=== PATIENT | male | born 1950 | race Caucasian/White ===

== ENCOUNTER → 2017-07-02 10:30 | Outpatient (CLI) | payer MEDICARE, SELFPAY ==
[2017-07-02 12:34] LABS: Cholesterol 172 mg/dL (200); High Density Lipoprotein 30 mg/dL; PSA,Total - Annual Screen 9.34 ng/mL (0.00-4.00); Triglycerides 135 mg/dL; Very Low Density Lipoprotein 27 mg/dL (5-40)
[2017-07-02 12:43] LABS: Hemoglobin A1c 7.8 % (4.2-6.3)
== END ==
PROVIDERS: Family Provider Family Medicine; PCP Family Medicine; Visit Provider Family Medicine
DX: E11.3299 Type 2 diabetes mellitus with mild nonproliferative diabetic retinopathy without macular edema, unspecified eye (principal); E78.5 Hyperlipidemia, unspecified; R97.20 Elevated prostate specific antigen [PSA]
CPT/HCPCS: 36415; 80061; 83036; 84153; G0103

== ENCOUNTER → 2017-08-14 08:56 | Outpatient (CLI) | payer MEDICARE, SELFPAY ==
[2017-08-14 12:23] LABS: PSA,Total- Diagnostic 5.31 ng/mL (0.0-4.0)
== END ==
PROVIDERS: Family Provider Family Medicine; PCP Family Medicine; Visit Provider Urology
DX: R97.20 Elevated prostate specific antigen [PSA] (principal)
CPT/HCPCS: 36415; 84153

== ENCOUNTER → 2018-01-10 13:43 | Outpatient (CLI) | payer MEDICARE, SELFPAY | PROVIDERS: Family Provider Family Medicine; PCP Family Medicine; Visit Provider Orthopaedic Surgery | DX: M25.561 Pain in right knee (principal) | CPT/HCPCS: 73564 ==

== ENCOUNTER → 2018-03-21 08:15 | Outpatient (CLI) | payer MEDICARE, SELFPAY ==
[2018-03-21 12:43] LABS: Absolute Lymphocyte Count 1.55 X10^3/ul (0.83-4.51); Absolute Neutrophil Count 2.9 X10^3/uL (2.0-7.7); Basophil# 0.04 X10^3/uL; Basophil% 0.8 % (0-1); Eosinophil# 0.05 X10^3/uL; Hematocrit 47.8 % (40-54); Hemoglobin 15.8 g/dl (13.0-16.5); Lymphocyte # 1.55 X10^3/ul (4.0); Lymphocyte % 30.2 % (19-41); Mean Corp Hgb Conc 33.1 g/gl (32-36); Mean Corpuscular Hgb 30.5 pg (27.0-32.0); Mean Corpuscular Volume 92.3 fL (80-94); Mean Platelet Vol. 10.3 fl (6.2-12.0); Monocyte# 0.52 X10^3/uL; Monocyte% 10.1 % (0-10); Neutrophil # 2.92 X10^3/uL (2.7-7.7); Neutrophil % 56.7 % (47-70); Platelet Count 173 K/mm3 (150-450); RBC Distribution Width CV 13.6 % (11.6-14.6); RBC Distribution Width SD 44.8 fl (35.1-43.9); Red Blood Count 5.18 M/mm3 (4.6-6.2); White Blood Count 5.1 K/mm3 (4.4-11.0)
[2018-03-21 12:44] LABS: POSITIVE COUNT NO; POSITIVE DIFFERENTIAL NO; POSITIVE MORPHOLOGY NO
[2018-03-21 13:16] LABS: ALB/GLOB Ratio 0.9 RATIO (0.9-2.4); AST(SGOT) 26 U/L (15-37); Alanine Aminotransfer ALT/SGPT 40 U/L (16-61); Albumin, Serum 3.7 g/dL (3.2-5.0); Alkaline Phosphatase 198 U/L (45-117); Anion Gap 6 (5-15); BUN 18 mg/dL (7-18); BUN/Creat Ratio 14.1 RATIO (10-20); Calcium,Total 9.4 mg/dL (8.5-10.1); Chloride 108 mmol/L (98-107); Cholesterol 161 mg/dL (200); Creatinine, Serum 1.28 mg/dL (0.70-1.30); EST Glomerular Filtration Rate 60 mL/min (>60); Est Glom Filt Rate - Afr Amer 72 mL/min (>60); Glucose 114 mg/dL (74-106); High Density Lipoprotein 28 mg/dL; Potassium 4.1 mmol/L (3.5-5.1); Protein, Total 7.7 g/dL (6.4-8.2); Sodium Level 140 mmol/L (136-145); Triglycerides 152 mg/dL; Very Low Density Lipoprotein 30 mg/dL (5-40)
[2018-03-21 13:24] LABS: Hemoglobin A1c 6.6 % (4.2-6.3)
[2018-03-22 08:29] LABS: Microalbumin,Random Urine < 5.0 mg/L (NO RANGE EST.)
== END ==
PROVIDERS: Family Provider Family Medicine; PCP Family Medicine; Visit Provider Family Medicine
DX: E11.3299 Type 2 diabetes mellitus with mild nonproliferative diabetic retinopathy without macular edema, unspecified eye (principal); E78.5 Hyperlipidemia, unspecified; E11.9 Type 2 diabetes mellitus without complications
CPT/HCPCS: 36415; 80053; 80061; 82043; 82570; 83036; 85025

== ENCOUNTER → 2018-12-13 08:05 | Outpatient (CLI) | payer MEDICARE, SELFPAY ==
[2018-12-13 12:40] LABS: Hemoglobin A1c 7.2 % (4.2-6.3)
[2018-12-13 12:41] LABS: ALB/GLOB Ratio 1.1 RATIO (0.9-2.4); AST(SGOT) 22 U/L (15-37); Alanine Aminotransfer ALT/SGPT 31 U/L (16-61); Albumin, Serum 3.7 g/dL (3.2-5.0); Alkaline Phosphatase 227 U/L (45-117); Anion Gap 4 (5-15); BUN 24 mg/dL (7-18); BUN/Creat Ratio 19.4 RATIO (10-20); Calcium,Total 9.2 mg/dL (8.5-10.1); Chloride 110 mmol/L (98-107); Cholesterol 156 mg/dL (200); Creatinine, Serum 1.24 mg/dL (0.70-1.30); EST Glomerular Filtration Rate 62 mL/min (>60); Est Glom Filt Rate - Afr Amer 75 mL/min (>60); Globulin 3.3 g/dL (2.2-4.2); Glucose 106 mg/dL (74-106); High Density Lipoprotein 31 mg/dL; Potassium 3.9 mmol/L (3.5-5.1); Sodium Level 139 mmol/L (136-145); Triglycerides 146 mg/dL; Very Low Density Lipoprotein 29 mg/dL (5-40)
== END ==
PROVIDERS: Family Provider Family Medicine; PCP Family Medicine; Visit Provider Family Medicine
DX: E11.3299 Type 2 diabetes mellitus with mild nonproliferative diabetic retinopathy without macular edema, unspecified eye (principal); E11.9 Type 2 diabetes mellitus without complications
CPT/HCPCS: 36415; 80053; 80061; 83036

== ENCOUNTER → 2018-12-19 08:03 | Outpatient (CLI) | payer MEDICARE, SELFPAY ==
[2018-12-19 13:20] LABS: Microalbumin,Random Urine < 5.0 mg/L (NO RANGE EST.)
== END ==
PROVIDERS: Family Provider Family Medicine; PCP Family Medicine; Visit Provider Family Medicine
DX: E11.9 Type 2 diabetes mellitus without complications (principal)
CPT/HCPCS: 82043; 82570

== ENCOUNTER → 2019-01-29 12:57 | Outpatient (CLI) | payer MEDICARE, SELFPAY ==
[2019-01-29 12:38] VITALS: BMI 31.1
--- NOTE | 2019-01-29 13:00 | RAD_ITS ---
HISTORY:PPainRAD-EXT/JT PPainRAD-EXT/JT COMPARISON: None FINDINGS: # of images incl. paperwork: 4 XR Knee Complete 4 Views or More: Right BONE AND JOINTS: No acute fracture or subluxation. Enthesophytes at the patella. There is also spurring at the patella as well as at the tibial spines SOFT TISSUES: Unremarkable. No radiopaque foreign body. RAD/Knee 4 or More Views IMPRESSION: No acute pathology Patellofemoral joint space narrowing with osteophytes and enthesophytes at the superior and inferior patella at 1845 Reported and signed by: Saskia Singh DO Electronically Signed: Saskia Singh DO at 18:44 EDT Tel , Service support ,
== END ==
PROVIDERS: Family Provider Family Medicine; PCP Family Medicine; Referring Provider Orthopaedic Surgery; Visit Provider Orthopaedic Surgery
DX: M25.561 Pain in right knee (principal)
CPT/HCPCS: 73564

== ENCOUNTER → 2019-05-29 07:03 | Outpatient (CLI) | payer MEDICARE, SELFPAY ==
[2019-05-20 14:22] VITALS: BMI 31.1
--- NOTE | 2019-05-29 07:04 | MRI_ITS ---
STUDY: MRI RIGHT KNEE REASON FOR EXAM: Medial right knee pain for 15 years. TECHNIQUE: Standardized fat and water weighted pulse sequences were obtained in all 3 orthogonal planes. COMPARISON: MRI images 12/30/2014 and radiographs 01/29/2019. FINDINGS: There is interval development of a complex tear of the posterior horn and body of the medial meniscus (proton density sagittal images 29-36; proton density coronal images 13-17). There is peripheral subluxation of the medial meniscus. There is arthrosis of the medial femorotibial compartment with partial thickness chondral loss of the medial femoral condyle (T2 sagittal images 18-20). Normal medial femoral condyle and tibial plateau. Normal medial collateral ligamentous complex (MCL). Normal distal semimembranosus, gracilis and semitendinosus tendons. There is a complex tear of the body/anterior horn of the lateral meniscus (proton density sagittal images 9-15) as on the prior study. There is arthrosis of the lateral femorotibial compartment with a surface osteophyte of the posterior lateral femoral condyle (proton density sagittal image 13) with thinning of the overlying cartilage (T2 sagittal image 8). Normal lateral femoral condyle and tibial plateau. Normal proximal tibiofibular articulation. Normal lateral collateral (fibular) ligament. Normal popliteus tendon. Normal biceps femoris tendon. Normal anterior cruciate ligament (ACL). Normal posterior cruciate ligament (PCL). Normal congruent patellofemoral articulation. There is arthrosis of the patellofemoral compartment with partial thickness chondral loss of the femoral trochlea (T2 axial image 11) and a small chondral fissure of the median ridge of the patella (T2 axial image 9). Normal medial and lateral patellar retinaculum. Normal visualized quadriceps tendon. There is patellar enthesopathy. Normal patellar tendon. Normal Hoffa''s fat pad. There is a very small joint effusion. There is a thin medial patellar plica. The soft tissues are unremarkable. The otherwise visualized osseous structures are unremarkable. MRI/Lower Ext Joint Only (Routine) IMPRESSION: Medial meniscal tear. Chronic lateral meniscal tear. Tricompartmental arthrosis. Very small joint effusion. Electronically Signed: Jaxson Logan MD at 8:50 EST Tel , Service support ,
== END ==
PROVIDERS: Family Provider Family Medicine; PCP Family Medicine; Referring Provider Orthopaedic Surgery; Visit Provider Orthopaedic Surgery
DX: M25.561 Pain in right knee (principal)
CPT/HCPCS: 73721

== ENCOUNTER → 2019-06-17 08:34 | Outpatient (CLI) | payer MEDICARE, SELFPAY ==
[2019-06-05 14:19] VITALS: BMI 31.1
[2019-06-17 12:50] LABS: Absolute Lymphocyte Count 1.44 X10^3/uL (0.83-4.51); Basophil# 0.05 X10^3/uL; Basophil% 0.8 % (0-1); Eosinophil# 0.05 X10^3/uL; Eosinophils% 0.8 % (0-5); Hematocrit 48.1 % (40-54); Hemoglobin 15.9 g/dL (13.0-16.5); Lymphocyte # 1.44 X10^3/ul (4.0); Lymphocyte % 22.9 % (19-41); Mean Corp Hgb Conc 33.1 g/dL (32-36); Mean Corpuscular Hgb 29.7 pg (27.0-32.0); Mean Corpuscular Volume 89.9 fL (80-94); Mean Platelet Vol. 10.3 fl (6.2-12.0); Monocyte# 0.67 X10^3/uL; Monocyte% 10.6 % (0-10); NRBC Flagged by Analyzer 0 % (0-5); Neutrophil # 3.98 X10^3/uL (2.7-7.7); Neutrophil % 63.2 % (47-70); Platelet Count 176 K/mm3 (150-450); RBC Distribution Width CV 13.1 % (11.6-14.6); RBC Distribution Width SD 42.3 fl (35.1-43.9); Red Blood Count 5.35 M/mm3 (4.6-6.2); White Blood Count 6.3 K/mm3 (4.4-11.0)
[2019-06-17 12:55] LABS: Hemoglobin A1c 7.5 % (4.2-6.3)
[2019-06-17 13:00] LABS: Microalbumin:Creatinine Ratio 10.4 mg/g CRE (<30 mg/g CRE)
[2019-06-17 13:10] LABS: ALB/GLOB Ratio 1.1 RATIO (0.9-2.4); AST(SGOT) 19 U/L (15-37); Alanine Aminotransfer ALT/SGPT 32 U/L (16-61); Albumin, Serum 3.8 g/dL (3.2-5.0); Alkaline Phosphatase 193 U/L (45-117); Anion Gap 10 (5-15); BUN 29 mg/dL (7-18); BUN/Creat Ratio 21.5 RATIO (10-20); Calcium,Total 9.7 mg/dL (8.5-10.1); Chloride 114 mmol/L (98-107); Cholesterol 149 mg/dL (200); Creatinine, Serum 1.35 mg/dL (0.70-1.30); EST Glomerular Filtration Rate 56 mL/min (>60); Est Glom Filt Rate - Afr Amer 68 mL/min (>60); Globulin 3.4 g/dL (2.2-4.2); Glucose 161 mg/dL (74-106); High Density Lipoprotein 37 mg/dL; Potassium 4.3 mmol/L (3.5-5.1); Protein, Total 7.2 g/dL (6.4-8.2); Sodium Level 140 mmol/L (136-145); Triglycerides 95 mg/dL; Very Low Density Lipoprotein 19 mg/dL (5-40)
== END ==
PROVIDERS: Family Provider Family Medicine; PCP Family Medicine; Visit Provider Family Medicine
DX: E11.9 Type 2 diabetes mellitus without complications (principal); E78.5 Hyperlipidemia, unspecified; M88.9 Osteitis deformans of unspecified bone; Z51.81 Encounter for therapeutic drug level monitoring
CPT/HCPCS: 36415; 80053; 80061; 82043; 82570; 83036; 85025

== ENCOUNTER → 2019-12-16 08:56 | Outpatient (CLI) | payer MEDICARE, SELFPAY ==
[2019-06-05 14:19] VITALS: BMI 31.1
[2019-12-16 12:24] LABS: Absolute Lymphocyte Count 1.74 X10^3/uL (0.83-4.51); Absolute Neutrophil Count 3.2 X10^3/uL (2.0-7.7); Basophil# 0.05 X10^3/uL; Basophil% 0.9 % (0-1); Eosinophil# 0.11 X10^3/uL; Eosinophils% 1.9 % (0-5); Hematocrit 47.3 % (40-54); Hemoglobin 15.4 g/dL (13.0-16.5); Lymphocyte # 1.74 X10^3/ul (4.0); Lymphocyte % 30.7 % (19-41); Mean Corp Hgb Conc 32.6 g/dL (32-36); Mean Corpuscular Hgb 29.7 pg (27.0-32.0); Mean Corpuscular Volume 91.1 fL (80-94); Mean Platelet Vol. 10.4 fl (6.2-12.0); Monocyte# 0.49 X10^3/uL; Monocyte% 8.6 % (0-10); NRBC Flagged by Analyzer 0 % (0-5); Neutrophil # 3.18 X10^3/uL (2.7-7.7); Neutrophil % 56.1 % (47-70); Platelet Count 156 K/mm3 (150-450); RBC Distribution Width CV 12.5 % (11.6-14.6); RBC Distribution Width SD 41.3 fl (35.1-43.9); Red Blood Count 5.19 M/mm3 (4.6-6.2); White Blood Count 5.7 K/mm3 (4.4-11.0)
[2019-12-16 12:47] LABS: Hemoglobin A1c 7.6 % (3.8-5.6)
[2019-12-16 12:55] LABS: ALB/GLOB Ratio 1.1 RATIO (0.9-2.4); AST(SGOT) 22 U/L (15-37); Alanine Aminotransfer ALT/SGPT 31 U/L (16-61); Albumin, Serum 3.7 g/dL (3.2-5.0); Alkaline Phosphatase 204 U/L (45-117); Anion Gap 4 (5-15); BUN 20 mg/dL (7-18); BUN/Creat Ratio 15.9 RATIO (10-20); Calcium,Total 9.2 mg/dL (8.5-10.1); Chloride 110 mmol/L (98-107); Cholesterol 151 mg/dL (200); Creatinine, Serum 1.26 mg/dL (0.70-1.30); EST Glomerular Filtration Rate 60 mL/min (>60); Est Glom Filt Rate - Afr Amer 73 mL/min (>60); Globulin 3.4 g/dL (2.2-4.2); Glucose 121 mg/dL (74-106); High Density Lipoprotein 28 mg/dL; Protein, Total 7.1 g/dL (6.4-8.2); Sodium Level 142 mmol/L (136-145); Triglycerides 255 mg/dL; Very Low Density Lipoprotein 51 mg/dL (5-40)
[2019-12-16 15:39] LABS: Microalbumin,Random Urine < 5.0 mg/L (NO RANGE EST.)
== END ==
PROVIDERS: PCP Family Medicine; Visit Provider Family Medicine
DX: E11.3299 Type 2 diabetes mellitus with mild nonproliferative diabetic retinopathy without macular edema, unspecified eye (principal); E78.5 Hyperlipidemia, unspecified; M88.9 Osteitis deformans of unspecified bone; Z51.81 Encounter for therapeutic drug level monitoring
CPT/HCPCS: 36415; 80053; 80061; 82043; 82570; 83036; 85025

== ENCOUNTER → 2020-06-16 09:49 | Outpatient (CLI) | payer MEDICARE, SELFPAY ==
[2019-06-05 14:19] VITALS: BMI 31.1
[2020-06-16 12:12] LABS: Absolute Lymphocyte Count 1.46 X10^3/uL (0.83-4.51); Absolute Neutrophil Count 3.4 X10^3/uL (2.0-7.7); Basophil# 0.05 X10^3/uL; Basophil% 0.9 % (0-1); Eosinophil# 0.07 X10^3/uL; Eosinophils% 1.3 % (0-5); Hemoglobin 15.1 g/dL (13.0-16.5); Lymphocyte # 1.46 X10^3/ul (4.0); Lymphocyte % 26.8 % (19-41); Mean Corp Hgb Conc 32.1 g/dL (32-36); Mean Corpuscular Hgb 29.4 pg (27.0-32.0); Mean Corpuscular Volume 91.6 fL (80-94); Mean Platelet Vol. 10.3 fl (6.2-12.0); Monocyte# 0.42 X10^3/uL; Monocyte% 7.7 % (0-10); NRBC Flagged by Analyzer 0 % (0-5); Neutrophil # 3.41 X10^3/uL (2.7-7.7); Neutrophil % 62.7 % (47-70); Platelet Count 175 K/mm3 (150-450); RBC Distribution Width CV 12.7 % (11.6-14.6); RBC Distribution Width SD 42.9 fl (35.1-43.9); Red Blood Count 5.13 M/mm3 (4.6-6.2); White Blood Count 5.4 K/mm3 (4.4-11.0)
[2020-06-16 12:38] LABS: Hemoglobin A1c 8.1 % (3.8-5.6)
[2020-06-16 12:41] LABS: ALB/GLOB Ratio 1.1 RATIO (0.9-2.4); AST(SGOT) 32 U/L (15-37); Alanine Aminotransfer ALT/SGPT 47 U/L (16-61); Albumin, Serum 3.7 g/dL (3.2-5.0); Alkaline Phosphatase 215 U/L (45-117); Anion Gap 3 (5-15); BUN 19 mg/dL (7-18); BUN/Creat Ratio 14.6 RATIO (10-20); Calcium,Total 9.6 mg/dL (8.5-10.1); Chloride 109 mmol/L (98-107); Cholesterol 165 mg/dL (200); EST Glomerular Filtration Rate 58 mL/min (>60); Est Glom Filt Rate - Afr Amer 70 mL/min (>60); Globulin 3.5 g/dL (2.2-4.2); Glucose 137 mg/dL (74-106); High Density Lipoprotein 30 mg/dL; Potassium 4.3 mmol/L (3.5-5.1); Protein, Total 7.2 g/dL (6.4-8.2); Sodium Level 139 mmol/L (136-145); Thyroid Stim Hormone (TSH) 3.26 uIU/mL (0.358-3.74); Triglycerides 267 mg/dL; Very Low Density Lipoprotein 53 mg/dL (5-40)
== END ==
PROVIDERS: PCP Family Medicine; Visit Provider Family Medicine
DX: E11.3299 Type 2 diabetes mellitus with mild nonproliferative diabetic retinopathy without macular edema, unspecified eye (principal); R06.00 Dyspnea, unspecified; E78.5 Hyperlipidemia, unspecified
CPT/HCPCS: 36415; 80053; 80061; 83036; 84443; 85025

== ENCOUNTER → 2020-12-16 09:24 | Outpatient (CLI) | payer MEDICARE, SELFPAY ==
[2019-06-05 14:19] VITALS: BMI 31.1
[2020-12-16 10:15] LABS: Hemoglobin A1c 7.8 % (3.8-5.6)
[2020-12-16 10:17] LABS: ALB/GLOB Ratio 1.1 RATIO (0.9-2.4); AST(SGOT) 26 U/L (15-37); Alanine Aminotransfer ALT/SGPT 41 U/L (16-61); Albumin, Serum 3.9 g/dL (3.2-5.0); Alkaline Phosphatase 225 U/L (45-117); Anion Gap 8 (5-15); BUN 22 mg/dL (7-18); BUN/Creat Ratio 17.3 RATIO (10-20); Calcium,Total 10.2 mg/dL (8.5-10.1); Chloride 109 mmol/L (98-107); Cholesterol 165 mg/dL (200); Creatinine, Serum 1.27 mg/dL (0.70-1.30); EST Glomerular Filtration Rate 60 mL/min (>60); Est Glom Filt Rate - Afr Amer 72 mL/min (>60); Globulin 3.6 g/dL (2.2-4.2); Glucose 161 mg/dL (74-106); High Density Lipoprotein 30 mg/dL; Potassium 4.3 mmol/L (3.5-5.1); Protein, Total 7.5 g/dL (6.4-8.2); Sodium Level 141 mmol/L (136-145); Triglycerides 169 mg/dL; Very Low Density Lipoprotein 34 mg/dL (5-40)
[2020-12-16 10:25] LABS: Microalbumin,Random Urine < 5.0 mg/L (NO RANGE EST.)
== END ==
PROVIDERS: PCP Family Medicine; Referring Provider Family Medicine; Visit Provider Family Medicine
DX: E11.9 Type 2 diabetes mellitus without complications (principal); E78.5 Hyperlipidemia, unspecified
CPT/HCPCS: 36415; 80053; 80061; 82043; 82570; 83036

== ENCOUNTER 2021-06-12 10:17 | Outpatient (CLI) | payer MEDICARE, SELFPAY ==
--- NOTE | 2021-06-12 10:18 | RAD_ITS ---
STUDY: X-RAY CHEST REASON FOR EXAM: Male, 70 years old. Cough TECHNIQUE: PA and lateral views of the chest. COMPARISON: July 28, 2014 rib series FINDINGS: The lungs are clear and expanded. There is no demonstrated pleural abnormality. Normal size heart. Normal mediastinum and katty. Normal visualized pulmonary arteries. Normal visualized aortic arch and descending thoracic aorta. There are diffuse degenerative changes of the visualized thoracic spine. Normal visualized ribs, clavicles, and shoulders. There is no demonstrated abnormality of the visualized soft tissue structures of the upper abdomen. RAD/Chest PA and Lateral IMPRESSION: Degenerative changes, as described above. No demonstrated acute cardiopulmonary process. Electronically Signed: Saskia Tompkins MD at 11:30 [facility] Reading Location ID and State: [facility] / [place] Tel , Service support ,
== END 2021-06-12 23:59 | disposition short-term general hospital (02) ==
PROVIDERS: PCP Family Medicine; Visit Provider Physician Assistant
DX: R05.9 Cough, unspecified (principal)
CPT/HCPCS: 71046

== ENCOUNTER → 2021-12-13 | Outpatient (CLI) | payer MEDICARE, SELFPAY ==
[2021-12-13 09:51] LABS: Absolute Neutrophil Count 2.7 X10^3/uL (2.0-7.7); Basophil# 0.05 X10^3/uL; Eosinophil# 0.08 X10^3/uL; Eosinophils% 1.6 % (0-5); Hematocrit 44.9 % (40-54); Hemoglobin 14.9 g/dL (13.0-16.5); Mean Corp Hgb Conc 33.2 g/dL (32-36); Mean Corpuscular Hgb 30.3 pg (27.0-32.0); Mean Corpuscular Volume 91.3 fL (80-94); Mean Platelet Vol. 10.2 fl (6.2-12.0); Monocyte# 0.52 X10^3/uL; Monocyte% 10.4 % (0-10); NRBC Flagged by Analyzer 0 % (0-5); Neutrophil # 2.72 X10^3/uL (2.7-7.7); Neutrophil % 54.4 % (47-70); Platelet Count 165 K/mm3 (150-450); RBC Distribution Width SD 43.9 fl (35.1-43.9); Red Blood Count 4.92 M/mm3 (4.6-6.2)
[2021-12-13 10:10] LABS: Hemoglobin A1c 8.7 % (3.8-5.6)
[2021-12-13 10:26] LABS: Vitamin D,25 Hydroxy 67.2 ng/mL
[2021-12-13 10:31] LABS: ALB/GLOB Ratio 1.1 RATIO (0.9-2.4); AST(SGOT) 20 U/L (15-37); Alanine Aminotransfer ALT/SGPT 28 U/L (16-61); Albumin, Serum 3.7 g/dL (3.2-5.0); Alkaline Phosphatase 234 U/L (45-117); Anion Gap 7 (5-15); BUN 22 mg/dL (7-18); BUN/Creat Ratio 19.3 RATIO (10-20); Calcium,Total 9.7 mg/dL (8.5-10.1); Chloride 110 mmol/L (98-107); Cholesterol 171 mg/dL (200); Creatinine, Serum 1.14 mg/dL (0.70-1.30); EST Glomerular Filtration Rate 67 mL/min (>60); Est Glom Filt Rate - Afr Amer 81 mL/min (>60); Globulin 3.5 g/dL (2.2-4.2); Glucose 117 mg/dL (74-106); High Density Lipoprotein 35 mg/dL; PSA,Total - Annual Screen 6.82 ng/mL (0.00-4.00); Potassium 3.9 mmol/L (3.5-5.1); Protein, Total 7.2 g/dL (6.4-8.2); Sodium Level 140 mmol/L (136-145); Triglycerides 143 mg/dL; Very Low Density Lipoprotein 29 mg/dL (5-40)
== END | disposition home or self-care (01) ==
PROVIDERS: PCP Family Medicine; Referring Provider Family Medicine; Visit Provider Family Medicine
DX: E11.9 Type 2 diabetes mellitus without complications (principal); E78.5 Hyperlipidemia, unspecified; M88.9 Osteitis deformans of unspecified bone; Z12.5 Encounter for screening for malignant neoplasm of prostate
CPT/HCPCS: 36415; 80053; 80061; 82043; 82306; 82570; 83036; 84153; 85025; G0103

== ENCOUNTER 2022-06-28 19:02 | Inpatient (IN) | payer MEDICARE, SELFPAY ==
[2022-06-28 19:03] VITALS: BP 108/48; PULSE 88; RESP 18; TEMP 35.8; O2SAT 100; BMI 31.1
--- NOTE | 2022-06-28 19:45 | RAD_ITS ---
INDICATION: cough, fever EXAMINATION/TECHNIQUE: X-RAY - XR Chest 1 View COMPARISON: June 12, 2021. FINDINGS: LINES/DEVICES: None. LUNGS: No consolidation, edema or effusion. No pneumothorax. MEDIASTINUM AND CARDIOVASCULAR STRUCTURES: Cardiac silhouette not enlarged. Central airways and mediastinal contour are unremarkable. BONES AND SOFT TISSUES: Degenerative vertebral changes. RAD/Chest 1 View (Portable) IMPRESSION: No radiographic evidence of acute cardiopulmonary disease. Electronically Signed: Jesse Hoffmann DO at 21:14 EST ,
[2022-06-28 19:46] LABS: Absolute Lymphocyte Count 0.56 X10^3/uL (0.83-4.51); Absolute Neutrophil Count 6.3 X10^3/uL (2.0-7.7); Basophil# 0.07 X10^3/uL; Basophil% 0.7 % (0-1); Eosinophil# 1.45 X10^3/uL; Eosinophils% 15.3 % (0-5); Hematocrit 51.1 % (40-54); Hemoglobin 16.9 g/dL (13.0-16.5); Lymphocyte # 0.56 X10^3/ul (0.83-4.51); Lymphocyte % 5.9 % (19-41); Mean Corp Hgb Conc 33.1 g/dL (32-36); Mean Corpuscular Hgb 30.3 pg (27.0-32.0); Mean Corpuscular Volume 91.6 fL (80-94); Mean Platelet Vol. 9.6 fl (6.2-12.0); Monocyte# 0.93 X10^3/uL; Monocyte% 9.8 % (0-10); NRBC Flagged by Analyzer 0 % (0-5); Neutrophil # 6.29 X10^3/uL (2.7-7.7); Neutrophil % 66.5 % (47-70); POSITIVE DIFFERENTIAL YES; POSITIVE MORPHOLOGY YES; Platelet Count 175 K/mm3 (150-450); RBC Distribution Width CV 13.5 % (11.6-14.6); RBC Distribution Width SD 46.2 fl (35.1-43.9); Red Blood Count 5.58 M/mm3 (4.6-6.2); White Blood Count 9.5 K/mm3 (4.4-11.0)
[2022-06-28 20:09] LABS: Differential Indicated SCAN CRITERIA MET
[2022-06-28 20:15] LABS: Anion Gap 18 (5-15); BUN 108 mg/dL (7-18); BUN/Creat Ratio 24.5 RATIO (10-20); Calcium,Total 10.4 mg/dL (8.5-10.1); Chloride 106 mmol/L (98-107); EST Glomerular Filtration Rate 14 mL/min (>60); Est Glom Filt Rate - Afr Amer 17 mL/min (>60); Glucose 391 mg/dL (74-106); Potassium 4.9 mmol/L (3.5-5.1); Sodium Level 135 mmol/L (136-145)
[2022-06-28 20:24] LABS: Differential Comment SCANNED
--- NOTE | 2022-06-28 21:22 | EX.ED.DYSGE1 ---
HPI History of Present Illness Chief Complaint: General Illness Informant: patient Narrative Narrative: Patient presents with just feeling ill. I have a note that states that he has been having periods of confusion and hallucination per his . But she is at home now also. The patient is alert and oriented x3 for me. He states he went to see his doctor last Sunday for routine visit for diabetes checkup. His doctor was happy with what was going on. Evidently no medication changes were done then. He states the next morning which would be Sunday he woke up and he felt ill. He has had muscle aches. He has had occasional congestion. He has had a cough but no productivity and he is not actually short of breath. He states mostly he has no energy at all. He just feels generalized weakness. He had nausea vomiting and diarrhea for the first 3 or 4 days. He states that is getting better but not completely gone. He really is not eating any food. He is drinking fluids. He states he is drinking a lot of fluids because he is urinating a lot and he feels dehydrated. But if he drinks too much fluids at once he will vomit. But if he drinks them slowly throughout the day he can keep them down. He states his is also ill at home. Patient does report that he had a reaction to metformin were his kidneys shut down. This was about 5 or so years ago. He is currently on Invokana, Jardiance, and glipizide. He is also on ramipril. [facility] Medical History Kidney failure Home Medications aspirin 325 mg tablet 325 mg PO DAILY@0800 02/22/15 [History Last Taken 02/19/15] canagliflozin 100 mg tablet 100 mg PO DAILY 02/22/15 [History Last Taken Unknown] folic acid 1 mg tablet 1 mg PO DAILY@0800 02/22/15 [History Last Taken Unknown] glipizide 10 mg tablet 10 mg PO BIDAC 02/22/15 [History Last Taken Unknown] pravastatin 40 mg tablet 40 mg PO DAILY 02/22/15 [History Last Taken Unknown] ramipril 5 mg capsule 5 mg PO DAILY 02/22/15 [History Last Taken 02/25/15] sitagliptin phosphate 100 mg tablet 100 mg PO DAILY 10/12/15 [History Last Taken Unknown] Allergy/AdvReac Type Severity Reaction Status Date / Time metformin Allergy Mild unknown Verified 06/28/22 19:08 gemfibrozil [From Lopid] Allergy Rash Verified 06/28/22 19:08 Social History Smoking Status: Never smoker ROS ROS ED Constitutional Constitutional ED: Reports subjective Eyes Eyes: Denies change in vision ENT ENT ED: Reports rhinorrhea Cardiovascular Cardiovascular: Denies chest pain Respiratory/Chest Respiratory/Chest: Reports cough; Denies dyspnea Gastrointestinal Gastrointestinal: Reports diarrhea, nausea and vomiting; Denies abdominal pain Genitourinary Genitourinary ED: Reports urinary frequency; Denies dysuria Musculoskeletal Musculoskeletal: Reports myalgias Integumentary Denies rash Neurologic Neurologic: Denies headache(s) Endocrine Endocrinology: Reports polydipsia and polyuria Hematologic/Lymphatic Hematologic/Lymphatic: Denies easy bleeding, easy bruising or lymphadenopathy Allergic/Immunologic Allergic/Immunologic ED: Denies urticaria EXAM Physical Exam Narrative Exam Narrative: Patient is awake and alert. He does look dry. But he introduces himself as I walk in the room. He is not toxic. HEENT shows no trauma. He does have very dry mucous membranes. Eyes show no icterus Neck shows no JVD or meningismus Lungs are actually clear. He is breathing easily. No dyspnea. His saturations are about 98% on room air showing no hypoxia. Heart is regular with a rate about 90. No murmur gallop or rub is heard. Pulses are intact. Abdomen is soft and nontender. Extremities show no edema. Neurologic: Patient is alert and oriented to person place time and current events and president [facility]. He is a pretty good informant for his medication. Although he has reports of being confused and hallucinating at home at this time he is fine. My suspicion is depending on fever and other issues such as sleep status and hydration he may be doing worse at times. But I see no focal deficit. Const Vital Signs: 06/28/22 19:03 06/28/22 19:26 06/28/22 21:00 Temperature 96.4 F L Temperature Source Temporal Pulse Rate 88 Respiratory Rate 18 Respiratory Effort Short of Breath Respiratory Pattern Normal Blood Pressure 108/48 L Blood Pressure Mean 68 Pulse Ox 100 Oxygen Delivery Method Room Air Room Air MDM MDM MDM Narrative Medical decision making narrative: My independent interpretation of the patient's single view AP chest x-ray shows no sign of infiltrate. No mediastinal abnormality or cardiomegaly. No pneumothorax. Overall this is a normal film. Radiology reports no radiographic evidence of acute cardiopulmonary disease. Blood work shows normal white count. Hemoglobin is high at 16.9 but this may be due to dehydration. Platelets are normal. Electrolytes show normal sodium. But his bicarb is low at 11 and his anion gap is high. Also his glucose is high at 391. This is likely some component of diabetic ketoacidosis and is probably contributed by being on Invokana and Jardiance along with significant dehydration. He is being treated with IV fluids at this time. I will discuss with the hospitalist if they would like subcu insulin or started on an insulin drip as sometimes these people were reversed quite quickly. He does not have a history of type 1 diabetes or insulin dependence. Patient's BUN and creatinine are markedly elevated with his creatinine over 4 times normal showing a significant acute kidney injury likely related to dehydration. This is also being treated with IV fluids. Calcium is high at 10.4 but should normalize with fluids. I have added urinalysis because of the frequent urination. But this is likely due to his hyperglycemia. I think the patient does need to be admitted. He has tolerated this at home for 8 days. He is really passed the COVID treatment point. But he needs IV fluids and glucose management. Patient was evaluated. I have rechecked him. I discussed case with his is requested. Discussed case with hospitalist. We have added IV fluids. We did start him on an insulin drip. Critical care time of 38 minutes. Lab Data Attestation: I reviewed the patient's lab results. Labs: Laboratory Results - last 24 hr 06/28/22 06/28/22 06/28/22 19:40 19:40 22:05 WBC 9.5 RBC 5.58 Hgb 16.9 H Hct 51.1 MCV 91.6 MCH 30.3 MCHC 33.1 RDW Std Deviation 46.2 H RDW Coeff of Kenyatta 13.5 Plt Count 175 MPV 9.6 Immature Gran % (Auto) 1.800 H Neut % (Auto) 66.5 Lymph % (Auto) 5.9 L [place] % (Auto) 9.8 Eos % (Auto) 15.3 H Baso % (Auto) 0.7 Absolute Neuts (auto) 6.3 Absolute Lymphs (auto) 0.56 L Nucleated RBC % 0 Differential Comment SCANNED Sodium 135 L Potassium 4.9 Chloride 106 Carbon Dioxide 11.0 L Anion Gap 18 H BUN 108 H* Creatinine 4.40 H Estim Creat Clear Calc 15.90 Est GFR (MDRD) Af Amer 17 L Est GFR (MDRD) Non-Af 14 L BUN/Creatinine Ratio 24.5 H Glucose 391 H Calcium 10.4 H POC Glucose 345 H Radiography Diagnostic Testing: Clinical Impression(s) from Imaging Studies Chest X-Ray 06/28/22 19:45 IMPRESSION: No radiographic evidence of acute cardiopulmonary disease. 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
[2022-06-28] MEDS: 0.9% Normal Saline 1,000 ML 999 ML IV (21:30)
[2022-06-28 22:26] LABS: Bedside Glucose 345 mg/dL (74-106)
--- NOTE | 2022-06-28 22:51 | PCM.HP.STD ---
HPI - General General Date of Admission: 06/28/22 Date of Service: 06/28/22 Chief Complaint: n/v/d HPI Narrative MATA MADDOX, is a 71-year-old male with a history of diabetes mellitus type 2 who presented 06/28 to [facility] ED with 8 days of worsening nausea, vomiting, diarrhea, poor p.o. intake. He reports he went to his physician 06/20 and was advised to adjust his diet. He stopped taking his medications routinely however after that given his nausea and vomiting and he felt that they were making him sick. Is also had increased thirst and urination. Has had some possible upper abdominal pain/lower chest pain and that he had a hard time characterizing. Able to answer most questions appropriately but had difficulty with timeline and was a fairly poor historian overall and as per checkout he had been having some confusion and hallucinations prior to presentation. was not at bedside as she is also a patient in the emergency department. Labs obtained in ED demonstrated bicarb of 11 with an anion gap of 18 and glucose 391 additionally has a creatinine of 4.40 despite a baseline close to 1.2. He was given fluids and started on insulin drip and hospitalist contacted for admission. Additionally in the ED he was found to be COVID-positive with suspicion of symptom onset 8 days ago. Upon evaluation patient reports he just feels generally unwell and did endorse the nausea, vomiting, diarrhea and poor p.o. intake with increased thirst and urination. He endorsed he has not been taking his diabetes medications consistently due to feeling sick to his stomach and that he has not been checking his glucose routinely over the past week as well. Has some upper abdominal/lower chest pain which she was unable to further characterize but denied any other problems including shortness of breath or fever, did note that he had previously been having a slight cough but that this was improving. [facility] Medical History Kidney failure Home Medications aspirin 325 mg tablet 325 mg PO DAILY@0800 02/22/15 [History Last Taken 02/19/15] canagliflozin 100 mg tablet 100 mg PO DAILY 02/22/15 [History Last Taken Unknown] folic acid 1 mg tablet 1 mg PO DAILY@0800 02/22/15 [History Last Taken Unknown] glipizide 10 mg tablet 10 mg PO BIDAC 02/22/15 [History Last Taken Unknown] pravastatin 40 mg tablet 40 mg PO DAILY 02/22/15 [History Last Taken Unknown] ramipril 5 mg capsule 5 mg PO DAILY 02/22/15 [History Last Taken 02/25/15] sitagliptin phosphate 100 mg tablet 100 mg PO DAILY 02/22/15 [History Last Taken Unknown] Allergy/AdvReac Type Severity Reaction Status Date / Time metformin Allergy Mild unknown Verified 06/28/22 19:08 gemfibrozil [From Lopid] Allergy Rash Verified 06/28/22 19:08 Social History Smoking Status: Never smoker ROS ROS Narrative General: Denies fever or chills HENT: Denies headache, denies stuffy nose, denies sore throat EYES: Denies changes in vision Resp: Denies cough, denies shortness of breath Cardiac: Some possible lower chest/upper abdominal discomfort GI: Positive nausea, vomiting, diarrhea : Increased thirst and urination Extremity: Denies swelling MSK: General malaise Neuro: Denies any numbness, denies tingling Heme: Denies any bleeding or bruising Skin: Denies rashes Psychiatric: No complaints voiced Vital Signs Vital Signs Vital Signs: 06/28/22 19:03 06/28/22 19:26 Temperature 96.4 F L Temperature Source Temporal Pulse Rate 88 Respiratory Rate 18 Blood Pressure 108/48 L Blood Pressure Mean 68 Pulse Ox 100 Oxygen Delivery Method Room Air Room Air Weight Weight: 98.43 kg Body Mass Index (BMI) 31.1 Physical Exam Narrative General: Alert, was able to answer orientation questions but had difficulty establishing timeline and giving specifics with some of his symptoms HEENT: Atraumatic, normocephalic Eyes: Anicteric, normal conjunctiva, extraocular movements grossly intact Neck: Supple Respiratory: Clear to auscultation bilaterally, normal respiratory effort Cardiovascular: Regular rate and rhythm GI: Soft, did have some epigastric tenderness Extremities: No edema Musculoskeletal: Moving all extremities Neuro: Somewhat tremulous in hands Skin: No rashes appreciated Psych: Cooperative Results Lab / Micro Data Result Diagrams: 06/28/22 19:40 06/28/22 19:40 Labs: Laboratory Results - last 24 hr 06/28/22 19:40: WBC 9.5, RBC 5.58, Hgb 16.9 H, Hct 51.1, MCV 91.6, MCH 30.3, MCHC 33.1, RDW Std Deviation 46.2 H, RDW Coeff of Kenyatta 13.5, Plt Count 175, MPV 9.6, Immature Gran % (Auto) 1.800 H, Neut % (Auto) 66.5, Lymph % (Auto) 5.9 L, [place] % (Auto) 9.8, Eos % (Auto) 15.3 H, Baso % (Auto) 0.7, Absolute Neuts (auto) 6.3, Absolute Lymphs (auto) 0.56 L, Nucleated RBC % 0, Differential Comment SCANNED 06/28/22 19:40: Sodium 135 L, Potassium 4.9, Chloride 106, Carbon Dioxide 11.0 L, Anion Gap 18 H, BUN 108 H*, Creatinine 4.40 H, Estim Creat Clear Calc 15.90, Est GFR (MDRD) Af Amer 17 L, Est GFR (MDRD) Non-Af 14 L, BUN/Creatinine Ratio 24.5 H, Glucose 391 H, Calcium 10.4 H 06/28/22 22:05: POC Glucose 345 H Micro: Microbiology 06/28/22 19:35 Nasal Secretion SARS-CoV-2 & FLU Antigen (Rapid) - Final SARS-CoV-2 (COVID 19) Radiology Impression Chest X-Ray 06/28/22 19:45 IMPRESSION: No radiographic evidence of acute cardiopulmonary disease. Electronically Signed: Jesse Hoffmann DO at 21:14 EST Reading Location ID and State: [facility] / [place] Tel [phone], Service support , Assessment & Plan Assessment/Plan (1) Diabetic keto-acidosis: (2) Acute kidney injury: (3) Dehydration, severe: (4) COVID: PLAN: Plan #presumed DKA in setting of type 2 diabetes mellitus -Secondary to noncompliance and possibly contributed to by underlying COVID-19 infection -Has anion gap of 18 with a glucose of 391 and has not been compliant with his home medications -We will obtain serum acetone as well as UA to assess for ketones as gap in part may be due to uremia -DKA protocol with BMPs every 4, fluids, insulin drip, glucose checks -Admit to ICU -Hemoglobin A1c in the a.m. -Holding home oral medications #High anion gap metabolic acidosis -Bicarb of 11 with an anion gap of 18 in light of a glucose of 391 though additionally has BUN of 108 -ABG pending -Fluids to address underlying renal failure and insulin drip for glucose -Trend BMPs #Acute renal failure/YESI -Likely due to severe hydration from nausea, vomiting, poor p.o. intake as well as hyperglycemia induced diuresis -Trend BMPs and will check urine studies -Continue hydration -If does not improve may need nephrology consult -Monitor I's and O's, patient presently is not hyperkalemic or anuric, not overtly encephalopathic and has no present acute indications for emergent hemodialysis -Hold ramipril #COVID-19 positive -Denies any respiratory complaints and is not hypoxic however has had nausea and vomiting as well as diarrhea which may be secondary to COVID infection -Given not hypoxic in no respiratory distress COVID medications and dexamethasone have not been started but will monitor closely -COVID labs ordered -Project that symptoms started roughly 8 days ago. Meets criteria for isolation precautions -Chest x-ray with no radiographic evidence of pulmonary disease #DVT ppx: Heparin subcu, SCDs Taylor Oreilly MD Time spent in the patient's overall evaluation,decision-making process, review of diagnostic data, adjustment of management, discussion with other providers, nursing nursing and ancillary staff involved in patient's care documentation, 60 Minutes Charges/Coding Visit Charges Inpatient E&M: 24302 Init Hosp L2
[2022-06-28 23:00] VITALS: BP 114/72
[2022-06-28 23:50] LABS: Lipase 2610 U/L (73-393); Magnesium 3.2 mg/dL (1.6-2.6)
[2022-06-29] VITALS (23 sets, daily range): BP systolic 96–149; BP diastolic 40–99; PULSE 74–88; RESP 12–21; TEMP 36.4–36.8; O2SAT 96–100; BMI 29.3
[2022-06-29 00:03] LABS: Osmolality, Serum 347 mOsm/KG (280-301)
[2022-06-29 00:08] LABS: Lactic Acid 1.9 mmol/L (0.4-1.9)
[2022-06-29] MEDS: Dextrose 50%-Water 25 GM/50 ML DISP.SYRIN IV (01:16)
[2022-06-29] MEDS: 0.9% Normal Saline 1,000 ML 999 ML IV (01:18)
[2022-06-29 01:26] LABS: Fibrinogen 563 mg/dl (203-444); International Normalized Ratio 1.3; Prothrombin Time (Protime)PT. 15.6 SECONDS (11.7-14.9)
[2022-06-29 01:34] LABS: Hemoglobin A1c 8.2 % (3.8-5.6)
[2022-06-29 01:39] LABS: Procalcitonin 0.22 ng/mL (0.00-0.09)
[2022-06-29 01:42] LABS: AST(SGOT) 25 U/L (15-37); Alanine Aminotransfer ALT/SGPT 26 U/L (16-61); Albumin, Serum 3.6 g/dL (3.2-5.0); Alkaline Phosphatase 173 U/L (45-117); Anion Gap 15 (5-15); BUN 108 mg/dL (7-18); BUN/Creat Ratio 25.4 RATIO (10-20); Bilirubin, Direct 0.31 mg/dL (0.00-0.30); CPK Total, Creatine Kinase 254 U/L (39-308); Calcium,Total 10.3 mg/dL (8.5-10.1); Chloride 115 mmol/L (98-107); Creatinine, Serum 4.25 mg/dL (0.70-1.30); D-Dimer Quantitative (DVT/PE) 1.44 FEU/ug/m (0.27-0.49); EST Glomerular Filtration Rate 15 mL/min (>60); Est Glom Filt Rate - Afr Amer 18 mL/min (>60); Estimated Creatinine Clearance 15.94 ml/min; Ferritin 510 ng/mL (26-388); Globulin 4.3 g/dL (2.2-4.2); Glucose 69 mg/dL (74-106); LDH 247 U/L (87-241); Potassium 3.9 mmol/L (3.5-5.1); Protein, Total 7.9 g/dL (6.4-8.2); Sodium Level 141 mmol/L (136-145); Troponin-I HS 135 pg/mL (3.0-78.0)
[2022-06-29] MEDS: Dext 5%-0.45% NS 1,000 ML 250 ML IV ×2 (02:08→06:16)
[2022-06-29 02:19] LABS: Phosphorus 4.7 mg/dL (2.5-4.9)
[2022-06-29 02:21] LABS: Allen Test Positive; Base Excess -19 mmol/L (-2 to +2); Bicarbonate 8.7 mmol/L (22-26); Blood Gas Specimen Type ART; FI02 21; O2 Delivery Device Room Air; PO2 99 mmHG (75-100); SITE L Radial; SO2 96 % (95-99); Total Carbon Dioxide 9 mmol/L; pH 7.21 (7.35-7.45)
[2022-06-29 02:26] LABS: Vitamin D,25 Hydroxy 26.6 ng/mL
[2022-06-29 02:30] LABS: Cholesterol 180 mg/dL (200); High Density Lipoprotein 24 mg/dL; Triglycerides 431 mg/dL
[2022-06-29 03:26] LABS: Bedside Glucose 88 mg/dL (74-106)
[2022-06-29 03:26] LABS: Bedside Glucose 67 mg/dL (74-106)
[2022-06-29 03:26] LABS: Bedside Glucose 120 mg/dL (74-106)
[2022-06-29] MEDS: 0.9% Saline Lock 10 ML Syringe IV (04:23)
[2022-06-29 04:43] LABS: Mucous, Urine 0 SEEN /hpf (<or=2+); Squamous Epithelial Cells - UA 0 SEEN /hpf (0-5); White Blood Cells 0 SEEN /hpf (0-5)
[2022-06-29 04:46] LABS: Color, Urine Yellow (Yellow); Glucose, Dipstick 100 mg/dl (Normal); Ketone-Dipstick 5 mg/dl (Negative); Leukocyte Esterase-Dipstick Negative /ul (Negative); Nitrite-Dipstick Negative (Negative); Occult Blood-Urine 250 /ul (Negative); Protein-Dipstick 100 mg/dl (Negative); Specific Gravity, Urine 1.025 (1.002-1.030); Urine Bilirubin Dipstick Negative (Negative); Urine Clarity Clear (Clear); Urine Urobilinogen Normal (Normal)
[2022-06-29 04:54] LABS: Urea Nitrogen, Urine 610 mg/dL (NO RANGE EST.)
[2022-06-29 04:57] LABS: Amorphous Sediment 1+; Bacteria RARE /hpf (None Seen); Red Blood Cells-Urine 0-5 SEEN /hpf (0-5)
[2022-06-29 05:01] LABS: D-Dimer Quantitative (DVT/PE) 1.38 FEU/ug/m (0.27-0.49)
[2022-06-29 05:03] LABS: Osmolality, Urine 377 mOsm/KG
[2022-06-29 05:04] LABS: Urine Chloride < 10 mmol/L (Not Establ.); Urine Sodium 31 mmol/L (Not Establ.)
[2022-06-29 05:07] LABS: Troponin-I HS 170 pg/mL (3.0-78.0)
[2022-06-29 05:12] LABS: Anion Gap 13 (5-15); BUN 109 mg/dL (7-18); BUN/Creat Ratio 26.3 RATIO (10-20); Calcium,Total 9.5 mg/dL (8.5-10.1); Chloride 114 mmol/L (98-107); Creatinine, Serum 4.14 mg/dL (0.70-1.30); EST Glomerular Filtration Rate 15 mL/min (>60); Est Glom Filt Rate - Afr Amer 18 mL/min (>60); Estimated Creatinine Clearance 16.37 ml/min; Ferritin 431 ng/mL (26-388); Glucose 207 mg/dL (74-106); Potassium 4.2 mmol/L (3.5-5.1); Sodium Level 138 mmol/L (136-145)
[2022-06-29 05:45] LABS: Absolute Lymphocyte Count 0.65 X10^3/uL (0.83-4.51); Absolute Neutrophil Count 5.7 X10^3/uL (2.0-7.7); Basophil# 0.05 X10^3/uL; Basophil% 0.6 % (0-1); Hematocrit 44.2 % (40-54); Hemoglobin 14.5 g/dL (13.0-16.5); Lymphocyte # 0.65 X10^3/ul (0.83-4.51); Lymphocyte % 8.4 % (19-41); Mean Corp Hgb Conc 32.8 g/dL (32-36); Mean Corpuscular Volume 91.5 fL (80-94); Mean Platelet Vol. 9.7 fl (6.2-12.0); Monocyte# 1.13 X10^3/uL; Monocyte% 14.5 % (0-10); NRBC Flagged by Analyzer 0 % (0-5); Neutrophil # 5.74 X10^3/uL (2.7-7.7); Neutrophil % 73.9 % (47-70); Platelet Count 119 K/mm3 (150-450); RBC Distribution Width CV 13.5 % (11.6-14.6); RBC Distribution Width SD 45.9 fl (35.1-43.9); Red Blood Count 4.83 M/mm3 (4.6-6.2); White Blood Count 7.8 K/mm3 (4.4-11.0)
--- NOTE | 2022-06-29 05:55 | US_ITS ---
STUDY: RENAL ULTRASOUND - COMPLETE REASON FOR EXAM: Male, 71 years old. Significant julita TECHNIQUE: Ultrasound evaluation of the kidneys was performed with real-time and static winston-scale imaging. COMPARISON: None. FINDINGS: RIGHT KIDNEY: Normal location of the right kidney, which is normal in size. The right kidney measures 11.7 cm x 5.5 cm x 6.2 cm. There is a normal cortex of the right kidney. The renal cortex measures 1.9 cm. There is no right renal mass or cyst. There are no right renal calculi. There is no right hydronephrosis. DISTAL RIGHT URETER: There is non-visualization of the distal right ureter. There is no demonstrated right ureterovesical junction calculus. There is no demonstrated right ureteral jet. LEFT KIDNEY: Normal location of the left kidney, which is normal in size. The left kidney measures 12.1 cm x 4.9 cm x 7.2 cm. There is a normal cortex of the left kidney. The renal cortex measures 2.1 cm. There is no left renal mass or cyst. There are no left renal calculi. There is no left hydronephrosis. DISTAL LEFT URETER: There is non-visualization of the distal left ureter. There is no demonstrated left ureterovesical junction calculus. There is no demonstrated left ureteral jet. BLADDER: The bladder was empty at the time of the examination. US/Kidney and Bladder IMPRESSION: Normal ultrasound of the kidneys. Electronically Signed: Scott Patel MD at 15:09 EST ,
[2022-06-29] MEDS: Heparin Injection (Vial) 5,000 UNIT/ML VIAL 5000 UNIT SC ×3 (06:16→22:10)
[2022-06-29 07:35] LABS: Troponin-I HS 197 pg/mL (3.0-78.0)
[2022-06-29] MEDS: 0.9% Normal Saline 1,000 ML 75 ML IV (08:34)
[2022-06-29 08:36] LABS: Bedside Glucose 196 mg/dL (74-106)
[2022-06-29 08:36] LABS: Bedside Glucose 223 mg/dL (74-106)
[2022-06-29 08:36] LABS: Bedside Glucose 145 mg/dL (74-106)
[2022-06-29 08:36] LABS: Bedside Glucose 238 mg/dL (74-106)
[2022-06-29 08:36] LABS: Bedside Glucose 199 mg/dL (74-106)
--- NOTE | 2022-06-29 08:41 | PN.HOSP_ITS ---
Reason for Visit Reason for Visit: Diagnoses Type 2 diabetes mellitus with ketoacidosis without coma (06/28/22) Dehydration (06/28/22) Acute kidney failure, unspecified (06/28/22) COVID-19 (06/28/22) Subjective Subjective Doing well, no issues overnight. His anion gap is closed Objective Data Objective Data Vital Signs: Vital Signs Temp Pulse Resp BP Pulse Ox O2 Del Method 97.6 F L 74 16 110/60 100 Room Air 06/29/22 04:00 06/29/22 06:00 06/29/22 06:00 06/29/22 06:00 06/29/22 06:00 06/29/22 06:00 Oxygen Delivery Method Room Air Weight: 198 lb 10.184 oz Body Mass Index (BMI) 29.3 Intake & Output: Intake and Output for Last 24 Hours 06/28/22 06/29/22 06/30/22 03:59 03:59 03:59 Intake Total 1833.16 / 1833.16 1499.05 / 1499.05 Output Total 250 / 250 Balance 1833.16 / 1833.16 1249.05 / 1249.05 Lab / Micro Data Result Diagrams: 06/29/22 04:20 06/29/22 04:20 Labs: Laboratory Results - last 24 hr 06/28/22 19:40: WBC 9.5, RBC 5.58, Hgb 16.9 H, Hct 51.1, MCV 91.6, MCH 30.3, MCHC 33.1, RDW Std Deviation 46.2 H, RDW Coeff of Kenyatta 13.5, Plt Count 175, MPV 9.6, Immature Gran % (Auto) 1.800 H, Neut % (Auto) 66.5, Lymph % (Auto) 5.9 L, [place] % (Auto) 9.8, Eos % (Auto) 15.3 H, Baso % (Auto) 0.7, Absolute Neuts (auto) 6.3, Absolute Lymphs (auto) 0.56 L, Nucleated RBC % 0, Differential Comment SCANNED 06/28/22 19:40: Sodium 135 L, Potassium 4.9, Chloride 106, Carbon Dioxide 11.0 L , Anion Gap 18 H, BUN 108 H*, Creatinine 4.40 H, Estim Creat Clear Calc 15.90, Est GFR (MDRD) Af Amer 17 L, Est GFR (MDRD) Non-Af 14 L, BUN/Creatinine Ratio 24.5 H, Glucose 391 H, Calcium 10.4 H 06/28/22 22:05: POC Glucose 345 H 06/28/22 23:23: Magnesium 3.2 H, Lipase 2610 H 06/28/22 23:23: Serum Osmolality 347 H, Acetone Level NEGATIVE 06/28/22 23:23: Lactic Acid 1.9 06/29/22 01:00: B-Natriuretic Peptide 32.0 06/29/22 01:00: PT 15.6 H, INR 1.3, Fibrinogen 563 H, D-Dimer Quant (PE/DVT) 1.44 H* 06/29/22 01:00: Sodium 141, Potassium 3.9, Chloride 115 H, Carbon Dioxide 11.0 L , Anion Gap 15, BUN 108 H*, Creatinine 4.25 H, Estim Creat Clear Calc 15.94, Est GFR (MDRD) Af Amer 18 L, Est GFR (MDRD) Non-Af 15 L, BUN/Creatinine Ratio 25.4 H , Glucose 69 L, Calcium 10.3 H, Ferritin 510 H, Total Bilirubin 0.70, Direct Bilirubin 0.31 H, AST 25, ALT 26, Alkaline Phosphatase 173 H, Lactate Dehydrogenase 247 H, Total Creatine Kinase 254, Troponin I High Sens 135 H*, C- React Prot Ext Range 47.30 H, Total Protein 7.9, Albumin 3.6, Globulin 4.3 H 06/29/22 01:00: Hemoglobin A1c 8.2 H 06/29/22 01:00: Procalcitonin 0.22 H 06/29/22 01:00: Triglycerides 431 H, Cholesterol 180, LDL Cholesterol TNP, VLDL Cholesterol TNP, HDL Cholesterol 24 L 06/29/22 01:00: Phosphorus 4.7 06/29/22 01:00: Vitamin D 25-Hydroxy 26.6 06/29/22 01:01: POC Glucose 67 L 06/29/22 01:35: POC Glucose 120 H 06/29/22 02:05: POC Glucose 88 06/29/22 03:00: POC Glucose 145 H 06/29/22 04:18: POC Glucose 196 H 06/29/22 04:20: Sodium 138, Potassium 4.2, Chloride 114 H, Carbon Dioxide 11.0 L , Anion Gap 13, BUN 109 H*, Creatinine 4.14 H, Estim Creat Clear Calc 16.37, Est GFR (MDRD) Af Amer 18 L, Est GFR (MDRD) Non-Af 15 L, BUN/Creatinine Ratio 26.3 H , Glucose 207 H, Calcium 9.5, Ferritin 431 H, C-React Prot Ext Range 42.30 H 06/29/22 04:20: D-Dimer Quant (PE/DVT) 1.38 H* 06/29/22 04:20: Troponin I High Sens 170 H* 06/29/22 04:20: WBC 7.8, RBC 4.83, Hgb 14.5, Hct 44.2, MCV 91.5, MCH 30.0, MCHC 32.8, RDW Std Deviation 45.9 H, RDW Coeff of [place] 13.5, Plt Count 119 L, MPV 9.7, Immature Gran % (Auto) 2.600 H, Neut % (Auto) 73.9 H, Lymph % (Auto) 8.4 L, [place] % (Auto) 14.5 H, Eos % (Auto) 0.0, Baso % (Auto) 0.6, Absolute Neuts (auto) 5.7, Absolute Lymphs (auto) 0.65 L, Nucleated RBC % 0 06/29/22 04:30: Urine Color Yellow, Urine Clarity Clear, Urine pH 5.0, Ur Specific [place] 1.025, Urine Protein 100 H, Urine Glucose (UA) 100 H, Urine Ketones 5 H, Urine Occult Blood 250 H, Urine Nitrite Negative, Urine Bilirubin Negative, Urine Urobilinogen Normal, Ur Leukocyte Esterase Negative, Urine RBC 0-5 SEEN, Urine WBC 0 SEEN, Ur Squamous Epith Cells 0 SEEN, Amorphous Sediment 1+, Urine Bacteria RARE, Urine Mucus 0 SEEN 06/29/22 04:30: Urine Osmolality 377 06/29/22 04:30: Urine Creatinine 59.20 06/29/22 04:30: Urine Urea Nitrogen 610 06/29/22 04:30: Ur Random Sodium 31, Urine Potassium 37.0, Urine Chloride < 10 06/29/22 05:13: POC Glucose 223 H 06/29/22 06:04: POC Glucose 238 H 06/29/22 07:00: Troponin I High Sens 197 H* 06/29/22 07:05: POC Glucose 199 H Micro: Microbiology 06/28/22 19:35 Nasal Secretion SARS-CoV-2 & FLU Antigen (Rapid) - Final SARS-CoV-2 (COVID 19) ABG Data ABG results: ABG 06/29/22 02:14 Specimen Type ART Sample Site L Radial pH 7.21 L Bicarbonate Actual 8.7 L Total CO2 9 Base Excess -19 L O2 Saturation 96 O2 % 21 ABG pCO2 22.0 L ABG pO2 99 Laz Test Positive O2 Delivery Device Room Air Crit Call To/Read Back Yes Blood Gas Notified Whom Dr Oreilly Radiography Diagnostic Testing: Radiology Impression Chest X-Ray 06/28/22 19:45 IMPRESSION: No radiographic evidence of acute cardiopulmonary disease. Electronically Signed: Jesse Hoffmann DO at 21:14 EST Reading Location ID and State: [facility] / [place] Tel [phone], Service support , Physical Exam Narrative General: Alert, Oriented x3 but mentation appears to be slow, Cooperative, No apparent distress HEENT: Atraumatic, PERRLA, EOMI, Normocephalic Oral: Moist Mucosa Neck: Supple, No JVD Lungs: Clear to auscultation, Normal air movement, No rhonchi, No wheeze, No rales Cardiovascular: Regular rate, Regular Rhythm, Normal S1, Normal S2, No murmurs Abdomen: Soft, Non Tender, Non-Distended, No Hepato-splenomegaly Extremities: No edema, Capillary Refill Less than 3 Seconds Skin: No rashes, No breakdown Musculoskeletal: No Tenderness to Palpation of Joints or Extremities Neurological: Cranial nerves II-XII grossly intact, Motor Exam 5/5 strength throughout, Sensory exam intact to light touch and pain Psych/Mental Status: Normal Affect, Appropriate Assessment & Plan Assessment/Plan (1) Diabetic keto-acidosis: (2) Acute kidney injury: (3) Dehydration, severe: (4) COVID: PLAN: Plan 1. DKA in the setting of type 2 diabetes with a high anion gap metabolic acidosis and YESI ? Renal function is improving was likely secondary to dehydration ? Will continue with Lantus as well as sliding scale insulin ? Accu-Cheks ACHS ? We will allow him to eat but will continue to hold his home medications ? His A1c is 8.2 2. COVID-19 ? He is about 10 days from symptoms/exposure as his is also COVID-positive ? He was having difficulty holding down his food so it is possible that he was having more of the GI symptoms from the COVID and respiratory symptoms ? Because he is not hypoxic we will hold off of any Decadron and remdesivir, given his issues with his blood sugars I would be hesitant to start him on a s teroid 3. HTN/HLD ? We will hold his ramipril given his acute renal failure ? Can wait to restart his pravastatin DVT: Heparin Charges/Coding Visit Charges Inpatient E&M: 23865 Subs Hosp L2
[2022-06-29 08:42] LABS: PTHIN 54.5 pg/mL (18.4-80.1)
[2022-06-29] MEDS: Insulin Lispro 100 UNIT/ML INSULN.PEN SC ×3 (10:21→22:09)
[2022-06-29] MEDS: Insulin Glargine-YFGN 100 UNIT/ML Pen SC (10:21)
[2022-06-29 10:40] LABS: Bedside Glucose 150 mg/dL (74-106)
--- NOTE | 2022-06-29 13:48 | CHAPLAIN ---
Type of Pastoral Visit _x__ Initial Visit ___ Follow-up Visit ___ On-call Visit ___ General Patient Visit ___ Spiritual Assessment ___ Family Conference ___ Bereavement ___ Rapid Response ___ Code Blue ___ Other (describe below) Pastoral Care Referral From ___ Patient _x__ Family ___ Nurse ___ Physician ___ Glass Lathe Operator ___ Printing Plate Maker ___ Other (describe below) Sacrament/Intervention _x__ Active listening ___ Anointing ___ Yarsanism ___ Bereavement ___ Communion ___ Jada exploration ___ ___ Life review _x__ Prayer ___ Reconciliation ___ Sacrament of Sick _x__ Supportive presence ___ Wedding ___ Other (describe below) Pastoral Comments patient is awake and answers questions but also has some difficulty with general conversation and his words are not fully distinguishable; pt does accept visit and welcomes a prayer; pt had lunch tray before him with a little eaten; pt said he is not really hungry for lunch;
--- NOTE | 2022-06-29 16:15 | CASEMGMT ---
RN?CM?U.S. REPRESENTATIVE?CM?to room to meet with patient for initial transition planning/care coordination?assessment.?RN?CM?introduced self and role at [facility].? Pt able to answer some questions, but noted still having some confusion. Pt also stated there were ants on the ceiling. When RN JIM informed him they were dots on the ceiling, he stated, I don't think so, they are moving back and forth. Call placed to pt's and assess completed w/her. She is home and ill w/COVID as well. Care providers, pharmacy, and demographics verified/updated at this time. PCP: Dr Guerra Specialists: Dr Agosto-urology, Dr Shah-EDIE Preferred Pharmacy: [email or web address] Insurance: [facility] Prescription Benefit:?Yes Living Will/HPOA:?Has both LW and HCPOA, who is his , Sue. Son is 1st alternative LNOK: , Sue. Son who lives in [place] Living Arrangements: Lives w/ in one-story home w/basement w/3 steps to enter. 12 steps to the basement. states prior to pt becoming ill this past week he was able to navigate the stairs well and was indep w/ADL's and IADL's and managing his medications. Transportation:?Pt states drives self. does not drive. DME: ?Pt has the following DME:?built-in shower seat, functioning glucometer w/supplies. Pt has but does not use: several walkers, rollator, W/C, quad cane ? states no need for further DME at this time.? HHC/SNF: No hx of either. Discussed discharge planning. asking about if pt can go to a SNF. made aware this would depend on how well pt is doing @ discharge and would require insurance approval. She was made aware PT/OT evals are pending. Also discussed HHC and made aware of [facility]'s homebound requirments. Discussed CCN. states she wants to think about it. RN CM to f/u with tomorrow after therapy evals completed to discuss discharge planning more. She voices appreciation of the info and denies having further questions at this time. PLAN:??TBD by course of treatment and progress w/therapy. Pt is not on insulin @ home. Follow. PT/OT evals pending. Angela BSN?RN?CM
[2022-06-29 17:06] LABS: Bedside Glucose 235 mg/dL (74-106)
[2022-06-29] MEDS: 0.9% Normal Saline 1,000 ML 100 ML IV (20:17)
[2022-06-29 22:35] LABS: Bedside Glucose 224 mg/dL (74-106)
[2022-06-30 02:00] VITALS: BP 145/68; PULSE 88; RESP 16; TEMP 36.6; O2SAT 98
[2022-06-30 03:37] LABS: Absolute Lymphocyte Count 0.45 X10^3/uL (0.83-4.51); Absolute Neutrophil Count 4.3 X10^3/uL (2.0-7.7); Basophil# 0.04 X10^3/uL; Basophil% 0.7 % (0-1); Hematocrit 47.5 % (40-54); Hemoglobin 16.1 g/dL (13.0-16.5); Lymphocyte # 0.45 X10^3/ul (0.83-4.51); Lymphocyte % 7.7 % (19-41); Mean Corp Hgb Conc 33.9 g/dL (32-36); Mean Corpuscular Hgb 30.4 pg (27.0-32.0); Mean Corpuscular Volume 89.6 fL (80-94); Mean Platelet Vol. 10.1 fl (6.2-12.0); Monocyte% 13.7 % (0-10); NRBC Flagged by Analyzer 0 % (0-5); Neutrophil # 4.28 X10^3/uL (2.7-7.7); Neutrophil % 73.1 % (47-70); POSITIVE DIFFERENTIAL YES; Platelet Count 158 K/mm3 (150-450); RBC Distribution Width CV 13.9 % (11.6-14.6); RBC Distribution Width SD 45.9 fl (35.1-43.9); White Blood Count 5.9 K/mm3 (4.4-11.0)
[2022-06-30 03:39] LABS: Differential Indicated SCAN CRITERIA MET
[2022-06-30 04:16] LABS: Anion Gap 9 (5-15); BUN 85 mg/dL (7-18); Calcium,Total 10.6 mg/dL (8.5-10.1); Chloride 126 mmol/L (98-107); EST Glomerular Filtration Rate 19 mL/min (>60); Est Glom Filt Rate - Afr Amer 23 mL/min (>60); Estimated Creatinine Clearance 19.93 ml/min; Glucose 158 mg/dL (74-106); Potassium 4.9 mmol/L (3.5-5.1); Sodium Level 146 mmol/L (136-145)
[2022-06-30 04:27] LABS: Differential Comment SCANNED
[2022-06-30 04:43] LABS: Osmolality, Urine 409 mOsm/KG
[2022-06-30] MEDS: Heparin Injection (Vial) 5,000 UNIT/ML VIAL 5000 UNIT SC ×3 (05:55→21:51)
[2022-06-30 07:05] VITALS: O2SAT 98
[2022-06-30] MEDS: Insulin Lispro 100 UNIT/ML INSULN.PEN SC ×4 (07:36→21:39)
[2022-06-30] MEDS: Dext 5%-0.45% NS 1,000 ML 75 ML IV ×2 (07:40→21:36)
[2022-06-30 08:00] VITALS: BP 147/78; PULSE 93; RESP 20; TEMP 36.7; O2SAT 99
[2022-06-30 08:01] LABS: Bedside Glucose 159 mg/dL (74-106)
--- NOTE | 2022-06-30 08:13 | CASEMGMT ---
Social Work As per initial operational intelligence analyst, pt has LW/POA and will bring in the documents as able. As per pt, Wendy is healthcare POA. JAKE Jaimes
[2022-06-30] MEDS: Insulin Glargine-YFGN 100 UNIT/ML Pen SC (10:58)
--- NOTE | 2022-06-30 11:03 | CASEMGMT ---
ROSALINE FERNANDEZ NOTE: Per therapy, pt ambulating w/minimal assist, but he is still confused and impulsive. Call placed to pt's to inform her and to discuss further discharge planning. She was made aware that pt's insurance would not cover for a SNF stay and that he would not qualify for [facility], as he is not homebound. She voices understanding. Discussed CCN for DM and education and med mgmt. She states the plans are for her and pt to go both to [place] once pt is discharged to stay w/their son and dtr-in-law for awhile, so they can assist w/care as needed until they recover. She was made aware she can f/u with CCN when they return to [place], if interested. She was made aware ROSALINE FERNANDEZ will place CCN Rac card in pt's room for him to take home @ discharge. She voices appreciation. Angela WHITE RN, CM
--- NOTE | 2022-06-30 11:05 | CASEMGMT ---
ROSALINE FERNANDEZ NOTE: Per therapy, pt ambulating w/minimal assist, but he is still confused and impulsive. Call placed to pt's to discuss further discharge planning. She was made aware that pt requiring minimal assist w/ambulation today, but is still confused and impulsive, and is not medically ready for discharge. She voices understanding. She states the plans are for her and pt to go both to [place] once pt is discharged to stay w/their son and dtr-in-law for awhile, so they can assist w/care as needed until they recover. Plan: TBD. JIM to continue to follow pt's progress and therapy to determine safe discharge plan. Angela WHITE RN, CM
[2022-06-30 11:20] LABS: Bedside Glucose 221 mg/dL (74-106)
[2022-06-30 14:00] VITALS: BP 150/75; PULSE 97; RESP 21; TEMP 36.8; O2SAT 98
--- NOTE | 2022-06-30 16:27 | PCM.PN.HOSP ---
Reason for Visit Reason for Visit: Diagnoses Type 2 diabetes mellitus with ketoacidosis without coma (06/28/22) Dehydration (06/28/22) Acute kidney failure, unspecified (06/28/22) COVID-19 (06/28/22) Subjective Subjective Still confused and disoriented but he is making a lot of urine and his renal function has improved Objective Data Objective Data Vital Signs: Vital Signs Temp Pulse Resp BP Pulse Ox O2 Del Method 98.2 F 97 21 H 150/75 H 98 Room Air 06/30/22 14:00 06/30/22 14:00 06/30/22 14:00 06/30/22 14:00 06/30/22 14:00 06/30/22 14:00 Oxygen Delivery Method Room Air Weight: 194 lb 10.691 oz Body Mass Index (BMI) 29.3 Intake & Output: Intake and Output for Last 24 Hours 06/29/22 06/30/22 07/01/22 03:59 03:59 03:59 Intake Total 1833.16 / 1833.16 2469.05 / 2469.05 961.67 / 961.67 Output Total 700 / 700 200 / 200 Balance 1833.16 / 1833.16 1769.05 / 1769.05 761.67 / 761.67 Lab / Micro Data Result Diagrams: 06/30/22 03:05 06/30/22 03:05 Labs: Laboratory Results - last 24 hr 06/29/22 16:42: POC Glucose 235 H 06/29/22 22:09: POC Glucose 224 H 06/30/22 03:05: WBC 5.9, RBC 5.30, Hgb 16.1, Hct 47.5, MCV 89.6, MCH 30.4, MCHC 33.9, RDW Std Deviation 45.9 H, RDW Coeff of Kenyatta 13.9, Plt Count 158, MPV 10.1, Immature Gran % (Auto) 4.800 H, Neut % (Auto) 73.1 H, Lymph % (Auto) 7.7 L, [place] % (Auto) 13.7 H, Eos % (Auto) 0.0, Baso % (Auto) 0.7, Absolute Neuts (auto) 4.3, Absolute Lymphs (auto) 0.45 L, Nucleated RBC % 0, Differential Comment SCANNED 06/30/22 03:05: Sodium 146 H, Potassium 4.9, Chloride 126 H, Carbon Dioxide 11.0 L, Anion Gap 9, BUN 85 H, Creatinine 3.40 H, Estim Creat Clear Calc 19.93, Est GFR (MDRD) Af Amer 23 L, Est GFR (MDRD) Non-Af 19 L, BUN/Creatinine Ratio 25.0 H, Glucose 158 H, Calcium 10.6 H 06/30/22 04:30: Urine Osmolality 409 06/30/22 07:35: POC Glucose 159 H 06/30/22 10:57: POC Glucose 221 H Micro: Microbiology 06/28/22 19:35 Nasal Secretion SARS-CoV-2 & FLU Antigen (Rapid) - Final SARS-CoV-2 (COVID 19) Radiography Diagnostic Testing: Radiology Impression Renal Ultrasound 06/29/22 05:55 IMPRESSION: Normal ultrasound of the kidneys. Electronically Signed: Scott Patel MD at 15:09 EST Reading Location ID and State: [facility] / [place] , Service support , Physical Exam Narrative General: Alert, oriented, Cooperative, No apparent distress HEENT: Atraumatic, PERRLA, EOMI, Normocephalic Oral: Moist Mucosa Neck: Supple, No JVD Lungs: Clear to auscultation, Normal air movement, No rhonchi, No wheeze, No rales Cardiovascular: Regular rate, Regular Rhythm, Normal S1, Normal S2, No murmurs Abdomen: Soft, Non Tender, Non-Distended, No Hepato-splenomegaly Extremities: No edema, Capillary Refill Less than 3 Seconds Skin: No rashes, No breakdown Musculoskeletal: No Tenderness to Palpation of Joints or Extremities Neurological: Moves all of his extremities sensation intact Psych/Mental Status: Flat affect, Appropriate Assessment & Plan Assessment/Plan (1) Diabetic keto-acidosis: (2) Acute kidney injury: (3) Dehydration, severe: (4) COVID: PLAN: Plan 1. DKA in the setting of type 2 diabetes with a high anion gap metabolic acidosis and YESI ? Renal function is improving was likely secondary to dehydration ? Will continue with Lantus as well as sliding scale insulin ?His sodium and chloride are climbing we will transition him to D5W ? He does have quite a few electrolyte derangements and abnormal lab values, if there is no improvement in his electrolytes and renal function by tomorrow may need to get nephrology involved ? Accu-Cheks ACHS ? We will allow him to eat but will continue to hold his home medications ? His A1c is 8.2 2. COVID-19 ? He is about 10 days from symptoms/exposure as his is also COVID-positive ? He was having difficulty holding down his food so it is possible that he was having more of the GI symptoms from the COVID and respiratory symptoms ? Because he is not hypoxic we will hold off of any Decadron and remdesivir, given his issues with his blood sugars I would be hesitant to start him on a steroid 3. HTN/HLD ? We will hold his ramipril given his acute renal failure ? Can wait to restart his pravastatin DVT: Heparin Charges/Coding Visit Charges Inpatient E&M: 36701 Subs Hosp L2
[2022-06-30 21:44] VITALS: BP 141/80; PULSE 111; RESP 20; TEMP 36.6; O2SAT 95
[2022-06-30 22:11] LABS: Bedside Glucose 213 mg/dL (74-106)
[2022-06-30 22:11] LABS: Bedside Glucose 196 mg/dL (74-106)
[2022-07-01] VITALS (18 sets, daily range): BP systolic 91–142; BP diastolic 46–99; PULSE 90–166; RESP 20–32; TEMP 36.6–38.3; O2SAT 94–100
[2022-07-01 03:21] LABS: Hematocrit 52.8 % (40-54); Hemoglobin 17.5 g/dL (13.0-16.5); Mean Corp Hgb Conc 33.1 g/dL (32-36); Mean Corpuscular Volume 90.6 fL (80-94); Mean Platelet Vol. 9.6 fl (6.2-12.0); POSITIVE COUNT YES; POSITIVE DIFFERENTIAL YES; POSITIVE MORPHOLOGY YES; Platelet Count 156 K/mm3 (150-450); RBC Distribution Width CV 14.6 % (11.6-14.6); RBC Distribution Width SD 48.3 fl (35.1-43.9); Red Blood Count 5.83 M/mm3 (4.6-6.2); White Blood Count 6.1 K/mm3 (4.4-11.0)
[2022-07-01 03:25] LABS: Differential Indicated MANUAL DIFF
[2022-07-01 03:48] LABS: ALB/GLOB Ratio 0.6 RATIO (0.9-2.4); AST(SGOT) 29 U/L (15-37); Alanine Aminotransfer ALT/SGPT 29 U/L (16-61); Alkaline Phosphatase 147 U/L (45-117); Anion Gap 10 (5-15); BUN 72 mg/dL (7-18); BUN/Creat Ratio 20.9 RATIO (10-20); Calcium,Total 11.4 mg/dL (8.5-10.1); Chloride 136 mmol/L (98-107); Creatinine, Serum 3.44 mg/dL (0.70-1.30); EST Glomerular Filtration Rate 19 mL/min (>60); Est Glom Filt Rate - Afr Amer 23 mL/min (>60); Globulin 4.7 g/dL (2.2-4.2); Glucose 248 mg/dL (74-106); Potassium 4.1 mmol/L (3.5-5.1); Protein, Total 7.7 g/dL (6.4-8.2); Sodium Level 155 mmol/L (136-145)
[2022-07-01 04:51] LABS: Allen Test Positive; Base Excess -23 mmol/L (-2 to +2); Bicarbonate 5.5 mmol/L (22-26); Blood Gas Specimen Type ART; PO2 99 mmHG (75-100); SITE R Radial; SO2 96 % (95-99); Total Carbon Dioxide 6 mmol/L
--- NOTE | 2022-07-01 05:46 | CPS ---
critical ABG values, Dr. Oreilly aware.
[2022-07-01] MEDS: Heparin Injection (Vial) 5,000 UNIT/ML VIAL 5000 UNIT SC ×3 (06:25→22:10)
[2022-07-01] MEDS: Insulin Lispro 100 UNIT/ML INSULN.PEN SC ×4 (06:30→22:10)
[2022-07-01 06:31] LABS: Lymphocyte 8 % (19-41); Metamyelocyte 3 % (0-1); Monocyte 16 % (0-10); Neutrophil-Band 4 % (0-5); Neutrophil-Segmented 69 % (47-70); Platelet Estimate ADEQUATE (ADEQ); Total Cells Counted 100 (MANUAL DIFF)
[2022-07-01 06:32] LABS: Absolute Lymphocyte Count 0.49 X10^3/uL (0.83-4.51); Absolute Neutrophil Count 4.5 X10^3/uL (2.0-7.7); Lymphocyte # 0.49 X10^3/ul (0.83-4.51); Neutrophil # 4.47 X10^3/uL (2.7-7.7); Red Cell Morphology NORM C+C NORMAL (NORM C&C)
[2022-07-01 07:10] LABS: Bedside Glucose 325 mg/dL (74-106)
[2022-07-01 07:15] LABS: Lactic Acid 1.5 mmol/L (0.4-1.9)
[2022-07-01 07:44] LABS: Osmolality, Serum 363 mOsm/KG (280-301)
[2022-07-01 09:04] LABS: Urea Nitrogen, Urine 638 mg/dL (NO RANGE EST.); Urine Chloride 37 mmol/L (Not Establ.); Urine Sodium 48 mmol/L (Not Establ.)
[2022-07-01 09:17] LABS: Osmolality, Urine 437 mOsm/KG
--- NOTE | 2022-07-01 10:00 | PN.HOSP_ITS ---
Reason for Visit Reason for Visit: Diagnoses Type 2 diabetes mellitus with ketoacidosis without coma (06/28/22) Dehydration (06/28/22) Acute kidney failure, unspecified (06/28/22) COVID-19 (06/28/22) Subjective Subjective Still confused and disoriented no new issues overnight we will place a [place] for more accurate I's and O's Objective Data Objective Data Vital Signs: Vital Signs Temp Pulse Resp BP Pulse Ox O2 Del Method 97.9 F 117 H 23 H 111/76 96 Room Air 07/01/22 04:00 07/01/22 04:00 07/01/22 04:00 07/01/22 04:00 07/01/22 04:00 07/01/22 08:44 Oxygen Delivery Method Room Air Weight: 188 lb 14.978 oz Body Mass Index (BMI) 29.3 Intake & Output: Intake and Output for Last 24 Hours 06/30/22 07/01/22 07/02/22 03:59 03:59 03:59 Intake Total 2469.05 / 2469.05 1961.67 / 1961.67 492.5 / 492.5 Output Total 700 / 700 200 / 200 Balance 1769.05 / 1769.05 1761.67 / 1761.67 492.5 / 492.5 Lab / Micro Data Result Diagrams: 07/01/22 03:05 07/01/22 03:05 Labs: Laboratory Results - last 24 hr 06/30/22 10:57: POC Glucose 221 H 06/30/22 16:01: POC Glucose 213 H 06/30/22 21:38: POC Glucose 196 H 07/01/22 03:05: WBC 6.1, RBC 5.83, Hgb 17.5 H, Hct 52.8, MCV 90.6, MCH 30.0, MCHC 33.1, RDW Std Deviation 48.3 H, RDW Coeff of [place] 14.6, Plt Count 156, MPV 9.6, Neut % (Auto) Not Reportable, Absolute Neuts (auto) 4.5, Absolute Lymphs (auto) 0.49 L, Total Counted 100, Neutrophils % (Manual) 69, Band Neutrophils % 4, Lymphocytes % (Manual) 8 L, Monocytes % (Manual) 16 H, Metamyelocytes % 3 H, Diff Path Review May foll, Platelet Estimate ADEQUATE, RBC Morphology NORM C+C 07/01/22 03:05: Sodium 155 H, Potassium 4.1, Chloride 136 H*, Carbon Dioxide 9.0 L*, Anion Gap 10, BUN 72 H, Creatinine 3.44 H, Estim Creat Clear Calc 19.70, Est GFR (MDRD) Af Amer 23 L, Est GFR (MDRD) Non-Af 19 L, BUN/Creatinine Ratio 20.9 H , Glucose 248 H, Calcium 11.4 H, Total Bilirubin 0.70, AST 29, ALT 29, Alkaline Phosphatase 147 H, Total Protein 7.7, Albumin 3.0 L, Globulin 4.7 H, Albumin/Globulin Ratio 0.6 L 07/01/22 06:30: POC Glucose 325 H 07/01/22 06:42: Serum Osmolality 363 H 07/01/22 06:42: Lactic Acid 1.5 07/01/22 08:25: Urine Osmolality 437, Ur Random Sodium 48, Urine Creatinine 57.60, Urine Potassium 31.0, Urine Chloride 37, Urine Urea Nitrogen 638 07/01/22 08:25: Urine Potassium Cancelled Micro: Microbiology 06/28/22 19:35 Nasal Secretion SARS-CoV-2 & FLU Antigen (Rapid) - Final SARS-CoV-2 (COVID 19) ABG Data ABG results: ABG 07/01/22 04:43 Specimen Type ART Sample Site R Radial pH 7.20 L Bicarbonate Actual 5.5 L Total CO2 6 Base Excess -23 L O2 Saturation 96 ABG pCO2 14.0 L* ABG pO2 99 Laz Test Positive Crit Call To/Read Back Yes Radiography Diagnostic Testing: Radiology Impression Renal Ultrasound 06/29/22 05:55 IMPRESSION: Normal ultrasound of the kidneys. Electronically Signed: Scott Patel MD at 15:09 EST , Physical Exam Narrative General: Alert, confused, Cooperative, No apparent distress HEENT: Atraumatic, PERRLA, EOMI, Normocephalic Oral: Moist Mucosa Neck: Supple, No JVD Lungs: Diminished, Normal air movement, No rhonchi, No wheeze, No rales Cardiovascular: Regular rate, Regular Rhythm, Normal S1, Normal S2, No murmurs Abdomen: Soft, Non Tender, Non-Distended, No Hepato-splenomegaly Extremities: No edema, Capillary Refill Less than 3 Seconds Skin: Some discoloration around his knees not consistent with erythema or infection Musculoskeletal: No Tenderness to Palpation of Joints or Extremities Neurological: Moves all of his extremities sensation intact Psych/Mental Status: Flat affect, Appropriate Assessment & Plan Assessment/Plan (1) Diabetic keto-acidosis: (2) Acute kidney injury: (3) Dehydration, severe: (4) COVID: PLAN: Plan 1. DKA in the setting of type 2 diabetes with a high anion gap metabolic acidosis and YESI/hypernatremia and hyperchloremia with possible hyperchloremic metabolic acidosis with incomplete compensation ? 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 The metabolic acidosis may be hyperchloremic in nature ? Continue with D5W ? Accu-Cheks ACHS ? His A1c is 8.2 2. COVID-19?noncontributory 3. HTN/HLD ? We will hold his ramipril given his acute renal failure ? Can wait to restart his pravastatin DVT: Heparin Charges/Coding Visit Charges Inpatient E&M: 29284 Subs Hosp L2
--- NOTE | 2022-07-01 10:05 | CON.PCM.CC_ITS ---
Assessment & Plan Assessment/Plan (1) Diabetic keto-acidosis: (2) Hypernatremia: (3) Hyperchloremic metabolic acidosis: PLAN: Plan RECOMMENDATIONS: 1. Continue basal insulin with sliding scale 2. Obtain BMP to evaluate for sodium correction rate 3. Obtain UA, culture and start empiric antibiotics 4. Delirium protocol IMPRESSIONS: 1. DKA in the setting of type 2 diabetes mellitus Patient on insulin drip initially. Patient subsequently transitioned to basal insulin. However, patient has developed significant hypernatremia and hyperchloremia, likely secondary to resuscitation with only marginal improvements in renal function. We will continue with basal insulin and sliding scale. 2. Acute kidney injury on CKD stage IIa Patient with significant elevation of creatinine on presentation. Likely secondary to problem #1. However, patient has not responded to fluid resuscitation well. Patient currently on D5W but has good urine output. Patient now noted to have fever and hematuria. Unclear if this is related to Yarbrough placement, but will obtain a UA, urine culture and start empiric antibiotics pending cultures. No indication for emergent hemodialysis. Acute kidney injury likely has an element of ATN given dehydration and concomitant BEBE inhibitor. An element of fever may be from previous COVID-19 infection. 3. Hyperchloremic metabolic acidosis/hypernatremia ABG this morning is showing a profound metabolic acidosis with partial respiratory compensation. Likely multifactorial with hyperchloremia and renal failure. We will hold on a bicarbonate drip at this time, but this may be necessary moving forward. Will obtain a repeat BMP to see how quickly the sodium is correcting. Sodium corrected to 142 on presentation and patient did receive significant normal saline resuscitation. We will attempt to treat with free water, but have to be sure that this is done at the correct rate. Patient is appropriately tachypneic and does not require additional respiratory support at this time. 4. Metabolic encephalopathy/delirium Multiple possible etiologies for delirium at this time. Patient does have acute kidney injury, hypernatremia and hyperchloremia. We will attempt to address electrolytes and see if mentation improves. 5. COVID-19/hyperlipidemia/hypertension/advanced age Complicates care, management, recovery and prognosis. Okay to continue statin, but BEBE inhibitor will need to be held secondary to kidney issues. Holding baseline hyperglycemic medications in favor of basal insulin with sliding scale for now. TIME: 32 minutes critical care time spent addressing patient's DKA, acute kidney injury, metabolic acidosis, delirium, review of all data and collaboration with care team HPI Consult Data Date of Consult: 07/01/22 HPI Narrative Reason for Consultation: Hypernatremia HPI Narrative: MATA MADDOX is a 71 M, with past medical history listed below, who presented to [facility] on 06/28/2022 secondary to having periods of confusion and hallucination. Patient reportedly had seen his physician on the week prior for diabetes checkup was thought to be doing in good control. However, the next morning patient woke up feeling ill with muscle aches and occasional congestion. Patient did have a nonproductive cough and generalized weakness. Patient reportedly had been drinking a lot of fluids secondary to feeling dehydrated. Patient does take Invokana Jardiance and glipizide at baseline. In the ER, patient was afebrile, normotensive and saturating well on room air. Laboratory work-up showed a white blood cell count of 9.5, hemoglobin of 16.9 and platelets of 175. Chemistries showed a creatinine of 4.4, BUN of 108 and sodium of 135. Patient did have an anion gap of 18 and a glucose of 391. Chest x-ray showed no acute infiltrates. Patient was given IV fluids and initiated on insulin drip. Patient was transferred to the intensive care unit for further evaluation. Patient was treated with a normal DKA protocol and was transition to subcu insulin. However, patient has had significant electrolyte abnormalities and remains confused, so a pulmonary consult was obtained. Patient was transitioned to D5 half-normal saline yesterday and D5W today. Patient is not able to provide any additional history at this time. Patient did have an ABG earlier in the day showing a severe metabolic acidosis with partial respiratory compensation and a normal AA gradient. Patient had not had a documented fever, but after insertion of a core temp Yarbrough, patient was noted to have a temperature of 38.1 ?C. Unable to obtain review of systems secondary to patient's mental status [facility] Medical History Kidney failure Home Medications aspirin 325 mg tablet 325 mg PO DAILY@0800 02/22/15 [History Last Taken 02/19/15] canagliflozin 100 mg tablet 100 mg PO DAILY 02/22/15 [History Last Taken Unknown] folic acid 1 mg tablet 1 mg PO DAILY@0800 02/22/15 [History Last Taken Unknown] glipizide 10 mg tablet 10 mg PO BIDAC 02/22/15 [History Last Taken Unknown] pravastatin 40 mg tablet 40 mg PO DAILY 02/22/15 [History Last Taken Unknown] ramipril 5 mg capsule 5 mg PO DAILY 02/22/15 [History Last Taken 02/25/15] sitagliptin phosphate 100 mg tablet 100 mg PO DAILY 02/22/15 [History Last Taken Unknown] Allergy/AdvReac Type Severity Reaction Status Date / Time metformin Allergy Mild unknown Verified 06/28/22 19:08 gemfibrozil [From Lopid] Allergy Rash Verified 06/28/22 19:08 Social History Smoking Status: Never smoker ROS Review of Systems ROS Unobtainable: due to mental status Physical Exam Const alert Constitutional Narrative: Confused. Rolling around bed and attempting to pull at Yarbrough. General Appearance: Negative for cooperative HEENT normocephalic and head/scalp atraumatic HEENT Narrative: Dry mucous membranes Eyes PERRL and EOMs intact bilaterally Eyes Narrative: Scleral injection noted Neck full ROM and supple Chest inspection of chest normal Resp Effort and Inspection: tachypneic Auscultation: clear to auscultation bilaterally; Negative for rales, rhonchi or wheezes Cardio regular rhythm, S1 normal heart sound, S2 normal heart sound, no murmurs, no rub and no gallops Rate: tachycardic GI normal to inspection, nondistended, normoactive bowel sounds Extremity no clubbing, cyanosis or edema Skin Skin Narrative: Mottling noted of bilateral knees. Neuro moves all extremities and no focal motor deficits Neuro Narrative: Confused. Not cooperative with exam. Psych Activity / Motor Behavior: restless Mood & Affect: anxious Medical Records Data Attestation: I reviewed the patient's medical records Lab / Micro Data Attestation: I reviewed the patient's lab results. Result Diagrams: 07/01/22 03:05 07/01/22 03:05 Labs: Laboratory Results - last 24 hr 06/30/22 10:57: POC Glucose 221 H 06/30/22 16:01: POC Glucose 213 H 06/30/22 21:38: POC Glucose 196 H 07/01/22 03:05: WBC 6.1, RBC 5.83, Hgb 17.5 H, Hct 52.8, MCV 90.6, MCH 30.0, MCHC 33.1, RDW Std Deviation 48.3 H, RDW Coeff of Kenyatta 14.6, Plt Count 156, MPV 9.6, Neut % (Auto) Not Reportable, Absolute Neuts (auto) 4.5, Absolute Lymphs (auto) 0.49 L, Total Counted 100, Neutrophils % (Manual) 69, Band Neutrophils % 4, Lymphocytes % (Manual) 8 L, Monocytes % (Manual) 16 H, Metamyelocytes % 3 H, Diff Path Review September, Platelet Estimate ADEQUATE, RBC Morphology NORM C+C 07/01/22 03:05: Sodium 155 H, Potassium 4.1, Chloride 136 H*, Carbon Dioxide 9.0 L*, Anion Gap 10, BUN 72 H, Creatinine 3.44 H, Estim Creat Clear Calc 19.70, Est GFR (MDRD) Af Amer 23 L, Est GFR (MDRD) Non-Af 19 L, BUN/Creatinine Ratio 20.9 H , Glucose 248 H, Calcium 11.4 H, Total Bilirubin 0.70, AST 29, ALT 29, Alkaline Phosphatase 147 H, Total Protein 7.7, Albumin 3.0 L, Globulin 4.7 H, Albumin/Globulin Ratio 0.6 L 07/01/22 06:30: POC Glucose 325 H 07/01/22 06:42: Serum Osmolality 363 H 07/01/22 06:42: Lactic Acid 1.5 07/01/22 08:25: Urine Osmolality 437, Ur Random Sodium 48, Urine Creatinine 57.60, Urine Potassium 31.0, Urine Chloride 37, Urine Urea Nitrogen 638 07/01/22 08:25: Urine Potassium Cancelled ABG Data ABG results: ABG 07/01/22 04:43 Specimen Type ART Sample Site R Radial pH 7.20 L Bicarbonate Actual 5.5 L Total CO2 6 Base Excess -23 L O2 Saturation 96 ABG pCO2 14.0 L* ABG pO2 99 Laz Test Positive Crit Call To/Read Back Yes Attestation: I personally reviewed and interpreted this ABG as follows: (See HPI) Rhythm Strip Rhythm Strip: Sinus Tach Rate: 117 Radiology Impression Renal Ultrasound 06/29/22 05:55 IMPRESSION: Normal ultrasound of the kidneys. Electronically Signed: Scott Patel MD at 15:09 EST , Charges/Coding Procedures Hospitalists Procedures: [id number] Critial Care 1st Hr
[2022-07-01] MEDS: Ceftriaxone 1 GM/50 ML BAG IV (10:40)
[2022-07-01] MEDS: Insulin Glargine-YFGN 100 UNIT/ML Pen 15 UNIT SC (10:45)
[2022-07-01 11:15] LABS: Bedside Glucose 182 mg/dL (74-106)
[2022-07-01 11:52] LABS: Anion Gap 9 (5-15); BUN 70 mg/dL (7-18); BUN/Creat Ratio 19.7 RATIO (10-20); Chloride 141 mmol/L (98-107); Creatinine, Serum 3.55 mg/dL (0.70-1.30); EST Glomerular Filtration Rate 18 mL/min (>60); Est Glom Filt Rate - Afr Amer 22 mL/min (>60); Estimated Creatinine Clearance 19.09 ml/min; Glucose 215 mg/dL (74-106); Sodium Level 157 mmol/L (136-145)
[2022-07-01] MEDS: Metoprolol Tartrate 5 MG/5 ML Vial IV (16:12)
[2022-07-01 16:36] LABS: Bedside Glucose 313 mg/dL (74-106)
--- NOTE | 2022-07-01 19:32 | PCM.CONS.R ---
Assessment & Plan Assessment/Plan (1) Acute kidney injury: (2) Hyperchloremic metabolic acidosis: (3) Hypernatremia: PLAN: Plan Impression/Plan: The patient is a 71-year-old man with past history of type 2 diabetes mellitus, hypertension, and hyperlipidemia. The patient was admitted to the hospital on 06/28/2022 with DKA. Nephrology is consulted for YESI, hypercalcemia, hypernatremia, and metabolic acidosis. Acute kidney injury. The most recent serum creatinine prior to this admission was 1.14 mg/dL on 12/13/2021. Prior serum creatinine has been between 1.2 to 1.3 mg/dL since 2019. YESI is most likely due to volume depletion causing prerenal YESI. Prerenal YESI could have also progressed to ischemic ATN as well. Agree with volume expansion. Since the patient is still hemodynamically stable, okay to continue current IV fluid with D5W in the face of hypernatremia. I will recheck renal function again tonight and in a.m. Metabolic acidosis. There is no significant anion gap to suggest the patient is still in DKA. I will recheck serum bicarbonate level again tonight. Serum bicarbonate level has worsened today instead of getting better. There has been no diarrhea to suggest GI loss of bicarbonate. If repeat serum bicarbonate level is still not improved, I will check urine anion gap. Hypernatremia. Still suspect that hyponatremia is due to to dehydration rather than other causes such as diabetes insipidus. The patient has been incontinent per my discussion with RN. I will recheck serum sodium again tonight. I agree with using D5W to rehydrate the patient. We will help adjust D5W rate as appropriate. Fortunately, there is very little risk for cerebral edema even will be correct hypernatremia by 1 mmol/L/h. Hypercalcemia. The patient presented to the hospital with serum calcium of 10.4. Calcium level is most recently 11.0 mg/dL this morning. If hypercalcemia persists tomorrow, I would recommend checking PTH level. HPI Consult Data Date of Consult: 07/01/22 HPI Narrative Reason for Consultation: Hypernatremia HPI Narrative: The patient is a 71-year-old man with past history of type 2 diabetes mellitus, hypertension, and hyperlipidemia. The patient presented to the hospital on 06/28/2022 with 1 week history of nausea, vomiting, and diarrhea. The patient was diagnosed with DKA. Nephrology was asked see the patient because of YESI, acidosis, and hypernatremia. The patient presented to the hospital with serum creatinine of 4.40 mg/dL. Most recent serum creatinine prior to admission from 12/13/2021 was 1.14 mg/dL. The patient also had worsening acidosis. He presented with serum bicarbonate level of 11 mmol/L. Serum bicarbonate level from from today is worse at 7 mmol/L at 11 AM. The patient cannot provide any history when I visited. He is obtunded. He was able to be aroused but falls asleep quickly. [facility] Medical History Kidney failure Home Medications aspirin 325 mg tablet 325 mg PO DAILY@0800 02/22/15 [History Last Taken 02/19/15] canagliflozin 100 mg tablet 100 mg PO DAILY 02/22/15 [History Last Taken Unknown] folic acid 1 mg tablet 1 mg PO DAILY@0800 02/22/15 [History Last Taken Unknown] glipizide 10 mg tablet 10 mg PO BIDAC 02/22/15 [History Last Taken Unknown] pravastatin 40 mg tablet 40 mg PO DAILY 02/22/15 [History Last Taken Unknown] ramipril 5 mg capsule 5 mg PO DAILY 02/22/15 [History Last Taken 02/25/15] sitagliptin phosphate 100 mg tablet 100 mg PO DAILY 02/22/15 [History Last Taken Unknown] Allergy/AdvReac Type Severity Reaction Status Date / Time metformin Allergy Mild unknown Verified 06/28/22 19:08 gemfibrozil [From Lopid] Allergy Rash Verified 06/28/22 19:08 Social History Smoking Status: Never smoker ROS ROS Narrative ROS is unable to be obtained because of his mental status. Physical Exam Narrative General: Ill-appearing man. HEENT: Normocephalic, atraumatic. Mucous membranes dry. PERRLA. Neck: No JVD. Neck is supple. Cardiovascular:Normal S1, S2. No rubs, murmurs or gallops. Lungs: Clear to auscultation anteriorly. The patient is using accessory muscles to breathe. He has Kussmaul breathing. Abdomen: Normal bowel sound, soft, nontender, no guarding or rebound. Extremities: No clubbing, cyanosis, or edema. Musculoskeletal: Full passive range of motion, no joint swelling. Neurologic: Obtunded, no focal neurologic deficits. Skin: Warm and dry. No rash. Lab / Micro Data Result Diagrams: 07/01/22 03:05 07/01/22 11:00 Labs: Laboratory Results - last 24 hr 06/30/22 16:01: POC Glucose 213 H 06/30/22 21:38: POC Glucose 196 H 07/01/22 03:05: WBC 6.1, RBC 5.83, Hgb 17.5 H, Hct 52.8, MCV 90.6, MCH 30.0, MCHC 33.1, RDW Std Deviation 48.3 H, RDW Coeff of Kenyatta 14.6, Plt Count 156, MPV 9.6, Neut % (Auto) Not Reportable, Absolute Neuts (auto) 4.5, Absolute Lymphs (auto) 0.49 L, Total Counted 100, Neutrophils % (Manual) 69, Band Neutrophils % 4, Lymphocytes % (Manual) 8 L, Monocytes % (Manual) 16 H, Metamyelocytes % 3 H, Diff Path Review May foll, Platelet Estimate ADEQUATE, RBC Morphology NORM C+C 07/01/22 03:05: Sodium 155 H, Potassium 4.1, Chloride 136 H*, Carbon Dioxide 9.0 L*, Anion Gap 10, BUN 72 H, Creatinine 3.44 H, Estim Creat Clear Calc 19.70, Est GFR (MDRD) Af Amer 23 L, Est GFR (MDRD) Non-Af 19 L, BUN/Creatinine Ratio 20.9 H, Glucose 248 H, Calcium 11.4 H, Total Bilirubin 0.70, AST 29, ALT 29, Alkaline Phosphatase 147 H, Total Protein 7.7, Albumin 3.0 L, Globulin 4.7 H, Albumin/Globulin Ratio 0.6 L 07/01/22 06:30: POC Glucose 325 H 07/01/22 06:42: Serum Osmolality 363 H 07/01/22 06:42: Lactic Acid 1.5 07/01/22 08:25: Urine Osmolality 437, Ur Random Sodium 48, Urine Creatinine 57.60, Urine Potassium 31.0, Urine Chloride 37, Urine Urea Nitrogen 638 07/01/22 08:25: Urine Potassium Cancelled 07/01/22 10:15: Sodium Cancelled, Potassium Cancelled, Chloride Cancelled, Carbon Dioxide Cancelled, Anion Gap Cancelled, BUN Cancelled, Creatinine Cancelled, Estim Creat Clear Calc Cancelled, Est GFR (MDRD) Af Amer Cancelled, Est GFR (MDRD) Non-Af Cancelled, BUN/Creatinine Ratio Cancelled, Glucose Cancelled, Calcium Cancelled 07/01/22 10:44: POC Glucose 182 H 07/01/22 11:00: Sodium 157 H, Potassium 4.0, Chloride 141 H*, Carbon Dioxide 7.0 L*, Anion Gap 9, BUN 70 H, Creatinine 3.55 H, Estim Creat Clear Calc 19.09, Est GFR (MDRD) Af Amer 22 L, Est GFR (MDRD) Non-Af 18 L, BUN/Creatinine Ratio 19.7, Glucose 215 H, Calcium 11.0 H 07/01/22 16:16: POC Glucose 313 H ABG Data ABG results: ABG 07/01/22 04:43 Specimen Type ART Sample Site R Radial pH 7.20 L Bicarbonate Actual 5.5 L Total CO2 6 Base Excess -23 L O2 Saturation 96 ABG pCO2 14.0 L* ABG pO2 99 Laz Test Positive Crit Call To/Read Back Yes Rhythm Strip Rhythm Strip: Sinus Tach Rate: 117
[2022-07-01 20:52] LABS: Albumin, Serum 2.8 g/dL (3.2-5.0); BUN 76 mg/dL (7-18); BUN/Creat Ratio 16.9 RATIO (10-20); Calcium,Total 11.1 mg/dL (8.5-10.1); Chloride 139 mmol/L (98-107); Creatinine, Serum 4.51 mg/dL (0.70-1.30); EST Glomerular Filtration Rate 14 mL/min (>60); Est Glom Filt Rate - Afr Amer 17 mL/min (>60); Estimated Creatinine Clearance 15.02 ml/min; Glucose 354 mg/dL (74-106); Phosphorus 2.8 mg/dL (2.5-4.9); Potassium 3.9 mmol/L (3.5-5.1); Sodium Level 156 mmol/L (136-145)
[2022-07-01] MEDS: 0.9% Saline Lock 10 ML Syringe IV (22:10)
[2022-07-01 22:30] LABS: Bedside Glucose 373 mg/dL (74-106)
[2022-07-02] VITALS (24 sets, daily range): BP systolic 101–137; BP diastolic 53–73; PULSE 79–109; RESP 16–28; TEMP 35.8–37.1; O2SAT 95–100
[2022-07-02 03:51] LABS: Absolute Lymphocyte Count 0.67 X10^3/uL (0.83-4.51); Absolute Neutrophil Count 9.9 X10^3/uL (2.0-7.7); Basophil% 0.8 % (0-1); Lymphocyte # 0.67 X10^3/ul (0.83-4.51); Lymphocyte % 5.3 % (19-41); Mean Corp Hgb Conc 32.8 g/dL (32-36); Mean Corpuscular Hgb 30.3 pg (27.0-32.0); Mean Corpuscular Volume 92.3 fL (80-94); Monocyte# 1.53 X10^3/uL; Monocyte% 12.1 % (0-10); NRBC Flagged by Analyzer 0 % (0-5); Neutrophil % 78.5 % (47-70); POSITIVE DIFFERENTIAL YES; Platelet Count 224 K/mm3 (150-450); RBC Distribution Width CV 16.4 % (11.6-14.6); Red Blood Count 6.34 M/mm3 (4.6-6.2); White Blood Count 12.6 K/mm3 (4.4-11.0)
[2022-07-02 04:00] LABS: Differential Indicated SCAN CRITERIA MET; Hematocrit 58.5 % (40-54)
[2022-07-02 04:01] LABS: Hemoglobin 19.2 g/dL (13.0-16.5)
[2022-07-02 04:36] LABS: Anion Gap 13 (5-15); BUN 94 mg/dL (7-18); BUN/Creat Ratio 15.1 RATIO (10-20); Calcium,Total 12.9 mg/dL (8.5-10.1); Chloride 132 mmol/L (98-107); Creatinine, Serum 6.22 mg/dL (0.70-1.30); EST Glomerular Filtration Rate 10 mL/min (>60); Est Glom Filt Rate - Afr Amer 12 mL/min (>60); Estimated Creatinine Clearance 10.89 ml/min; Glucose 424 mg/dL (74-106); Potassium 4.8 mmol/L (3.5-5.1); Sodium Level 152 mmol/L (136-145)
[2022-07-02] MEDS: Heparin Injection (Vial) 5,000 UNIT/ML VIAL 5000 UNIT SC ×3 (05:05→22:51)
[2022-07-02 06:55] LABS: Bedside Glucose 430 mg/dL (74-106)
[2022-07-02 07:11] LABS: Differential Comment SCANNED
[2022-07-02 07:25] LABS: Bedside Glucose 405 mg/dL (74-106)
--- NOTE | 2022-07-02 08:08 | PCM.PN.INT ---
Assessment & Plan Assessment/Plan (1) Diabetic keto-acidosis: (2) Hypernatremia: (3) Hyperchloremic metabolic acidosis: PLAN: Plan RECOMMENDATIONS: 1. Transition to an insulin drip 2. Add bicarbonate drip to D5W 3. Continue empiric antibiotics 4. Delirium protocol 5. We will obtain ABG to evaluate for respiratory compensation IMPRESSIONS: 1. DKA in the setting of type 2 diabetes mellitus We will transition patient over to an insulin drip. However, patient has developed significant hypernatremia and hyperchloremia, likely secondary to resuscitation with only marginal improvements in renal function. 2. Acute kidney injury on CKD stage IIa Patient with significant elevation of creatinine on presentation. Likely secondary to problem #1. However, patient has not responded to fluid resuscitation well. Patient currently on D5W but has good urine output. Patient now noted to have fever and hematuria. Unclear if this is related to Yarbrough placement, but will obtain a UA, urine culture and start empiric antibiotics pending cultures. No indication for emergent hemodialysis. Acute kidney injury likely has an element of ATN given dehydration and concomitant BEBE inhibitor. An element of fever may be from previous COVID-19 infection. Patient will be placed on a bicarbonate drip. Cannot exclude the need for hemodialysis. 3. Hyperchloremic metabolic acidosis/hypernatremia ABG this morning is showing a profound metabolic acidosis with partial respiratory compensation. Likely multifactorial with hyperchloremia and renal failure. We will hold on a bicarbonate drip at this time, but this may be necessary moving forward. Will obtain a repeat BMP to see how quickly the sodium is correcting. Sodium corrected to 142 on presentation and patient did receive significant normal saline resuscitation. Patient slowly improving with D5W. Patient is appropriately tachypneic and does not require additional respiratory support at this time. 4. Metabolic encephalopathy/delirium Multiple possible etiologies for delirium at this time. Patient does have acute kidney injury, hypernatremia and hyperchloremia. We will attempt to address electrolytes and see if mentation improves. 5. COVID-19/hyperlipidemia/hypertension/advanced age Complicates care, management, recovery and prognosis. Okay to continue statin, but BEBE inhibitor will need to be held secondary to kidney issues. Holding baseline hyperglycemic medications in favor of basal insulin with sliding scale for now. TIME: 33 minutes critical care time spent addressing patient's DKA, acute kidney injury, metabolic acidosis, delirium, review of all data and collaboration with care team Subjective Subjective Patient continues to be impulsive requiring frequent redirection. Patient not able to provide much interaction today. Patient does deny pain. Urine output has been marginal over the last 24 hours. Discussed with nephrology. Will initiate patient on a bicarbonate drip and obtain ABG. Objective Data Objective Data Vital Signs: Vital Signs Temp Pulse Resp BP Pulse Ox O2 Del Method 36.2 C L 109 H 28 H 129/65 H 97 Room Air 07/02/22 07:00 07/02/22 07:00 07/02/22 07:00 07/02/22 07:00 07/02/22 07:00 07/02/22 07:00 Oxygen Delivery Method Room Air Weight: 85.3 kg Body Mass Index (BMI) 29.3 Intake & Output: Intake and Output for Last 24 Hours 06/30/22 07/01/22 07/02/22 23:59 23:59 23:59 Intake Total 1961.67 / 1961.67 1542.5 / 1542.5 1443.85 / 1443.85 Output Total 200 / 200 600 / 800 240 / 240 Balance 1761.67 / 1761.67 942.5 / 742.5 1203.85 / 1203.85 Lab / Micro Data Attestation: I reviewed the patient's lab results. Result Diagrams: 07/02/22 03:45 07/02/22 03:45 Labs: Laboratory Results - last 24 hr 07/01/22 08:25: Urine Osmolality 437, Ur Random Sodium 48, Urine Creatinine 57.60, Urine Potassium 31.0, Urine Chloride 37, Urine Urea Nitrogen 638 07/01/22 08:25: Urine Potassium Cancelled 07/01/22 10:15: Sodium Cancelled, Potassium Cancelled, Chloride Cancelled, Carbon Dioxide Cancelled, Anion Gap Cancelled, BUN Cancelled, Creatinine Cancelled, Estim Creat Clear Calc Cancelled, Est GFR (MDRD) Af Amer Cancelled, Est GFR (MDRD) Non-Af Cancelled, BUN/Creatinine Ratio Cancelled, Glucose Cancelled, Calcium Cancelled 07/01/22 10:44: POC Glucose 182 H 07/01/22 11:00: Sodium 157 H, Potassium 4.0, Chloride 141 H*, Carbon Dioxide 7.0 L*, Anion Gap 9, BUN 70 H, Creatinine 3.55 H, Estim Creat Clear Calc 19.09, Est GFR (MDRD) Af Amer 22 L, Est GFR (MDRD) Non-Af 18 L, BUN/Creatinine Ratio 19.7, Glucose 215 H, Calcium 11.0 H 07/01/22 16:16: POC Glucose 313 H 07/01/22 20:00: Sodium 156 H, Potassium 3.9, Chloride 139 H*, Carbon Dioxide 7.0 L*, BUN 76 H, Creatinine 4.51 H, Estim Creat Clear Calc 15.02, Est GFR (MDRD) Af Amer 17 L, Est GFR (MDRD) Non-Af 14 L, BUN/Creatinine Ratio 16.9, Glucose 354 H, Calcium 11.1 H, Phosphorus 2.8, Albumin 2.8 L 07/01/22 22:09: POC Glucose 373 H 07/02/22 03:45: WBC 12.6 H, RBC 6.34 H, Hgb 19.2 H*, Hct 58.5 H, MCV 92.3, MCH 30.3, MCHC 32.8, RDW Std Deviation 53.0 H, RDW Coeff of Kenyatta 16.4 H, Plt Count 224, MPV 10.0, Immature Gran % (Auto) 3.300 H, Neut % (Auto) 78.5 H, Lymph % (Auto) 5.3 L, [place] % (Auto) 12.1 H, Eos % (Auto) 0.0, Baso % (Auto) 0.8, Absolute Neuts (auto) 9.9 H, Absolute Lymphs (auto) 0.67 L, Nucleated RBC % 0, Differential Comment SCANNED, Diff Path Review September07/02/22 03:45: Sodium 152 H, Potassium 4.8, Chloride 132 H*, Carbon Dioxide 7.0 L*, Anion Gap 13, BUN 94 H, Creatinine 6.22 H, Estim Creat Clear Calc 10.89, Est GFR (MDRD) Af Amer 12 L, Est GFR (MDRD) Non-Af 10 L, BUN/Creatinine Ratio 15.1, Glucose 424 H, Calcium 12.9 H* 07/02/22 06:35: POC Glucose 430 H 07/02/22 07:02: POC Glucose 405 H Micro: Microbiology 06/28/22 19:35 Nasal Secretion SARS-CoV-2 & FLU Antigen (Rapid) - Final SARS-CoV-2 (COVID 19) Rhythm Strip Rhythm Strip: Sinus Tach Rate: 108 Physical Exam Const alert Constitutional Narrative: Confused. Tachypnea, but does not appear to be in distress General Appearance: Negative for cooperative HEENT normocephalic and head/scalp atraumatic Eyes PERRL and EOMs intact bilaterally Eyes Narrative: Scleral injection noted Neck full ROM and supple Chest inspection of chest normal Resp Effort and Inspection: tachypneic Auscultation: clear to auscultation bilaterally; Negative for rales, rhonchi or wheezes Cardio regular rhythm, S1 normal heart sound, S2 normal heart sound, no murmurs, no rub and no gallops Rate: tachycardic GI normal to inspection, nondistended, normoactive bowel sounds Extremity no clubbing, cyanosis or edema Skin Skin Narrative: Mottling noted of bilateral knees. Neuro moves all extremities and no focal motor deficits Neuro Narrative: Confused. Not cooperative with exam. Psych Activity / Motor Behavior: restless Mood & Affect: anxious Charges/Coding Procedures Hospitalists Procedures: [id number] Critial Care 1st Hr
[2022-07-02 08:35] LABS: Base Excess -28 mmol/L (-2 to +2); Bicarbonate 2.6 mmol/L (22-26); Blood Gas Specimen Type ART; O2 Delivery Device Room Air; PO2 103 mmHG (75-100); SITE L Radial; SO2 95 % (95-99); Total Carbon Dioxide < 5 mmol/L; pH 7.06 (7.35-7.45)
[2022-07-02 08:55] LABS: Bedside Glucose 421 mg/dL (74-106)
--- NOTE | 2022-07-02 09:44 | PN.HOSP_ITS ---
Subjective Subjective Continues to worsen and become more acidotic. Increased creatinine indicating worsening renal failure. More somnolent and not interactive. Objective Data Objective Data Vital Signs: Vital Signs Temp Pulse Resp BP Pulse Ox O2 Del Method 97 F L 92 24 H 101/56 L 99 Room Air 07/02/22 08:00 07/02/22 09:00 07/02/22 09:00 07/02/22 09:00 07/02/22 09:00 07/02/22 09:00 Oxygen Delivery Method Room Air Weight: 188 lb 0.869 oz Body Mass Index (BMI) 29.3 Intake & Output: Intake and Output for Last 24 Hours 07/01/22 07/02/22 07/03/22 03:59 03:59 03:59 Intake Total 1961.67 / 1961.67 2542.5 / 2542.5 453.45 / 453.45 Output Total 200 / 200 800 / 800 40 / 40 Balance 1761.67 / 1761.67 1742.5 / 1742.5 413.45 / 413.45 Lab / Micro Data Result Diagrams: 07/02/22 03:45 07/02/22 03:45 Labs: Laboratory Results - last 24 hr 07/01/22 10:15: Sodium Cancelled, Potassium Cancelled, Chloride Cancelled, Carbon Dioxide Cancelled, Anion Gap Cancelled, BUN Cancelled, Creatinine Cancelled, Estim Creat Clear Calc Cancelled, Est GFR (MDRD) Af Amer Cancelled, Est GFR (MDRD) Non-Af Cancelled, BUN/Creatinine Ratio Cancelled, Glucose Cancelled, Calcium Cancelled 07/01/22 10:44: POC Glucose 182 H 07/01/22 11:00: Sodium 157 H, Potassium 4.0, Chloride 141 H*, Carbon Dioxide 7.0 L*, Anion Gap 9, BUN 70 H, Creatinine 3.55 H, Estim Creat Clear Calc 19.09, Est GFR (MDRD) Af Amer 22 L, Est GFR (MDRD) Non-Af 18 L, BUN/Creatinine Ratio 19.7, Glucose 215 H, Calcium 11.0 H 07/01/22 16:16: POC Glucose 313 H 07/01/22 20:00: Sodium 156 H, Potassium 3.9, Chloride 139 H*, Carbon Dioxide 7.0 L*, BUN 76 H, Creatinine 4.51 H, Estim Creat Clear Calc 15.02, Est GFR (MDRD) Af Amer 17 L, Est GFR (MDRD) Non-Af 14 L, BUN/Creatinine Ratio 16.9, Glucose 354 H, Calcium 11.1 H, Phosphorus 2.8, Albumin 2.8 L 07/01/22 22:09: POC Glucose 373 H 07/02/22 03:45: WBC 12.6 H, RBC 6.34 H, Hgb 19.2 H*, Hct 58.5 H, MCV 92.3, MCH 30.3, MCHC 32.8, RDW Std Deviation 53.0 H, RDW Coeff of Kenyatta 16.4 H, Plt Count 224, MPV 10.0, Immature Gran % (Auto) 3.300 H, Neut % (Auto) 78.5 H, Lymph % (Auto) 5.3 L, [place] % (Auto) 12.1 H, Eos % (Auto) 0.0, Baso % (Auto) 0.8, Absolute Neuts (auto) 9.9 H, Absolute Lymphs (auto) 0.67 L, Nucleated RBC % 0, Differential Comment SCANNED, Diff Path Review September foll 07/02/22 03:45: Sodium 152 H, Potassium 4.8, Chloride 132 H*, Carbon Dioxide 7.0 L*, Anion Gap 13, BUN 94 H, Creatinine 6.22 H, Estim Creat Clear Calc 10.89, Est GFR (MDRD) Af Amer 12 L, Est GFR (MDRD) Non-Af 10 L, BUN/Creatinine Ratio 15.1, Glucose 424 H, Calcium 12.9 H* 07/02/22 06:35: POC Glucose 430 H 07/02/22 07:02: POC Glucose 405 H 07/02/22 08:04: POC Glucose 421 H Micro: Microbiology 06/28/22 19:35 Nasal Secretion SARS-CoV-2 & FLU Antigen (Rapid) - Final SARS-CoV-2 (COVID 19) ABG Data ABG results: ABG 07/02/22 08:09 Specimen Type ART Sample Site L Radial pH 7.06 L* Bicarbonate Actual 2.6 L Total CO2 < 5 Base Excess -28 L O2 Saturation 95 ABG pCO2 9.0 L* ABG pO2 103 H O2 Delivery Device Room Air Crit Call To/Read Back Yes Blood Gas Notified Whom remi Rhythm Strip Rhythm Strip: Sinus Tach Rate: 108 Physical Exam Narrative General: Somnolent, not interactive HEENT: Atraumatic, PERRLA, EOMI, Normocephalic Oral: Moist Mucosa Neck: Supple, No JVD Lungs: Diminished, Normal air movement, No rhonchi, No wheeze, No rales, tachypneic Cardiovascular: Tachycardic, Regular Rhythm, Normal S1, Normal S2, No murmurs Abdomen: Soft, Non Tender, Non-Distended, No Hepato-splenomegaly Extremities: No edema, Capillary Refill Less than 3 Seconds Skin: Some discoloration around his knees Musculoskeletal: No Tenderness to Palpation of Joints or Extremities Neurological: Moves all of his extremities sensation intact Psych/Mental Status: Flat affect Assessment & Plan Assessment/Plan (1) Diabetic keto-acidosis: (2) Acute kidney injury: (3) Dehydration, severe: (4) COVID: PLAN: Plan 1. DKA in the setting of type 2 diabetes with a high anion gap metabolic acidosis and YESI with metabolic encephalopathy/hypernatremia and hyperchloremia with hyperchloremic metabolic acidosis with incomplete respiratory compensation with renal tubular acidosis unknown type ? We will add the bicarb drip of 12 his current medications, he has had marginal urine output over the last 24 to 36 hours ? Appreciate estate manager and nephrology's assistance ? Urine anion gap is over 40 consistent with a renal tubular acidosis ? Continue with D5W as well as an insulin drip ? His A1c is 8.2 ? Unclear as to an etiology of infection however we will continue with Rocephin 2. COVID-19?noncontributory 3. HTN/HLD ? We will hold his ramipril given his acute renal failure ? Can wait to restart his pravastatin DVT: Heparin Charges/Coding Visit Charges Inpatient E&M: 59288 Subs Hosp L2
[2022-07-02 10:26] LABS: Bedside Glucose 330 mg/dL (74-106)
[2022-07-02 10:26] LABS: Bedside Glucose 377 mg/dL (74-106)
[2022-07-02] MEDS: Ceftriaxone 1 GM/50 ML BAG IV (11:56)
[2022-07-02 13:20] LABS: Bedside Glucose 274 mg/dL (74-106)
[2022-07-02 13:20] LABS: Bedside Glucose 321 mg/dL (74-106)
[2022-07-02 16:30] LABS: Bedside Glucose 90 mg/dL (74-106)
[2022-07-02 16:30] LABS: Bedside Glucose 225 mg/dL (74-106)
[2022-07-02 16:30] LABS: Bedside Glucose 193 mg/dL (74-106)
[2022-07-02 16:30] LABS: Bedside Glucose 132 mg/dL (74-106)
[2022-07-02 17:31] LABS: Bedside Glucose 81 mg/dL (74-106)
--- NOTE | 2022-07-02 19:48 | PN.RENAL_ITS ---
Subjective Subjective Following for YESI, metabolic acidosis, and hyponatremia. The patient remains obtunded. He awakens to voice but falls asleep quickly. Urine output has trailed off today. Objective Data Objective Data Vital Signs: Vital Signs Temp Pulse Resp BP Pulse Ox O2 Del Method FiO2 97.9 F 92 25 H 124/58 H 98 Room Air 21 07/02/22 19:00 07/02/22 19:00 07/02/22 19:00 07/02/22 19:00 07/02/22 19:00 07/02/22 19:00 07/02/22 12:00 Oxygen Delivery Method Room Air Weight: 85.3 kg Body Mass Index (BMI) 29.3 Intake & Output: Intake and Output for Last 24 Hours 06/30/22 07/01/22 07/02/22 23:59 23:59 23:59 Intake Total 1961.67 / 1960.67 1542.5 / 1542.5 2091.09 / 209.09 Output Total 200 / 200 600 / 800 340 / 340 Balance 1761.67 / 1761.67 942.5 / 742.5 1751.09 / 1751.09 Medical Nutrition Assessment Dietitian: Malnutrition Criteria Met Start: 07/02/22 13:54 Freq: Status: Active Protocol: Document 07/02/22 13:54 FRANCISCO (Rec: 07/02/22 13:54 FRANCISCO [id number]) Nutrition Malnutrition Evidence of Malnutrition Exists Yes Malnutrition (severe): Acute Illness/Injury Evidenced By Suboptimal Energy Intake ( Severe),Weight Loss (Severe) Intake Problem Inadequate Oral Intake Etiology related to decreased appetite, n/v/d PRESS OFFBEARER Signs/Symptoms as evidenced by current PO intake meeting ~50% of estimated energy needs, reportedly no PO intake for 8 days PRESS OFFBEARER Status Active Problem Clinical Problem Acute Disease or Injury Related Malnutrition Etiology related to physiological changes impacting oral intakes and weight Signs/Symptoms as evidenced by significant weight loss of 5.1% in less than one week, and reported lack of po intake for 8 days PRESS OFFBEARER in addition to current NPO status limiting oral intakes. Status Active Problem Recommendation Dietitian Recommendations/Changes Recommend advancement of diet when appropriate. Would recommend consistent CHO diet as well as Glucerna 120mL TID w/ meals until adequate PO intake is established. Will monitor renal function and add further dietary restrictions if indicated. Lab / Micro Data Result Diagrams: 07/02/22 03:45 07/02/22 03:45 Labs: Laboratory Results - last 24 hr 07/01/22 20:00: Sodium 156 H, Potassium 3.9, Chloride 139 H*, Carbon Dioxide 7.0 L*, BUN 76 H, Creatinine 4.51 H, Estim Creat Clear Calc 15.02, Est GFR (MDRD) Af Amer 17 L, Est GFR (MDRD) Non-Af 14 L, BUN/Creatinine Ratio 16.9, Glucose 354 H, Calcium 11.1 H, Phosphorus 2.8, Albumin 2.8 L 07/01/22 22:09: POC Glucose 373 H 07/02/22 03:45: WBC 12.6 H, RBC 6.34 H, Hgb 19.2 H*, Hct 58.5 H, MCV 92.3, MCH 30.3, MCHC 32.8, RDW Std Deviation 53.0 H, RDW Coeff of Kenyatta 16.4 H, Plt Count 224, MPV 10.0, Immature Gran % (Auto) 3.300 H, Neut % (Auto) 78.5 H, Lymph % (Auto) 5.3 L, [place] % (Auto) 12.1 H, Eos % (Auto) 0.0, Baso % (Auto) 0.8, Absolute Neuts (auto) 9.9 H, Absolute Lymphs (auto) 0.67 L, Nucleated RBC % 0, Differential Comment SCANNED, Diff Path Review September foll 07/02/22 03:45: Sodium 152 H, Potassium 4.8, Chloride 132 H*, Carbon Dioxide 7.0 L*, Anion Gap 13, BUN 94 H, Creatinine 6.22 H, Estim Creat Clear Calc 10.89, Est GFR (MDRD) Af Amer 12 L, Est GFR (MDRD) Non-Af 10 L, BUN/Creatinine Ratio 15.1, Glucose 424 H, Calcium 12.9 H* 07/02/22 06:35: POC Glucose 430 H 07/02/22 07:02: POC Glucose 405 H 07/02/22 08:04: POC Glucose 421 H 07/02/22 09:03: POC Glucose 377 H 07/02/22 10:03: POC Glucose 330 H 07/02/22 11:02: POC Glucose 321 H 07/02/22 12:05: POC Glucose 274 H 07/02/22 13:03: POC Glucose 225 H 07/02/22 14:04: POC Glucose 193 H 07/02/22 14:58: POC Glucose 132 H 07/02/22 16:05: POC Glucose 90 07/02/22 17:10: POC Glucose 81 Micro: Microbiology 07/01/22 08:25 Urine Catheter - [place]rough Urine Culture - Preliminary Culture exhibits no growth. 06/28/22 19:35 Nasal Secretion SARS-CoV-2 & FLU Antigen (Rapid) - Final SARS-CoV-2 (COVID 19) ABG Data ABG results: ABG 07/02/22 08:09 Specimen Type ART Sample Site L Radial pH 7.06 L* Bicarbonate Actual 2.6 L Total CO2 < 5 Base Excess -28 L O2 Saturation 95 ABG pCO2 9.0 L* ABG pO2 103 H O2 Delivery Device Room Air Crit Call To/Read Back Yes Blood Gas Notified Whom remi Rhythm Strip Rhythm Strip: Sinus Tach Rate: 108 Physical Exam Narrative General: Ill-appearing man. HEENT: Normocephalic, atraumatic. Mucous membranes dry. PERRLA. Neck: No JVD. Neck is supple. Cardiovascular:Normal S1, S2. No rubs, murmurs or gallops. Lungs: Clear to auscultation anteriorly. The patient is using accessory muscles to breathe. He has Kussmaul breathing. Abdomen: Normal bowel sound, soft, nontender, no guarding or rebound. Extremities: No clubbing, cyanosis, or edema. Musculoskeletal: Full passive range of motion, no joint swelling. Neurologic: Obtunded, no focal neurologic deficits. Skin: Warm and dry. No rash. Assessment & Plan Assessment/Plan (1) Acute kidney injury: (2) Hyperchloremic metabolic acidosis: (3) Hypernatremia: PLAN: Plan Impression/Plan: The patient is a 71-year-old man with past history of type 2 diabetes mellitus, hypertension, and hyperlipidemia. The patient was admitted to the hospital on 06/28/2022 with DKA. Nephrology is consulted for YESI, hypercalcemia, hypernatremia, and metabolic acidosis. Acute kidney injury. The most recent serum creatinine prior to this admission was 1.14 mg/dL on 12/13/2021. Prior serum creatinine has been between 1.2 to 1.3 mg/dL since 2019. YESI was initially likely due to volume depletion causing prerenal YESI. Prerenal YESI has evolved to ischemic ATN. The patient is also hypercalcemic which can also cause YESI. The patient is not overtly volume overloaded, so I agree with continued volume expansion. Since the patient is still hemodynamically stable, okay to continue current IV fluid with D5W in the face of hypernatremia. I will recheck renal function again in a.m. With decreasing urine output and worsening renal function despite volume expansion, he will probably need dialysis by tomorrow. Metabolic acidosis. There is no significant anion gap to suggest the patient is still in DKA. I will recheck serum bicarbonate level again tonight. Serum bicarbonate level has stabilized at 7 mmol/L but not improved. There has been no diarrhea to suggest GI loss of bicarbonate. I agree with sodium bicarbonate infusion. If there is no improvement in renal function by tomorrow, we will start dialysis. Hypernatremia. Still suspect that hyponatremia is due to to dehydration. I will recheck serum sodium again tonight. I agree with using D5W to rehydrate the patient. We will help adjust D5W rate as appropriate. Ultimately, the patient may need dialysis to control volume. Hypercalcemia. The patient presented to the hospital with serum calcium of 10.4. Calcium level is most recently 12.9 mg/dL. We will order PTH level to start work-up. Continue hydration as we are doing.
--- NOTE | 2022-07-02 19:55 | PCM.PN.BLA ---
Progress Note Nephrology addendum. Apparently, PTH has been sent. PTH level from 06/29/2022 is 54.5 pg/mL. Although this is a normal PTH level, it is not appropriately suppressed. May need endocrinology opinion to see if this needs to be worked up further with test such as parathyroid sestamibi scan. In any case, since hypercalcemia is worsening, I will consider treating the patient with bisphosphonate or denosumab if there is further rise in serum creatinine particularly in the face of YESI.
[2022-07-02 20:26] LABS: Bedside Glucose 133 mg/dL (74-106)
[2022-07-02 20:26] LABS: Bedside Glucose 84 mg/dL (74-106)
[2022-07-02 20:26] LABS: Bedside Glucose 106 mg/dL (74-106)
[2022-07-02 21:20] LABS: Bedside Glucose 127 mg/dL (74-106)
[2022-07-02] MEDS: 0.9% Saline Lock 10 ML Syringe IV (22:51)
[2022-07-02 22:55] LABS: Bedside Glucose 125 mg/dL (74-106)
[2022-07-03] VITALS (65 sets, daily range): BP systolic 60–142; BP diastolic 41–78; PULSE 93–175; RESP 14–38; TEMP 36.9–39; O2SAT 88–100; BMI 27.9
[2022-07-03 01:21] LABS: Bedside Glucose 96 mg/dL (74-106)
[2022-07-03 01:21] LABS: Bedside Glucose 84 mg/dL (74-106)
[2022-07-03 01:21] LABS: Bedside Glucose 72 mg/dL (74-106)
[2022-07-03 02:21] LABS: Bedside Glucose 73 mg/dL (74-106)
[2022-07-03 03:25] LABS: Absolute Lymphocyte Count 0.72 X10^3/uL (0.83-4.51); Absolute Neutrophil Count 16.1 X10^3/uL (2.0-7.7); Basophil% 0.5 % (0-1); Eosinophil# 0.09 X10^3/uL; Eosinophils% 0.5 % (0-5); Hematocrit 51.9 % (40-54); Hemoglobin 17.5 g/dL (13.0-16.5); Lymphocyte # 0.72 X10^3/ul (0.83-4.51); Lymphocyte % 3.8 % (19-41); Mean Corp Hgb Conc 33.7 g/dL (32-36); Mean Corpuscular Hgb 30.5 pg (27.0-32.0); Mean Corpuscular Volume 90.6 fL (80-94); Mean Platelet Vol. 10.1 fl (6.2-12.0); Monocyte# 1.67 X10^3/uL; Monocyte% 8.8 % (0-10); NRBC Flagged by Analyzer 0 % (0-5); Neutrophil # 16.07 X10^3/uL (2.7-7.7); Neutrophil % 84.1 % (47-70); POSITIVE DIFFERENTIAL YES; Platelet Count 176 K/mm3 (150-450); RBC Distribution Width CV 15.6 % (11.6-14.6); RBC Distribution Width SD 51.9 fl (35.1-43.9); Red Blood Count 5.73 M/mm3 (4.6-6.2); White Blood Count 19.1 K/mm3 (4.4-11.0)
[2022-07-03 03:36] LABS: Bedside Glucose 85 mg/dL (74-106)
[2022-07-03 03:41] LABS: Differential Indicated SCAN CRITERIA MET
[2022-07-03 03:46] LABS: Anion Gap 16 (5-15); BUN 116 mg/dL (7-18); BUN/Creat Ratio 13.9 RATIO (10-20); Calcium,Total 12.3 mg/dL (8.5-10.1); Chloride 129 mmol/L (98-107); Creatinine, Serum 8.36 mg/dL (0.70-1.30); EST Glomerular Filtration Rate 7 mL/min (>60); Est Glom Filt Rate - Afr Amer 8 mL/min (>60); Glucose 83 mg/dL (74-106); Potassium 3.4 mmol/L (3.5-5.1); Sodium Level 155 mmol/L (136-145)
[2022-07-03 03:48] LABS: Differential Comment SCANNED
[2022-07-03] MEDS: Heparin Injection (Vial) 5,000 UNIT/ML VIAL 5000 UNIT SC ×3 (05:06→23:27)
[2022-07-03 06:26] LABS: Bedside Glucose 81 mg/dL (74-106)
[2022-07-03 06:26] LABS: Bedside Glucose 85 mg/dL (74-106)
[2022-07-03 06:26] LABS: Bedside Glucose 79 mg/dL (74-106)
--- NOTE | 2022-07-03 07:18 | PCM.PN.INT ---
Assessment & Plan Assessment/Plan (1) Diabetic keto-acidosis: (2) Hypernatremia: (3) Hyperchloremic metabolic acidosis: PLAN: Plan RECOMMENDATIONS: 1. Obtain chest x-ray and ABG postintubation. 2. Check acetone and lactate. 3. Stop sodium bicarbonate, given rising sodium. Continue D5W for now. 4. Place temporary HD line. 5. Anticipate hemodialysis needs. Will defer to nephrology. 6. Continue empiric antimicrobials. 7. Continue appropriate ICU prophylaxis. IMPRESSIONS: 1. Metabolic encephalopathy The patient has developed worsening encephalopathy over the last 24 hours, likely secondary to profound underlying metabolic derangements, including hypernatremia and worsening uremia in the setting of YESI. Unfortunately, the patient had to be intubated on the morning of July 03 due to concerns for airway protection. I do anticipate that he will require dialysis support to address his underlying metabolic derangements and renal insufficiency. 2. Acute respiratory failure The patient was intubated over concerns for airway protection and possible aspiration. The etiology for his encephalopathy appears to be metabolic in nature. Anticipate improvement with hemodialysis support. In the interim, continue the patient on assist control mode mechanical ventilation. Wean FiO2 and PEEP to maintain saturations at or above 90%. Sputum culture will be sent. The patient will be maintained on antimicrobials. 3. YESI on CKD Likely secondary to ischemic ATN. The patient has interval worsening in his renal function and metabolic derangements. Accordingly, I do suspect that he will require hemodialysis support. Will defer management to nephrology, who is currently following to assist with medical management. 4. Hypernatremia/hyperchloremia Likely secondary to overzealous use of normal saline/sodium bicarbonate. Sodium containing fluids have been discontinued. Continue D5W for now. Anticipate initiation of CRRT in the near future. 5. DKA Resolved. Suspect elevated anion gap is secondary to uremia. No serum acetone was noted this morning. Lactate is within normal limits. Okay to transition from continuous insulin to basal and sliding scale coverage. 6. COVID-19/hyperlipidemia/hypertension/advanced age Complicates care, management, recovery and prognosis. Continue supportive measures as noted above. TIME: 38 minutes of critical care time, inclusive of procedures, was spent addressing the patient's metabolic encephalopathy, acute respiratory failure, YESI on CKD, hypernatremia, hyperchloremia, DKA, review of all data and collaboration with the care team. Subjective Subjective The patient was seen and examined at the bedside this morning. Events from the last 24 hours have been reviewed. The patient is currently afebrile, hemodynamically stable and maintaining appropriate oxygen saturations on room air. Overnight, the nursing staff reported an overall change in the patient's clinical state. The patient remains tachypneic and is currently obtunded. He is documented to be overall net +10.8 L for the hospitalization. White count is elevated at 19,000. Sodium is elevated at 155 with a potassium of 3.4, chloride of 129, bicarbonate of 10.0, anion gap of 16, BUN of 116 and creatinine of 8.36. I spoke with nephrology this morning who indicated that the patient is going to need dialysis today. Intubation Indication: Respiratory failure, metabolic encephalopathy The patient was placed in the appropriate sniffing position. Preoxygenated sedation via [id number] was provided for a minimum of 3 minutes. The patient had continuous cardiac as well as pulse oximetry monitoring during the procedure. Procedure sedation was provided by the administration of 2 mg of Versed and 20 mg of etomidate. Direct laryngoscopy was then performed using a number 4 MAC blade, which revealed a grade 1 view. A 8.0 mm endotracheal tube was visualized advancing between the cords to the level of 24 cm at the lip. The stylette was then removed and discarded. Tube placement was confirmed by fogging in the tube along with equal and bilateral breath sounds. Colorimetric change was visualized on the CO2 meter. The cuff was then inflated and the tube secured using a commercially available device. A good pulse oximetry waveform was seen on the monitor throughout the procedure. A portable chest x-ray has been ordered to confirm appropriate placement. The patient tolerated the procedure well. Objective Data Objective Data The patient's most recent lab work, culture data and imaging studies have all been personally reviewed. Rapid COVID testing was positive on June 28. Sputum culture is currently pending. Vital Signs: Vital Signs Temp Pulse Resp BP Pulse Ox O2 Del Method FiO2 99.9 F H 100 27 H 135/69 H 96 Room Air 07/03/22 07:00 07/03/22 07:00 07/03/22 07:00 07/03/22 07:00 07/03/22 07:00 07/03/22 07:00 07/02/22 12:00 Oxygen Delivery Method Room Air Weight: 188 lb 14.978 oz Body Mass Index (BMI) 29.3 Intake & Output: Intake and Output for Last 24 Hours 07/01/22 07/02/22 07/03/22 23:59 23:59 23:59 Intake Total 1542.5 / 1542.5 3255.12 / 3260.12 1627.25 / 1627.25 Output Total 600 / 800 340 / 340 Balance 942.5 / 742.5 2915.12 / 2920.12 1627.25 / 1627.25 Medical Nutrition Assessment Dietitian: Malnutrition Criteria Met Start: 07/02/22 13:54 Freq: Status: Active Protocol: Document 07/02/22 13:54 FRANCISCO (Rec: 07/02/22 13:54 FRANCISCO [id number]) Nutrition Malnutrition Evidence of Malnutrition Exists Yes Malnutrition (severe): Acute Illness/Injury Evidenced By Suboptimal Energy Intake ( Severe),Weight Loss (Severe) Intake Problem Inadequate Oral Intake Etiology related to decreased appetite, n/v/d MAGNETIC OBSERVER Signs/Symptoms as evidenced by current PO intake meeting ~50% of estimated energy needs, reportedly no PO intake for 8 days MAGNETIC OBSERVER Status Active Problem Clinical Problem Acute Disease or Injury Related Malnutrition Etiology related to physiological changes impacting oral intakes and weight Signs/Symptoms as evidenced by significant weight loss of 5.1% in less than one week, and reported lack of po intake for 8 days MAGNETIC OBSERVER in addition to current NPO status limiting oral intakes. Status Active Problem Recommendation Dietitian Recommendations/Changes Recommend advancement of diet when appropriate. Would recommend consistent CHO diet as well as Glucerna 120mL TID w/ meals until adequate PO intake is established. Will monitor renal function and add further dietary restrictions if indicated. Lab / Micro Data Attestation: I reviewed the patient's lab results. Result Diagrams: 07/03/22 03:15 07/03/22 03:15 Labs: Laboratory Results - last 24 hr 07/02/22 07:02: POC Glucose 405 H 07/02/22 08:04: POC Glucose 421 H 07/02/22 09:03: POC Glucose 377 H 07/02/22 10:03: POC Glucose 330 H 07/02/22 11:02: POC Glucose 321 H 07/02/22 12:05: POC Glucose 274 H 07/02/22 13:03: POC Glucose 225 H 07/02/22 14:04: POC Glucose 193 H 07/02/22 14:58: POC Glucose 132 H 07/02/22 16:05: POC Glucose 90 07/02/22 17:10: POC Glucose 81 07/02/22 17:59: POC Glucose 84 07/02/22 18:58: POC Glucose 106 07/02/22 20:07: POC Glucose 133 H 07/02/22 21:00: POC Glucose 127 H 07/02/22 22:00: POC Glucose 125 H 07/02/22 23:09: POC Glucose 96 07/03/22 00:04: POC Glucose 84 07/03/22 01:01: POC Glucose 72 L 07/03/22 02:02: POC Glucose 73 L 07/03/22 03:03: POC Glucose 85 07/03/22 03:15: WBC 19.1 H, RBC 5.73, Hgb 17.5 H, Hct 51.9, MCV 90.6, MCH 30.5, MCHC 33.7, RDW Std Deviation 51.9 H, RDW Coeff of Kenyatta 15.6 H, Plt Count 176, MPV 10.1, Immature Gran % (Auto) 2.300 H, Neut % (Auto) 84.1 H, Lymph % (Auto) 3.8 L, [place] % (Auto) 8.8, Eos % (Auto) 0.5, Baso % (Auto) 0.5, Absolute Neuts (auto) 16.1 H, Absolute Lymphs (auto) 0.72 L, Nucleated RBC % 0, Differential Comment SCANNED, Diff Path Review September07/03/22 03:15: Sodium 155 H, Potassium 3.4 L, Chloride 129 H*, Carbon Dioxide 10.0 L, Anion Gap 16 H, BUN 116 H*, Creatinine 8.36 H*, Estim Creat Clear Calc 8.10, Est GFR (MDRD) Af Amer 8 L, Est GFR (MDRD) Non-Af 7 L, BUN/Creatinine Ratio 13.9, Glucose 83, Calcium 12.3 H 07/03/22 04:10: POC Glucose 79 07/03/22 05:03: POC Glucose 85 07/03/22 06:07: POC Glucose 81 Micro: Microbiology 07/01/22 08:25 Urine Catheter - [place]rough Urine Culture - Preliminary Culture exhibits no growth. 06/28/22 19:35 Nasal Secretion SARS-CoV-2 & FLU Antigen (Rapid) - Final SARS-CoV-2 (COVID 19) ABG Data ABG results: ABG 07/02/22 08:09 Specimen Type ART Sample Site L Radial pH 7.06 L* Bicarbonate Actual 2.6 L Total CO2 < 5 Base Excess -28 L O2 Saturation 95 ABG pCO2 9.0 L* ABG pO2 103 H O2 Delivery Device Room Air Crit Call To/Read Back Yes Blood Gas Notified Whom remi Rhythm Strip Rhythm Strip: Sinus Tach Rate: 108 Physical Exam Const Constitutional Narrative: Lethargic with minimal responsiveness to verbal cues. Ill in appearance. HEENT normocephalic and head/scalp atraumatic Eyes PERRL and EOMs intact bilaterally Neck supple General: trachea midline Chest inspection of chest normal Resp Effort and Inspection: tachypneic and labored Auscultation: rhonchi and diminished lung sounds Cardio S1 normal heart sound and S2 normal heart sound Rate: tachycardic GI normal to inspection, nondistended, normoactive bowel sounds Extremity Extremity Narrative: Mottled lower extremities General Extremity: Negative for edema Skin no rashes or lesions noted Neuro Neuro Narrative: Obtunded with minimal responsiveness to verbal and tactile stimulation. Psych Mood & Affect: flat affect Charges/Coding Procedures Hospitalists Procedures: [id number] Critial Care 1st Hr
[2022-07-03 07:20] LABS: Bedside Glucose 107 mg/dL (74-106)
--- NOTE | 2022-07-03 07:22 | PCM.PN.HOSP ---
Reason for Visit Reason for Visit: Diagnoses Type 2 diabetes mellitus with ketoacidosis without coma (06/28/22) Dehydration (06/28/22) Hyperosmolality and hypernatremia (06/28/22) Other acidosis (06/28/22) Acute kidney failure, unspecified (06/28/22) COVID-19 (06/28/22) Subjective Subjective Intubated this morning. Has noted to be unresponsive and sedation has been discontinued. Developed SVT. Patient to begin CRRT. Objective Data Objective Data Vital Signs: Vital Signs Temp Pulse Resp BP Pulse Ox O2 Del Method FiO2 37.7 C H 100 27 H 135/69 H 96 Room Air 21 07/03/22 07:00 07/03/22 07:00 07/03/22 07:00 07/03/22 07:00 07/03/22 07:00 07/03/22 07:00 07/02/22 12:00 Oxygen Delivery Method Room Air Weight: 85.7 kg Body Mass Index (BMI) 29.3 Intake & Output: Intake and Output for Last 24 Hours 07/01/22 07/02/22 07/03/22 23:59 23:59 23:59 Intake Total 1542.5 / 1542.5 3255.12 / 3260.12 1627.25 / 1627.25 Output Total 600 / 800 340 / 340 Balance 942.5 / 742.5 2915.12 / 2920.12 1627.25 / 1627.25 Medical Nutrition Assessment Dietitian: Malnutrition Criteria Met Start: 07/02/22 13:54 Freq: Status: Active Protocol: Document 07/02/22 13:54 JEFF (Rec: 07/02/22 13:54 [facility] [id number]) Nutrition Malnutrition Evidence of Malnutrition Exists Yes Malnutrition (severe): Acute Illness/Injury Evidenced By Suboptimal Energy Intake ( Severe),Weight Loss (Severe) Intake Problem Inadequate Oral Intake Etiology related to decreased appetite, n/v/d [employer] Signs/Symptoms as evidenced by current PO intake meeting ~50% of estimated energy needs, reportedly no PO intake for 8 days [employer] Status Active Problem Clinical Problem Acute Disease or Injury Related Malnutrition Etiology related to physiological changes impacting oral intakes and weight Signs/Symptoms as evidenced by significant weight loss of 5.1% in less than one week, and reported lack of po intake for 8 days [employer] in addition to current NPO status limiting oral intakes. Status Active Problem Recommendation Dietitian Recommendations/Changes Recommend advancement of diet when appropriate. Would recommend consistent CHO diet as well as Glucerna 120mL TID w/ meals until adequate PO intake is established. Will monitor renal function and add further dietary restrictions if indicated. Lab / Micro Data Result Diagrams: 07/03/22 14:35 07/03/22 14:35 Labs: Laboratory Results - last 24 hr 07/02/22 07:02: POC Glucose 405 H 07/02/22 08:04: POC Glucose 421 H 07/02/22 09:03: POC Glucose 377 H 07/02/22 10:03: POC Glucose 330 H 07/02/22 11:02: POC Glucose 321 H 07/02/22 12:05: POC Glucose 274 H 07/02/22 13:03: POC Glucose 225 H 07/02/22 14:04: POC Glucose 193 H 07/02/22 14:58: POC Glucose 132 H 07/02/22 16:05: POC Glucose 90 07/02/22 17:10: POC Glucose 81 07/02/22 17:59: POC Glucose 84 07/02/22 18:58: POC Glucose 106 07/02/22 20:07: POC Glucose 133 H 07/02/22 21:00: POC Glucose 127 H 07/02/22 22:00: POC Glucose 125 H 07/02/22 23:09: POC Glucose 96 07/03/22 00:04: POC Glucose 84 07/03/22 01:01: POC Glucose 72 L 07/03/22 02:02: POC Glucose 73 L 07/03/22 03:03: POC Glucose 85 07/03/22 03:15: WBC 19.1 H, RBC 5.73, Hgb 17.5 H, Hct 51.9, MCV 90.6, MCH 30.5, MCHC 33.7, RDW Std Deviation 51.9 H, RDW Coeff of Kenyatta 15.6 H, Plt Count 176, MPV 10.1, Immature Gran % (Auto) 2.300 H, Neut % (Auto) 84.1 H, Lymph % (Auto) 3.8 L, [place] % (Auto) 8.8, Eos % (Auto) 0.5, Baso % (Auto) 0.5, Absolute Neuts (auto) 16.1 H, Absolute Lymphs (auto) 0.72 L, Nucleated RBC % 0, Differential Comment SCANNED, Diff Path Review September foll 07/03/22 03:15: Sodium 155 H, Potassium 3.4 L, Chloride 129 H*, Carbon Dioxide 10.0 L, Anion Gap 16 H, BUN 116 H*, Creatinine 8.36 H*, Estim Creat Clear Calc 8.10, Est GFR (MDRD) Af Amer 8 L, Est GFR (MDRD) Non-Af 7 L, BUN/Creatinine Ratio 13.9, Glucose 83, Calcium 12.3 H 07/03/22 04:10: POC Glucose 79 07/03/22 05:03: POC Glucose 85 07/03/22 06:07: POC Glucose 81 07/03/22 07:00: POC Glucose 107 H Micro: Microbiology 07/01/22 08:25 Urine Catheter - Y[place]rough Urine Culture - Preliminary Culture exhibits no growth. 06/28/22 19:35 Nasal Secretion SARS-CoV-2 & FLU Antigen (Rapid) - Final SARS-CoV-2 (COVID 19) ABG Data ABG results: ABG 07/02/22 08:09 Specimen Type ART Sample Site L Radial pH 7.06 L* Bicarbonate Actual 2.6 L Total CO2 < 5 Base Excess -28 L O2 Saturation 95 ABG pCO2 9.0 L* ABG pO2 103 H O2 Delivery Device Room Air Crit Call To/Read Back Yes Blood Gas Notified Whom remi Rhythm Strip Rhythm Strip: Sinus Tach Rate: 108 Physical Exam Const Constitutional Narrative: Intubated. Unresponsive to verbal or noxious stimuli. Eyes Eyes Narrative: No corneal reflex bilaterally. Pupils narrowed and fixed. Resp normal respiratory effort and no retractions Resp Narrative: Coarse breath sounds bilaterally Cardio regular rate, regular rhythm, S1 normal heart sound and S2 normal heart sound GI normal to inspection, nondistended, normoactive bowel sounds, soft to palpation, non-tender and non-distended Extremity normal to inspection Assessment & Plan Assessment/Plan (1) Diabetic keto-acidosis: PLAN: resolved (2) Acute kidney injury: PLAN: worsening oliguric nephrology following CRRT on HCO3- gtt (3) COVID: PLAN: on room air diagnosed 06/28 no treatment (4) Acute respiratory failure: PLAN: No noted hypoxia nor hypercapnia Due to decreased mental status and metabolic acidosis Intubated July 03 (5) Encephalopathy: PLAN: Unclear etiology. Suspect metabolic given his known metabolic derangements. Cannot rule out intracranial process at this time. Patient has been started on CRRT Consider imaging when patient more hemodynamically stable PLAN: Plan Chronic conditions: HTN/HLD: We will hold his ramipril given his acute renal failure. Can wait to restart his pravastatin DVT proph: Heparin Prognosis: Guarded to poor. Charges/Coding Visit Charges Inpatient E&M: 90126 Subs Hosp L2
[2022-07-03] MEDS: Midazolam 2 MG/2 ML Syringe IV (07:46)
[2022-07-03] MEDS: Etomidate 20 MG/10 ML Vial IV (07:47)
[2022-07-03] MEDS: Propofol 10MG/Ml 1,000 MG/100 ML Bottle 5.1 MG CONT INF (07:50)
--- NOTE | 2022-07-03 07:50 | NURSING ---
Patient unresponsive. Dr. Maldonado, nursing staff and RT at bedside preparing to intubate patient. Versed 2mg IV and Etomidate 20mg IV given for intubation- see MAR Successfully intubated at 0749, size 8 tube, 24 at the lip. Bilateral breath sounds heard.
--- NOTE | 2022-07-03 07:52 | RAD_ITS ---
STUDY: X-RAY CHEST REASON FOR EXAM: Male, 71 years old. ETT placement, OG tube placement TECHNIQUE: Single AP portable view of the chest. COMPARISON: Comparison is made with prior examination dated 06/28/2022. FINDINGS: An endotracheal tube is in situ. The tip is at 5.7 cm proximal to the ivone. The tip of the orogastric tube is in the body of the stomach. The lungs are clear and expanded. There is no demonstrated pleural abnormality. Normal size heart. Normal mediastinum and katty. Normal visualized pulmonary arteries. There is atherosclerotic tortuosity of the aortic arch and descending thoracic aorta. There are diffuse degenerative changes of the visualized thoracic spine. Normal visualized ribs, clavicles, and shoulders. There is no demonstrated abnormality of the visualized soft tissue structures of the upper abdomen. RAD/Chest 1 View (Portable) IMPRESSION: The tip of the endotracheal tube is at 5.7 cm proximal to the ivone. The tip of the orogastric tube is in the body of the stomach. Electronically Signed: Scott Patel MD at 9:13 EST ,
[2022-07-03 08:45] LABS: Bedside Glucose 115 mg/dL (74-106)
[2022-07-03 08:50] LABS: Allen Test Positive; Base Excess -21 mmol/L (-2 to +2); Bicarbonate 7.4 mmol/L (22-26); Blood Gas Specimen Type ART; FI02 30; Mode AC; O2 Delivery Device Adult Vent; PEEP 5; PO2 100 mmHG (75-100); RR 14; SITE L Radial; SO2 96 % (95-99); Total Carbon Dioxide 8 mmol/L; Vt 450; pH 7.18 (7.35-7.45)
[2022-07-03 09:34] LABS: CPK Total, Creatine Kinase 109 U/L (39-308); Triglycerides 136 mg/dL
[2022-07-03 09:45] LABS: Bedside Glucose 101 mg/dL (74-106)
--- NOTE | 2022-07-03 09:47 | PCM.PN.REN ---
Subjective Subjective Follow-up on acute kidney injury, hypercalcemia. Remains critically ill in ICU, on ventilator, minimal oxygen requirements, PEEP of 5. Awaiting line placement to initiate CRRT. Objective Data Objective Data Vital Signs: Vital Signs Temp Pulse Resp BP Pulse Ox O2 Del Method FiO2 99.9 F H 100 27 H 135/69 H 96 Room Air 21 07/03/22 07:00 07/03/22 07:00 07/03/22 07:00 07/03/22 07:00 07/03/22 07:00 07/03/22 07:00 07/02/22 12:00 Oxygen Delivery Method Room Air Weight: 85.7 kg Body Mass Index (BMI) 29.3 Intake & Output: Intake and Output for Last 24 Hours 07/01/22 07/02/22 07/03/22 23:59 23:59 23:59 Intake Total 1542.5 / 1542.5 3255.12 / 3260.12 193.14 / 1937.14 Output Total 600 / 800 340 / 340 Balance 942.5 / 742.5 2915.12 / 2920.12 1937.14 / 1937.14 Medical Nutrition Assessment Dietitian: Malnutrition Criteria Met Start: 07/02/22 13:54 Freq: Status: Active Protocol: Document 07/02/22 13:54 FRANCISCO (Rec: 07/02/22 13:54 [facility] [id number]) Nutrition Malnutrition Evidence of Malnutrition Exists Yes Malnutrition (severe): Acute Illness/Injury Evidenced By Suboptimal Energy Intake ( Severe),Weight Loss (Severe) Intake Problem Inadequate Oral Intake Etiology related to decreased appetite, n/v/d [employer] Signs/Symptoms as evidenced by current PO intake meeting ~50% of estimated energy needs, reportedly no PO intake for 8 days [employer] Status Active Problem Clinical Problem Acute Disease or Injury Related Malnutrition Etiology related to physiological changes impacting oral intakes and weight Signs/Symptoms as evidenced by significant weight loss of 5.1% in less than one week, and reported lack of po intake for 8 days [employer] in addition to current NPO status limiting oral intakes. Status Active Problem Recommendation Dietitian Recommendations/Changes Recommend advancement of diet when appropriate. Would recommend consistent CHO diet as well as Glucerna 120mL TID w/ meals until adequate PO intake is established. Will monitor renal function and add further dietary restrictions if indicated. Lab / Micro Data Attestation: I reviewed the patient's lab results. Result Diagrams: 07/03/22 03:15 07/03/22 03:15 Labs: Laboratory Results - last 24 hr 07/02/22 09:03: POC Glucose 377 H 07/02/22 10:03: POC Glucose 330 H 07/02/22 11:02: POC Glucose 321 H 07/02/22 12:05: POC Glucose 274 H 07/02/22 13:03: POC Glucose 225 H 07/02/22 14:04: POC Glucose 193 H 07/02/22 14:58: POC Glucose 132 H 07/02/22 16:05: POC Glucose 90 07/02/22 17:10: POC Glucose 81 07/02/22 17:59: POC Glucose 84 07/02/22 18:58: POC Glucose 106 07/02/22 20:07: POC Glucose 133 H 07/02/22 21:00: POC Glucose 127 H 07/02/22 22:00: POC Glucose 125 H 07/02/22 23:09: POC Glucose 96 07/03/22 00:04: POC Glucose 84 07/03/22 01:01: POC Glucose 72 L 07/03/22 02:02: POC Glucose 73 L 07/03/22 03:03: POC Glucose 85 07/03/22 03:15: WBC 19.1 H, RBC 5.73, Hgb 17.5 H, Hct 51.9, MCV 90.6, MCH 30.5, MCHC 33.7, RDW Std Deviation 51.9 H, RDW Coeff of Kenyatta 15.6 H, Plt Count 176, MPV 10.1, Immature Gran % (Auto) 2.300 H, Neut % (Auto) 84.1 H, Lymph % (Auto) 3.8 L, [place] % (Auto) 8.8, Eos % (Auto) 0.5, Baso % (Auto) 0.5, Absolute Neuts (auto) 16.1 H, Absolute Lymphs (auto) 0.72 L, Nucleated RBC % 0, Differential Comment SCANNED, Diff Path Review September07/03/22 03:15: Sodium 155 H, Potassium 3.4 L, Chloride 129 H*, Carbon Dioxide 10.0 L, Anion Gap 16 H, BUN 116 H*, Creatinine 8.36 H*, Estim Creat Clear Calc 8.10, Est GFR (MDRD) Af Amer 8 L, Est GFR (MDRD) Non-Af 7 L, BUN/Creatinine Ratio 13.9, Glucose 83, Calcium 12.3 H 07/03/22 03:15: Total Creatine Kinase 109, Triglycerides 136 07/03/22 04:10: POC Glucose 79 07/03/22 05:03: POC Glucose 85 07/03/22 06:07: POC Glucose 81 07/03/22 07:00: POC Glucose 107 H 07/03/22 08:12: POC Glucose 115 H 07/03/22 09:26: POC Glucose 101 Micro: Microbiology 07/01/22 08:25 Urine Catheter - [facility]rough Urine Culture - Final Culture exhibits no growth. 06/28/22 19:35 Nasal Secretion SARS-CoV-2 & FLU Antigen (Rapid) - Final SARS-CoV-2 (COVID 19) ABG Data ABG results: ABG 07/03/22 08:45 Specimen Type ART Sample Site L Radial pH 7.18 L* Bicarbonate Actual 7.4 L Total CO2 8 Base Excess -21 L O2 Saturation 96 O2 % 30 ABG pCO2 20.0 L ABG pO2 100 Laz Test Positive Respiration Rate 14 O2 Delivery Device Adult Vent Vent Mode AC Tidal Volume 450 POC PEEP 5 Crit Call To/Read Back Yes Blood Gas Notified Whom BROWN Radiography Diagnostic Testing: Radiology Impression Chest X-Ray 07/03/22 07:52 IMPRESSION: The tip of the endotracheal tube is at 5.7 cm proximal to the ivone. The tip of the orogastric tube is in the body of the stomach. Electronically Signed: Scott Patel MD at 9:13 EST , Rhythm Strip Rhythm Strip: Sinus Tach Rate: 108 Physical Exam Narrative Orally intubated, sedated with propofol Const average body habitus HEENT normocephalic Head and Scalp: atraumatic Resp Resp Narrative: Scattered rhonchi Cardio regular rate Cardio Narrative: Tachycardic GI Auscultation: hypoactive bowel sounds Neuro Sensorium / Orientation: sedated on vent Assessment & Plan Assessment/Plan (1) Acute kidney injury: PLAN: Acute kidney injury secondary to ischemic ATN in the setting of sepsis as well as hypercalcemia. Creatinine precipitously going up, acidosis is quite significant in spite of bicarb drip. He is scheduled to have a line placed today and started on CRRT. CRRT should improve his acidosis, as well as hypercalcemia and other electrolyte abnormalities. He does not appear to be fluid overloaded, so no fluid removal at this time.
[2022-07-03 10:56] LABS: Bedside Glucose 100 mg/dL (74-106)
[2022-07-03 11:09] LABS: Hepatitis B Surface Antigen Non-Reactive (Nonreactive)
--- NOTE | 2022-07-03 11:11 | OP.PCM_ITS ---
Problems Associated Problem List Diagnoses (1) Acute kidney injury: Operative Report Date of Procedure: 07/03/22 Right IJ double-lumen hemodialysis catheter placement Indication acute kidney injury with acidosis, hemodynamic instability Salvager Helper me Anesthesia uses 2 cc of 1% lidocaine Technique Dianen No immediate complications Area over the right IJ was prepped and draped in the usual fashion and local anesthesia was obtained of the subcutaneous injection of 1% lidocaine. After wards using Seldinger technique 20 cm double-lumen hemodialysis catheter was introduced in the right IJ without difficulties. Good blood return. Sutures placed, dressing applied. Chest x-rays taken, there was no immediate complications
[2022-07-03] MEDS: Heparin 10,000 UNITS/10 ML Vial 2800 UNITS IV (11:26)
--- NOTE | 2022-07-03 11:30 | RAD_ITS ---
STUDY: X-RAY CHEST REASON FOR EXAM: Male, 71 years old. Line placement TECHNIQUE: Single AP portable view of the chest. COMPARISON: Comparison is made with prior examination done earlier today. FINDINGS: An endotracheal tube is in situ. A right-sided internal jugular venous catheter has been placed with the tip at the junction of the superior vena cava and right atrium. The remainder of the examination is unchanged. RAD/CXR for Line Placement IMPRESSION: A right-sided internal jugular venous catheter has been placed with the tip at the junction of the superior vena cava and right atrium. The remainder of the examination is unchanged. Electronically Signed: Scott Patel MD at 12:41 EST ,
--- NOTE | 2022-07-03 12:21 | RAD_ITS ---
STUDY: X-RAY CHEST REASON FOR EXAM: Male, 71 years old. Central line placement TECHNIQUE: Single AP portable view of the chest. COMPARISON: Comparison is made with prior study done earlier today at 11:30 AM. FINDINGS: A left-sided internal jugular venous catheter was placed. The tip is in the proximal portion of the superior vena cava. The remainder of the examination is unchanged. RAD/CXR for Line Placement IMPRESSION: Status post placement of a left internal jugular venous catheter with the tip in the proximal portion of the superior vena cava. Electronically Signed: Scott Patel MD at 13:33 EST ,
--- NOTE | 2022-07-03 12:21 | PCM.OP.BLANK ---
Operative Report Date of Procedure: 07/03/22 Central line placement procedure note Indication: IV access/hemodynamic instability Procedure: A time-out was completed to verify correct patient, indication, medication allergies, procedure, coagulation studies, informed consent signed, and equipment needed. The patient was placed in the supine position for a central line placement to the left IJ vein. The patients left neck was prepped using chlorhexidine and a full body sterile drape was applied. 1% lidocaine was used to anesthetize the surrounding skin. A 7fr 20 cm blue guard triple lumen catheter introduced into the internal jugular vein using the modified seldinger technique with the assistance of ultrasound. The catheter was threaded smoothly over the guidewire, the guidewire was removed easily, nonpulsatile blood returned. All ports were aspirated of air and flushed with sterile saline. The catheter was sutured in place and covered with an occlusive dressing impregnated with chlorhexidine. Post-procedure: The patient tolerated the procedure well. Vital signs remained stable. EBL 3 cc. No complications. Chest X Ray ordered to confirm tip placement and the absence of pneumothorax. Procedures Hospitalists Procedures: 83290 Insert Non-tunnel CV Cath
[2022-07-03] MEDS: Insulin Glargine-YFGN 100 UNIT/ML Pen 40 UNIT SC (13:02)
[2022-07-03 13:10] LABS: Bedside Glucose 106 mg/dL (74-106)
[2022-07-03 13:24] LABS: Pathologist Review Reviewed
--- NOTE | 2022-07-03 13:34 | PCM.RX.CS ---
Consult Pharmacy has been consulted to manage selected antiobiotic: Vancomycin Type of Consult: New start Prior Doses of Antibiotics Received/Current Regimen: Medications Vancomycin HCl 2,000 mg/ (Sodium Chloride) 540 mls @ 250 mls/hr IV X1 ONE Stop: 07/03/22 14:39 Last Admin: 07/03/22 13:24 Dose: 250 mls/hr Labs: Sodium 155 mmol/L (136-145) H 07/03/22 03:15 Potassium 3.4 mmol/L (3.5-5.1) L 07/03/22 03:15 Chloride 129 mmol/L (98-107) H* 07/03/22 03:15 Carbon Dioxide 10.0 mmol/L (21.0-32.0) L 07/03/22 03:15 Anion Gap 16 (5-15) H 07/03/22 03:15 BUN 116 mg/dL (7-18) H* 07/03/22 03:15 Creatinine 8.36 mg/dL (0.70-1.30) H* 07/03/22 03:15 Est GFR (MDRD) Af Amer 8 mL/min (>60) L 07/03/22 03:15 Est GFR (MDRD) Non-Af 7 mL/min (>60) L 07/03/22 03:15 BUN/Creatinine Ratio 13.9 RATIO (10-20) 07/03/22 03:15 Glucose 83 mg/dL (74-106) 07/03/22 03:15 Microbiology: Microbiology 07/01/22 08:25 Urine Catheter - [facility]rough Urine Culture - Final Culture exhibits no growth. 06/28/22 19:35 Nasal Secretion SARS-CoV-2 & FLU Antigen (Rapid) - Final SARS-CoV-2 (COVID 19) Weight used for dosin kg Estimated Creatinine Clearance: CRRT Goal Trough: 15-20 mcg/mL Pharmacy Plan for Drug Dosing: Vancomycin 2000mg IV x1, 750mg IV q12h with trough prior to 3rd dose per dosing policy for patient on CRRT. Pharmacy Service will continue to monitor and adjust dosing as required. Follow-Up Labs: Trough Vancomycin - 07/04 @ 1330
[2022-07-03 13:45] LABS: Reflex Lactate? Y
[2022-07-03] MEDS: Acetaminophen 650 MG/20 ML UDC GT (13:56)
[2022-07-03 14:48] LABS: Hematocrit 47.8 % (40-54); Hemoglobin 15.8 g/dL (13.0-16.5); Mean Corp Hgb Conc 33.1 g/dL (32-36); Mean Corpuscular Hgb 30.3 pg (27.0-32.0); Mean Corpuscular Volume 91.6 fL (80-94); Mean Platelet Vol. 10.2 fl (6.2-12.0); Platelet Count 207 K/mm3 (150-450); RBC Distribution Width CV 15.8 % (11.6-14.6); RBC Distribution Width SD 53.6 fl (35.1-43.9); Red Blood Count 5.22 M/mm3 (4.6-6.2); White Blood Count 17.4 K/mm3 (4.4-11.0)
[2022-07-03 14:58] LABS: Partial Thromboplast Time 40.1 Seconds (24.1-36.2)
--- NOTE | 2022-07-03 15:05 | EKG12_ITS ---
Test Reason : Blood Pressure : / mmHG Vent. Rate : 167 BPM Atrial Rate : 166 BPM P-R Int : 000 ms QRS Dur : 080 ms QT Int : 284 ms P-R-T Axes : 000 016 -23 degrees QTc Int : 473 ms Supraventricular tachycardia Low voltage QRS (Limb Leads) Poor R wave progression Abnormal ECG Confirmed by KIMBERLEE BARRAZA, ANNIKA ([id number]), editor index DARRELL CARMONA ([id number]) on 07/05/2022 8:57:38 AM Referred By: REJI Confirmed By:ANNIKA MOHAN MD
[2022-07-03] MEDS: PUREFLOW B SOLUTION 4K 5,000 ML BAG 9 BAG PF ×2 (15:34→23:40)
[2022-07-03 16:07] LABS: Albumin, Serum 2.2 g/dL (3.2-5.0); BUN 118 mg/dL (7-18); BUN/Creat Ratio 11.6 RATIO (10-20); Calcium,Total 11.1 mg/dL (8.5-10.1); Chloride 121 mmol/L (98-107); EST Glomerular Filtration Rate 5 mL/min (>60); Est Glom Filt Rate - Afr Amer 7 mL/min (>60); Estimated Creatinine Clearance 6.64 ml/min; Glucose 182 mg/dL (74-106); Magnesium 2.5 mg/dL (1.6-2.6); Sodium Level 151 mmol/L (136-145)
[2022-07-03] MEDS: Adenosine 6 MG/2 ML Syringe IV (17:14)
[2022-07-03] MEDS: Adenosine 6 MG/2 ML Syringe 12 MG IV (17:16)
[2022-07-03] MEDS: 0.9% Saline Lock 10 ML Syringe IV (17:29)
--- NOTE | 2022-07-03 17:51 | NURSING ---
Patient remains in SVT, hypotensive. Dr. Ramachandran at bedside. Adenosine 6mg IV given at 1714, HR 180s SVT Adenosine 12mg IV given at 1716, HR 160s SVT 1720- patient converted to afib 130-140s, EKG confirmed. Amiodarone and vasopressin ordered
[2022-07-03] MEDS: Insulin Lispro 100 UNIT/ML INSULN.PEN SC ×2 (18:10→23:34)
[2022-07-03] MEDS: Amiodarone 360 MG in Dextrose 5% Viaflo Bag 192.8 ML 33.3 MG CONT INF (18:18)
[2022-07-03 18:30] LABS: Bedside Glucose 171 mg/dL (74-106)
--- NOTE | 2022-07-03 20:33 | NURSING ---
CRRT stopped at this time. Alarming low venous pressure, determined that filter is clotted. Blood return to the best of ability and cartridge replaced.
[2022-07-03 23:56] LABS: Bedside Glucose 234 mg/dL (74-106)
[2022-07-03] MEDS: Chlorhexidine 15 ML PO (23:59)
[2022-07-03] MEDS: CHLORHEXIDINE GLUC 2% CLOTH 1 EACH TOWELETTE TOPICAL (23:59)
[2022-07-04] VITALS (67 sets, daily range): BP systolic 40–133; BP diastolic 17–87; PULSE 77–103; RESP 14–94; TEMP 35.8–38.6; O2SAT 90–100; BMI 30.2
[2022-07-04 00:06] LABS: Hematocrit 44.7 % (40-54); Mean Corp Hgb Conc 33.6 g/dL (32-36); Mean Corpuscular Hgb 30.2 pg (27.0-32.0); Mean Corpuscular Volume 90.1 fL (80-94); Mean Platelet Vol. 10.6 fl (6.2-12.0); Platelet Count 124 K/mm3 (150-450); RBC Distribution Width CV 15.8 % (11.6-14.6); RBC Distribution Width SD 52.3 fl (35.1-43.9); Red Blood Count 4.96 M/mm3 (4.6-6.2); White Blood Count 14.9 K/mm3 (4.4-11.0)
[2022-07-04 00:28] LABS: Albumin, Serum 1.9 g/dL (3.2-5.0); BUN 84 mg/dL (7-18); BUN/Creat Ratio 12.2 RATIO (10-20); Calcium,Total 9.4 mg/dL (8.5-10.1); Chloride 113 mmol/L (98-107); EST Glomerular Filtration Rate 8 mL/min (>60); Est Glom Filt Rate - Afr Amer 10 mL/min (>60); Estimated Creatinine Clearance 9.82 ml/min; Glucose 297 mg/dL (74-106); Magnesium 1.9 mg/dL (1.6-2.6); Phosphorus 4.1 mg/dL (2.5-4.9); Potassium 3.8 mmol/L (3.5-5.1); Sodium Level 143 mmol/L (136-145)
[2022-07-04] MEDS: Amiodarone 360 MG in Dextrose 5% Viaflo Bag 192.8 ML 16.7 MG CONT INF ×2 (01:08→12:52)
[2022-07-04 03:56] LABS: Hematocrit 43.4 % (40-54); Hemoglobin 14.6 g/dL (13.0-16.5); Mean Corp Hgb Conc 33.6 g/dL (32-36); Mean Corpuscular Hgb 30.1 pg (27.0-32.0); Mean Corpuscular Volume 89.5 fL (80-94); Mean Platelet Vol. 10.3 fl (6.2-12.0); Platelet Count 109 K/mm3 (150-450); RBC Distribution Width CV 15.5 % (11.6-14.6); RBC Distribution Width SD 51.1 fl (35.1-43.9); Red Blood Count 4.85 M/mm3 (4.6-6.2); White Blood Count 14.5 K/mm3 (4.4-11.0)
[2022-07-04] MEDS: PUREFLOW B SOLUTION 4K 5,000 ML BAG 9 BAG PF ×5 (04:05→19:45)
[2022-07-04 04:10] LABS: Albumin, Serum 1.8 g/dL (3.2-5.0); BUN 69 mg/dL (7-18); BUN/Creat Ratio 13.2 RATIO (10-20); Calcium,Total 9.1 mg/dL (8.5-10.1); Chloride 111 mmol/L (98-107); Creatinine, Serum 5.21 mg/dL (0.70-1.30); EST Glomerular Filtration Rate 12 mL/min (>60); Est Glom Filt Rate - Afr Amer 14 mL/min (>60); Glucose 244 mg/dL (74-106); Phosphorus 3.6 mg/dL (2.5-4.9); Potassium 3.6 mmol/L (3.5-5.1); Sodium Level 140 mmol/L (136-145)
[2022-07-04] MEDS: Heparin Injection (Vial) 5,000 UNIT/ML VIAL 5000 UNIT SC (05:16)
[2022-07-04] MEDS: Insulin Lispro 100 UNIT/ML INSULN.PEN SC ×2 (05:22→12:10)
[2022-07-04] MEDS: Insulin Glargine-YFGN 100 UNIT/ML Pen 40 UNIT SC (05:23)
[2022-07-04 05:45] LABS: Bedside Glucose 199 mg/dL (74-106)
--- NOTE | 2022-07-04 06:05 | PN.CC_ITS ---
Assessment & Plan Assessment/Plan (1) Diabetic keto-acidosis: (2) Hypernatremia: (3) Hyperchloremic metabolic acidosis: PLAN: Plan RECOMMENDATIONS: 1. Continue assist-control mode of mechanical ventilation. Wean FiO2 and PEEP to maintain saturations at or above 90%. 2. Discontinue D5W. 3. Continue CRRT. 4. Obtain follow-up arterial blood gas this morning. 5. Continue amiodarone. Echocardiogram is pending. 6. Continue Levophed to maintain a mean arterial pressure at or above 65 mmHg. 7. Continue empiric antimicrobials. 8. Continue appropriate ICU prophylaxis. IMPRESSIONS: 1. Metabolic encephalopathy The patient has developed worsening encephalopathy, likely secondary to profound underlying metabolic derangements, including hypernatremia and worsening uremia in the setting of YESI. Unfortunately, the patient had to be intubated on the morning of July 03 due to concerns for airway protection. Plan to continue CRRT to address his underlying metabolic derangements and renal insufficiency. Continue to avoid sedating medications. 2. Acute respiratory failure The patient was intubated over concerns for airway protection and possible aspiration. The etiology for his encephalopathy appears to be metabolic in nature. Anticipate improvement with hemodialysis support. In the interim, continue the patient on assist control mode mechanical ventilation. Wean FiO2 and PEEP to maintain saturations at or above 90%. Sputum culture is pending. Continue antimicrobials as ordered. 3. Septic shock Clinical concern for underlying pulmonary source of infection. The patient has significant underlying metabolic derangements related to his renal insu fficiency. He is significantly overall net positive from a volume perspective for the hospitalization. Plan to continue current supportive measures including broad-spectrum antimicrobials and Levophed to maintain a mean arterial pressure at or above 65 mmHg. Cultures are still pending. 4. YESI on CKD Likely secondary to ischemic ATN. The patient has interval worsening in his renal function and metabolic derangements. The patient appears to be tolerating CRRT, which will be continued per the discretion of nephrology. 5. DKA Resolved. Suspect elevated anion gap is secondary to uremia. No serum acetone was noted. Lactate is within normal limits. Continue basal and sliding scale insulin coverage. 6. COVID-19/hyperlipidemia/hypertension/advanced age Complicates care, management, recovery and prognosis. Continue supportive measures as noted above. Continue to hold on initiation of tube feeds for now. TIME: 35 minutes of critical care time, inclusive of procedures, was spent addressing the patient's metabolic encephalopathy, acute respiratory failure, septic shock, YESI on CKD, review of all data and collaboration with the care team. Subjective Subjective The patient was seen and examined at the bedside this morning. Events from the last 24 hours have been reviewed. The patient is currently afebrile and maintaining appropriate oxygen saturations on assist control mode mechanical ventilation with an FiO2 requirement of 30%. The patient remains on Levophed at 10 mcg/min to maintain hemodynamic stability. The patient is currently documented to be overall net +14.7 L for the hospitalization. Sodium has improved to 140 with a chloride of 111, bicarbonate of 17, BUN of 69 and creatinine of 5.2. The patient remains in atrial fibrillation on amiodarone. Objective Data Objective Data The patient's most recent lab work, culture data and imaging studies have all been personally reviewed. Rapid COVID testing was positive on June 28. Sputum and blood cultures are pending. Vital Signs: Vital Signs Temp Pulse Resp BP Pulse Ox O2 Del Method FiO2 97.0 F L 77 25 H 106/36 L 99 Mechanical Ventilator 30 07/04/22 05:54 07/04/22 05:54 07/04/22 05:54 07/04/22 05:54 07/04/22 05:54 07/04/22 05:54 07/04/22 05:54 Oxygen Delivery Method Mechanical Ventilator Weight: 204 lb 9.423 oz Body Mass Index (BMI) 30.2 Intake & Output: Intake and Output for Last 24 Hours 07/02/22 07/03/22 07/04/22 23:59 23:59 23:59 Intake Total 3255.12 / 3260.12 4085.21 / 4087.56 1497.83 / 1497.83 Output Total 340 / 340 30 / 35 5 / 5 Balance 2915.12 / 2920.12 4055.21 / 4052.56 1492.83 / 1492.83 Medical Nutrition Assessment Dietitian: Malnutrition Criteria Met Start: 07/02/22 13:54 Freq: Status: Active Protocol: Document 07/03/22 10:54 RIMMA (Rec: 07/03/22 10:54 RIMMA Desktop) Nutrition Malnutrition Evidence of Malnutrition Exists Yes Malnutrition (severe): Acute Illness/Injury Evidenced By Suboptimal Energy Intake ( Severe),Weight Loss (Severe) Intake Problem Inadequate Oral Intake Etiology related to requiring ventilator support Signs/Symptoms as evidenced by NPO status Status Active Problem Clinical Problem Acute Disease or Injury Related Malnutrition Etiology related to physiological changes impacting oral intakes and weight Signs/Symptoms as evidenced by significant weight loss of 5.1% 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 Status Active Problem Recommendation Dietitian Recommendations/Changes If anticipated to remain on vent, recommend Vital AF 1.2 at goal rate 65 ml/hr w/ 100 ml water flush every 4 hours to provide ~ 1872 claudio/ 117 gm pro/ 1865 ml free water/day. Would start at 20 ml/hr and increase by 15 ml every 8-12 hours as pt tolerates until goal rate achieved. Recommend advancement of po diet when medically appropriate -recommend consistent CHO diet w/ Glucerna 120mL TID w/ meals until adequate PO intake is established. Will monitor renal function and add further dietary restrictions if indicated. Lab / Micro Data Attestation: I reviewed the patient's lab results. Result Diagrams: 07/04/22 08:30 07/04/22 08:30 Labs: Laboratory Results - last 24 hr 07/01/22 03:05: Diff Path Review Reviewed 07/03/22 03:15: Total Creatine Kinase 109, Triglycerides 136 07/03/22 04:10: POC Glucose 79 07/03/22 05:03: POC Glucose 85 07/03/22 06:07: POC Glucose 81 07/03/22 07:00: POC Glucose 107 H 07/03/22 08:12: POC Glucose 115 H 07/03/22 09:26: POC Glucose 101 07/03/22 09:40: Hep Bs Antigen Non-Reactive 07/03/22 09:40: Acetone Level NEGATIVE 07/03/22 09:40: Lactic Acid 2.0 07/03/22 10:33: POC Glucose 100 07/03/22 12:50: POC Glucose 106 07/03/22 14:35: WBC 17.4 H, RBC 5.22, Hgb 15.8, Hct 47.8, MCV 91.6, MCH 30.3, MCHC 33.1, RDW Std Deviation 53.6 H, RDW Coeff of Kenyatta 15.8 H, Plt Count 207, MPV 10.2 07/03/22 14:35: APTT 40.1 H 07/03/22 14:35: Sodium 151 H, Potassium 4.0, Chloride 121 H, Carbon Dioxide 9.0 L*, BUN 118 H*, Creatinine 10.20 H*, Estim Creat Clear Calc 6.64, Est GFR (MDRD) Af Amer 7 L, Est GFR (MDRD) Non-Af 5 L, BUN/Creatinine Ratio 11.6, Glucose 182 H , Calcium 11.1 H, Phosphorus 5.0 H, Magnesium 2.5, Albumin 2.2 L 07/03/22 18:09: POC Glucose 171 H 07/03/22 23:31: POC Glucose 234 H 07/03/22 23:50: WBC 14.9 H, RBC 4.96, Hgb 15.0, Hct 44.7, MCV 90.1, MCH 30.2, MCHC 33.6, RDW Std Deviation 52.3 H, RDW Coeff of Kenyatta 15.8 H, Plt Count 124 L, MPV 10.6 07/03/22 23:50: Sodium 143, Potassium 3.8, Chloride 113 H, Carbon Dioxide 13.0 L , BUN 84 H, Creatinine 6.90 H, Estim Creat Clear Calc 9.82, Est GFR (MDRD) Af Amer 10 L, Est GFR (MDRD) Non-Af 8 L, BUN/Creatinine Ratio 12.2, Glucose 297 H, Calcium 9.4, Phosphorus 4.1, Magnesium 1.9, Albumin 1.9 L 07/04/22 03:50: WBC 14.5 H, RBC 4.85, Hgb 14.6, Hct 43.4, MCV 89.5, MCH 30.1, MCHC 33.6, RDW Std Deviation 51.1 H, RDW Coeff of Kenyatta 15.5 H, Plt Count 109 L, MPV 10.3 07/04/22 03:50: Sodium 140, Potassium 3.6, Chloride 111 H, Carbon Dioxide 17.0 L , BUN 69 H, Creatinine 5.21 H, Estim Creat Clear Calc 13.00, Est GFR (MDRD) Af Amer 14 L, Est GFR (MDRD) Non-Af 12 L, BUN/Creatinine Ratio 13.2, Glucose 244 H, Calcium 9.1, Phosphorus 3.6, Magnesium 2.0, Albumin 1.8 L 07/04/22 05:22: POC Glucose 199 H Micro: Microbiology 07/01/22 08:25 Urine Catheter - Yarbrough Urine Culture - Final Culture exhibits no growth. 06/28/22 19:35 Nasal Secretion SARS-CoV-2 & FLU Antigen (Rapid) - Final SARS-CoV-2 (COVID 19) ABG Data ABG results: ABG 07/03/22 08:45 Specimen Type ART Sample Site L Radial pH 7.18 L* Bicarbonate Actual 7.4 L Total CO2 8 Base Excess -21 L O2 Saturation 96 O2 % 30 ABG pCO2 20.0 L ABG pO2 100 Laz Test Positive Respiration Rate 14 O2 Delivery Device Adult Vent Vent Mode AC Tidal Volume 450 POC PEEP 5 Crit Call To/Read Back Yes Blood Gas Notified Whom BROWN Radiography Diagnostic Testing: Radiology Impression Chest X-Ray 07/03/22 07:52 IMPRESSION: The tip of the endotracheal tube is at 5.7 cm proximal to the ivone. The tip of the orogastric tube is in the body of the stomach. Electronically Signed: Scott Patel MD at 9:13 EST , Chest X-Ray 07/03/22 11:30 IMPRESSION: A right-sided internal jugular venous catheter has been placed with the tip at the junction of the superior vena cava and right atrium. The remainder of the examination is unchanged. Electronically Signed: Scott Patel MD at 12:41 EST , Chest X-Ray 07/03/22 12:21 IMPRESSION: Status post placement of a left internal jugular venous catheter with the tip in the proximal portion of the superior vena cava. Electronically Signed: Scott Patel MD at 13:33 EST , Rhythm Strip Rhythm Strip: Sinus Tach Rate: 108 Physical Exam Const Constitutional Narrative: Intubated and mechanically ventilated. No ventilator dyssynchrony. General Appearance: ill appearing HEENT normocephalic and head/scalp atraumatic Mouth: endotracheal tube in place and OG tube in place Eyes PERRL and EOMs intact bilaterally Neck supple General: trachea midline and CVC in place Chest inspection of chest normal Resp Effort and Inspection: tachypneic Auscultation: rhonchi and diminished lung sounds; Negative for rales or wheezes Cardio S1 normal heart sound and S2 normal heart sound Rate: tachycardic Rhythm: abnormal rhythm GI normal to inspection, nondistended, normoactive bowel sounds Extremity Extremity Narrative: Mottled lower extremities General Extremity: Negative for edema Skin no rashes or lesions noted Neuro Neuro Narrative: Lethargic. No purposeful response to verbal or tactile stimulation. Charges/Coding Procedures Hospitalists Procedures: 54779 Critial Care 1st Hr
--- NOTE | 2022-07-04 07:07 | PCM.PN.HOSP ---
Reason for Visit Reason for Visit: Diagnoses Type 2 diabetes mellitus with ketoacidosis without coma (06/28/22) Dehydration (06/28/22) Hyperosmolality and hypernatremia (06/28/22) Other acidosis (06/28/22) Encephalopathy, unspecified (06/28/22) Acute respiratory failure, unspecified whether with hypoxia or hypercapnia (06/28/22) Acute kidney failure, unspecified (06/28/22) COVID-19 (06/28/22) Subjective Subjective Still unresponsive Objective Data Objective Data Vital Signs: Vital Signs Temp Pulse Resp BP Pulse Ox O2 Del Method FiO2 36.3 C L 83 28 H 89/63 L 98 Mechanical Ventilator 30 07/04/22 06:58 07/04/22 06:58 07/04/22 06:58 07/04/22 06:58 07/04/22 06:58 07/04/22 06:58 07/04/22 06:58 Oxygen Delivery Method Mechanical Ventilator Weight: 92.8 kg Body Mass Index (BMI) 30.2 Intake & Output: Intake and Output for Last 24 Hours 07/02/22 07/03/22 07/04/22 23:59 23:59 23:59 Intake Total 3255.12 / 3260.12 4085.21 / 4087.56 1517.88 / 1517.88 Output Total 340 / 340 30 / 35 5 / 5 Balance 2915.12 / 2920.12 4055.21 / 4052.56 1512.88 / 1512.88 Medical Nutrition Assessment Dietitian: Malnutrition Criteria Met Start: 07/02/22 13:54 Freq: Status: Active Protocol: Document 07/03/22 10:54 RIMMA (Rec: 07/03/22 10:54 RIMMA Desktop) Nutrition Malnutrition Evidence of Malnutrition Exists Yes Malnutrition (severe): Acute Illness/Injury Evidenced By Suboptimal Energy Intake ( Severe),Weight Loss (Severe) Intake Problem Inadequate Oral Intake Etiology related to requiring ventilator support Signs/Symptoms as evidenced by NPO status Status Active Problem Clinical Problem Acute Disease or Injury Related Malnutrition Etiology related to physiological changes impacting oral intakes and weight Signs/Symptoms as evidenced by significant weight loss of 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 Status Active Problem Recommendation Dietitian Recommendations/Changes If anticipated to remain on vent, recommend Vital AF 1.2 at goal rate 65 ml/hr w/ 100 ml water flush every 4 hours to provide ~ 1872 claudio/ 117 gm pro/ 1865 ml free water/day. Would start at 20 ml/hr and increase by 15 ml every 8-12 hours as pt tolerates until goal rate achieved. Recommend advancement of po diet when medically appropriate -recommend consistent CHO diet w/ Glucerna 120mL TID w/ meals until adequate PO intake is established. Will monitor renal function and add further dietary restrictions if indicated. Lab / Micro Data Result Diagrams: 07/04/22 14:10 07/04/22 14:10 Labs: Laboratory Results - last 24 hr 07/01/22 03:05: Diff Path Review Reviewed 07/03/22 03:15: Total Creatine Kinase 109, Triglycerides 136 07/03/22 07:00: POC Glucose 107 H 07/03/22 08:12: POC Glucose 115 H 07/03/22 09:26: POC Glucose 101 07/03/22 09:40: Hep Bs Antigen Non-Reactive 07/03/22 09:40: Acetone Level NEGATIVE 07/03/22 09:40: Lactic Acid 2.0 07/03/22 10:33: POC Glucose 100 07/03/22 12:50: POC Glucose 106 07/03/22 14:35: WBC 17.4 H, RBC 5.22, Hgb 15.8, Hct 47.8, MCV 91.6, MCH 30.3, MCHC 33.1, RDW Std Deviation 53.6 H, RDW Coeff of Kenyatta 15.8 H, Plt Count 207, MPV 10.2 07/03/22 14:35: APTT 40.1 H 07/03/22 14:35: Sodium 151 H, Potassium 4.0, Chloride 121 H, Carbon Dioxide 9.0 L*, BUN 118 H*, Creatinine 10.20 H*, Estim Creat Clear Calc 6.64, Est GFR (MDRD) Af Amer 7 L, Est GFR (MDRD) Non-Af 5 L, BUN/Creatinine Ratio 11.6, Glucose 182 H, Calcium 11.1 H, Phosphorus 5.0 H, Magnesium 2.5, Albumin 2.2 L 07/03/22 18:09: POC Glucose 171 H 07/03/22 23:31: POC Glucose 234 H 07/03/22 23:50: WBC 14.9 H, RBC 4.96, Hgb 15.0, Hct 44.7, MCV 90.1, MCH 30.2, MCHC 33.6, RDW Std Deviation 52.3 H, RDW Coeff of Kenyatta 15.8 H, Plt Count 124 L, MPV 10.6 07/03/22 23:50: Sodium 143, Potassium 3.8, Chloride 113 H, Carbon Dioxide 13.0 L, BUN 84 H, Creatinine 6.90 H, Estim Creat Clear Calc 9.82, Est GFR (MDRD) Af Amer 10 L, Est GFR (MDRD) Non-Af 8 L, BUN/Creatinine Ratio 12.2, Glucose 297 H, Calcium 9.4, Phosphorus 4.1, Magnesium 1.9, Albumin 1.9 L 07/04/22 03:50: WBC 14.5 H, RBC 4.85, Hgb 14.6, Hct 43.4, MCV 89.5, MCH 30.1, MCHC 33.6, RDW Std Deviation 51.1 H, RDW Coeff of Kenyatta 15.5 H, Plt Count 109 L, MPV 10.3 07/04/22 03:50: Sodium 140, Potassium 3.6, Chloride 111 H, Carbon Dioxide 17.0 L, BUN 69 H, Creatinine 5.21 H, Estim Creat Clear Calc 13.00, Est GFR (MDRD) Af Amer 14 L, Est GFR (MDRD) Non-Af 12 L, BUN/Creatinine Ratio 13.2, Glucose 244 H, Calcium 9.1, Phosphorus 3.6, Magnesium 2.0, Albumin 1.8 L 07/04/22 05:22: POC Glucose 199 H Micro: Microbiology 07/01/22 08:25 Urine Catheter - Yarbrough Urine Culture - Final Culture exhibits no growth. 06/28/22 19:35 Nasal Secretion SARS-CoV-2 & FLU Antigen (Rapid) - Final SARS-CoV-2 (COVID 19) ABG Data ABG results: ABG 07/03/22 08:45 Specimen Type ART Sample Site L Radial pH 7.18 L* Bicarbonate Actual 7.4 L Total CO2 8 Base Excess -21 L O2 Saturation 96 O2 % 30 ABG pCO2 20.0 L ABG pO2 100 Laz Test Positive Respiration Rate 14 O2 Delivery Device Adult Vent Vent Mode AC Tidal Volume 450 POC PEEP 5 Crit Call To/Read Back Yes Blood Gas Notified Whom BROWN Radiography Diagnostic Testing: Radiology Impression Chest X-Ray 07/03/22 07:52 IMPRESSION: The tip of the endotracheal tube is at 5.7 cm proximal to the ivone. The tip of the orogastric tube is in the body of the stomach. Electronically Signed: Scott Patel MD at 9:13 EST , Chest X-Ray 07/03/22 11:30 IMPRESSION: A right-sided internal jugular venous catheter has been placed with the tip at the junction of the superior vena cava and right atrium. The remainder of the examination is unchanged. Electronically Signed: Scott Patel MD at 12:41 EST , Chest X-Ray 07/03/22 12:21 IMPRESSION: Status post placement of a left internal jugular venous catheter with the tip in the proximal portion of the superior vena cava. Electronically Signed: Scott Patel MD at 13:33 EST , Rhythm Strip Rhythm Strip: Sinus Tach Rate: 108 Physical Exam Const Constitutional Narrative: Intubated. Unresponsive to verbal or noxious stimuli. Eyes Eyes Narrative: No corneal reflex bilaterally. Pupils narrowed and fixed. Resp normal respiratory effort and no retractions Resp Narrative: Coarse breath sounds bilaterally Cardio regular rate, regular rhythm, S1 normal heart sound and S2 normal heart sound GI normal to inspection, nondistended, normoactive bowel sounds, soft to palpation, non-tender and non-distended Extremity normal to inspection Assessment & Plan Assessment/Plan (1) Diabetic keto-acidosis: PLAN: resolved (2) Acute kidney injury: PLAN: worsening oliguric nephrology following CRRT on HCO3- gtt (3) COVID: PLAN: on room air diagnosed 06/28 no treatment (4) Acute respiratory failure: PLAN: No noted hypoxia nor hypercapnia Due to decreased mental status and metabolic acidosis Intubated July 03 (5) Encephalopathy: PLAN: Per nursing, had been noted to have decreased unresponsiveness on 07/02 Unclear etiology. Suspect metabolic given his known metabolic derangements. Cannot rule out intracranial process at this time. Patient has been started on CRRT Consider imaging when patient more hemodynamically stable Has not received propofol since 12/31 at 0830, no fentanyl since 07/03 at 1300 (6) Shock: PLAN: Unclear type on norephinephrine, which has been weaned down. Was on vasopressin for about an hour yesterday (7) Atrial fibrillation with RVR: PLAN: Was in SVT yesterday. Did receive 2 doses of adenosine which showed underlying sinus rhythm, then went into afib with RVR. On amiodarone gtt [id number] 3. Would recommend holding off on anticoagulation until can get brain imaging. Check echo PLAN: Plan Chronic conditions: HTN/HLD: We will hold his ramipril given his acute renal failure. Can wait to restart his pravastatin DVT proph: Heparin Prognosis: Guarded to poor. Discussed with family on the . Charges/Coding Visit Charges Inpatient E&M: 87202 Subs Hosp L3
--- NOTE | 2022-07-04 07:16 | ECHOCS_ITS ---
Reason For Study: AFIB Procedure This was a 2D Doppler, Color Flow transthoracic echocardiogram. The study was technically difficult. Contrast injection was performed. Exam performed portable in ICU/CCU. Left Ventricle Left ventricular systolic function is hyperdynamic. The estimated ejection fraction is 75 %. Unable to assess diastolic dysfunction. No regional wall motion abnormalities noted. Right Ventricle Normal RV size. Normal systolic function. Atria Normal left atrium. Normal right atrium. No doppler evidence for ASD. Mitral Valve There is mild mitral annular calcification. Mild mitral valve prolapse. Trivial mitral valve insufficiency. Tricuspid Valve Normal tricuspid valve. Aortic Valve The aortic valve is not well visualized. Pulmonic Valve The pulmonic valve is not well visualized. Great Vessels The aortic root is not well visualized. Pericardium/Pleural No pericardial effusion. Medication Diluted definity 1ml given slow IV push to enhance endocardial definition. MMode/2D Measurements & Calculations LAV(MOD-sp4): 30.5 ml LA A4 area: 14.2 cm2 RA A4 area: 12.6 cm2 Doppler Measurements & Calculations MV E max yesi: 67.8 cm/sec Ao V2 max: 87.5 cm/sec LV V1 max: 72.1 cm/sec Ao max P.1 mmHg LV V1 max P.3 mmHg Ao V2 mean: 61.9 cm/sec LV V1 mean P.1 mmHg Ao mean P.8 mmHg LV V1 mean: 47.6 cm/sec Ao V2 VTI: 14.1 cm LV V1 VTI: 7.9 cm AV (velocity ratio): 0.56 ECHO/Echo Complete W/ Contrast Interpretation Summary The study was technically difficult. Contrast injection was performed. Left ventricular systolic function is hyperdynamic. The estimated ejection fraction is 75 %. There is mild mitral annular calcification. Mild mitral valve prolapse. Trivial mitral valve insufficiency. Unable to assess diastolic dysfunction. Ordering Physician: Abimael Ramachandran Referring Physician: Arjun Guerra Performed By: Yajaira Polk RCS
[2022-07-04] MEDS: CHLORHEXIDINE GLUC 2% CLOTH 1 EACH TOWELETTE TOPICAL (07:56)
[2022-07-04 08:50] LABS: Allen Test Positive; Base Excess -6 mmol/L (-2 to +2); Bicarbonate 18.1 mmol/L (22-26); Blood Gas Specimen Type ART; FI02 30; Mode AC; O2 Delivery Device Adult Vent; PEEP 5; PO2 77 mmHG (75-100); RR 14; SITE R Radial; SO2 96 % (95-99); Total Carbon Dioxide 19 mmol/L; Vt 450; pCO2 26.9 mmHg (35-45); pH 7.44 (7.35-7.45)
[2022-07-04 08:53] LABS: Hematocrit 42.5 % (40-54); Hemoglobin 14.6 g/dL (13.0-16.5); Mean Corp Hgb Conc 34.4 g/dL (32-36); Mean Corpuscular Volume 87.4 fL (80-94); Mean Platelet Vol. 10.6 fl (6.2-12.0); POSITIVE COUNT YES; Platelet Count 98 K/mm3 (150-450); RBC Distribution Width CV 15.3 % (11.6-14.6); RBC Distribution Width SD 49.4 fl (35.1-43.9); Red Blood Count 4.86 M/mm3 (4.6-6.2); White Blood Count 11.8 K/mm3 (4.4-11.0)
[2022-07-04 08:54] LABS: Scan Indicated on CBC? Y/N YES- FLAGS NOTED
[2022-07-04] MEDS: Chlorhexidine 15 ML PO ×2 (09:02→20:49)
[2022-07-04 09:14] LABS: Albumin, Serum 1.8 g/dL (3.2-5.0); BUN 57 mg/dL (7-18); Calcium,Total 7.1 mg/dL (8.5-10.1); Chloride 106 mmol/L (98-107); Creatinine, Serum 4.38 mg/dL (0.70-1.30); EST Glomerular Filtration Rate 14 mL/min (>60); Est Glom Filt Rate - Afr Amer 17 mL/min (>60); Estimated Creatinine Clearance 15.47 ml/min; Glucose 181 mg/dL (74-106); Magnesium 1.3 mg/dL (1.6-2.6); Phosphorus 2.3 mg/dL (2.5-4.9); Sodium Level 141 mmol/L (136-145)
[2022-07-04 09:26] LABS: Pathologist Review Reviewed
[2022-07-04 09:28] LABS: Differential Comment SCANNED
[2022-07-04 09:34] LABS: Pathologist Review Reviewed
[2022-07-04] MEDS: Magnesium Sulfate 4gm/100mL 4 GM/100 ML IV.SOLN. IV (10:07)
--- NOTE | 2022-07-04 12:33 | CASEMGMT ---
Social Work This social media executive met with patient son, Raghu and patient [id number] in room for support. Raghu states to be patient only child and that patient spouse, Sue is primary contact and decision maker. This social media executive provided active listening and support. Raghu with a few questions about discharge planning in the event that patient has positive progress on medical status. This social media executive able to answer questions. Telephone call to patient spouse, Sue. Introduced self and social media executive role. Sue thanked this social media executive for the phone call. Sue inquired about discharge plan for patient if he gets better. This social media executive brought up correction facility as anticipating that patient will have a decrease in function due to extended stay in hospital. Sue reports that first choice for fci would be [facility], this social media executive communicating that [facility] is not in-network with patient insurance. This social media executive offered to provide a list of correction facilities that are in-network with patient insurance to Raghu for Raghu and Sue to go over, Sue declined for list to be provided and request for second facility of choice to be [facility]. This social media executive communicating that insurance will need to approve the skilled time as well as TCU being able to accept patient. Sue would like patient to be placed on list for TCU. This social media executive provided active listening and support. This social media executive noting that there is not HCPOA documents on chart, Sue reports to have documents and can bring to hospital when able to come to hospital again. Sue has been sick and not able to come to the hospital as often, this social media executive encouraged Sue to take care of self and that nursing will continue to contact Sue for updates and Sue is always able to call into the hospital. Patient sonRaghu does live 2 hours out of town. Sue reports to have neighbors that are checking in and supportive Sue. Sue reports to not drive but to have a neighbor that has been transportation Sue as needed. Telephone call to [facility]. This social media executive placed patient on list. PLAN: SNF, pending medical clearance and acceptance. Dajuan BELTRAN, [id number]-S
[2022-07-04 12:35] LABS: Bedside Glucose 153 mg/dL (74-106)
--- NOTE | 2022-07-04 13:10 | PN.RENAL_ITS ---
Subjective Subjective Came over to supervise CRRT. He is requiring more Levophed, has significant acrocyanosis. On minimal ventilatory support, FiO2 30%, PEEP of 5. Family is at bedside. Makes no urine Objective Data Objective Data Vital Signs: Vital Signs Temp Pulse Resp BP Pulse Ox O2 Del Method FiO2 99.7 F H 89 28 H 125/48 H 94 Mechanical Ventilator 30 07/04/22 12:00 07/04/22 12:00 07/04/22 12:00 07/04/22 12:30 07/04/22 12:00 07/04/22 12:00 07/04/22 12:00 Oxygen Delivery Method Mechanical Ventilator Weight: 92.8 kg Body Mass Index (BMI) 30.2 Intake & Output: Intake and Output for Last 24 Hours 07/02/22 07/03/22 07/04/22 23:59 23:59 23:59 Intake Total 3255.12 / 3260.12 4085.21 / 4087.56 2678.64 / 2678.64 Output Total 340 / 340 30 / 35 5 / 5 Balance 2915.12 / 2920.12 4055.21 / 4052.56 2673.64 / 2673.64 Medical Nutrition Assessment Dietitian: Malnutrition Criteria Met Start: 07/02/22 13:54 Freq: Status: Active Protocol: Document 07/04/22 10:15 AG (Rec: 07/04/22 10:15 AG [id number]) Nutrition Malnutrition Evidence of Malnutrition Exists Yes Malnutrition (severe): Acute Illness/Injury Evidenced By Suboptimal Energy Intake ( Severe),Weight Loss (Severe) Intake Problem Inadequate Oral Intake Etiology related to altered mental status, resp. failure Signs/Symptoms as evidenced by NPO status; poor PO intake at meals prior to intubation Status Active Problem Clinical Problem Acute Disease or Injury Related Malnutrition Etiology severe, acute malnutrition related to inadequate oral intake d/t acute illness Signs/Symptoms as evidenced by unintentional wt loss of 4.564kg/5% wt loss < 2 weeks; estimated PO intake meeting < 50 % of estimated energy needs > 5 days Status Active Problem Recommendation Dietitian Recommendations/Changes NPO while intubated; When medically appropriate, recommend initiation of enteral nutrition support via OGT- Nepro at goal rate of 50mL/hour w/ 150mL H2O flush every 4 hours to provide 2124 calories, 97 g protein, and 1772mL fluid/day. Would start at 20mL/hour and increase by 10mL/hour every 8-12 hours as tolerated until goal rate is achieved. Until clinically stable, may benefit from trophic feed at 20mL/hour. Lab / Micro Data Attestation: I reviewed the patient's lab results. Result Diagrams: 07/04/22 08:30 07/04/22 08:30 Labs: Laboratory Results - last 24 hr 07/01/22 03:05: Diff Path Review Reviewed 07/02/22 03:45: Diff Path Review Reviewed 07/03/22 03:15: Diff Path Review Reviewed 07/03/22 12:50: POC Glucose 106 07/03/22 14:35: WBC 17.4 H, RBC 5.22, Hgb 15.8, Hct 47.8, MCV 91.6, MCH 30.3, MCHC 33.1, RDW Std Deviation 53.6 H, RDW Coeff of Kenyatta 15.8 H, Plt Count 207, MPV 10.2 07/03/22 14:35: APTT 40.1 H 07/03/22 14:35: Sodium 151 H, Potassium 4.0, Chloride 121 H, Carbon Dioxide 9.0 L*, BUN 118 H*, Creatinine 10.20 H*, Estim Creat Clear Calc 6.64, Est GFR (MDRD) Af Amer 7 L, Est GFR (MDRD) Non-Af 5 L, BUN/Creatinine Ratio 11.6, Glucose 182 H , Calcium 11.1 H, Phosphorus 5.0 H, Magnesium 2.5, Albumin 2.2 L 07/03/22 18:09: POC Glucose 171 H 07/03/22 23:31: POC Glucose 234 H 07/03/22 23:50: WBC 14.9 H, RBC 4.96, Hgb 15.0, Hct 44.7, MCV 90.1, MCH 30.2, MCHC 33.6, RDW Std Deviation 52.3 H, RDW Coeff of Kenyatta 15.8 H, Plt Count 124 L, MPV 10.6 07/03/22 23:50: Sodium 143, Potassium 3.8, Chloride 113 H, Carbon Dioxide 13.0 L , BUN 84 H, Creatinine 6.90 H, Estim Creat Clear Calc 9.82, Est GFR (MDRD) Af Amer 10 L, Est GFR (MDRD) Non-Af 8 L, BUN/Creatinine Ratio 12.2, Glucose 297 H, Calcium 9.4, Phosphorus 4.1, Magnesium 1.9, Albumin 1.9 L 07/04/22 03:50: WBC 14.5 H, RBC 4.85, Hgb 14.6, Hct 43.4, MCV 89.5, MCH 30.1, MCHC 33.6, RDW Std Deviation 51.1 H, RDW Coeff of Kenyatta 15.5 H, Plt Count 109 L, MPV 10.3 07/04/22 03:50: Sodium 140, Potassium 3.6, Chloride 111 H, Carbon Dioxide 17.0 L , BUN 69 H, Creatinine 5.21 H, Estim Creat Clear Calc 13.00, Est GFR (MDRD) Af Amer 14 L, Est GFR (MDRD) Non-Af 12 L, BUN/Creatinine Ratio 13.2, Glucose 244 H, Calcium 9.1, Phosphorus 3.6, Magnesium 2.0, Albumin 1.8 L 07/04/22 05:22: POC Glucose 199 H 07/04/22 08:30: WBC 11.8 H, RBC 4.86, Hgb 14.6, Hct 42.5, MCV 87.4, MCH 30.0, MCHC 34.4, RDW Std Deviation 49.4 H, RDW Coeff of Kenyatta 15.3 H, Plt Count 98 L, MPV 10.6, Differential Comment SCANNED 07/04/22 08:30: Sodium 141, Potassium 3.0 L, Chloride 106, Carbon Dioxide 21.0, BUN 57 H, Creatinine 4.38 H, Estim Creat Clear Calc 15.47, Est GFR (MDRD) Af Amer 17 L, Est GFR (MDRD) Non-Af 14 L, BUN/Creatinine Ratio 13.0, Glucose 181 H, Calcium 7.1 L, Phosphorus 2.3 L, Magnesium 1.3 L, Albumin 1.8 L 07/04/22 12:09: POC Glucose 153 H Micro: Microbiology 07/04/22 10:25 Stool Stool Occult Blood (GODFREY) - Final 07/03/22 12:20 Sputum, Expectorated/Coughed Respiratory Culture - Preliminary Appears to be normal respiratory alecia. Further studies to follow. 07/01/22 08:25 Urine Catheter - Y[place]rough Urine Culture - Final Culture exhibits no growth. 06/28/22 19:35 Nasal Secretion SARS-CoV-2 & FLU Antigen (Rapid) - Final SARS-CoV-2 (COVID 19) ABG Data ABG results: ABG 07/04/22 08:45 Specimen Type ART Sample Site R Radial pH 7.44 Bicarbonate Actual 18.1 L Total CO2 19 Base Excess -6 L O2 Saturation 96 O2 % 30 ABG pCO2 26.9 L ABG pO2 77 Laz Test Positive Respiration Rate 14 O2 Delivery Device Adult Vent Vent Mode AC Tidal Volume 450 POC PEEP 5 Radiography Diagnostic Testing: Radiology Impression Chest X-Ray 07/03/22 12:21 IMPRESSION: Status post placement of a left internal jugular venous catheter with the tip in the proximal portion of the superior vena cava. Electronically Signed: Scott Patel MD at 13:33 EST Reading Location ID and State: [facility] / [place] , Service support , Echocardiogram 07/04/22 07:16 Interpretation Summary The study was technically difficult. Contrast injection was performed. Left ventricular systolic function is hyperdynamic. The estimated ejection fraction is 75 %. There is mild mitral annular calcification. Mild mitral valve prolapse. Trivial mitral valve insufficiency. Unable to assess diastolic dysfunction. Ordering Physician: Abimael Ramachandran Referring Physician: Arjun Guerra Performed By: Yajaira Polk RCS Rhythm Strip Rhythm Strip: Sinus Tach Rate: 108 Physical Exam Const average body habitus General Appearance: well developed and patient mechanically ventilated HEENT normocephalic Head and Scalp: atraumatic Neck no lymphadenopathy Resp Auscultation: rhonchi Cardio regular rate GI non-distended Auscultation: normoactive bowel sounds Assessment & Plan Assessment/Plan (1) Acute kidney injury: PLAN: Doing okay on CRRT, no fluid has been removed, electrolytes are being replaced per protocol. Creatinine and acidosis are better. We will continue with the same prescription for now
--- NOTE | 2022-07-04 13:20 | CASEMGMT ---
Social Work This director social welfare received phone call from patient ip attorney, Hay Guerra. Hay Guerra reports to have spoken with patient spouse, Sue and Sue request to have Health Care Power of Calculation Reviewer and Living Will sent to hospital to be added to patient chart. This director social welfare provided ip attorney with social work e-mail to receive documents. Dajuan BELTRAN, JAKE
[2022-07-04 14:19] LABS: Hematocrit 44.6 % (40-54); Hemoglobin 15.4 g/dL (13.0-16.5); Mean Corp Hgb Conc 34.5 g/dL (32-36); Mean Corpuscular Hgb 29.9 pg (27.0-32.0); Mean Corpuscular Volume 86.6 fL (80-94); Mean Platelet Vol. 10.4 fl (6.2-12.0); POSITIVE COUNT YES; Platelet Count 78 K/mm3 (150-450); RBC Distribution Width CV 14.9 % (11.6-14.6); RBC Distribution Width SD 47.6 fl (35.1-43.9); Red Blood Count 5.15 M/mm3 (4.6-6.2); White Blood Count 13.5 K/mm3 (4.4-11.0)
[2022-07-04 14:25] LABS: Vancomycin, Trough Level 18.3 ug/mL (5.0-15.0)
[2022-07-04 14:26] LABS: Scan Indicated on CBC? Y/N NO
--- NOTE | 2022-07-04 14:39 | PCM.RX.CS ---
Consult Pharmacy has been consulted to manage selected antiobiotic: Vancomycin Type of Consult: Follow-up Labs: Anion Gap 16 (5-15) H 07/03/22 03:15 Vancomycin Trough 18.3 ug/mL (5.0-15.0) H 07/04/22 13:05 Microbiology: Microbiology 07/03/22 12:20 Sputum, Expectorated/Coughed Gram Stain - Final 07/03/22 12:20 Sputum, Expectorated/Coughed Respiratory Culture - Preliminary Appears to be normal respiratory alecia. Further studies to follow. 07/04/22 10:25 Stool Stool Occult Blood (GODFREY) - Final 07/01/22 08:25 Urine Catheter - Yarbrough Urine Culture - Final Culture exhibits no growth. 06/28/22 19:35 Nasal Secretion SARS-CoV-2 & FLU Antigen (Rapid) - Final SARS-CoV-2 (COVID 19) Goal Trough: 15-20 mcg/mL Pharmacy Plan for Drug Dosing: VANCOMYCIN LEVEL RECEIVED Current Vancomycin Dose: 750MG IV Q12 Number of Doses Received: 2 (INITIAL + 1 SCHEDULED) Vancomycin Level: 18.3 Hours Since Last Dose: 11.5HR Renal Function: On CRRT- Verified Pt is still running this afternoon Renal Function Trend: n/a Lab/Micro: pending Vancomycin Plan/Comments: Patient had a trough drawn which resulted in a value of 18.3 (Goal 15-20). Will continue current dosing plan and recheck a trough in 24hrs per CRRT vancomycin dosing protocol. Pending Level: 07/05/22 @1330 Pharmacy Service will continue to monitor and adjust dosing as required.
[2022-07-04 14:53] LABS: Albumin, Serum 1.9 g/dL (3.2-5.0); BUN 43 mg/dL (7-18); BUN/Creat Ratio 12.5 RATIO (10-20); Calcium,Total 8.5 mg/dL (8.5-10.1); Chloride 108 mmol/L (98-107); Creatinine, Serum 3.45 mg/dL (0.70-1.30); EST Glomerular Filtration Rate 19 mL/min (>60); Est Glom Filt Rate - Afr Amer 23 mL/min (>60); Estimated Creatinine Clearance 19.64 ml/min; Glucose 93 mg/dL (74-106); Magnesium 2.9 mg/dL (1.6-2.6); Phosphorus 2.7 mg/dL (2.5-4.9); Potassium 3.6 mmol/L (3.5-5.1); Sodium Level 141 mmol/L (136-145)
[2022-07-04 18:11] LABS: Bedside Glucose 96 mg/dL (74-106)
[2022-07-04] MEDS: Acetaminophen 650 MG/20 ML UDC GT (18:20)
[2022-07-04] MEDS: 0.9% Saline Lock 10 ML Syringe IV (20:49)
[2022-07-04] MEDS: Heparin 10,000 UNITS/10 ML Vial IV (20:50)
[2022-07-04 21:01] LABS: Albumin, Serum 1.7 g/dL (3.2-5.0); BUN 41 mg/dL (7-18); BUN/Creat Ratio 12.1 RATIO (10-20); Calcium,Total 8.4 mg/dL (8.5-10.1); Chloride 109 mmol/L (98-107); EST Glomerular Filtration Rate 19 mL/min (>60); Est Glom Filt Rate - Afr Amer 23 mL/min (>60); Estimated Creatinine Clearance 19.93 ml/min; Glucose 96 mg/dL (74-106); Magnesium 2.2 mg/dL (1.6-2.6); Phosphorus 3.2 mg/dL (2.5-4.9); Potassium 3.4 mmol/L (3.5-5.1); Sodium Level 141 mmol/L (136-145)
[2022-07-04 21:15] LABS: Absolute Lymphocyte Count 0.93 X10^3/uL (0.83-4.51); Absolute Neutrophil Count 13.1 X10^3/uL (2.0-7.7); Basophil# 0.07 X10^3/uL; Basophil% 0.5 % (0-1); Eosinophil# 0.05 X10^3/uL; Eosinophils% 0.3 % (0-5); Hematocrit 41.3 % (40-54); Hemoglobin 14.5 g/dL (13.0-16.5); Lymphocyte # 0.93 X10^3/ul (0.83-4.51); Lymphocyte % 6.1 % (19-41); Mean Corp Hgb Conc 35.1 g/dL (32-36); Mean Corpuscular Hgb 30.4 pg (27.0-32.0); Mean Corpuscular Volume 86.6 fL (80-94); Mean Platelet Vol. 10.9 fl (6.2-12.0); Monocyte# 0.79 X10^3/uL; Monocyte% 5.2 % (0-10); NRBC Flagged by Analyzer 0.8 % (0-5); Neutrophil # 13.08 X10^3/uL (2.7-7.7); Neutrophil % 85.9 % (47-70); POSITIVE COUNT YES; POSITIVE MORPHOLOGY YES; Platelet Count 59 K/mm3 (150-450); RBC Distribution Width CV 14.7 % (11.6-14.6); RBC Distribution Width SD 47.2 fl (35.1-43.9); Red Blood Count 4.77 M/mm3 (4.6-6.2); White Blood Count 15.2 K/mm3 (4.4-11.0)
[2022-07-04 21:34] LABS: Differential Indicated SCAN CRITERIA MET
[2022-07-04 22:35] LABS: Differential Comment SCANNED
[2022-07-05] VITALS (47 sets, daily range): BP systolic 86–141; BP diastolic 43–92; PULSE 71–102; RESP 14–27; TEMP 36.4–38.5; O2SAT 91–98; BMI 30.2
[2022-07-05] MEDS: Amiodarone 360 MG in Dextrose 5% Viaflo Bag 192.8 ML 16.7 MG CONT INF ×2 (00:52→13:17)
[2022-07-05] MEDS: PUREFLOW B SOLUTION 4K 5,000 ML BAG 9 BAG PF ×4 (00:54→17:15)
[2022-07-05] MEDS: Dextrose 50%-Water 25 GM/50 ML DISP.SYRIN IV ×2 (01:05→05:25)
--- NOTE | 2022-07-05 01:27 | PCM.HOSP.N ---
Hospitalist Note Patient with hypoglycemia, will add hypoglycemic PRN nursing driven protocol.
[2022-07-05 02:29] LABS: Absolute Lymphocyte Count 0.85 X10^3/uL (0.83-4.51); Basophil# 0.05 X10^3/uL; Basophil% 0.3 % (0-1); Hematocrit 40.5 % (40-54); Hemoglobin 14.1 g/dL (13.0-16.5); Lymphocyte # 0.85 X10^3/ul (0.83-4.51); Lymphocyte % 5.7 % (19-41); Mean Corp Hgb Conc 34.8 g/dL (32-36); Mean Corpuscular Hgb 30.1 pg (27.0-32.0); Mean Corpuscular Volume 86.4 fL (80-94); Mean Platelet Vol. 10.4 fl (6.2-12.0); Monocyte# 0.77 X10^3/uL; Monocyte% 5.2 % (0-10); NRBC Flagged by Analyzer 0.6 % (0-5); Neutrophil % 87.5 % (47-70); POSITIVE COUNT YES; POSITIVE MORPHOLOGY YES; Platelet Count 56 K/mm3 (150-450); RBC Distribution Width CV 14.6 % (11.6-14.6); RBC Distribution Width SD 46.3 fl (35.1-43.9); Red Blood Count 4.69 M/mm3 (4.6-6.2); White Blood Count 14.9 K/mm3 (4.4-11.0)
[2022-07-05 02:31] LABS: Differential Indicated SCAN CRITERIA MET
[2022-07-05 02:33] LABS: Albumin, Serum 1.7 g/dL (3.2-5.0); BUN 34 mg/dL (7-18); BUN/Creat Ratio 11.1 RATIO (10-20); Calcium,Total 8.6 mg/dL (8.5-10.1); Chloride 107 mmol/L (98-107); Creatinine, Serum 3.07 mg/dL (0.70-1.30); EST Glomerular Filtration Rate 21 mL/min (>60); Est Glom Filt Rate - Afr Amer 26 mL/min (>60); Estimated Creatinine Clearance 22.07 ml/min; Glucose 180 mg/dL (74-106); Magnesium 1.9 mg/dL (1.6-2.6); Potassium 3.9 mmol/L (3.5-5.1); Sodium Level 140 mmol/L (136-145)
[2022-07-05] MEDS: CHLORHEXIDINE GLUC 2% CLOTH 1 EACH TOWELETTE TOPICAL (02:38)
[2022-07-05] MEDS: Propofol 10MG/Ml 1,000 MG/100 ML Bottle 5.6 MG CONT INF (02:38)
[2022-07-05] MEDS: 0.9% Saline Lock 10 ML Syringe IV ×3 (02:39→15:50)
[2022-07-05 02:41] LABS: Platelet Estimate MOD DEC (ADEQ)
[2022-07-05 02:46] LABS: Bedside Glucose 59 mg/dL (74-106)
[2022-07-05 03:08] LABS: CPK Total, Creatine Kinase 274 U/L (39-308); Triglycerides 189 mg/dL
--- NOTE | 2022-07-05 03:24 | CPS ---
Patient switched to ACVC+ for ventilator synchrony
[2022-07-05 06:10] LABS: Bedside Glucose 57 mg/dL (74-106)
[2022-07-05 06:10] LABS: Bedside Glucose 112 mg/dL (74-106)
--- NOTE | 2022-07-05 07:03 | PN.HOSP_ITS ---
Reason for Visit Reason for Visit: Diagnoses Type 2 diabetes mellitus with ketoacidosis without coma (06/28/22) Dehydration (06/28/22) Hyperosmolality and hypernatremia (06/28/22) Other acidosis (06/28/22) Encephalopathy, unspecified (06/28/22) Unspecified atrial fibrillation (06/28/22) Acute respiratory failure, unspecified whether with hypoxia or hypercapnia (06/28/22) Acute kidney failure, unspecified (06/28/22) Shock, unspecified (06/28/22) COVID-19 (06/28/22) Subjective Subjective More agitated. Objective Data Objective Data Vital Signs: Vital Signs Temp Pulse Resp BP Pulse Ox O2 Del Method FiO2 37.6 C H 80 21 H 112/63 98 Mechanical Ventilator 30 07/05/22 06:00 07/05/22 06:00 07/05/22 06:00 07/05/22 06:00 07/05/22 06:00 07/05/22 06:00 07/05/22 06:00 Oxygen Delivery Method Mechanical Ventilator Weight: 92.4 kg Body Mass Index (BMI) 30.2 Intake & Output: Intake and Output for Last 24 Hours 07/03/22 07/04/22 07/05/22 23:59 23:59 23:59 Intake Total 4085.21 / 4087.56 3965.25 / 4071.25 1208.73 / 1208.73 Output Total 5 / 5 Balance 4055.21 / 4052.56 3960.25 / 4066.25 1208.73 / 1208.73 Medical Nutrition Assessment Dietitian: Malnutrition Criteria Met Start: 07/02/22 13:54 Freq: Status: Active Protocol: Document 07/04/22 10:15 AG (Rec: 07/04/22 10:15 AG [id number]) Nutrition Malnutrition Evidence of Malnutrition Exists Yes Malnutrition (severe): Acute Illness/Injury Evidenced By Suboptimal Energy Intake ( Severe),Weight Loss (Severe) Intake Problem Inadequate Oral Intake Etiology related to altered mental status, resp. failure Signs/Symptoms as evidenced by NPO status; poor PO intake at meals prior to intubation Status Active Problem Clinical Problem Acute Disease or Injury Related Malnutrition Etiology severe, acute malnutrition related to inadequate oral intake d/t acute illness Signs/Symptoms as evidenced by unintentional wt loss of 4.564kg/5% wt loss < 2 weeks; estimated PO intake meeting < 50 % of estimated energy needs > 5 days Status Active Problem Recommendation Dietitian Recommendations/Changes NPO while intubated; When medically appropriate, recommend initiation of enteral nutrition support via OGT- Nepro at goal rate of 50mL/hour w/ 150mL H2O flush every 4 hours to provide 2124 calories, 97 g protein, and 1772mL fluid/day. Would start at 20mL/hour and increase by 10mL/hour every 8-12 hours as tolerated until goal rate is achieved. Until clinically stable, may benefit from trophic feed at 20mL/hour. Lab / Micro Data Result Diagrams: 07/05/22 02:00 07/05/22 08:00 Labs: Laboratory Results - last 24 hr 07/02/22 03:45: Diff Path Review Reviewed 07/03/22 03:15: Diff Path Review Reviewed 07/04/22 08:30: WBC 11.8 H, RBC 4.86, Hgb 14.6, Hct 42.5, MCV 87.4, MCH 30.0, MCHC 34.4, RDW Std Deviation 49.4 H, RDW Coeff of Kenyatta 15.3 H, Plt Count 98 L, MPV 10.6, Differential Comment SCANNED 07/04/22 08:30: Sodium 141, Potassium 3.0 L, Chloride 106, Carbon Dioxide 21.0, BUN 57 H, Creatinine 4.38 H, Estim Creat Clear Calc 15.47, Est GFR (MDRD) Af Amer 17 L, Est GFR (MDRD) Non-Af 14 L, BUN/Creatinine Ratio 13.0, Glucose 181 H, Calcium 7.1 L, Phosphorus 2.3 L, Magnesium 1.3 L, Albumin 1.8 L 07/04/22 12:09: POC Glucose 153 H 07/04/22 13:05: Vancomycin Trough 18.3 H 07/04/22 14:10: WBC 13.5 H, RBC 5.15, Hgb 15.4, Hct 44.6, MCV 86.6, MCH 29.9, MCHC 34.5, RDW Std Deviation 47.6 H, RDW Coeff of Kenyatta 14.9 H, Plt Count 78 L, MPV 10.4 07/04/22 14:10: Sodium 141, Potassium 3.6, Chloride 108 H, Carbon Dioxide 20.0 L , BUN 43 H, Creatinine 3.45 H, Estim Creat Clear Calc 19.64, Est GFR (MDRD) Af Amer 23 L, Est GFR (MDRD) Non-Af 19 L, BUN/Creatinine Ratio 12.5, Glucose 93, Calcium 8.5, Phosphorus 2.7, Magnesium 2.9 H, Albumin 1.9 L 07/04/22 17:34: POC Glucose 96 07/04/22 20:37: Sodium 141, Potassium 3.4 L, Chloride 109 H, Carbon Dioxide 20.0 L, BUN 41 H, Creatinine 3.40 H, Estim Creat Clear Calc 19.93, Est GFR (MDRD) Af Amer 23 L, Est GFR (MDRD) Non-Af 19 L, BUN/Creatinine Ratio 12.1, Glucose 96, Calcium 8.4 L, Phosphorus 3.2, Magnesium 2.2, Albumin 1.7 L 07/04/22 20:37: WBC 15.2 H, RBC 4.77, Hgb 14.5, Hct 41.3, MCV 86.6, MCH 30.4, MCHC 35.1, RDW Std Deviation 47.2 H, RDW Coeff of Kenyatta 14.7 H, Plt Count 59 L, MPV 10.9, Immature Gran % (Auto) 2.000 H, Neut % (Auto) 85.9 H, Lymph % (Auto) 6.1 L, [place] % (Auto) 5.2, Eos % (Auto) 0.3, Baso % (Auto) 0.5, Absolute Neuts (auto) 13.1 H, Absolute Lymphs (auto) 0.93, Nucleated RBC % 0.8, Differential Comment SCANNED 07/05/22 01:04: POC Glucose 59 L 07/05/22 02:00: Sodium 140, Potassium 3.9, Chloride 107, Carbon Dioxide 21.0, BUN 34 H, Creatinine 3.07 H, Estim Creat Clear Calc 22.07, Est GFR (MDRD) Af Amer 26 L, Est GFR (MDRD) Non-Af 21 L, BUN/Creatinine Ratio 11.1, Glucose 180 H, Calcium 8.6, Phosphorus 3.0, Magnesium 1.9, Albumin 1.7 L 07/05/22 02:00: WBC 14.9 H, RBC 4.69, Hgb 14.1, Hct 40.5, MCV 86.4, MCH 30.1, MCHC 34.8, RDW Std Deviation 46.3 H, RDW Coeff of Kenyatta 14.6, Plt Count 56 L, MPV 10.4, Immature Gran % (Auto) 1.300 H, Neut % (Auto) 87.5 H, Lymph % (Auto) 5.7 L , [place] % (Auto) 5.2, Eos % (Auto) 0.0, Baso % (Auto) 0.3, Absolute Neuts (auto) 13.0 H, Absolute Lymphs (auto) 0.85, Nucleated RBC % 0.6, Platelet Estimate MOD 07/05/22 02:00: Total Creatine Kinase 274, Triglycerides 189 07/05/22 05:15: POC Glucose 57 L 07/05/22 05:47: POC Glucose 112 H Micro: Microbiology 07/03/22 12:20 Sputum, Expectorated/Coughed Gram Stain - Final 07/03/22 12:20 Sputum, Expectorated/Coughed Respiratory Culture - Preliminary Appears to be normal respiratory alecia. Further studies to follow. 07/04/22 10:25 Stool Stool Occult Blood (GODFREY) - Final 07/01/22 08:25 Urine Catheter - Yarbrough Urine Culture - Final Culture exhibits no growth. 06/28/22 19:35 Nasal Secretion SARS-CoV-2 & FLU Antigen (Rapid) - Final SARS-CoV-2 (COVID 19) ABG Data ABG results: ABG 07/04/22 08:45 Specimen Type ART Sample Site R Radial pH 7.44 Bicarbonate Actual 18.1 L Total CO2 19 Base Excess -6 L O2 Saturation 96 O2 % 30 ABG pCO2 26.9 L ABG pO2 77 Laz Test Positive Respiration Rate 14 O2 Delivery Device Adult Vent Vent Mode AC Tidal Volume 450 POC PEEP 5 Radiography Diagnostic Testing: Radiology Impression Echocardiogram 07/04/22 07:16 Interpretation Summary The study was technically difficult. Contrast injection was performed. Left ventricular systolic function is hyperdynamic. The estimated ejection fraction is 75 %. There is mild mitral annular calcification. Mild mitral valve prolapse. Trivial mitral valve insufficiency. Unable to assess diastolic dysfunction. Ordering Physician: Abimael Ramachandran Referring Physician: Arjun Guerra Performed By: Yajaira Polk RCS Rhythm Strip Rhythm Strip: Sinus Tach Rate: 108 Physical Exam Const Constitutional Narrative: Intubated. She is minimally responsive. Positive corneal reflex. HEENT head/scalp atraumatic Resp normal respiratory effort, no retractions, no use of accessory muscles and clear to auscultation bilaterally Cardio regular rate, regular rhythm, S1 normal heart sound and S2 normal heart sound GI normal to inspection, nondistended, normoactive bowel sounds, soft to palpation, non-tender and non-distended Extremity normal to inspection and full ROM Neuro oriented x3 Assessment & Plan Assessment/Plan (1) Diabetic keto-acidosis: PLAN: resolved (2) Acute kidney injury: PLAN: worsening oliguric nephrology following CRRT on HCO3- gtt (3) COVID: PLAN: on room air diagnosed 06/28 no treatment (4) Acute respiratory failure: PLAN: No noted hypoxia nor hypercapnia Due to decreased mental status and metabolic acidosis Intubated July 03 (5) Encephalopathy: PLAN: Per nursing, had been noted to have decreased unresponsiveness on 07/02 Unclear etiology. Suspect metabolic given his known metabolic derangements. Cannot rule out intracranial process at this time. Patient has been started on CRRT Consider imaging when patient more hemodynamically stable Has not received propofol since 12/31 at 0830, no fentanyl since 07/03 at 1300. Restarted propofol 07/05 at 0238 but subsequent discontinued. 07/05: Improved. Patient does have positive corneal reflexes. Does withdrawal to noxious stimuli. (6) Shock: PLAN: Unclear type on norephinephrine, which has been weaned down. Was on vasopressin for about an hour yesterday (7) Atrial fibrillation with RVR: PLAN: Was in SVT yesterday. Did receive 2 doses of adenosine which showed under lying sinus rhythm, then went into afib with RVR. On amiodarone gtt [id number]. Would recommend holding off on anticoagulation until can get brain imaging. Echo shows an EF of 75%. PLAN: Plan Chronic conditions: * HTN/HLD: We will hold his ramipril given his acute renal failure. Can wait to restart his pravastatin DVT proph: Heparin Prognosis: Guarded to poor. Discussed with family on the . Charges/Coding Visit Charges Inpatient E&M: 42114 Subs Hosp L2
--- NOTE | 2022-07-05 07:25 | PN.CC_ITS ---
Assessment & Plan Assessment/Plan (1) Diabetic keto-acidosis: (2) Hypernatremia: (3) Hyperchloremic metabolic acidosis: PLAN: Plan RECOMMENDATIONS: 1. Continue assist-control mode of mechanical ventilation. Wean FiO2 and PEEP to maintain saturations at or above 90%. 2. Continue CRRT. 3. Discontinue propofol and other sedating medications. 4. Continue amiodarone. 5. Continue vasopressor support to maintain a mean arterial pressure at or above 65 mmHg. 6. Continue empiric antimicrobials. 7. Initiate tube feeds today. 8. Continue appropriate ICU prophylaxis. IMPRESSIONS: 1. Metabolic encephalopathy The patient has developed worsening encephalopathy, likely secondary to profound underlying metabolic derangements, including hypernatremia and worsening uremia in the setting of YESI. Unfortunately, the patient had to be intubated on the morning of July 03 due to concerns for airway protection. Plan to continue CRRT to address his underlying metabolic derangements and renal insufficiency. Continue to avoid sedating medications. 2. Acute respiratory failure The patient was intubated over concerns for airway protection and possible aspiration. The etiology for his encephalopathy appears to be metabolic in nature. Anticipate improvement with hemodialysis support. In the interim, continue the patient on assist control mode mechanical ventilation. Wean FiO2 and PEEP to maintain saturations at or above 90%. Sputum culture is pending. Continue antimicrobials as ordered. Discontinue propofol. 3. Septic shock Clinical concern for underlying pulmonary source of infection. The patient has significant underlying metabolic derangements related to his renal insufficiency. He is significantly overall net positive from a volume perspective for the hospitalization. Plan to continue current supportive measures including broad-spectrum antimicrobials and Levophed to maintain a mean arterial pressure at or above 65 mmHg. 4. YESI on CKD Likely secondary to ischemic ATN. The patient has interval worsening in his renal function and metabolic derangements. The patient appears to be tolerating CRRT, which will be continued per the discretion of nephrology. 5. DKA Resolved. Suspect elevated anion gap is secondary to uremia. No serum acetone was noted. Lactate is within normal limits. Continue basal and sliding scale insulin coverage. 6. COVID-19/hyperlipidemia/hypertension/advanced age Complicates care, management, recovery and prognosis. Continue supportive measures as noted above. Okay to initiate tube feeds today from my perspective. TIME: 33 minutes of critical care time, inclusive of procedures, was spent addressing the patient's metabolic encephalopathy, acute respiratory failure, septic shock, YESI on CKD, review of all data and collaboration with the care team. Subjective Subjective The patient was seen and examined at the bedside this morning. Events from the last 24 hours have been reviewed. The patient currently has a low-grade fever and remains on assist control mode mechanical ventilation with an FiO2 requirement of 30% and PEEP of 5. The patient did ultimately require reinitiation of vasopressin overnight due to hemodynamic instability. The patient remains on Levophed as well at 25 mcg/min. CRRT continues to operate without complication. The patient remains in A-fib which is rate controlled at the current time. The patient is documented to be overall net +18 L for the hospitalization. Platelet count remains low at 56,000. Objective Data Objective Data The patient's most recent lab work, culture data and imaging studies have all been personally reviewed. Surface echocardiogram demonstrated normal LV size with an ejection fraction of 75%. Rapid COVID testing was positive on June 28. Sputum and blood cultures are pending. Vital Signs: Vital Signs Temp Pulse Resp BP Pulse Ox O2 Del Method FiO2 99.6 F H 75 20 H 102/81 H 97 Mechanical Ventilator 30 07/05/22 07:00 07/05/22 07:00 07/05/22 07:00 07/05/22 07:00 07/05/22 07:00 07/05/22 07:00 07/05/22 07:00 Oxygen Delivery Method Mechanical Ventilator Weight: 203 lb 11.314 oz Body Mass Index (BMI) 30.2 Intake & Output: Intake and Output for Last 24 Hours 07/03/22 07/04/22 07/05/22 23:59 23:59 23:59 Intake Total 4085.21 / 4087.56 3965.25 / 4071.25 1245.43 / 1245.43 Output Total 5 / 5 Balance 4055.21 / 4052.56 3960.25 / 4066.25 1245.43 / 1245.43 Medical Nutrition Assessment Dietitian: Malnutrition Criteria Met Start: 07/02/22 1 3:54 Freq: Status: Active Protocol: Document 07/04/22 10:15 AG (Rec: 07/04/22 10:15 AG [id number]) Nutrition Malnutrition Evidence of Malnutrition Exists Yes Malnutrition (severe): Acute Illness/Injury Evidenced By Suboptimal Energy Intake ( Severe),Weight Loss (Severe) Intake Problem Inadequate Oral Intake Etiology related to altered mental status, resp. failure Signs/Symptoms as evidenced by NPO status; poor PO intake at meals prior to intubation Status Active Problem Clinical Problem Acute Disease or Injury Related Malnutrition Etiology severe, acute malnutrition related to inadequate oral intake d/t acute illness Signs/Symptoms as evidenced by unintentional wt loss of 4.564kg/5% wt loss < 2 weeks; estimated PO intake meeting < 50 % of estimated energy needs > 5 days Status Active Problem Recommendation Dietitian Recommendations/Changes NPO while intubated; When medically appropriate, recommend initiation of enteral nutrition support via OGT- Nepro at goal rate of 50mL/hour w/ 150mL H2O flush every 4 hours to provide 2124 calories, 97 g protein, and 1772mL fluid/day. Would start at 20mL/hour and increase by 10mL/hour every 8-12 hours as tolerated until goal rate is achieved. Until clinically stable, may benefit from trophic feed at 20mL/hour. Lab / Micro Data Attestation: I reviewed the patient's lab results. Result Diagrams: 07/05/22 02:00 07/05/22 08:00 Labs: Laboratory Results - last 24 hr 07/02/22 03:45: Diff Path Review Reviewed 07/03/22 03:15: Diff Path Review Reviewed 07/04/22 08:30: WBC 11.8 H, RBC 4.86, Hgb 14.6, Hct 42.5, MCV 87.4, MCH 30.0, MCHC 34.4, RDW Std Deviation 49.4 H, RDW Coeff of Kenyatta 15.3 H, Plt Count 98 L, MPV 10.6, Differential Comment SCANNED 07/04/22 08:30: Sodium 141, Potassium 3.0 L, Chloride 106, Carbon Dioxide 21.0, BUN 57 H, Creatinine 4.38 H, Estim Creat Clear Calc 15.47, Est GFR (MDRD) Af Amer 17 L, Est GFR (MDRD) Non-Af 14 L, BUN/Creatinine Ratio 13.0, Glucose 181 H, Calcium 7.1 L, Phosphorus 2.3 L, Magnesium 1.3 L, Albumin 1.8 L 07/04/22 12:09: POC Glucose 153 H 07/04/22 13:05: Vancomycin Trough 18.3 H 07/04/22 14:10: WBC 13.5 H, RBC 5.15, Hgb 15.4, Hct 44.6, MCV 86.6, MCH 29.9, MCHC 34.5, RDW Std Deviation 47.6 H, RDW Coeff of Kenyatta 14.9 H, Plt Count 78 L, MPV 10.4 07/04/22 14:10: Sodium 141, Potassium 3.6, Chloride 108 H, Carbon Dioxide 20.0 L , BUN 43 H, Creatinine 3.45 H, Estim Creat Clear Calc 19.64, Est GFR (MDRD) Af Amer 23 L, Est GFR (MDRD) Non-Af 19 L, BUN/Creatinine Ratio 12.5, Glucose 93, Calcium 8.5, Phosphorus 2.7, Magnesium 2.9 H, Albumin 1.9 L 07/04/22 17:34: POC Glucose 96 07/04/22 20:37: Sodium 141, Potassium 3.4 L, Chloride 109 H, Carbon Dioxide 20.0 L, BUN 41 H, Creatinine 3.40 H, Estim Creat Clear Calc 19.93, Est GFR (MDRD) Af Amer 23 L, Est GFR (MDRD) Non-Af 19 L, BUN/Creatinine Ratio 12.1, Glucose 96, Calcium 8.4 L, Phosphorus 3.2, Magnesium 2.2, Albumin 1.7 L 07/04/22 20:37: WBC 15.2 H, RBC 4.77, Hgb 14.5, Hct 41.3, MCV 86.6, MCH 30.4, MCHC 35.1, RDW Std Deviation 47.2 H, RDW Coeff of Kenyatta 14.7 H, Plt Count 59 L, MPV 10.9, Immature Gran % (Auto) 2.000 H, Neut % (Auto) 85.9 H, Lymph % (Auto) 6.1 L, [place] % (Auto) 5.2, Eos % (Auto) 0.3, Baso % (Auto) 0.5, Absolute Neuts (auto) 13.1 H, Absolute Lymphs (auto) 0.93, Nucleated RBC % 0.8, Differential Comment SCANNED 07/05/22 01:04: POC Glucose 59 L 07/05/22 02:00: Sodium 140, Potassium 3.9, Chloride 107, Carbon Dioxide 21.0, BUN 34 H, Creatinine 3.07 H, Estim Creat Clear Calc 22.07, Est GFR (MDRD) Af Amer 26 L, Est GFR (MDRD) Non-Af 21 L, BUN/Creatinine Ratio 11.1, Glucose 180 H, Calcium 8.6, Phosphorus 3.0, Magnesium 1.9, Albumin 1.7 L 07/05/22 02:00: WBC 14.9 H, RBC 4.69, Hgb 14.1, Hct 40.5, MCV 86.4, MCH 30.1, MCHC 34.8, RDW Std Deviation 46.3 H, RDW Coeff of Kenyatta 14.6, Plt Count 56 L, MPV 10.4, Immature Gran % (Auto) 1.300 H, Neut % (Auto) 87.5 H, Lymph % (Auto) 5.7 L , [place] % (Auto) 5.2, Eos % (Auto) 0.0, Baso % (Auto) 0.3, Absolute Neuts (auto) 13.0 H, Absolute Lymphs (auto) 0.85, Nucleated RBC % 0.6, Platelet Estimate MOD DEC 07/05/22 02:00: Total Creatine Kinase 274, Triglycerides 189 07/05/22 05:15: POC Glucose 57 L 07/05/22 05:47: POC Glucose 112 H Micro: Microbiology 07/03/22 12:20 Sputum, Expectorated/Coughed Gram Stain - Final 07/03/22 12:20 Sputum, Expectorated/Coughed Respiratory Culture - Preliminary Appears to be normal respiratory alecia. Further studies to follow. 07/04/22 10:25 Stool Stool Occult Blood (GODFREY) - Final 07/01/22 08:25 Urine Catheter - Yarbrough Urine Culture - Final Culture exhibits no growth. 06/28/22 19:35 Nasal Secretion SARS-CoV-2 & FLU Antigen (Rapid) - Final SARS-CoV-2 (COVID 19) ABG Data ABG results: ABG 07/04/22 08:45 Specimen Type ART Sample Site R Radial pH 7.44 Bicarbonate Actual 18.1 L Total CO2 19 Base Excess -6 L O2 Saturation 96 O2 % 30 ABG pCO2 26.9 L ABG pO2 77 Laz Test Positive Respiration Rate 14 O2 Delivery Device Adult Vent Vent Mode AC Tidal Volume 450 POC PEEP 5 Radiography Diagnostic Testing: Radiology Impression Echocardiogram 07/04/22 07:16 Interpretation Summary The study was technically difficult. Contrast injection was performed. Left ventricular systolic function is hyperdynamic. The estimated ejection fraction is 75 %. There is mild mitral annular calcification. Mild mitral valve prolapse. Trivial mitral valve insufficiency. Unable to assess diastolic dysfunction. Ordering Physician: Abimael Ramachandran Referring Physician: Arjun Guerra Performed By: Yajaira Polk RCS Rhythm Strip Rhythm Strip: Sinus Tach Rate: 108 Physical Exam Const Constitutional Narrative: Intubated and mechanically ventilated. No ventilator dyssynchrony. General Appearance: lethargic and ill appearing HEENT normocephalic and head/scalp atraumatic Mouth: endotracheal tube in place and OG tube in place Eyes PERRL and EOMs intact bilaterally Neck supple General: trachea midline and CVC in place Chest inspection of chest normal Resp Auscultation: rhonchi and diminished lung sounds; Negative for rales or wheezes Cardio S1 normal heart sound and S2 normal heart sound Rhythm: abnormal rhythm GI normal to inspection, nondistended, normoactive bowel sounds Extremity Extremity Narrative: Mottled lower extremities General Extremity: Negative for edema Skin no rashes or lesions noted Neuro Neuro Narrative: Lethargic. No purposeful response to verbal or tactile stimulation. Charges/Coding Procedures Hospitalists Procedures: [id number] [facility]
[2022-07-05 08:49] LABS: Albumin, Serum 1.7 g/dL (3.2-5.0); BUN 31 mg/dL (7-18); BUN/Creat Ratio 11.3 RATIO (10-20); Chloride 103 mmol/L (98-107); Creatinine, Serum 2.75 mg/dL (0.70-1.30); EST Glomerular Filtration Rate 24 mL/min (>60); Est Glom Filt Rate - Afr Amer 29 mL/min (>60); Estimated Creatinine Clearance 24.64 ml/min; Glucose 191 mg/dL (74-106); Magnesium 2.2 mg/dL (1.6-2.6); Phosphorus 2.3 mg/dL (2.5-4.9); Potassium 3.7 mmol/L (3.5-5.1); Sodium Level 136 mmol/L (136-145)
[2022-07-05 09:36] LABS: Bedside Glucose 64 mg/dL (74-106)
[2022-07-05 09:36] LABS: Bedside Glucose 84 mg/dL (74-106)
[2022-07-05] MEDS: Chlorhexidine 15 ML PO ×2 (09:41→20:22)
--- NOTE | 2022-07-05 10:31 | PN.RENAL_ITS ---
Subjective Subjective Follow-up on acute kidney injury secondary to ATN, septic shock. He required 2 pressors overnight, early this morning vasopressin has been stopped. Came over to supervise CRRT. His CRRT was running all night long, but just clotted in front of me. I tried to remove the clot, was not able to. Objective Data Objective Data Vital Signs: Vital Signs Temp Pulse Resp BP Pulse Ox O2 Del Method FiO2 99.6 F H 82 20 H 102/81 H 97 Mechanical Ventilator 30 07/05/22 07:00 07/05/22 07:01 07/05/22 07:01 07/05/22 07:00 07/05/22 07:01 07/05/22 08:00 07/05/22 08:00 Oxygen Delivery Method Mechanical Ventilator Weight: 92.4 kg Body Mass Index (BMI) 30.2 Intake & Output: Intake and Output for Last 24 Hours 07/03/22 07/04/22 07/05/22 23:59 23:59 23:59 Intake Total 4085.21 / 4087.56 3965.25 / 4071.25 1245.43 / 1245.43 Output Total 5 / 5 Balance 4055.21 / 4052.56 3960.25 / 4066.25 1245.43 / 1245.43 Medical Nutrition Assessment Dietitian: Malnutrition Criteria Met Start: 07/02/22 13:54 Freq: Status: Active Protocol: Document 07/05/22 09:19 (Rec: 07/05/22 09:19 [id number]) Nutrition Malnutrition Evidence of Malnutrition Exists Yes Malnutrition (severe): Acute Illness/Injury Evidenced By Suboptimal Energy Intake ( Severe),Weight Loss (Severe) Intake Problem Inadequate Oral Intake Etiology related to altered mental status, resp. failure Signs/Symptoms as evidenced by NPO status; poor PO intake at meals prior to intubation Status Active Problem Clinical Problem Acute Disease or Injury Related Malnutrition Etiology severe, acute malnutrition related to inadequate oral intake d/t acute illness Signs/Symptoms as evidenced by unintentional wt loss of 4.564kg/5% wt loss < 2 weeks; estimated PO intake meeting < 50 % of estimated energy needs > 5 days Status Active Problem Recommendation Dietitian Recommendations/Changes NPO while intubated; Will order enteral nutrition support via OGT- Nepro at goal rate of 50mL/hour w/ 150mL H2O flush every 4 hours to provide 2124 calories, 97 g protein, and 1772mL fluid/day. Would start at 20mL/hour and increase by 10mL/hour every 8- 12 hours as tolerated until goal rate is achieved. Lab / Micro Data Attestation: I reviewed the patient's lab results. Result Diagrams: 07/05/22 02:00 07/05/22 08:00 Labs: Laboratory Results - last 24 hr 07/04/22 12:09: POC Glucose 153 H 07/04/22 13:05: Vancomycin Trough 18.3 H 07/04/22 14:10: WBC 13.5 H, RBC 5.15, Hgb 15.4, Hct 44.6, MCV 86.6, MCH 29.9, MCHC 34.5, RDW Std Deviation 47.6 H, RDW Coeff of Kenyatta 14.9 H, Plt Count 78 L, MPV 10.4 07/04/22 14:10: Sodium 141, Potassium 3.6, Chloride 108 H, Carbon Dioxide 20.0 L , BUN 43 H, Creatinine 3.45 H, Estim Creat Clear Calc 19.64, Est GFR (MDRD) Af Amer 23 L, Est GFR (MDRD) Non-Af 19 L, BUN/Creatinine Ratio 12.5, Glucose 93, Calcium 8.5, Phosphorus 2.7, Magnesium 2.9 H, Albumin 1.9 L 07/04/22 17:34: POC Glucose 96 07/04/22 20:37: Sodium 141, Potassium 3.4 L, Chloride 109 H, Carbon Dioxide 20.0 L, BUN 41 H, Creatinine 3.40 H, Estim Creat Clear Calc 19.93, Est GFR (MDRD) Af Amer 23 L, Est GFR (MDRD) Non-Af 19 L, BUN/Creatinine Ratio 12.1, Glucose 96, Calcium 8.4 L, Phosphorus 3.2, Magnesium 2.2, Albumin 1.7 L 07/04/22 20:37: WBC 15.2 H, RBC 4.77, Hgb 14.5, Hct 41.3, MCV 86.6, MCH 30.4, MCHC 35.1, RDW Std Deviation 47.2 H, RDW Coeff of Kenyatta 14.7 H, Plt Count 59 L, MPV 10.9, Immature Gran % (Auto) 2.000 H, Neut % (Auto) 85.9 H, Lymph % (Auto) 6.1 L, [place] % (Auto) 5.2, Eos % (Auto) 0.3, Baso % (Auto) 0.5, Absolute Neuts (auto) 13.1 H, Absolute Lymphs (auto) 0.93, Nucleated RBC % 0.8, Differential Comment SCANNED 07/05/22 01:04: POC Glucose 59 L 07/05/22 01:20: POC Glucose 64 L 07/05/22 01:34: POC Glucose 84 07/05/22 02:00: Sodium 140, Potassium 3.9, Chloride 107, Carbon Dioxide 21.0, BUN 34 H, Creatinine 3.07 H, Estim Creat Clear Calc 22.07, Est GFR (MDRD) Af Amer 26 L, Est GFR (MDRD) Non-Af 21 L, BUN/Creatinine Ratio 11.1, Glucose 180 H, Calcium 8.6, Phosphorus 3.0, Magnesium 1.9, Albumin 1.7 L 07/05/22 02:00: WBC 14.9 H, RBC 4.69, Hgb 14.1, Hct 40.5, MCV 86.4, MCH 30.1, MCHC 34.8, RDW Std Deviation 46.3 H, RDW Coeff of Kenyatta 14.6, Plt Count 56 L, MPV 10.4, Immature Gran % (Auto) 1.300 H, Neut % (Auto) 87.5 H, Lymph % (Auto) 5.7 L , [place] % (Auto) 5.2, Eos % (Auto) 0.0, Baso % (Auto) 0.3, Absolute Neuts (auto) 13.0 H, Absolute Lymphs (auto) 0.85, Nucleated RBC % 0.6, Platelet Estimate MOD DEC 07/05/22 02:00: Total Creatine Kinase 274, Triglycerides 189 07/05/22 05:15: POC Glucose 57 L 07/05/22 05:47: POC Glucose 112 H 07/05/22 08:00: Sodium 136, Potassium 3.7, Chloride 103, Carbon Dioxide 21.0, BUN 31 H, Creatinine 2.75 H, Estim Creat Clear Calc 24.64, Est GFR (MDRD) Af Amer 29 L, Est GFR (MDRD) Non-Af 24 L, BUN/Creatinine Ratio 11.3, Glucose 191 H, Calcium 9.0, Phosphorus 2.3 L, Magnesium 2.2, Albumin 1.7 L Micro: Microbiology 07/03/22 12:20 Sputum, Expectorated/Coughed Gram Stain - Final 07/03/22 12:20 Sputum, Expectorated/Coughed Respiratory Culture - Final Mixed normal respiratory alecia. No Streptococcus pneumoniae, beta-hemolytic Streptococcus or Staphylococcus aureus isolated. 07/04/22 10:25 Stool Stool Occult Blood (GODFREY) - Final 07/01/22 08:25 Urine Catheter - Yarbrough Urine Culture - Final Culture exhibits no growth. 06/28/22 19:35 Nasal Secretion SARS-CoV-2 & FLU Antigen (Rapid) - Final SARS-CoV-2 (COVID 19) Radiography Diagnostic Testing: Radiology Impression Echocardiogram 07/04/22 07:16 Interpretation Summary The study was technically difficult. Contrast injection was performed. Left ventricular systolic function is hyperdynamic. The estimated ejection fraction is 75 %. There is mild mitral annular calcification. Mild mitral valve prolapse. Trivial mitral valve insufficiency. Unable to assess diastolic dysfunction. Ordering Physician: Abimael Ramachandran Referring Physician: Arjun Guerra Performed By: Yajaira Polk RCS Rhythm Strip Rhythm Strip: Sinus Tach Rate: 108 Physical Exam Const General Appearance: patient mechanically ventilated HEENT normocephalic Head and Scalp: atraumatic Resp Resp Narrative: Scattered rhonchi Auscultation: rhonchi Cardio Cardio Narrative: Tachycardic GI non-distended Extremity Extremity Narrative: Mottling of both lower extremities, minimal to no edema Assessment & Plan Assessment/Plan (1) Acute kidney injury: PLAN: Oliguric, no significant fluid overload. Electrolytes are fine, but calcium started to go up. Access clotted, will resume CRRT once we get the line
[2022-07-05] MEDS: NEPRO TUBE FEED 1,000 ML 50 ML GT (10:43)
--- NOTE | 2022-07-05 11:12 | CASEMGMT ---
Social Work E-mail received from patient data analytics chief scientist with attached Health Care Power of Healthcare Account Manager and Living Will, this licensed master social worker added documents to patient chart. Dajuan BELTRAN, BETHANIES
[2022-07-05] MEDS: Acetaminophen 650 MG/20 ML UDC GT ×2 (11:22→22:33)
[2022-07-05] MEDS: Heparin 10,000 UNITS/10 ML Vial IV ×3 (11:28→18:44)
[2022-07-05] MEDS: Insulin Glargine-YFGN 100 UNIT/ML Pen 40 UNIT SC (12:35)
[2022-07-05 15:03] LABS: Albumin, Serum 1.6 g/dL (3.2-5.0); BUN 34 mg/dL (7-18); BUN/Creat Ratio 11.1 RATIO (10-20); Chloride 106 mmol/L (98-107); Creatinine, Serum 3.05 mg/dL (0.70-1.30); EST Glomerular Filtration Rate 22 mL/min (>60); Est Glom Filt Rate - Afr Amer 26 mL/min (>60); Estimated Creatinine Clearance 22.21 ml/min; Glucose 238 mg/dL (74-106); Magnesium 2.1 mg/dL (1.6-2.6); Phosphorus 2.6 mg/dL (2.5-4.9); Potassium 3.7 mmol/L (3.5-5.1); Sodium Level 139 mmol/L (136-145)
[2022-07-05 15:10] LABS: Vancomycin, Trough Level 18.8 ug/mL (5.0-15.0)
--- NOTE | 2022-07-05 15:28 | PCM.RX.CS ---
Consult Pharmacy has been consulted to manage selected antiobiotic: Vancomycin Type of Consult: Follow-up Prior Doses of Antibiotics Received/Current Regimen: Presently on 750mg iv q12h. Labs: Sodium 139 mmol/L (136-145) 07/05/22 14:00 Potassium 3.7 mmol/L (3.5-5.1) 07/05/22 14:00 Chloride 106 mmol/L (98-107) 07/05/22 14:00 Carbon Dioxide 18.0 mmol/L (21.0-32.0) L 07/05/22 14:00 Anion Gap 16 (5-15) H 07/03/22 03:15 BUN 34 mg/dL (7-18) H 07/05/22 14:00 Creatinine 3.05 mg/dL (0.70-1.30) H 07/05/22 14:00 Est GFR (MDRD) Af Amer 26 mL/min (>60) L 07/05/22 14:00 Est GFR (MDRD) Non-Af 22 mL/min (>60) L 07/05/22 14:00 BUN/Creatinine Ratio 11.1 RATIO (10-20) 07/05/22 14:00 Glucose 238 mg/dL (74-106) H 07/05/22 14:00 Vancomycin Trough 18.8 ug/mL (5.0-15.0) H 07/05/22 14:00 Microbiology: Microbiology 07/03/22 13:00 Blood Culture (Wb) - Left Wrist Blood Culture - Preliminary No growth in 48 hours. 07/03/22 12:48 Blood Culture (Wb) - Left Hand Blood Culture - Preliminary No growth in 48 hours. 07/03/22 12:20 Sputum, Expectorated/Coughed Gram Stain - Final 07/03/22 12:20 Sputum, Expectorated/Coughed Respiratory Culture - Final Mixed normal respiratory alecia. No Streptococcus pneumoniae, beta-hemolytic Streptococcus or Staphylococcus aureus isolated. 07/04/22 10:25 Stool Stool Occult Blood (GODFREY) - Final 07/01/22 08:25 Urine Catheter - Yarbrough Urine Culture - Final Culture exhibits no growth. 06/28/22 19:35 Nasal Secretion SARS-CoV-2 & FLU Antigen (Rapid) - Final SARS-CoV-2 (COVID 19) Weight used for dosin.4 kg Estimated Creatinine Clearance: CRRT Goal Trough: 15-20 mcg/mL Pharmacy Plan for Drug Dosing: Trough today 18.8 (13 hrs post dose) and in goal range of 15-20 mcg/ml. Will continue same dose and frequency. Since drawn 13hrs post dose, will get another trough in 24 hrs. Pharmacy Service will continue to monitor and adjust dosing as required. Follow-Up Labs: Trough Vancomycin - 2.23.23 @1330 before 1400 dose
[2022-07-05 17:40] LABS: Bedside Glucose 137 mg/dL (74-106)
[2022-07-05 19:26] LABS: Bedside Glucose 149 mg/dL (74-106)
[2022-07-05] MEDS: Insulin Lispro 100 UNIT/ML INSULN.PEN SC (23:38)
[2022-07-06] VITALS (72 sets, daily range): BP systolic 78–134; BP diastolic 46–79; PULSE 80–115; RESP 14–38; TEMP 37.2–38.3; O2SAT 92–99; BMI 29.4
[2022-07-06 00:01] LABS: Bedside Glucose 274 mg/dL (74-106)
[2022-07-06 03:48] LABS: Absolute Lymphocyte Count 1.19 X10^3/uL (0.83-4.51); Absolute Neutrophil Count 8.8 X10^3/uL (2.0-7.7); Basophil# 0.04 X10^3/uL; Basophil% 0.4 % (0-1); Differential Indicated SCAN CRITERIA MET; Eosinophil# 0.01 X10^3/uL; Eosinophils% 0.1 % (0-5); Hematocrit 34.7 % (40-54); Hemoglobin 11.9 g/dL (13.0-16.5); Lymphocyte # 1.19 X10^3/ul (0.83-4.51); Mean Corp Hgb Conc 34.3 g/dL (32-36); Mean Corpuscular Hgb 30.2 pg (27.0-32.0); Mean Corpuscular Volume 88.1 fL (80-94); Mean Platelet Vol. 10.9 fl (6.2-12.0); Monocyte# 0.45 X10^3/uL; Monocyte% 4.1 % (0-10); NRBC Flagged by Analyzer 0.5 % (0-5); Neutrophil # 8.79 X10^3/uL (2.7-7.7); Neutrophil % 80.9 % (47-70); POSITIVE COUNT YES; POSITIVE MORPHOLOGY YES; Platelet Count 59 K/mm3 (150-450); RBC Distribution Width CV 14.6 % (11.6-14.6); RBC Distribution Width SD 47.6 fl (35.1-43.9); Red Blood Count 3.94 M/mm3 (4.6-6.2); White Blood Count 10.9 K/mm3 (4.4-11.0)
[2022-07-06 04:03] LABS: Anion Gap 16 (5-15); BUN 54 mg/dL (7-18); BUN/Creat Ratio 12.8 RATIO (10-20); Calcium,Total 9.3 mg/dL (8.5-10.1); Chloride 104 mmol/L (98-107); Creatinine, Serum 4.22 mg/dL (0.70-1.30); EST Glomerular Filtration Rate 15 mL/min (>60); Est Glom Filt Rate - Afr Amer 18 mL/min (>60); Estimated Creatinine Clearance 16.06 ml/min; Glucose 318 mg/dL (74-106); Magnesium 2.4 mg/dL (1.6-2.6); Phosphorus 2.9 mg/dL (2.5-4.9); Potassium 3.6 mmol/L (3.5-5.1); Sodium Level 138 mmol/L (136-145)
[2022-07-06 04:16] LABS: Differential Comment SCANNED
[2022-07-06 04:17] LABS: Platelet Estimate MOD DEC (ADEQ)
--- NOTE | 2022-07-06 04:35 | EKG12_ITS ---
Test Reason : RHYTHM CHANGE Blood Pressure : / mmHG Vent. Rate : 092 BPM Atrial Rate : 092 BPM P-R Int : 238 ms QRS Dur : 080 ms QT Int : 396 ms P-R-T Axes : 041 035 055 degrees QTc Int : 489 ms Sinus rhythm with 1st degree A-V block Low voltage QRS Prolonged QT Abnormal ECG When compared with ECG of 05-JUL-2022 15:18, MANUAL COMPARISON REQUIRED, DATA IS UNCONFIRMED Confirmed by KIRSTIN BARRAZA, PURVI ([id number]), tape editor DARRELL CARMONA ([id number]) on 07/10/2022 11:33:03 AM Referred By: FRIDA CANDELARIO Confirmed By:PURVI FULTON MD
[2022-07-06] MEDS: CHLORHEXIDINE GLUC 2% CLOTH 1 EACH TOWELETTE TOPICAL (05:15)
[2022-07-06] MEDS: Insulin Lispro 100 UNIT/ML INSULN.PEN SC ×4 (05:20→23:41)
[2022-07-06 06:15] LABS: Bedside Glucose 306 mg/dL (74-106)
--- NOTE | 2022-07-06 07:16 | PN.HOSP_ITS ---
Reason for Visit Reason for Visit: Diagnoses Type 2 diabetes mellitus with ketoacidosis without coma (06/28/22) Dehydration (06/28/22) Hyperosmolality and hypernatremia (06/28/22) Other acidosis (06/28/22) Encephalopathy, unspecified (06/28/22) Unspecified atrial fibrillation (06/28/22) Acute respiratory failure, unspecified whether with hypoxia or hypercapnia (06/28/22) Acute kidney failure, unspecified (06/28/22) Shock, unspecified (06/28/22) COVID-19 (06/28/22) Subjective Subjective Patient has become agitated requiring increased sedation. Objective Data Objective Data Vital Signs: Vital Signs Temp Pulse Resp BP Pulse Ox O2 Del Method FiO2 37.9 C H 91 19 H 102/61 95 Mechanical Ventilator 30 07/06/22 07:00 07/06/22 07:00 07/06/22 07:00 07/06/22 07:00 07/06/22 07:00 07/06/22 07:00 07/06/22 07:00 Oxygen Delivery Method Mechanical Ventilator Weight: 90.2 kg Body Mass Index (BMI) 29.4 Intake & Output: Intake and Output for Last 24 Hours 07/04/22 07/05/22 07/06/22 23:59 23:59 23:59 Intake Total 3965.25 / 4071.25 2990.44 / 3142.79 1028.07 / 1028.07 Output Total 5 / 5 5 / 5 10 / 10 Balance 3960.25 / 4066.25 2985.44 / 3137.79 1018.07 / 1018.07 Medical Nutrition Assessment Dietitian: Malnutrition Criteria Met Start: 07/02/22 13:54 Freq: Status: Active Protocol: Document 07/05/22 09:19 AG (Rec: 07/05/22 09:19 AG [id number]) Nutrition Malnutrition Evidence of Malnutrition Exists Yes Malnutrition (severe): Acute Illness/Injury Evidenced By Suboptimal Energy Intake ( Severe),Weight Loss (Severe) Intake Problem Inadequate Oral Intake Etiology related to altered mental status, resp. failure Signs/Symptoms as evidenced by NPO status; poor PO intake at meals prior to intubation Status Active Problem Clinical Problem Acute Disease or Injury Related Malnutrition Etiology severe, acute malnutrition related to inadequate oral intake d/t acute illness Signs/Symptoms as evidenced by unintentional wt loss of 4.564kg/5% wt loss < 2 weeks; estimated PO intake meeting < 50 % of estimated energy needs > 5 days Status Active Problem Recommendation Dietitian Recommendations/Changes NPO while intubated; Will order enteral nutrition support via OGT- Nepro at goal rate of 50mL/hour w/ 150mL H2O flush every 4 hours to provide 2124 calories, 97 g protein, and 1772mL fluid/day. Would start at 20mL/hour and increase by 10mL/hour every 8- 12 hours as tolerated until goal rate is achieved. Lab / Micro Data Result Diagrams: 07/06/22 03:30 07/06/22 03:30 Labs: Laboratory Results - last 24 hr 07/05/22 01:20: POC Glucose 64 L 07/05/22 01:34: POC Glucose 84 07/05/22 08:00: Sodium 136, Potassium 3.7, Chloride 103, Carbon Dioxide 21.0, BUN 31 H, Creatinine 2.75 H, Estim Creat Clear Calc 24.64, Est GFR (MDRD) Af Amer 29 L, Est GFR (MDRD) Non-Af 24 L, BUN/Creatinine Ratio 11.3, Glucose 191 H, Calcium 9.0, Phosphorus 2.3 L, Magnesium 2.2, Albumin 1.7 L 07/05/22 12:07: POC Glucose 137 H 07/05/22 14:00: Vancomycin Trough 18.8 H 07/05/22 14:00: Sodium 139, Potassium 3.7, Chloride 106, Carbon Dioxide 18.0 L, BUN 34 H, Creatinine 3.05 H, Estim Creat Clear Calc 22.21, Est GFR (MDRD) Af Amer 26 L, Est GFR (MDRD) Non-Af 22 L, BUN/Creatinine Ratio 11.1, Glucose 238 H, Calcium 9.0, Phosphorus 2.6, Magnesium 2.1, Albumin 1.6 L 07/05/22 19:07: POC Glucose 149 H 07/05/22 23:35: POC Glucose 274 H 07/06/22 03:30: WBC 10.9, RBC 3.94 L, Hgb 11.9 L, Hct 34.7 L, MCV 88.1, MCH 30.2, MCHC 34.3, RDW Std Deviation 47.6 H, RDW Coeff of Kenyatta 14.6, Plt Count 59 L , MPV 10.9, Immature Gran % (Auto) 3.500 H, Neut % (Auto) 80.9 H, Lymph % (Auto) 11.0 L, [place] % (Auto) 4.1, Eos % (Auto) 0.1, Baso % (Auto) 0.4, Absolute Neuts (auto) 8.8 H, Absolute Lymphs (auto) 1.19, Nucleated RBC % 0.5, Differential Comment SCANNED, Platelet Estimate MOD 07/06/22 03:30: Sodium 138, Potassium 3.6, Chloride 104, Carbon Dioxide 18.0 L, Anion Gap 16 H, BUN 54 H, Creatinine 4.22 H, Estim Creat Clear Calc 16.06, Est GFR (MDRD) Af Amer 18 L, Est GFR (MDRD) Non-Af 15 L, BUN/Creatinine Ratio 12.8, Glucose 318 H, Calcium 9.3, Phosphorus 2.9, Magnesium 2.4 07/06/22 05:18: POC Glucose 306 H Micro: Microbiology 07/03/22 13:00 Blood Culture (Wb) - Left Wrist Blood Culture - Preliminary No growth in 48 hours. 07/03/22 12:48 Blood Culture (Wb) - Left Hand Blood Culture - Preliminary No growth in 48 hours. 07/03/22 12:20 Sputum, Expectorated/Coughed Gram Stain - Final 07/03/22 12:20 Sputum, Expectorated/Coughed Respiratory Culture - Final Mixed normal respiratory alecia. No Streptococcus pneumoniae, beta-hemolytic Streptococcus or Staphylococcus aureus isolated. 07/04/22 10:25 Stool Stool Occult Blood (GODFREY) - Final 07/01/22 08:25 Urine Catheter - Yarbrough Urine Culture - Final Culture exhibits no growth. 06/28/22 19:35 Nasal Secretion SARS-CoV-2 & FLU Antigen (Rapid) - Final SARS-CoV-2 (COVID 19) Rhythm Strip Rhythm Strip: Sinus Tach Rate: 108 Physical Exam Const Constitutional Narrative: Intubated. Sedated. HEENT head/scalp atraumatic and moist oral mucous membranes Resp normal respiratory effort and no retractions Resp Narrative: Coarse breath sounds bilaterally Cardio regular rate, regular rhythm, S1 normal heart sound and S2 normal heart sound GI normal to inspection, nondistended, normoactive bowel sounds and soft to palp ation Extremity normal to inspection Psych affect normal Assessment & Plan Assessment/Plan (1) Diabetic keto-acidosis: PLAN: resolved On insulin glargine. Patient did have hypoglycemia down to 57 on the morning of the . (2) Acute kidney injury: PLAN: worsening oliguric nephrology following CRRT on HCO3- gtt (3) COVID: PLAN: on room air diagnosed 06/28 no treatment (4) Acute respiratory failure: PLAN: No noted hypoxia nor hypercapnia Due to decreased mental status and metabolic acidosis Intubated July 03 for airway protection (5) Encephalopathy: PLAN: Per nursing, had been noted to have decreased unresponsiveness on 07/02 Unclear etiology. Suspect metabolic given his known metabolic derangements. Cannot rule out intracranial process at this time. Patient has been started on CRRT Consider imaging when patient more hemodynamically stable Has not received propofol since 12/31 at 0830, no fentanyl since 07/03 at 1300. Restarted propofol 07/05 at 0238 but subsequent discontinued. 07/05: Improved. Patient does have positive corneal reflexes. Does withdrawal to noxious stimuli. 07/06: Ongoing. (6) Shock: PLAN: Unclear type Norepinephrine has been turned off (7) Atrial fibrillation with RVR: PLAN: Was in SVT yesterday. Did receive 2 doses of adenosine which showed underlying sinus rhythm, then went into afib with RVR. On amiodarone gtt [id number]. Would recommend holding off on anticoagulation until can get brain imaging. Echo shows an EF of 75%. 07/05: Converted normal sinus rhythm. Amiodarone discontinued. PLAN: Plan Chronic conditions: * HTN/HLD: We will hold his ramipril given his acute renal failure. Can wait to restart his pravastatin DVT proph: Heparin Prognosis: Guarded to poor. Discussed with family on the . Charges/Coding Visit Charges Inpatient E&M: 13999 Subs Hosp L2
--- NOTE | 2022-07-06 09:11 | PCM.PN.REN ---
Subjective Subjective F/u on YESI due to circulatory collapse, shock, requiring pressors. Issues with CRRT, has been clotting recently and CRRT is off now. Remains critically ill on vent, pressors on and off. FiO2 30%, PEEP of 5, has more petechiae Objective Data Objective Data Vital Signs: Vital Signs Temp Pulse Resp BP Pulse Ox O2 Del Method FiO2 100.2 F H 91 19 H 102/61 95 Mechanical Ventilator 30 07/06/22 07:00 07/06/22 07:00 07/06/22 07:00 07/06/22 07:00 07/06/22 07:00 07/06/22 08:00 07/06/22 08:00 Oxygen Delivery Method Mechanical Ventilator Weight: 90.2 kg Body Mass Index (BMI) 29.4 Intake & Output: Intake and Output for Last 24 Hours 07/04/22 07/05/22 07/06/22 23:59 23:59 23:59 Intake Total 3965.25 / 4071.25 2990.44 / 3142.79 1178.07 / 1178.07 Output Total Balance 3960.25 / 4066.25 2985.44 / 3137.79 1168.07 / 1168.07 Medical Nutrition Assessment Dietitian: Malnutrition Criteria Met Start: 07/02/22 13:54 Freq: Status: Active Protocol: Document 07/05/22 09:19 (Rec: 07/05/22 09:19 [id number]) Nutrition Malnutrition Evidence of Malnutrition Exists Yes Malnutrition (severe): Acute Illness/Injury Evidenced By Suboptimal Energy Intake ( Severe),Weight Loss (Severe) Intake Problem Inadequate Oral Intake Etiology related to altered mental status, resp. failure Signs/Symptoms as evidenced by NPO status; poor PO intake at meals prior to intubation Status Active Problem Clinical Problem Acute Disease or Injury Related Malnutrition Etiology severe, acute malnutrition related to inadequate oral intake d/t acute illness Signs/Symptoms as evidenced by unintentional wt loss of 4.564kg/5% wt loss < 2 weeks; estimated PO intake meeting < 50 % of estimated energy needs > 5 days Status Active Problem Recommendation Dietitian Recommendations/Changes NPO while intubated; Will order enteral nutrition support via OGT- Nepro at goal rate of 50mL/hour w/ 150mL H2O flush every 4 hours to provide 2124 calories, 97 g protein, and 1772mL fluid/day. Would start at 20mL/hour and increase by 10mL/hour every 8- 12 hours as tolerated until goal rate is achieved. Lab / Micro Data Attestation: I reviewed the patient's lab results. Result Diagrams: 07/06/22 03:30 07/06/22 03:30 Labs: Laboratory Results - last 24 hr 07/05/22 01:20: POC Glucose 64 L 07/05/22 01:34: POC Glucose 84 07/05/22 12:07: POC Glucose 137 H 07/05/22 14:00: Vancomycin Trough 18.8 H 07/05/22 14:00: Sodium 139, Potassium 3.7, Chloride 106, Carbon Dioxide 18.0 L, BUN 34 H, Creatinine 3.05 H, Estim Creat Clear Calc 22.21, Est GFR (MDRD) Af Amer 26 L, Est GFR (MDRD) Non-Af 22 L, BUN/Creatinine Ratio 11.1, Glucose 238 H, Calcium 9.0, Phosphorus 2.6, Magnesium 2.1, Albumin 1.6 L 07/05/22 19:07: POC Glucose 149 H 07/05/22 23:35: POC Glucose 274 H 07/06/22 03:30: WBC 10.9, RBC 3.94 L, Hgb 11.9 L, Hct 34.7 L, MCV 88.1, MCH 30.2, MCHC 34.3, RDW Std Deviation 47.6 H, RDW Coeff of Kenyatta 14.6, Plt Count 59 L, MPV 10.9, Immature Gran % (Auto) 3.500 H, Neut % (Auto) 80.9 H, Lymph % (Auto) 11.0 L, [place] % (Auto) 4.1, Eos % (Auto) 0.1, Baso % (Auto) 0.4, Absolute Neuts (auto) 8.8 H, Absolute Lymphs (auto) 1.19, Nucleated RBC % 0.5, Differential Comment SCANNED, Platelet Estimate MOD DEC 07/06/22 03:30: Sodium 138, Potassium 3.6, Chloride 104, Carbon Dioxide 18.0 L, Anion Gap 16 H, BUN 54 H, Creatinine 4.22 H, Estim Creat Clear Calc 16.06, Est GFR (MDRD) Af Amer 18 L, Est GFR (MDRD) Non-Af 15 L, BUN/Creatinine Ratio 12.8, Glucose 318 H, Calcium 9.3, Phosphorus 2.9, Magnesium 2.4 07/06/22 05:18: POC Glucose 306 H Micro: Microbiology 07/03/22 13:00 Blood Culture (Wb) - Left Wrist Blood Culture - Preliminary No growth in 48 hours. 07/03/22 12:48 Blood Culture (Wb) - Left Hand Blood Culture - Preliminary No growth in 48 hours. 07/03/22 12:20 Sputum, Expectorated/Coughed Gram Stain - Final 07/03/22 12:20 Sputum, Expectorated/Coughed Respiratory Culture - Final Mixed normal respiratory alecia. No Streptococcus pneumoniae, beta-hemolytic Streptococcus or Staphylococcus aureus isolated. 07/04/22 10:25 Stool Stool Occult Blood (GODFREY) - Final 07/01/22 08:25 Urine Catheter - Yarbrough Urine Culture - Final Culture exhibits no growth. 06/28/22 19:35 Nasal Secretion SARS-CoV-2 & FLU Antigen (Rapid) - Final SARS-CoV-2 (COVID 19) Rhythm Strip Rhythm Strip: Sinus Tach Rate: 108 Physical Exam Const General Appearance: patient mechanically ventilated HEENT normocephalic Head and Scalp: atraumatic Resp clear to auscultation bilaterally Cardio regular rate GI non-distended Extremity General Extremity: edema bilateral Skin Skin Narrative: Acrocyanosis, some petechiae Assessment & Plan Assessment/Plan (1) Acute kidney injury: PLAN: No renal fx, acidosis. Problem with frequent clotting CRRT. He is on 7 mcg of levo, so he might be able to tolerate traditional HD, will try today
[2022-07-06] MEDS: 0.9% Saline Lock 10 ML Syringe IV (09:46)
[2022-07-06] MEDS: Chlorhexidine 15 ML PO ×2 (10:03→21:23)
[2022-07-06 10:47] LABS: Vancomycin, Random Level 33.2 ug/mL (0.0-15.0)
[2022-07-06] MEDS: Insulin Glargine-YFGN 100 UNIT/ML Pen 40 UNIT SC (10:58)
--- NOTE | 2022-07-06 11:09 | PCM.RX.CS ---
Consult Pharmacy has been consulted to manage selected antiobiotic: Vancomycin Type of Consult: Follow-up Labs: Sodium 138 mmol/L (136-145) 07/06/22 03:30 Potassium 3.6 mmol/L (3.5-5.1) 07/06/22 03:30 Chloride 104 mmol/L (98-107) 07/06/22 03:30 Carbon Dioxide 18.0 mmol/L (21.0-32.0) L 07/06/22 03:30 Anion Gap 16 (5-15) H 07/06/22 03:30 BUN 54 mg/dL (7-18) H 07/06/22 03:30 Creatinine 4.22 mg/dL (0.70-1.30) H 07/06/22 03:30 Est GFR (MDRD) Af Amer 18 mL/min (>60) L 07/06/22 03:30 Est GFR (MDRD) Non-Af 15 mL/min (>60) L 07/06/22 03:30 BUN/Creatinine Ratio 12.8 RATIO (10-20) 07/06/22 03:30 Glucose 318 mg/dL (74-106) H 07/06/22 03:30 Vancomycin Trough 18.8 ug/mL (5.0-15.0) H 07/05/22 14:00 Random Vancomycin 33.2 ug/mL (0.0-15.0) H 07/06/22 09:55 Microbiology: Microbiology 07/03/22 13:00 Blood Culture (Wb) - Left Wrist Blood Culture - Preliminary No growth in 48 hours. 07/03/22 12:48 Blood Culture (Wb) - Left Hand Blood Culture - Preliminary No growth in 48 hours. 07/03/22 12:20 Sputum, Expectorated/Coughed Gram Stain - Final 07/03/22 12:20 Sputum, Expectorated/Coughed Respiratory Culture - Final Mixed normal respiratory alecia. No Streptococcus pneumoniae, beta-hemolytic Streptococcus or Staphylococcus aureus isolated. 07/04/22 10:25 Stool Stool Occult Blood (GODFREY) - Final 07/01/22 08:25 Urine Catheter - Yarbrough Urine Culture - Final Culture exhibits no growth. 06/28/22 19:35 Nasal Secretion SARS-CoV-2 & FLU Antigen (Rapid) - Final SARS-CoV-2 (COVID 19) Goal Trough: 15-20 mcg/mL Pharmacy Plan for Drug Dosing: VANCOMYCIN LEVEL RECEIVED Current Vancomycin Dose: 750mg IV Q12hr - was on CRRT, now CRRT has stopped, getting HD today Number of Doses Received: several Vancomycin Level: 33.2 Hours Since Last Dose: (9.5hr level) Renal Function: was on CRRT- now on HD Pharmacy to call daily to see if HD will be done, no set schedule at this time Renal Function Trend: N/A Vancomycin Plan/Comments: Patient who was previously getting CRRT, now getting HD. Pre-HD level today was >20, so no additional dose will be given post-HD today. Pharmacy will contact floor daily to determine if pt is to get HD daily. Will now dose based on pre-HD levels unless CRRT is resumed. Pending Level: TBD, will call floor daily to determine HD status Pharmacy Service will continue to monitor and adjust dosing as required.
--- NOTE | 2022-07-06 11:29 | PN.CC_ITS ---
Assessment & Plan Assessment/Plan (1) Diabetic keto-acidosis: (2) Hypernatremia: (3) Hyperchloremic metabolic acidosis: PLAN: Plan RECOMMENDATIONS: 1. Continue assist-control mode of mechanical ventilation. Wean FiO2 and PEEP to maintain saturations at or above 90%. 2. Ongoing dialysis support with volume optimization per nephrology recommendations. 3. Continue to minimize sedating medications. 4. Continue vasopressor support to maintain a mean arterial pressure at or above 65 mmHg. 5. Continue antimicrobials. 6. Continue tube feeds as tolerated. 7. Continue appropriate ICU prophylaxis. IMPRESSIONS: 1. Metabolic encephalopathy The patient has developed worsening encephalopathy, likely secondary to profound underlying metabolic derangements, including hypernatremia and worsening uremia in the setting of YESI. Unfortunately, the patient had to be intubated on the morning of July 03 due to concerns for airway protection. Plan to continue dialysis support to address his underlying metabolic derangements and renal insufficiency. Continue to avoid sedating medications. 2. Acute respiratory failure The patient was intubated over concerns for airway protection and possible aspi ration. The etiology for his encephalopathy appears to be metabolic in nature. Anticipate improvement with hemodialysis support. In the interim, continue the patient on assist control mode mechanical ventilation. Wean FiO2 and PEEP to maintain saturations at or above 90%. Continue antimicrobials as ordered. 3. Septic shock Clinical concern for underlying pulmonary source of infection. The patient has significant underlying metabolic derangements related to his renal insufficiency. He is significantly overall net positive from a volume perspective for the hospitalization. Plan to continue current supportive measures including broad-spectrum antimicrobials and Levophed to maintain a mean arterial pressure at or above 65 mmHg. 4. YESI on CKD Likely secondary to ischemic ATN. The patient has interval worsening in his renal function and metabolic derangements. Recommend ongoing dialysis support with volume optimization per nephrology recommendations. 5. DKA Resolved. Suspect elevated anion gap is secondary to uremia. No serum acetone was noted. Lactate is within normal limits. Continue basal and sliding scale insulin coverage. 6. COVID-19/hyperlipidemia/hypertension/advanced age Complicates care, management, recovery and prognosis. Continue supportive akhil ures as noted above. Continue tube feeds as tolerated. TIME: 32 minutes of critical care time, inclusive of procedures, was spent addressing the patient's metabolic encephalopathy, acute respiratory failure, septic shock, YESI on CKD, review of all data and collaboration with the care team. Subjective Subjective The patient was seen and examined at the bedside this morning. Events from the last 24 hours have been reviewed. The patient currently has a low-grade fever and remains on assist control mode of mechanical ventilation with an FiO2 requirement of 30% and PEEP of 5. The patient remains on Levophed at 10 mcg/min to maintain hemodynamic stability. He is currently documented to be overall net +21.5 L for the hospitalization. The patient's CRRT clotted off yesterday. Serum bicarbonate was noted to be 18 with a BUN of 54 and creatinine of 4.2. Objective Data Objective Data The patient's most recent lab work, culture data and imaging studies have all been personally reviewed. Surface echocardiogram demonstrated normal LV size with an ejection fraction of 75%. Rapid COVID testing was positive on June 28. Sputum and blood cultures are pending. Vital Signs: Vital Signs Temp Pulse Resp BP Pulse Ox O2 Del Method FiO2 100.3 F H 115 H 29 H 103/67 94 Mechanical Ventilator 30 07/06/22 09:00 07/06/22 09:16 07/06/22 09:16 07/06/22 09:00 07/06/22 09:16 07/06/22 09:00 07/06/22 09:00 Oxygen Delivery Method Mechanical Ventilator Weight: 198 lb 13.711 oz Body Mass Index (BMI) 29.4 Intake & Output: Intake and Output for Last 24 Hours 07/04/22 07/05/22 07/06/22 23:59 23:59 23:59 Intake Total 3965.25 / 4071.25 2990.44 / 3142.79 1380.67 / 1380.67 Output Total Balance 3960.25 / 4066.25 2985.44 / 3137.79 1370.67 / 1370.67 Medical Nutrition Assessment Dietitian: Malnutrition Criteria Met Start: 07/02/22 13:54 Freq: Status: Active Protocol: Document 07/06/22 09:33 [place] (Rec: 07/06/22 09:33 LO [id number]) Nutrition Malnutrition Evidence of Malnutrition Exists Yes Malnutrition (severe): Acute Illness/Injury Evidenced By Suboptimal Energy Intake ( Severe),Weight Loss (Severe) Intake Problem Inadequate Oral Intake Etiology related to altered mental status, resp. failure Signs/Symptoms as evidenced by NPO status; poor PO intake at meals prior to intubation Status Active Problem Clinical Problem Acute Disease or Injury Related Malnutrition Etiology severe, acute malnutrition related to inadequate oral intake d/t acute illness Signs/Symptoms as evidenced by unintentional wt loss of 4.564kg/5% wt loss < 2 weeks; estimated PO intake meeting < 50 % of estimated energy needs > 5 days Status Active Problem Recommendation Dietitian Recommendations/Changes NPO while intubated; Continue enteral nutrition support via OGT- Nepro at goal rate of 50mL/hour w/ 150mL H2O flush every 4 hours to provide 2124 calories, 97 g protein, and 1772mL fluid/day. Would start at 20mL/hour and increase by 10mL/hour every 8-12 hours as tolerated until goal rate is achieved. Lab / Micro Data Attestation: I reviewed the patient's lab results. Result Diagrams: 07/06/22 03:30 07/06/22 03:30 Labs: Laboratory Results - last 24 hr 07/05/22 12:07: POC Glucose 137 H 07/05/22 14:00: Vancomycin Trough 18.8 H 07/05/22 14:00: Sodium 139, Potassium 3.7, Chloride 106, Carbon Dioxide 18.0 L, BUN 34 H, Creatinine 3.05 H, Estim Creat Clear Calc 22.21, Est GFR (MDRD) Af Amer 26 L, Est GFR (MDRD) Non-Af 22 L, BUN/Creatinine Ratio 11.1, Glucose 238 H, Calcium 9.0, Phosphorus 2.6, Magnesium 2.1, Albumin 1.6 L 07/05/22 19:07: POC Glucose 149 H 07/05/22 23:35: POC Glucose 274 H 07/06/22 03:30: WBC 10.9, RBC 3.94 L, Hgb 11.9 L, Hct 34.7 L, MCV 88.1, MCH 30.2, MCHC 34.3, RDW Std Deviation 47.6 H, RDW Coeff of [place]yatta 14.6, Plt Count 59 L , MPV 10.9, Immature Gran % (Auto) 3.500 H, Neut % (Auto) 80.9 H, Lymph % (Auto) 11.0 L, [place] % (Auto) 4.1, Eos % (Auto) 0.1, Baso % (Auto) 0.4, Absolute Neuts (auto) 8.8 H, Absolute Lymphs (auto) 1.19, Nucleated RBC % 0.5, Differential Comment SCANNED, Platelet Estimate MOD DEC 07/06/22 03:30: Sodium 138, Potassium 3.6, Chloride 104, Carbon Dioxide 18.0 L, Anion Gap 16 H, BUN 54 H, Creatinine 4.22 H, Estim Creat Clear Calc 16.06, Est GFR (MDRD) Af Amer 18 L, Est GFR (MDRD) Non-Af 15 L, BUN/Creatinine Ratio 12.8, Glucose 318 H, Calcium 9.3, Phosphorus 2.9, Magnesium 2.4 07/06/22 05:18: POC Glucose 306 H 07/06/22 09:55: Random Vancomycin 33.2 H Micro: Microbiology 07/03/22 13:00 Blood Culture (Wb) - Left Wrist Blood Culture - Preliminary No growth in 48 hours. 07/03/22 12:48 Blood Culture (Wb) - Left Hand Blood Culture - Preliminary No growth in 48 hours. 07/03/22 12:20 Sputum, Expectorated/Coughed Gram Stain - Final 07/03/22 12:20 Sputum, Expectorated/Coughed Respiratory Culture - Final Mixed normal respiratory alecia. No Streptococcus pneumoniae, beta-hemolytic Streptococcus or Staphylococcus aureus isolated. 07/04/22 10:25 Stool Stool Occult Blood (GODFREY) - Final 07/01/22 08:25 Urine Catheter - Yarbrough Urine Culture - Final Culture exhibits no growth. 06/28/22 19:35 Nasal Secretion SARS-CoV-2 & FLU Antigen (Rapid) - Final SARS-CoV-2 (COVID 19) ABG Data ABG results: ABG 07/04/22 08:45 Specimen Type ART Sample Site R Radial pH 7.44 Bicarbonate Actual 18.1 L Total CO2 19 Base Excess -6 L O2 Saturation 96 O2 % 30 ABG pCO2 26.9 L ABG pO2 77 Laz Test Positive Respiration Rate 14 O2 Delivery Device Adult Vent Vent Mode AC Tidal Volume 450 POC PEEP 5 Radiography Diagnostic Testing: Radiology Impression Echocardiogram 07/04/22 07:16 Interpretation Summary The study was technically difficult. Contrast injection was performed. Left ventricular systolic function is hyperdynamic. The estimated ejection fraction is 75 %. There is mild mitral annular calcification. Mild mitral valve prolapse. Trivial mitral valve insufficiency. Unable to assess diastolic dysfunction. Ordering Physician: Abimael Ramachandran Referring Physician: Arjun Guerra Performed By: Yajaira Polk RCS Rhythm Strip Rhythm Strip: Sinus Tach Rate: 108 Physical Exam Const Constitutional Narrative: Intubated and mechanically ventilated. No ventilator dyssynchrony. General Appearance: ill appearing HEENT normocephalic and head/scalp atraumatic Mouth: endotracheal tube in place and OG tube in place Eyes PERRL and EOMs intact bilaterally Neck supple General: trachea midline and CVC in place Chest inspection of chest normal Resp Effort and Inspection: tachypneic Auscultation: rhonchi and diminished lung sounds; Negative for rales or wheezes Cardio regular rhythm, S1 normal heart sound and S2 normal heart sound Rate: tachycardic GI normal to inspection, nondistended, normoactive bowel sounds Extremity Extremity Narrative: Mottled lower extremities General Extremity: Negative for edema Skin no rashes or lesions noted Neuro Sensorium / Orientation: sedated on vent Charges/Coding Procedures Hospitalists Procedures: [id number] Critial Care 1st Hr
[2022-07-06 12:10] LABS: Bedside Glucose 361 mg/dL (74-106)
[2022-07-06] MEDS: NEPRO TUBE FEED 1,000 ML 50 ML GT (16:22)
--- NOTE | 2022-07-06 17:13 | DIALYSIS ---
HD treatment x 3.0 hours. Net UF +600 ml r/t frequent flushes needed to alleviate high APs causing pump to stop. High APs triggered by patient coughing - HD line very positional - occluded by any movement of patient's head or any cough, also, TMPs remained low (0-20) - suggestive of vessel wall occlusion of lumen openings (vs. clotting). No evidence of unusual clotting seen in blood circuit. Unable to run at all with ports reversed (arterial port flushes and draws easily, venous port difficult to draw, but flushes easily). Low BP (SBP < 90) contributed to difficulty in preventing high APs (norepinephrine gtt started, increased to 10 mcg/m,in, which decreased frequency of high AP alarms/pump stoppage. Blood volume processed 60.5 Liters total. Blood returned to patient. Catheter ports closed with heparin (1.4 ml/1400 units per port). RN report at bedside.
[2022-07-06] MEDS: Heparin 10,000 UNITS/10 ML Vial IV (18:26)
[2022-07-06 18:45] LABS: Bedside Glucose 157 mg/dL (74-106)
[2022-07-07] VITALS (52 sets, daily range): BP systolic 78–122; BP diastolic 42–69; PULSE 76–95; RESP 16–24; TEMP 37.1–38.4; O2SAT 94–99; BMI 30.1
[2022-07-07 00:10] LABS: Bedside Glucose 302 mg/dL (74-106)
[2022-07-07] MEDS: Acetaminophen 650 MG/20 ML UDC GT (02:49)
[2022-07-07 03:04] LABS: Hematocrit 30.4 % (40-54); Hemoglobin 10.2 g/dL (13.0-16.5); Mean Corp Hgb Conc 33.6 g/dL (32-36); Mean Corpuscular Hgb 29.9 pg (27.0-32.0); Mean Corpuscular Volume 89.1 fL (80-94); Mean Platelet Vol. 11.2 fl (6.2-12.0); POSITIVE COUNT YES; POSITIVE MORPHOLOGY YES; RBC Distribution Width SD 48.7 fl (35.1-43.9); Red Blood Count 3.41 M/mm3 (4.6-6.2); White Blood Count 10.3 K/mm3 (4.4-11.0)
[2022-07-07 03:09] LABS: Differential Indicated MANUAL DIFF; Platelet Count 47 K/mm3 (150-450)
[2022-07-07 03:17] LABS: Anion Gap 13 (5-15); BUN 47 mg/dL (7-18); BUN/Creat Ratio 11.4 RATIO (10-20); Chloride 104 mmol/L (98-107); Creatinine, Serum 4.14 mg/dL (0.70-1.30); EST Glomerular Filtration Rate 15 mL/min (>60); Est Glom Filt Rate - Afr Amer 18 mL/min (>60); Estimated Creatinine Clearance 16.37 ml/min; Glucose 347 mg/dL (74-106); Phosphorus 2.4 mg/dL (2.5-4.9); Potassium 3.7 mmol/L (3.5-5.1); Sodium Level 137 mmol/L (136-145)
[2022-07-07 04:12] LABS: Lymphocyte 1 % (19-41); Metamyelocyte 2 % (0-1); Monocyte 3 % (0-10); Neutrophil-Band 2 % (0-5); Neutrophil-Segmented 92 % (47-70); Total Cells Counted 100 (MANUAL DIFF)
[2022-07-07 04:13] LABS: Platelet Estimate MKD DEC (ADEQ); Red Cell Morphology NORM C+C NORMAL (NORM C&C)
[2022-07-07 04:14] LABS: Absolute Lymphocyte Count 0.94 X10^3/uL (0.83-4.51); Absolute Neutrophil Count 9.7 X10^3/uL (2.0-7.7); Lymphocyte # 0.94 X10^3/ul (0.83-4.51); Neutrophil # 9.68 X10^3/uL (2.7-7.7)
[2022-07-07] MEDS: Insulin Lispro 100 UNIT/ML INSULN.PEN SC ×3 (06:00→16:37)
[2022-07-07] MEDS: CHLORHEXIDINE GLUC 2% CLOTH 1 EACH TOWELETTE TOPICAL ×2 (06:02→08:40)
[2022-07-07 06:21] LABS: Bedside Glucose 304 mg/dL (74-106)
--- NOTE | 2022-07-07 07:04 | PN.HOSP_ITS ---
Reason for Visit Reason for Visit: Diagnoses Type 2 diabetes mellitus with ketoacidosis without coma (06/28/22) Dehydration (06/28/22) Hyperosmolality and hypernatremia (06/28/22) Other acidosis (06/28/22) Encephalopathy, unspecified (06/28/22) Unspecified atrial fibrillation (06/28/22) Acute respiratory failure, unspecified whether with hypoxia or hypercapnia (06/28/22) Acute kidney failure, unspecified (06/28/22) Shock, unspecified (06/28/22) COVID-19 (06/28/22) Subjective Subjective More interactive. Objective Data Objective Data Vital Signs: Vital Signs Temp Pulse Resp BP Pulse Ox O2 Del Method FiO2 37.1 C 81 19 H 91/54 L 96 Mechanical Ventilator 25 07/07/22 07:00 07/07/22 07:00 07/07/22 07:00 07/07/22 07:00 07/07/22 07:00 07/07/22 07:00 07/07/22 07:00 Oxygen Delivery Method Mechanical Ventilator Weight: 92.6 kg Body Mass Index (BMI) 30.1 Intake & Output: Intake and Output for Last 24 Hours 07/05/22 07/06/22 07/07/22 23:59 23:59 23:59 Intake Total 2990.44 / 3142.79 2473.45 / 2485.35 827.94 / 827.94 Output Total / 10 / Balance 2985.44 / 3137.79 2463.45 / 2475.35 827.94 / 827.94 Medical Nutrition Assessment Dietitian: Malnutrition Criteria Met Start: 07/02/22 13:54 Freq: Status: Active Protocol: Document 07/06/22 09:33 LO (Rec: 07/06/22 09:33 LO [id number]) Nutrition Malnutrition Evidence of Malnutrition Exists Yes Malnutrition (severe): Acute Illness/Injury Evidenced By Suboptimal Energy Intake ( Severe),Weight Loss (Severe) Intake Problem Inadequate Oral Intake Etiology related to altered mental status, resp. failure Signs/Symptoms as evidenced by NPO status; poor PO intake at meals prior to intubation Status Active Problem Clinical Problem Acute Disease or Injury Related Malnutrition Etiology severe, acute malnutrition related to inadequate oral intake d/t acute illness Signs/Symptoms as evidenced by unintentional wt loss of 4.564kg/5% wt loss < 2 weeks; estimated PO intake meeting < 50 % of estimated energy needs > 5 days Status Active Problem Recommendation Dietitian Recommendations/Changes NPO while intubated; Continue enteral nutrition support via OGT- Nepro at goal rate of 50mL/hour w/ 150mL H2O flush every 4 hours to provide 2124 calories, 97 g protein, and 1772mL fluid/day. Would start at 20mL/hour and increase by 10mL/hour every 8-12 hours as tolerated until goal rate is achieved. Lab / Micro Data Result Diagrams: 07/07/22 02:50 07/07/22 02:50 Labs: Laboratory Results - last 24 hr 07/06/22 09:55: Random Vancomycin 33.2 H 07/06/22 10:57: POC Glucose 361 H 07/06/22 18:24: POC Glucose 157 H 07/06/22 23:40: POC Glucose 302 H 07/07/22 02:50: WBC 10.3, RBC 3.41 L, Hgb 10.2 L, Hct 30.4 L, MCV 89.1, MCH 29.9, MCHC 33.6, RDW Std Deviation 48.7 H, RDW Coeff of Kenyatta 15.0 H, Plt Count 47 L*, MPV 11.2, Neut % (Auto) Not Reportable, Absolute Neuts (auto) 9.7 H, Absolute Lymphs (auto) 0.94, Total Counted 100, Neutrophils % (Manual) 92 H, Band Neutrophils % 2, Lymphocytes % (Manual) 1 L, Monocytes % (Manual) 3, Metamyelocytes % 2 H, Diff Path Review May foll, Platelet Estimate MKD DEC, RBC Morphology NORM C+C 07/07/22 02:50: Sodium 137, Potassium 3.7, Chloride 104, Carbon Dioxide 20.0 L, Anion Gap 13, BUN 47 H, Creatinine 4.14 H, Estim Creat Clear Calc 16.37, Est GFR (MDRD) Af Amer 18 L, Est GFR (MDRD) Non-Af 15 L, BUN/Creatinine Ratio 11.4, Glucose 347 H, Calcium 9.0, Phosphorus 2.4 L, Magnesium 2.0 07/07/22 05:59: POC Glucose 304 H Micro: Microbiology 07/03/22 13:00 Blood Culture (Wb) - Left Wrist Blood Culture - Preliminary No growth in 48 hours. 07/03/22 12:48 Blood Culture (Wb) - Left Hand Blood Culture - Preliminary No growth in 48 hours. 07/03/22 12:20 Sputum, Expectorated/Coughed Gram Stain - Final 07/03/22 12:20 Sputum, Expectorated/Coughed Respiratory Culture - Final Mixed normal respiratory alecia. No Streptococcus pneumoniae, beta-hemolytic Streptococcus or Staphylococcus aureus isolated. 07/04/22 10:25 Stool Stool Occult Blood (GODFREY) - Final 07/01/22 08:25 Urine Catheter - Yarbrough Urine Culture - Final Culture exhibits no growth. 06/28/22 19:35 Nasal Secretion SARS-CoV-2 & FLU Antigen (Rapid) - Final SARS-CoV-2 (COVID 19) Rhythm Strip Rhythm Strip: Sinus Tach Rate: 108 Physical Exam Const Constitutional Narrative: intubated. opens eyes to voice and track me in the room. Resp normal respiratory effort, no retractions, no use of accessory muscles and clear to auscultation bilaterally Cardio regular rate, regular rhythm, S1 normal heart sound and S2 normal heart sound GI normal to inspection, nondistended, normoactive bowel sounds and soft to palpation Extremity normal to inspection Neuro oriented x3 and moves all extremities Assessment & Plan Assessment/Plan (1) Diabetic keto-acidosis: PLAN: resolved On insulin glargine. Glucose elevated now on tube feeds. (2) Acute kidney injury: PLAN: anuric nephrology following CRRT on HCO3- gtt (3) COVID: PLAN: on room air diagnosed 06/28 no treatment (4) Acute respiratory failure: PLAN: No noted hypoxia nor hypercapnia Due to decreased mental status and metabolic acidosis Intubated July 03 for airway protection (5) Encephalopathy: PLAN: Per nursing, had been noted to have decreased unresponsiveness on 07/02 Unclear etiology. Suspect metabolic given his known metabolic derangements. Cannot rule out intracranial process at this time. Patient has been started on CRRT Consider imaging when patient more hemodynamically stable Has not received propofol since 12/31 at 0830, no fentanyl since 07/03 at 1300. Restarted propofol 07/05 at 0238 but subsequent discontinued. 07/05: Improved. Patient does have positive corneal reflexes. Does withdrawal to noxious stimuli. 07/06: Ongoing. 07/07: improved. responding to voice. some purposeful movement. (6) Shock: PLAN: ongoing Unclear type Norepinephrine (7) Atrial fibrillation with RVR: PLAN: Was in SVT. Did receive 2 doses of adenosine which showed underlying sinus rhythm, then went into afib with RVR. On amiodarone gtt [id number] 3. Would recommend holding off on anticoagulation until can get brain imaging. Echo shows an EF of 75%. 07/05: Converted normal sinus rhythm. Amiodarone discontinued. (8) Thrombocytopenia: PLAN: Ongoing and worsening since the . Unclear etiology. Last received SQ heparin or otherwise on the . Continue to monitor. Seen by oncology. DW Dr. Bernard, feels that this multifactorial, not ITP nor TTP. PLAN: Plan Chronic conditions: * HTN/HLD: We will hold his ramipril given his acute renal failure. Can wait to restart his pravastatin DVT proph: Heparin Prognosis: Guarded to poor. Discussed with family on the . Charges/Coding Visit Charges Inpatient E&M: 81667 Subs Hosp L2
--- NOTE | 2022-07-07 07:21 | PCM.PN.INT ---
Assessment & Plan Assessment/Plan (1) Diabetic keto-acidosis: (2) Hypernatremia: (3) Hyperchloremic metabolic acidosis: PLAN: Plan RECOMMENDATIONS: 1. Continue spontaneous mode mechanical ventilation as tolerated. Transition back to assist control for overnight support. 2. Ongoing dialysis support with volume optimization per nephrology recommendations. 3. Continue to minimize sedating medications. 4. Continue vasopressor support to maintain a mean arterial pressure at or above 65 mmHg. 5. Continue antimicrobials. 6. Continue tube feeds as tolerated. 7. Continue appropriate ICU prophylaxis. IMPRESSIONS: 1. Metabolic encephalopathy The patient has developed worsening encephalopathy, likely secondary to profound underlying metabolic derangements, including hypernatremia and worsening uremia in the setting of YESI. Unfortunately, the patient had to be intubated on the morning of July 03 due to concerns for airway protection. Plan to continue dialysis support to address his underlying metabolic derangements and renal insufficiency. Continue to avoid sedating medications. 2. Acute respiratory failure The patient was intubated over concerns for airway protection and possible aspiration. The etiology for his encephalopathy appears to be metabolic in nature. Anticipate improvement with hemodialysis support. In the interim, continue the patient on assist control mode mechanical ventilation. Wean FiO2 and PEEP to maintain saturations at or above 90%. Continue antimicrobials as ordered. 3. Septic shock Clinical concern for underlying pulmonary source of infection. The patient has significant underlying metabolic derangements related to his renal insufficiency. He is significantly overall net positive from a volume perspective for the hospitalization. Plan to continue current supportive measures including broad-spectrum antimicrobials and Levophed to maintain a mean arterial pressure at or above 65 mmHg. 4. YESI on CKD Likely secondary to ischemic ATN. The patient has interval worsening in his renal function and metabolic derangements. Recommend ongoing dialysis support with volume optimization per nephrology recommendations. 5. DKA Resolved. Suspect elevated anion gap is secondary to uremia. No serum acetone was noted. Lactate is within normal limits. Continue basal and sliding scale insulin coverage. 6. Thrombocytopenia Most likely related to underlying infectious etiology. DIC labs were sent. Continue to monitor platelet count for now. No indication for transfusion of blood products. 7. COVID-19/hyperlipidemia/hypertension/advanced age Complicates care, management, recovery and prognosis. Continue supportive measures as noted above. Continue tube feeds as tolerated. TIME: 33 minutes of critical care time, inclusive of procedures, was spent addressing the patient's metabolic encephalopathy, acute respiratory failure, septic shock, YESI on CKD, review of all data and collaboration with the care team. Subjective Subjective The patient was seen and examined at the bedside this morning. Events from the last 24 hours have been reviewed. The patient is currently afebrile with borderline hemodynamics. The patient was weaned off of Levophed completely this morning. He did tolerate dialysis yesterday without any net fluid removal. Today is vent day #5. The patient is currently on spontaneous mode of mechanical ventilation with an FiO2 requirement of 25%. The patient's mentation appears to be slowly improving with time. He is currently documented to be overall net +23 L for the hospitalization. Platelet count remains low at 47,000. Objective Data Objective Data The patient's most recent lab work, culture data and imaging studies have all been personally reviewed. Surface echocardiogram demonstrated normal LV size with an ejection fraction of 75%. Rapid COVID testing was positive on June 28. Sputum and blood cultures have not demonstrated any growth to date. Vital Signs: Vital Signs Temp Pulse Resp BP Pulse Ox O2 Del Method FiO2 98.8 F 81 17 91/54 L 96 Mechanical Ventilator 25 07/07/22 07:00 07/07/22 07:04 07/07/22 07:04 07/07/22 07:00 07/07/22 07:04 07/07/22 07:00 07/07/22 07:00 Oxygen Delivery Method Mechanical Ventilator Weight: 204 lb 2.369 oz Body Mass Index (BMI) 30.1 Intake & Output: Intake and Output for Last 24 Hours 07/05/22 07/06/22 07/07/22 23:59 23:59 23:59 Intake Total 2990.44 / 3142.79 2473.45 / 2485.35 830.44 / 830.44 Output Total Balance 2985.44 / 3137.79 2463.45 / 2475.35 830.44 / 830.44 Medical Nutrition Assessment Dietitian: Malnutrition Criteria Met Start: 07/02/22 13:54 Freq: Status: Active Protocol: Document 07/06/22 09:33 LO (Rec: 07/06/22 09:33 [id number]) Nutrition Malnutrition Evidence of Malnutrition Exists Yes Malnutrition (severe): Acute Illness/Injury Evidenced By Suboptimal Energy Intake ( Severe),Weight Loss (Severe) Intake Problem Inadequate Oral Intake Etiology related to altered mental status, resp. failure Signs/Symptoms as evidenced by NPO status; poor PO intake at meals prior to intubation Status Active Problem Clinical Problem Acute Disease or Injury Related Malnutrition Etiology severe, acute malnutrition related to inadequate oral intake d/t acute illness Signs/Symptoms as evidenced by unintentional wt loss of 4.564kg/5% wt loss < 2 weeks; estimated PO intake meeting < 50 % of estimated energy needs > 5 days Status Active Problem Recommendation Dietitian Recommendations/Changes NPO while intubated; Continue enteral nutrition support via OGT- Nepro at goal rate of 50mL/hour w/ 150mL H2O flush every 4 hours to provide 2124 calories, 97 g protein, and 1772mL fluid/day. Would start at 20mL/hour and increase by 10mL/hour every 8-12 hours as tolerated until goal rate is achieved. Lab / Micro Data Attestation: I reviewed the patient's lab results. Result Diagrams: 07/07/22 02:50 07/07/22 02:50 Labs: Laboratory Results - last 24 hr 07/06/22 09:55: Random Vancomycin 33.2 H 07/06/22 10:57: POC Glucose 361 H 07/06/22 18:24: POC Glucose 157 H 07/06/22 23:40: POC Glucose 302 H 07/07/22 02:50: WBC 10.3, RBC 3.41 L, Hgb 10.2 L, Hct 30.4 L, MCV 89.1, MCH 29.9, MCHC 33.6, RDW Std Deviation 48.7 H, RDW Coeff of Kenyatta 15.0 H, Plt Count 47 L*, MPV 11.2, Neut % (Auto) Not Reportable, Absolute Neuts (auto) 9.7 H, Absolute Lymphs (auto) 0.94, Total Counted 100, Neutrophils % (Manual) 92 H, Band Neutrophils % 2, Lymphocytes % (Manual) 1 L, Monocytes % (Manual) 3, Metamyelocytes % 2 H, Diff Path Review May foll, Platelet Estimate MKD DEC, RBC Morphology NORM C+C 07/07/22 02:50: Sodium 137, Potassium 3.7, Chloride 104, Carbon Dioxide 20.0 L, Anion Gap 13, BUN 47 H, Creatinine 4.14 H, Estim Creat Clear Calc 16.37, Est GFR (MDRD) Af Amer 18 L, Est GFR (MDRD) Non-Af 15 L, BUN/Creatinine Ratio 11.4, Glucose 347 H, Calcium 9.0, Phosphorus 2.4 L, Magnesium 2.0 07/07/22 05:59: POC Glucose 304 H Micro: Microbiology 07/03/22 13:00 Blood Culture (Wb) - Left Wrist Blood Culture - Preliminary No growth in 48 hours. 07/03/22 12:48 Blood Culture (Wb) - Left Hand Blood Culture - Preliminary No growth in 48 hours. 07/03/22 12:20 Sputum, Expectorated/Coughed Gram Stain - Final 07/03/22 12:20 Sputum, Expectorated/Coughed Respiratory Culture - Final Mixed normal respiratory alecia. No Streptococcus pneumoniae, beta-hemolytic Streptococcus or Staphylococcus aureus isolated. 07/04/22 10:25 Stool Stool Occult Blood (GODFREY) - Final 07/01/22 08:25 Urine Catheter - Yarbrough Urine Culture - Final Culture exhibits no growth. 06/28/22 19:35 Nasal Secretion SARS-CoV-2 & FLU Antigen (Rapid) - Final SARS-CoV-2 (COVID 19) ABG Data ABG results: ABG 07/04/22 08:45 Specimen Type ART Sample Site R Radial pH 7.44 Bicarbonate Actual 18.1 L Total CO2 19 Base Excess -6 L O2 Saturation 96 O2 % 30 ABG pCO2 26.9 L ABG pO2 77 Laz Test Positive Respiration Rate 14 O2 Delivery Device Adult Vent Vent Mode AC Tidal Volume 450 POC PEEP 5 Radiography Diagnostic Testing: Radiology Impression Echocardiogram 07/04/22 07:16 Interpretation Summary The study was technically difficult. Contrast injection was performed. Left ventricular systolic function is hyperdynamic. The estimated ejection fraction is 75 %. There is mild mitral annular calcification. Mild mitral valve prolapse. Trivial mitral valve insufficiency. Unable to assess diastolic dysfunction. Ordering Physician: Abimael Ramachandran Referring Physician: Arjun Guerra Performed By: Yajaira Polk RCS Rhythm Strip Rhythm Strip: Sinus Tach Rate: 108 Physical Exam Const Constitutional Narrative: Intubated and mechanically ventilated. Currently tolerating spontaneous mode of mechanical ventilation. HEENT normocephalic and head/scalp atraumatic Mouth: endotracheal tube in place and OG tube in place Eyes PERRL and EOMs intact bilaterally Neck supple General: trachea midline and CVC in place Chest inspection of chest normal Resp Auscultation: diminished lung sounds; Negative for rales, rhonchi or wheezes Cardio regular rate, regular rhythm, S1 normal heart sound and S2 normal heart sound GI normal to inspection, nondistended, normoactive bowel sounds Extremity Extremity Narrative: Mottled lower extremities General Extremity: Negative for edema Skin no rashes or lesions noted Neuro Neuro Narrative: The patient is somewhat alert and able to follow a few simple commands. Charges/Coding Procedures Hospitalists Procedures: 34232 Critial Care 1st Hr
[2022-07-07 08:36] LABS: D-Dimer Quantitative (DVT/PE) 9.25 FEU/ug/m (0.27-0.49)
[2022-07-07] MEDS: Chlorhexidine 15 ML PO ×2 (08:40→20:38)
[2022-07-07] MEDS: Insulin Glargine-YFGN 100 UNIT/ML Pen 40 UNIT SC (08:43)
[2022-07-07 08:52] LABS: International Normalized Ratio 1.2; Prothrombin Time (Protime)PT. 15.1 SECONDS (11.7-14.9)
[2022-07-07 08:54] LABS: Partial Thromboplast Time 35.3 Seconds (24.1-36.2)
[2022-07-07 08:55] LABS: Fibrinogen 752 mg/dl (203-444)
[2022-07-07 09:06] LABS: Bedside Glucose 273 mg/dL (74-106)
--- NOTE | 2022-07-07 09:28 | ONC.CONSULT ---
Assessment & Plan Assessment/Plan (1) Thrombocytopenia: Status: Acute Code(s): D69.6 - Thrombocytopenia, unspecified Plan: Thrombocytopenia etiology is multifactorial, includes Post-Covid19 syndrome, drugs, SIRS, . I do not think he has Covid19 ITP since he does not have Purpuric rash or petechiae. I will recommend supportive care with Platelet transfusion as needed for Counts less than 10-15K. Will not follow further on this admission. Please call if there are new problems. HPI Consult Data Date of Service:: 07/07/22 PCP / Referring Provider: Dr. Arjun Guerra DO Attending: Dr. Abimael Ramachandran DO Chief Complaint Chief Complaint: Asked to see Pt for thrombocytopenia. History of Present Illness History of Present Illness: 71y.o.man with a history of diabetes type 2 was admitted with confusion and hallucinations on 06/28/2022. He was found to have Acute renal failure, COVID-19. He developed respiratory failure and currently on ventilatory support. When he came into the hospital platelets were normal but has progressively decreased and this morning it is 47. Asked to see patient for explanation of thrombocytopenia. Advanced Directives Power of [employer]er: Yes Living Will: Yes [facility] Medical History Kidney failure Home Medications aspirin 325 mg tablet 325 mg PO DAILY@0800 02/22/15 [History Last Taken 02/19/15] canagliflozin 100 mg tablet 100 mg PO DAILY 02/22/15 [History Last Taken Unknown] folic acid 1 mg tablet 1 mg PO DAILY@0800 02/22/15 [History Last Taken Unknown] glipizide 10 mg tablet 10 mg PO BIDAC 02/22/15 [History Last Taken Unknown] pravastatin 40 mg tablet 40 mg PO DAILY 02/22/15 [History Last Taken Unknown] ramipril 5 mg capsule 5 mg PO DAILY 02/22/15 [History Last Taken 02/25/15] sitagliptin phosphate 100 mg tablet 100 mg PO DAILY 02/22/15 [History Last Taken Unknown] Allergy/AdvReac Type Severity Reaction Status Date / Time metformin Allergy Mild unknown Verified 06/28/22 19:08 gemfibrozil [From Lopid] Allergy Rash Verified 06/28/22 19:08 Social History Smoking Status: Never smoker ROS ROS Narrative He is sedated Physical Exam Narrative Elderly man, intubated on Fentanyl drip. HEENT normocephalic Eyes no scleral icterus Neck no lymphadenopathy Lymph Lymphatic: no lymphadenopathy noted Resp clear to auscultation bilaterally Cardio regular rate, regular rhythm, S1 normal heart sound and S2 normal heart sound GI normal to inspection, nondistended, normoactive bowel sounds Extremity Extremity Narrative: + generalized edema, no petechiae. Neuro Neuro Narrative: Sedated, Vital Signs Temperature 98.9 F 07/07/22 09:00 Temperature Source Core 07/07/22 09:00 Pulse Rate 79 07/07/22 09:10 Pulse Strength Weak (1+) 07/07/22 07:47 Respiratory Rate 18 07/07/22 09:10 Respiratory Effort 07/07/22 08:00 Respiratory Depth Normal 07/07/22 08:00 Respiratory Pattern Normal 07/07/22 09:10 Blood Pressure 90/49 L 07/07/22 09:15 Blood Pressure Mean 62 07/07/22 09:15 Blood Pressure Source Monitor 07/07/22 08:00 Blood Pressure Position Semi-Fowlers 07/07/22 08:00 Blood Pressure Location Right Arm 07/07/22 09:00 Pulse Ox 97 07/07/22 09:10 Oxygen Delivery Method Mechanical Ventilator 07/07/22 09:00 Fraction of Inspired Oxygen (FIO2) 25 07/07/22 09:00 Laboratory Results - last 24 hr 07/06/22 09:55: Random Vancomycin 33.2 H 07/06/22 10:57: POC Glucose 361 H 07/06/22 18:24: POC Glucose 157 H 07/06/22 23:40: POC Glucose 302 H 07/07/22 02:50: WBC 10.3, RBC 3.41 L, Hgb 10.2 L, Hct 30.4 L, MCV 89.1, MCH 29.9, MCHC 33.6, RDW Std Deviation 48.7 H, RDW Coeff of Kenyatta 15.0 H, Plt Count 47 L*, MPV 11.2, Neut % (Auto) Not Reportable, Absolute Neuts (auto) 9.7 H, Absolute Lymphs (auto) 0.94, Total Counted 100, Neutrophils % (Manual) 92 H, Band Neutrophils % 2, Lymphocytes % (Manual) 1 L, Monocytes % (Manual) 3, Metamyelocytes % 2 H, Diff Path Review May foll, Platelet Estimate MKD DEC, RBC Morphology NORM C+C 07/07/22 02:50: Sodium 137, Potassium 3.7, Chloride 104, Carbon Dioxide 20.0 L, Anion Gap 13, BUN 47 H, Creatinine 4.14 H, Estim Creat Clear Calc 16.37, Est GFR (MDRD) Af Amer 18 L, Est GFR (MDRD) Non-Af 15 L, BUN/Creatinine Ratio 11.4, Glucose 347 H, Calcium 9.0, Phosphorus 2.4 L, Magnesium 2.0 07/07/22 05:59: POC Glucose 304 H 07/07/22 07:40: PT 15.1 H, INR 1.2, APTT 35.3, Fibrinogen 752 H, D-Dimer Quant (PE/DVT) 9.25 H* 07/07/22 08:43: POC Glucose 273 H Diagnostic Data Renal Ultrasound 06/29/22 05:55 IMPRESSION: Normal ultrasound of the kidneys. Electronically Signed: Scott Patel MD at 15:09 EST , Chest X-Ray 07/03/22 12:21 IMPRESSION: Status post placement of a left internal jugular venous catheter with the tip in the proximal portion of the superior vena cava. Electronically Signed: Scott Patel MD at 13:33 EST , Echocardiogram 07/04/22 07:16 Interpretation Summary The study was technically difficult. Contrast injection was performed. Left ventricular systolic function is hyperdynamic. The estimated ejection fraction is 75 %. There is mild mitral annular calcification. Mild mitral valve prolapse. Trivial mitral valve insufficiency. Unable to assess diastolic dysfunction. Ordering Physician: Abimael Ramachandran Referring Physician: Arjun Guerra Performed By: Yajaira Polk RCS Charges/Coding Visit Charges Office Visits / Consults: [id number] IP Consult L3
[2022-07-07 12:36] LABS: Pathologist Review Reviewed
--- NOTE | 2022-07-07 12:52 | CASEMGMT ---
Social Work SW called at home, offered support to . She is still not feeling well with COVID. We spoke briefly about discharge plan, reminded if dialysis needed he wouldn't be able to go to TCU. SW will follow up w/ again next week. JAKE Jaimes
--- NOTE | 2022-07-07 13:07 | PCM.PN.REN ---
Subjective Subjective Follow-up on acute kidney injury, requiring dialysis. Has been dialyzed yesterday, tunneled hemodialysis catheter has been ordered. He is on minimal ventilatory support, FiO2 25%, PEEP of 5. Levophed is down to 3 mcg. Acrocyanosis is gone. Sedated with fentanyl Objective Data Objective Data Vital Signs: Vital Signs Temp Pulse Resp BP Pulse Ox O2 Del Method FiO2 98.9 F 80 20 H 94/54 L 95 Mechanical Ventilator 07/07/22 12:00 07/07/22 12:07/07/22 12:07/07/22 12:07/07/22 12:00 07/07/22 12:00 07/07/22 12:00 Oxygen Delivery Method Mechanical Ventilator Weight: 92.6 kg Body Mass Index (BMI) 30.1 Intake & Output: Intake and Output for Last 24 Hours 07/05/22 07/06/22 07/07/22 23:59 23:59 23:59 Intake Total 2990.44 / 3142.79 2473.45 / 2485.35 1364.20 / 1364.20 Output Total 0 / 0 Balance 2985.44 / 3137.79 2463.45 / 2475.35 1364.20 / 1364.20 Medical Nutrition Assessment Dietitian: Malnutrition Criteria Met Start: 07/02/22 13:54 Freq: Status: Active Protocol: Document 07/07/22 10:09 RMA (Rec: 07/07/22 10:09 RMA [id number]) Nutrition Malnutrition Evidence of Malnutrition Exists Yes Malnutrition (severe): Acute Illness/Injury Evidenced By Suboptimal Energy Intake ( Severe),Weight Loss (Severe) Intake Problem Inadequate Oral Intake Etiology related to altered mental status, resp. failure Signs/Symptoms as evidenced by NPO status; poor PO intake at meals prior to intubation Status Active Problem Clinical Problem Acute Disease or Injury Related Malnutrition Etiology severe, acute malnutrition related to inadequate oral intake d/t acute illness Signs/Symptoms as evidenced by unintentional wt loss of 4.564kg/5% wt loss < 2 weeks; estimated PO intake meeting < 50 % of estimated energy needs > 5 days Status Active Problem Recommendation Dietitian Recommendations/Changes NPO while intubated. Continue TF via OG tube of Nepro at goal rate 50ml/hr with 150ml water flush Q 4 hours to provide 2124 calories , 97 g protein, and 1772mL fluid/day. Lab / Micro Data Attestation: I reviewed the patient's lab results. Result Diagrams: 07/07/22 02:50 07/07/22 02:50 Labs: Laboratory Results - last 24 hr 07/06/22 18:24: POC Glucose 157 H 07/06/22 23:40: POC Glucose 302 H 07/07/22 02:50: WBC 10.3, RBC 3.41 L, Hgb 10.2 L, Hct 30.4 L, MCV 89.1, MCH 29.9, MCHC 33.6, RDW Std Deviation 48.7 H, RDW Coeff of Kenyatta 15.0 H, Plt Count 47 L*, MPV 11.2, Neut % (Auto) Not Reportable, Absolute Neuts (auto) 9.7 H, Absolute Lymphs (auto) 0.94, Total Counted 100, Neutrophils % (Manual) 92 H, Band Neutrophils % 2, Lymphocytes % (Manual) 1 L, Monocytes % (Manual) 3, Metamyelocytes % 2 H, Diff Path Review Reviewed, Platelet Estimate MKD DEC, RBC Morphology NORM C+C 07/07/22 02:50: Sodium 137, Potassium 3.7, Chloride 104, Carbon Dioxide 20.0 L, Anion Gap 13, BUN 47 H, Creatinine 4.14 H, Estim Creat Clear Calc 16.37, Est GFR (MDRD) Af Amer 18 L, Est GFR (MDRD) Non-Af 15 L, BUN/Creatinine Ratio 11.4, Glucose 347 H, Calcium 9.0, Phosphorus 2.4 L, Magnesium 2.0 07/07/22 05:59: POC Glucose 304 H 07/07/22 07:40: PT 15.1 H, INR 1.2, APTT 35.3, Fibrinogen 752 H, D-Dimer Quant (PE/DVT) 9.25 H* 07/07/22 08:43: POC Glucose 273 H Micro: Microbiology 07/03/22 13:00 Blood Culture (Wb) - Left Wrist Blood Culture - Preliminary No growth in 48 hours. 07/03/22 12:48 Blood Culture (Wb) - Left Hand Blood Culture - Preliminary No growth in 48 hours. 07/03/22 12:20 Sputum, Expectorated/Coughed Gram Stain - Final 07/03/22 12:20 Sputum, Expectorated/Coughed Respiratory Culture - Final Mixed normal respiratory alecia. No Streptococcus pneumoniae, beta-hemolytic Streptococcus or Staphylococcus aureus isolated. 07/04/22 10:25 Stool Stool Occult Blood (GODFREY) - Final 07/01/22 08:25 Urine Catheter - Yarbrough Urine Culture - Final Culture exhibits no growth. 06/28/22 19:35 Nasal Secretion SARS-CoV-2 & FLU Antigen (Rapid) - Final SARS-CoV-2 (COVID 19) Rhythm Strip Rhythm Strip: Sinus Tach Rate: 108 Physical Exam Const General Appearance: patient mechanically ventilated HEENT normocephalic Head and Scalp: atraumatic Resp clear to auscultation bilaterally Cardio Cardio Narrative: Tachycardic GI Auscultation: normoactive bowel sounds Assessment & Plan Assessment/Plan (1) Acute kidney injury: PLAN: Accompanied by metabolic acidosis, has been dialyzed yesterday. He does not need dialysis today, as he does not look fluid overloaded, electrolytes acceptable, acidosis is very mild Plan We will schedule dialysis for tomorrow
[2022-07-07 13:11] LABS: Bedside Glucose 336 mg/dL (74-106)
[2022-07-07] MEDS: NEPRO TUBE FEED 1,000 ML 50 ML GT (16:37)
[2022-07-07 17:05] LABS: Bedside Glucose 275 mg/dL (74-106)
[2022-07-08] VITALS (44 sets, daily range): BP systolic 71–138; BP diastolic 41–80; PULSE 65–99; RESP 14–26; TEMP 36.6–38.2; O2SAT 81–98; BMI 30.2
[2022-07-08] MEDS: Insulin Lispro 100 UNIT/ML INSULN.PEN SC ×4 (00:30→17:45)
[2022-07-08] MEDS: Acetaminophen 650 MG/20 ML UDC GT (00:30)
[2022-07-08 00:55] LABS: Bedside Glucose 283 mg/dL (74-106)
[2022-07-08] MEDS: CHLORHEXIDINE GLUC 2% CLOTH 1 EACH TOWELETTE TOPICAL (03:41)
[2022-07-08 04:06] LABS: Hematocrit 28.2 % (40-54); Hemoglobin 9.3 g/dL (13.0-16.5); Mean Corpuscular Hgb 30.1 pg (27.0-32.0); Mean Corpuscular Volume 91.3 fL (80-94); Mean Platelet Vol. 11.8 fl (6.2-12.0); POSITIVE COUNT YES; POSITIVE MORPHOLOGY YES; Platelet Count 61 K/mm3 (150-450); RBC Distribution Width CV 15.4 % (11.6-14.6); Red Blood Count 3.09 M/mm3 (4.6-6.2); White Blood Count 13.2 K/mm3 (4.4-11.0)
[2022-07-08 04:16] LABS: Differential Indicated MANUAL DIFF
[2022-07-08 04:29] LABS: Anion Gap 18 (5-15); BUN 81 mg/dL (7-18); BUN/Creat Ratio 11.6 RATIO (10-20); Calcium,Total 9.5 mg/dL (8.5-10.1); Chloride 99 mmol/L (98-107); Creatinine, Serum 6.98 mg/dL (0.70-1.30); EST Glomerular Filtration Rate 8 mL/min (>60); Est Glom Filt Rate - Afr Amer 10 mL/min (>60); Estimated Creatinine Clearance 9.71 ml/min; Glucose 362 mg/dL (74-106); Potassium 3.8 mmol/L (3.5-5.1); Sodium Level 133 mmol/L (136-145)
[2022-07-08 04:35] LABS: Lymphocyte 7 % (19-41); Metamyelocyte 1 % (0-1); Monocyte 7 % (0-10); Myelocyte 3 % (0-0); Neutrophil-Segmented 82 % (47-70); Total Cells Counted 100 (MANUAL DIFF)
[2022-07-08 04:36] LABS: Platelet Estimate MOD DEC (ADEQ)
[2022-07-08 04:37] LABS: Polychromasia RARE; Red Cell Morphology N CYTIC NORMAL (NORM C&C)
[2022-07-08 04:52] LABS: Absolute Lymphocyte Count 0.92 X10^3/uL (0.83-4.51); Absolute Neutrophil Count 11.3 X10^3/uL (2.0-7.7); Lymphocyte # 0.92 X10^3/ul (0.83-4.51); Neutrophil # 11.32 X10^3/uL (2.7-7.7)
--- NOTE | 2022-07-08 05:45 | PN.CC_ITS ---
Assessment & Plan Assessment/Plan (1) Diabetic keto-acidosis: (2) Hypernatremia: (3) Hyperchloremic metabolic acidosis: PLAN: Plan RECOMMENDATIONS: 1. Continue spontaneous mode mechanical ventilation as tolerated. Transition back to assist control for overnight support. 2. Ongoing dialysis support with volume optimization per nephrology recommendations. 3. Continue to minimize sedating medications. 4. Continue vasopressor support to maintain a mean arterial pressure at or a artemio 65 mmHg. 5. Continue antimicrobials. 6. Continue tube feeds as tolerated. 7. Continue appropriate ICU prophylaxis. IMPRESSIONS: 1. Metabolic encephalopathy The patient has developed worsening encephalopathy, likely secondary to profound underlying metabolic derangements, including hypernatremia and worsening uremia in the setting of YESI. Unfortunately, the patient had to be intubated on the morning of July 03 due to concerns for airway protection. Plan to continue dialysis support to address his underlying metabolic derangements and renal insufficiency. Continue to limit sedating medications. 2. Acute respiratory failure The patient was intubated over concerns for airway protection and possible aspiration. The etiology for his encephalopathy appears to be metabolic in nature. Anticipate improvement with hemodialysis support. In the interim, continue the patient on assist control mode mechanical ventilation. Wean FiO2 and PEEP to maintain saturations at or above 90%. Continue antimicrobials as ordered. 3. Septic shock Clinical concern for underlying pulmonary source of infection. The patient has significant underlying metabolic derangements related to his renal insufficiency. He is significantly overall net positive from a volume perspective for the hospitalization. Plan to continue current supportive measures including broad-spectrum antimicrobials and Levophed to maintain a mean arterial pressure at or above 65 mmHg. 4. YESI on CKD Likely secondary to ischemic ATN. The patient has interval worsening in his renal function and metabolic derangements. Recommend ongoing dialysis support with volume optimization per nephrology recommendations. 5. DKA Resolved. Suspect elevated anion gap is secondary to uremia. No serum acetone was noted. Lactate is within normal limits. Continue basal and sliding scale insulin coverage. 6. Thrombocytopenia Most likely related to underlying infectious etiology. Labs were not consistent with DIC. Continue to monitor platelet count for now. No indication for transfusion of blood products. 7. COVID-19/hyperlipidemia/hypertension/advanced age Complicates care, management, recovery and prognosis. Continue supportive measures as noted above. Continue tube feeds as tolerated. TIME: 31 minutes of critical care time, inclusive of procedures, was spent addressing the patient's metabolic encephalopathy, acute respiratory failure, septic shock, YESI on CKD, review of all data and collaboration with the care team. Subjective Subjective The patient was seen and examined at the bedside this morning. Events from the last 24 hours have been reviewed. The patient remains on low-dose Levophed to maintain hemodynamic stability. The patient is overall documented to be net +25 L for the hospitalization. Platelet count remains low at 61,000. The patient did not receive dialysis yesterday. Nephrology is planning for tunneled dialysis catheter placement. The patient is currently tolerating spontaneous mode of mechanical ventilation. Objective Data Objective Data The patient's most recent lab work, culture data and imaging studies have all been personally reviewed. Surface echocardiogram demonstrated normal LV size with an ejection fraction of 75%. Rapid COVID testing was positive on June 28. Sputum and blood cultures have not demonstrated any growth to date. Vital Signs: Vital Signs Temp Pulse Resp BP Pulse Ox O2 Del Method FiO2 98.0 F 71 15 103/51 L 97 Mechanical Ventilator 07/08/22 04:00 07/08/22 04:00 07/08/22 04:00 07/08/22 04:00 07/08/22 04:00 07/08/22 04:00 07/08/22 04:00 Oxygen Delivery Method Mechanical Ventilator Weight: 204 lb 2.369 oz Body Mass Index (BMI) 30.2 Intake & Output: Intake and Output for Last 24 Hours 07/06/22 07/07/22 07/08/22 23:59 23:59 23:59 Intake Total 2473.45 / 2485.35 2694.00 / 2852.80 394.0 / 394.0 Output Total 0 5 / Balance 2463.45 / 2475.35 2694.00 / 2847.80 389.0 / 389.0 Medical Nutrition Assessment Dietitian: Malnutrition Criteria Met Start: 07/02/22 13:54 Freq: Status: Active Protocol: Document 07/07/22 10:09 RMA (Rec: 07/07/22 10:09 RMA [id number]) Nutrition Malnutrition Evidence of Malnutrition Exists Yes Malnutrition (severe): Acute Illness/Injury Evidenced By Suboptimal Energy Intake ( Severe),Weight Loss (Severe) Intake Problem Inadequate Oral Intake Etiology related to altered mental status, resp. failure Signs/Symptoms as evidenced by NPO status; poor PO intake at meals prior to intubation Status Active Problem Clinical Problem Acute Disease or Injury Related Malnutrition Etiology severe, acute malnutrition related to inadequate oral intake d/t acute illness Signs/Symptoms as evidenced by unintentional wt loss of 4.564kg/5% wt loss < 2 weeks; estimated PO intake meeting < 50 % of estimated energy needs > 5 days Status Active Problem Recommendation Dietitian Recommendations/Changes NPO while intubated. Continue TF via OG tube of Nepro at goal rate 50ml/hr with 150ml water flush Q 4 hours to provide 2124 calories , 97 g protein, and 1772mL fluid/day. Lab / Micro Data Attestation: I reviewed the patient's lab results. Result Diagrams: 07/08/22 03:40 07/08/22 03:40 Labs: Laboratory Results - last 24 hr 07/07/22 02:50: Diff Path Review Reviewed 07/07/22 05:59: POC Glucose 304 H 07/07/22 07:40: PT 15.1 H, INR 1.2, APTT 35.3, Fibrinogen 752 H, D-Dimer Quant (PE/DVT) 9.25 H* 07/07/22 08:43: POC Glucose 273 H 07/07/22 12:46: POC Glucose 336 H 07/07/22 16:35: POC Glucose 275 H 07/08/22 00:29: POC Glucose 283 H 07/08/22 03:40: WBC 13.2 H, RBC 3.09 L, Hgb 9.3 L, Hct 28.2 L, MCV 91.3, MCH 30.1, MCHC 33.0, RDW Std Deviation 51.0 H, RDW Coeff of Kenyatta 15.4 H, Plt Count 61 L, MPV 11.8, Neut % (Auto) Not Reportable, Absolute Neuts (auto) 11.3 H, Absolute Lymphs (auto) 0.92, Total Counted 100, Neutrophils % (Manual) 82 H, Lymphocytes % (Manual) 7 L, Monocytes % (Manual) 7, Metamyelocytes % 1, Myelocytes % 3 H, Diff Path Review May foll, Platelet Estimate MOD DEC, RBC Morphology N CYTIC, Polychromasia RARE 07/08/22 03:40: Sodium 133 L, Potassium 3.8, Chloride 99, Carbon Dioxide 16.0 L, Anion Gap 18 H, BUN 81 H, Creatinine 6.98 H, Estim Creat Clear Calc 9.71, Est GFR (MDRD) Af Amer 10 L, Est GFR (MDRD) Non-Af 8 L, BUN/Creatinine Ratio 11.6, Glucose 362 H, Calcium 9.5 Micro: Microbiology 07/03/22 13:00 Blood Culture (Wb) - Left Wrist Blood Culture - Preliminary No growth in 48 hours. 07/03/22 12:48 Blood Culture (Wb) - Left Hand Blood Culture - Preliminary No growth in 48 hours. 07/03/22 12:20 Sputum, Expectorated/Coughed Gram Stain - Final 07/03/22 12:20 Sputum, Expectorated/Coughed Respiratory Culture - Final Mixed normal respiratory alecia. No Streptococcus pneumoniae, beta-hemolytic Streptococcus or Staphylococcus aureus isolated. 07/04/22 10:25 Stool Stool Occult Blood (GODFREY) - Final 07/01/22 08:25 Urine Catheter - Yarbrough Urine Culture - Final Culture exhibits no growth. 06/28/22 19:35 Nasal Secretion SARS-CoV-2 & FLU Antigen (Rapid) - Final SARS-CoV-2 (COVID 19) ABG Data ABG results: ABG 07/04/22 08:45 Specimen Type ART Sample Site R Radial pH 7.44 Bicarbonate Actual 18.1 L Total CO2 19 Base Excess -6 L O2 Saturation 96 O2 % 30 ABG pCO2 26.9 L ABG pO2 77 Laz Test Positive Respiration Rate 14 O2 Delivery Device Adult Vent Vent Mode AC Tidal Volume 450 POC PEEP 5 Radiography Diagnostic Testing: Radiology Impression Echocardiogram 07/04/22 07:16 Interpretation Summary The study was technically difficult. Contrast injection was performed. Left ventricular systolic function is hyperdynamic. The estimated ejection fraction is 75 %. There is mild mitral annular calcification. Mild mitral valve prolapse. Trivial mitral valve insufficiency. Unable to assess diastolic dysfunction. Ordering Physician: Abimael Ramachandran Referring Physician: Arjun Guerra Performed By: Yajaira Polk RCS Rhythm Strip Rhythm Strip: Sinus Tach Rate: 108 Physical Exam Const Constitutional Narrative: Intubated and mechanically ventilated. Currently tolerating spontaneous mode of mechanical ventilation. HEENT normocephalic and head/scalp atraumatic Mouth: endotracheal tube in place and OG tube in place Eyes PERRL Eyes Narrative: Left ptosis Neck supple General: trachea midline and CVC in place Chest inspection of chest normal Resp Auscultation: diminished lung sounds; Negative for rales, rhonchi or wheezes Cardio regular rate, regular rhythm, S1 normal heart sound and S2 normal heart sound GI normal to inspection, nondistended, normoactive bowel sounds Extremity Extremity Narrative: Mottled lower extremities General Extremity: Negative for edema Skin no rashes or lesions noted Neuro Neuro Narrative: The patient still remains quite lethargic but will arouse to verbal stimulation and follow some very simple commands. Charges/Coding Procedures Hospitalists Procedures: 10820 Critial Care 1st Hr
[2022-07-08 06:21] LABS: Bedside Glucose 331 mg/dL (74-106)
--- NOTE | 2022-07-08 06:46 | NURSING ---
Fentanyl stopped at 0400 for SAT. Restarted per MD order at 0600 at previous rate.
--- NOTE | 2022-07-08 07:10 | PN.HOSP_ITS ---
Reason for Visit Reason for Visit: Diagnoses Thrombocytopenia, unspecified (06/28/22) Type 2 diabetes mellitus with ketoacidosis without coma (06/28/22) Dehydration (06/28/22) Hyperosmolality and hypernatremia (06/28/22) Other acidosis (06/28/22) Encephalopathy, unspecified (06/28/22) Unspecified atrial fibrillation (06/28/22) Acute respiratory failure, unspecified whether with hypoxia or hypercapnia (06/28/22) Acute kidney failure, unspecified (06/28/22) Shock, unspecified (06/28/22) COVID-19 (06/28/22) Subjective Subjective Agitated. Per nursing, following some commands. Objective Data Objective Data Vital Signs: Vital Signs Temp Pulse Resp BP Pulse Ox O2 Del Method FiO2 36.8 C 71 19 H 115/54 L 98 Mechanical Ventilator 07/08/22 07:00 07/08/22 07:00 07/08/22 07:00 07/08/22 07:00 07/08/22 07:00 07/08/22 07:00 07/08/22 07:00 Oxygen Delivery Method Mechanical Ventilator Weight: 92.6 kg Body Mass Index (BMI) 30.2 Intake & Output: Intake and Output for Last 24 Hours 07/06/22 07/07/22 07/08/22 23:59 23:59 23:59 Intake Total 2473.45 / 2485.35 2694.00 / 2852.80 410.40 / 410.40 Output Total 10 / 10 0 / 5 30 / 30 Balance 2463.45 / 2475.35 2694.00 / 2847.80 380.40 / 380.40 Medical Nutrition Assessment Dietitian: Malnutrition Criteria Met Start: 07/02/22 13:54 Freq: Status: Active Protocol: Document 07/07/22 10:09 RMA (Rec: 07/07/22 10:09 RMA [id number]) Nutrition Malnutrition Evidence of Malnutrition Exists Yes Malnutrition (severe): Acute Illness/Injury Evidenced By Suboptimal Energy Intake ( Severe),Weight Loss (Severe) Intake Problem Inadequate Oral Intake Etiology related to altered mental status, resp. failure Signs/Symptoms as evidenced by NPO status; poor PO intake at meals prior to intubation Status Active Problem Clinical Problem Acute Disease or Injury Related Malnutrition Etiology severe, acute malnutrition related to inadequate oral intake d/t acute illness Signs/Symptoms as evidenced by unintentional wt loss of 4.564kg/5% wt loss < 2 weeks; estimated PO intake meeting < 50 % of estimated energy needs > 5 days Status Active Problem Recommendation Dietitian Recommendations/Changes NPO while intubated. Continue TF via OG tube of Nepro at goal rate 50ml/hr with 150ml water flush Q 4 hours to provide 2124 calories , 97 g protein, and 1772mL fluid/day. Lab / Micro Data Result Diagrams: 07/08/22 03:40 07/08/22 03:40 Labs: Laboratory Results - last 24 hr 07/07/22 02:50: Diff Path Review Reviewed 07/07/22 07:40: PT 15.1 H, INR 1.2, APTT 35.3, Fibrinogen 752 H, D-Dimer Quant (PE/DVT) 9.25 H* 07/07/22 08:43: POC Glucose 273 H 07/07/22 12:46: POC Glucose 336 H 07/07/22 16:35: POC Glucose 275 H 07/08/22 00:29: POC Glucose 283 H 07/08/22 03:40: WBC 13.2 H, RBC 3.09 L, Hgb 9.3 L, Hct 28.2 L, MCV 91.3, MCH 30.1, MCHC 33.0, RDW Std Deviation 51.0 H, RDW Coeff of Kenyatta 15.4 H, Plt Count 61 L, MPV 11.8, Neut % (Auto) Not Reportable, Absolute Neuts (auto) 11.3 H, Absolute Lymphs (auto) 0.92, Total Counted 100, Neutrophils % (Manual) 82 H, Lymphocytes % (Manual) 7 L, Monocytes % (Manual) 7, Metamyelocytes % 1, Myelocytes % 3 H, Diff Path Review May foll, Platelet Estimate MOD DEC, RBC Morphology N CYTIC, Polychromasia RARE 07/08/22 03:40: Sodium 133 L, Potassium 3.8, Chloride 99, Carbon Dioxide 16.0 L, Anion Gap 18 H, BUN 81 H, Creatinine 6.98 H, Estim Creat Clear Calc 9.71, Est GFR (MDRD) Af Amer 10 L, Est GFR (MDRD) Non-Af 8 L, BUN/Creatinine Ratio 11.6, Glucose 362 H, Calcium 9.5 07/08/22 05:56: POC Glucose 331 H Micro: Microbiology 07/03/22 13:00 Blood Culture (Wb) - Left Wrist Blood Culture - Preliminary No growth in 48 hours. 07/03/22 12:48 Blood Culture (Wb) - Left Hand Blood Culture - Preliminary No growth in 48 hours. 07/03/22 12:20 Sputum, Expectorated/Coughed Gram Stain - Final 07/03/22 12:20 Sputum, Expectorated/Coughed Respiratory Culture - Final Mixed normal respiratory alecia. No Streptococcus pneumoniae, beta-hemolytic Streptococcus or Staphylococcus aureus isolated. 07/04/22 10:25 Stool Stool Occult Blood (GODFREY) - Final 07/01/22 08:25 Urine Catheter - Yarbrough Urine Culture - Final Culture exhibits no growth. 06/28/22 19:35 Nasal Secretion SARS-CoV-2 & FLU Antigen (Rapid) - Final SARS-CoV-2 (COVID 19) Rhythm Strip Rhythm Strip: Sinus Tach Rate: 108 Physical Exam Const Constitutional Narrative: Intubated. Sedated. HEENT head/scalp atraumatic HEENT Narrative: Left lower eyelid propped open. Eyes Eyes Narrative: No icterus. No corneal injection. Resp Resp Narrative: Coarse breath sounds bilaterally Cardio regular rate, regular rhythm, S1 normal heart sound and S2 normal heart sound GI normal to inspection, nondistended, normoactive bowel sounds, soft to palpation, non-tender and non-distended Extremity Extremity Narrative: Bilateral lower extremity edema. Assessment & Plan Assessment/Plan (1) Diabetic keto-acidosis: PLAN: resolved On insulin glargine and SSI. Glucose elevated now on tube feeds. (2) Acute kidney injury: PLAN: anuric nephrology following was on CRRT Had HD on 07/06 (3) Acute respiratory failure: PLAN: No noted hypoxia nor hypercapnia Due to decreased mental status and metabolic acidosis Intubated July 03 for airway protection (4) Encephalopathy: PLAN: Per nursing, had been noted to have decreased unresponsiveness on 07/02 Unclear etiology. Suspect metabolic given his known metabolic derangements. Cannot rule out intracranial process at this time. Patient has been started on CRRT Consider imaging when patient more hemodynamically stable Has not received propofol since 12/31 at 0830, no fentanyl since 07/03 at 1300. Restarted propofol 07/05 at 0238 but subsequent discontinued. 2/22: Improved. Patient does have positive corneal reflexes. Does withdrawal to noxious stimuli. 07/06: Ongoing. 07/07: improved. responding to voice. some purposeful movement. 07/08: per nursing, following some commands. Now that more HDS and off CRRT, check head CT to rule out intracranial process. (5) Shock: PLAN: ongoing Unclear type Norepinephrine Infectious w/u negative On pip/tazo (6) Atrial fibrillation with RVR: PLAN: Resolved Likely reactive to shock, YESI, electrolyte derrangements 07/03: Was in SVT. Did receive 2 doses of adenosine which showed underlying sinus rhythm, then went into afib with RVR. Placed on amio gtt. Echo shows an EF of 75%. 07/05: Converted normal sinus rhythm. Amiodarone discontinued. (7) Thrombocytopenia: PLAN: Continue to monitor. Seen by oncology. DW Dr. Bernard, feels that this multifactorial, not ITP nor TTP. No need for transfusion at this time. (8) COVID: PLAN: on room air diagnosed 06/28 no treatment PLAN: Plan Chronic conditions: * HTN/HLD: We will hold his ramipril given his acute renal failure. Can wait to restart his pravastatin DVT proph: SCDs Prognosis: Guarded to poor. Discussed with family on the . Charges/Coding Visit Charges Inpatient E&M: 21167 Subs Hosp L2
[2022-07-08] MEDS: Insulin Glargine-YFGN 100 UNIT/ML Pen 40 UNIT SC (11:11)
[2022-07-08] MEDS: Chlorhexidine 15 ML PO ×2 (11:15→21:15)
[2022-07-08 11:35] LABS: Bedside Glucose 177 mg/dL (74-106)
--- NOTE | 2022-07-08 12:51 | CT_ITS ---
STUDY: CT BRAIN WITHOUT CONTRAST REASON FOR EXAM: Male, 71 years old. Mental status change RADIATION DOSAGE (If Supplied By Facility): CTDIvol = ( 44.99 ) mGy, DLP = ( 863.60 ) mGycm TECHNIQUE: Transaxial CT imaging of the brain was performed without administration of intravenous contrast material. Individualized dose optimization techniques were used for this CT. COMPARISON: No relevant priors. FINDINGS: Normal soft tissue structures. Normal calvarium. Normal size ventricles and extra-axial spaces for the patient''s age. There are areas of decreased attenuation within the white matter tracts of the supratentorial brain, consistent with microvascular disease changes. Normal basal ganglia and thalami. Normal brainstem. Normal cerebellum. There is no intracranial hemorrhage. There are no findings of an acute ischemic infarction. Normal visualized paranasal sinuses. CT/Brain/Head without Contrast IMPRESSION: Chronic involutional changes of the brain. No acute hemorrhage Electronically Signed: Rick Mcclelland MD at 14:56 EST ,
--- NOTE | 2022-07-08 14:48 | PCM.PN.REN ---
Subjective Subjective intubated. Being taken for CT head today. Dialysis earlier this morning. Objective Data Objective Data Vital Signs: Vital Signs Temp Pulse Resp BP Pulse Ox O2 Del Method FiO2 100.8 F H 92 18 118/61 98 Mechanical Ventilator 50 07/08/22 12:00 07/08/22 13:25 07/08/22 13:25 07/08/22 12:00 07/08/22 13:25 07/08/22 12:00 07/08/22 12:00 Oxygen Delivery Method Mechanical Ventilator Weight: 92.6 kg Body Mass Index (BMI) 30.2 Intake & Output: Intake and Output for Last 24 Hours 07/06/22 07/07/22 07/08/22 23:59 23:59 23:59 Intake Total 2473.45 / 2485.35 2694.00 / 2852.80 617.85 / 617.85 Output Total 0 30 Balance 2463.45 / 2475.35 2694.00 / 2847.80 587.85 / 587.85 Medical Nutrition Assessment Dietitian: Malnutrition Criteria Met Start: 07/02/22 13:54 Freq: Status: Active Protocol: Document 07/07/22 10:09 RMA (Rec: 07/07/22 10:09 RMA [id number]) Nutrition Malnutrition Evidence of Malnutrition Exists Yes Malnutrition (severe): Acute Illness/Injury Evidenced By Suboptimal Energy Intake ( Severe),Weight Loss (Severe) Intake Problem Inadequate Oral Intake Etiology related to altered mental status, resp. failure Signs/Symptoms as evidenced by NPO status; poor PO intake at meals prior to intubation Status Active Problem Clinical Problem Acute Disease or Injury Related Malnutrition Etiology severe, acute malnutrition related to inadequate oral intake d/t acute illness Signs/Symptoms as evidenced by unintentional wt loss of 4.564kg/5% wt loss < 2 weeks; estimated PO intake meeting < 50 % of estimated energy needs > 5 days Status Active Problem Recommendation Dietitian Recommendations/Changes NPO while intubated. Continue TF via OG tube of Nepro at goal rate 50ml/hr with 150ml water flush Q 4 hours to provide 2124 calories , 97 g protein, and 1772mL fluid/day. Lab / Micro Data Result Diagrams: 07/08/22 03:40 07/08/22 03:40 Labs: Laboratory Results - last 24 hr 07/07/22 16:35: POC Glucose 275 H 07/08/22 00:29: POC Glucose 283 H 07/08/22 03:40: WBC 13.2 H, RBC 3.09 L, Hgb 9.3 L, Hct 28.2 L, MCV 91.3, MCH 30.1, MCHC 33.0, RDW Std Deviation 51.0 H, RDW Coeff of Kenyatta 15.4 H, Plt Count 61 L, MPV 11.8, Neut % (Auto) Not Reportable, Absolute Neuts (auto) 11.3 H, Absolute Lymphs (auto) 0.92, Total Counted 100, Neutrophils % (Manual) 82 H, Lymphocytes % (Manual) 7 L, Monocytes % (Manual) 7, Metamyelocytes % 1, Myelocytes % 3 H, Diff Path Review September, Platelet Estimate MOD DEC, RBC Morphology N CYTIC, Polychromasia RARE 07/08/22 03:40: Sodium 133 L, Potassium 3.8, Chloride 99, Carbon Dioxide 16.0 L, Anion Gap 18 H, BUN 81 H, Creatinine 6.98 H, Estim Creat Clear Calc 9.71, Est GFR (MDRD) Af Amer 10 L, Est GFR (MDRD) Non-Af 8 L, BUN/Creatinine Ratio 11.6, Glucose 362 H, Calcium 9.5 07/08/22 05:56: POC Glucose 331 H 07/08/22 11:10: POC Glucose 177 H Micro: Microbiology 07/03/22 12:48 Blood Culture (Wb) - Left Hand Blood Culture - Final No growth in 5 days. 07/03/22 13:00 Blood Culture (Wb) - Left Wrist Blood Culture - Final No growth in 5 days. 07/03/22 12:20 Sputum, Expectorated/Coughed Gram Stain - Final 07/03/22 12:20 Sputum, Expectorated/Coughed Respiratory Culture - Final Mixed normal respiratory alecia. No Streptococcus pneumoniae, beta-hemolytic Streptococcus or Staphylococcus aureus isolated. 07/04/22 10:25 Stool Stool Occult Blood (GODFREY) - Final 07/01/22 08:25 Urine Catheter - Yarbrough Urine Culture - Final Culture exhibits no growth. 06/28/22 19:35 Nasal Secretion SARS-CoV-2 & FLU Antigen (Rapid) - Final SARS-CoV-2 (COVID 19) Rhythm Strip Rhythm Strip: Sinus Tach Rate: 108 Physical Exam Narrative sedated no obvious distress no pallor no icterus no JVD s1s2 no murmurs lungs clear abdomen soft no organomegaly no edema no cyanosis Assessment & Plan Assessment/Plan (1) Acute kidney injury: PLAN: Baseline creatinine was 1.1 as of December 2021. Sustained YESI, presumably ATN. Initiated on renal replacement therapy. In septic shock. Was initially on CRRT but had repeated clotting. Transitioned to hemodialysis. Dialysis today. Unable to remove fluid due to low blood pressure. Currently being treated for septic shock. Thrombocytopenia. Evaluated by hematology. LDH level is normal/near normal. Low suspicion for DIC/TTP as per hematology DKA. Resolved.
[2022-07-08] MEDS: NEPRO TUBE FEED 1,000 ML 50 ML GT (15:22)
[2022-07-08 18:06] LABS: Bedside Glucose 198 mg/dL (74-106)
--- NOTE | 2022-07-08 19:34 | EKG12_ITS ---
Test Reason : HEART BLOCK Blood Pressure : / mmHG Vent. Rate : 078 BPM Atrial Rate : 078 BPM P-R Int : 320 ms QRS Dur : 094 ms QT Int : 382 ms P-R-T Axes : 029 032 043 degrees QTc Int : 435 ms Sinus rhythm with 1st degree A-V block Low voltage QRS Nonspecific ST and T wave abnormality Abnormal ECG When compared with ECG of 08-JUL-2022 19:34, MANUAL COMPARISON REQUIRED, DATA IS UNCONFIRMED Confirmed by KIRSTIN BARRAZA, PURVI ([id number]), market editor DARRELL CARMONA ([id number]) on 07/11/2022 10:06:35 AM Referred By: FRIDA CANDELARIO Confirmed By:PURVI FULTON MD
--- NOTE | 2022-07-08 19:47 | EKG12_ITS ---
Test Reason : HEART BLOCK Blood Pressure : / mmHG Vent. Rate : 061 BPM Atrial Rate : 087 BPM P-R Int : 000 ms QRS Dur : 098 ms QT Int : 402 ms P-R-T Axes : 065 031 041 degrees QTc Int : 404 ms Sinus rhythm with 2nd degree A-V block (Mobitz I) Low voltage QRS Nonspecific ST and T wave abnormality Abnormal ECG When compared with ECG of 06-JUL-2022 04:35, MANUAL COMPARISON REQUIRED, DATA IS UNCONFIRMED Confirmed by KIRSTIN BARRAZA, PURVI ([id number]), editor in chief DARRELL CARMONA ([id number]) on 07/11/2022 10:06:44 AM Referred By: FRIDA CANDELARIO Confirmed By:PURVI FULTON MD
--- NOTE | 2022-07-08 20:00 | PCM.HOSP.N ---
Hospitalist Note Patient on precedex with telemetry changes, 1929 noted per staff intermittent block type and I and type II, precedex stopped. Will continue to closely monitor. Dr. Maldonado noted if necessary could add propofol to his fentanyl. Patient had the precedex added secondary to agitaiton with HD.
[2022-07-09] VITALS (45 sets, daily range): BP systolic 94–154; BP diastolic 45–59; PULSE 59–96; RESP 14–34; TEMP 36.3–38.5; O2SAT 90–99; BMI 30.8
[2022-07-09] MEDS: Insulin Lispro 100 UNIT/ML INSULN.PEN SC ×5 (00:15→23:23)
[2022-07-09 00:40] LABS: Bedside Glucose 300 mg/dL (74-106)
[2022-07-09] MEDS: Propofol 10MG/Ml 1,000 MG/100 ML Bottle 5.6 MG CONT INF (01:00)
[2022-07-09] MEDS: CHLORHEXIDINE GLUC 2% CLOTH 1 EACH TOWELETTE TOPICAL (02:40)
[2022-07-09] MEDS: 0.9% Saline Lock 10 ML Syringe IV (05:17)
[2022-07-09 05:24] LABS: CPK Total, Creatine Kinase 54 U/L (39-308); Triglycerides 203 mg/dL
[2022-07-09 05:35] LABS: Bedside Glucose 334 mg/dL (74-106)
--- NOTE | 2022-07-09 05:47 | PN.CC_ITS ---
Assessment & Plan Assessment/Plan (1) Diabetic keto-acidosis: (2) Hypernatremia: (3) Hyperchloremic metabolic acidosis: PLAN: Plan RECOMMENDATIONS: 1. Continue spontaneous mode mechanical ventilation as tolerated. Transition back to assist control for overnight support. 2. Ongoing dialysis support with volume optimization per nephrology recommendations. 3. Continue to minimize sedating medications. 4. Continue vasopressor support to maintain a mean arterial pressure at or a artemio 65 mmHg. 5. Continue antimicrobials. 6. Continue tube feeds as tolerated. 7. Continue appropriate ICU prophylaxis. 8. Obtain morning labs. 9. Additional upward titration of basal insulin as required. IMPRESSIONS: 1. Metabolic encephalopathy The patient has developed worsening encephalopathy, likely secondary to profound underlying metabolic derangements, including hypernatremia and worsening uremia in the setting of YESI. Unfortunately, the patient had to be intubated on the morning of July 03 due to concerns for airway protection. Plan to continue dialysis support to address his underlying metabolic derangements and renal i nsufficiency. Continue to limit sedating medications. 2. Acute respiratory failure The patient was intubated over concerns for airway protection and possible aspiration. The etiology for his encephalopathy appears to be metabolic in nature. Anticipate improvement with hemodialysis support. In the interim, continue the patient on assist control mode mechanical ventilation. Wean FiO2 and PEEP to maintain saturations at or above 90%. Continue antimicrobials as ordered. 3. Septic shock Clinical concern for underlying pulmonary source of infection. The patient has significant underlying metabolic derangements related to his renal ins ufficiency. He is significantly overall net positive from a volume perspective for the hospitalization. Plan to continue current supportive measures including broad-spectrum antimicrobials and Levophed to maintain a mean arterial pressure at or above 65 mmHg. 4. YESI on CKD Likely secondary to ischemic ATN. The patient has interval worsening in his renal function and metabolic derangements. Recommend ongoing dialysis support with volume optimization per nephrology recommendations. 5. Thrombocytopenia Most likely related to underlying infectious etiology. Labs were not consistent with DIC. Continue to monitor platelet count for now. No indication for transfusion of blood products. 6. COVID-19/hyperlipidemia/hypertension/advanced age Complicates care, management, recovery and prognosis. Continue supportive measures as noted above. Continue tube feeds as tolerated. TIME: 32 minutes of critical care time, inclusive of procedures, was spent addressing the patient's metabolic encephalopathy, acute respiratory failure, septic shock, YESI on CKD, review of all data and collaboration with the care team. Subjective Subjective The patient was seen and examined at the bedside this morning. Events from the last 24 hours have been reviewed. The patient is currently afebrile and maintaining appropriate oxygen saturations on spontaneous mode mechanical ventilation with an FiO2 requirement of 25%. The patient remains overall net positive from a volume perspective for the hospitalization. He remains on Levophed at 9 mcg/min to maintain hemodynamic stability. The patient is currently on low-dose fentanyl for sedation. He is able to follow some simple commands. Objective Data Objective Data The patient's most recent lab work, culture data and imaging studies have all been personally reviewed. Surface echocardiogram demonstrated normal LV size with an ejection fraction of 75%. Rapid COVID testing was positive on June 28. Sputum and blood cultures have not demonstrated any growth to date. Vital Signs: Vital Signs Temp Pulse Resp BP Pulse Ox O2 Del Method FiO2 97.6 F L 70 22 H 109/59 L 97 Mechanical Ventilator 07/09/22 05:00 07/09/22 05:00 07/09/22 05:00 07/09/22 05:00 07/09/22 05:00 07/09/22 05:00 07/09/22 05:00 Oxygen Delivery Method Mechanical Ventilator Weight: 208 lb 5.389 oz Body Mass Index (BMI) 30.8 Intake & Output: Intake and Output for Last 24 Hours 07/07/22 07/08/22 07/09/22 23:59 23:59 23:59 Intake Total 2694.00 / 2852.80 2304.14 / 2481.64 1161.19 / 1161.19 Output Total 0 / 5 240 / 240 0 / 0 Balance 2694.00 / 2847.80 2064.14 / 2241.64 1161.19 / 1161.19 Medical Nutrition Assessment Dietitian: Malnutrition Criteria Met Start: 07/02/22 13:54 Freq: Status: Active Protocol: Document 07/07/22 10:09 RMA (Rec: 07/07/22 10:09 RMA [id number]) Nutrition Malnutrition Evidence of Malnutrition Exists Yes Malnutrition (severe): Acute Illness/Injury Evidenced By Suboptimal Energy Intake ( Severe),Weight Loss (Severe) Intake Problem Inadequate Oral Intake Etiology related to altered mental status, resp. failure Signs/Symptoms as evidenced by NPO status; poor PO intake at meals prior to intubation Status Active Problem Clinical Problem Acute Disease or Injury Related Malnutrition Etiology severe, acute malnutrition related to inadequate oral intake d/t acute illness Signs/Symptoms as evidenced by unintentional wt loss of 4.564kg/5% wt loss < 2 weeks; estimated PO intake meeting < 50 % of estimated energy needs > 5 days Status Active Problem Recommendation Dietitian Recommendations/Changes NPO while intubated. Continue TF via OG tube of Nepro at goal rate 50ml/hr with 150ml water flush Q 4 hours to provide 2124 calories , 97 g protein, and 1772mL fluid/day. Lab / Micro Data Attestation: I reviewed the patient's lab results. Result Diagrams: 07/08/22 03:40 07/08/22 03:40 Labs: Laboratory Results - last 24 hr 07/08/22 05:56: POC Glucose 331 H 07/08/22 11:10: POC Glucose 177 H 07/08/22 17:44: POC Glucose 198 H 07/09/22 00:14: POC Glucose 300 H 07/09/22 05:00: Total Creatine Kinase 54, Triglycerides 203 H 07/09/22 05:16: POC Glucose 334 H Micro: Microbiology 07/03/22 12:48 Blood Culture (Wb) - Left Hand Blood Culture - Final No growth in 5 days. 07/03/22 13:00 Blood Culture (Wb) - Left Wrist Blood Culture - Final No growth in 5 days. 07/03/22 12:20 Sputum, Expectorated/Coughed Gram Stain - Final 07/03/22 12:20 Sputum, Expectorated/Coughed Respiratory Culture - Final Mixed normal respiratory alecia. No Streptococcus pneumoniae, beta-hemolytic Streptococcus or Staphylococcus aureus isolated. 07/04/22 10:25 Stool Stool Occult Blood (GODFREY) - Final 07/01/22 08:25 Urine Catheter - Yarbrough Urine Culture - Final Culture exhibits no growth. 06/28/22 19:35 Nasal Secretion SARS-CoV-2 & FLU Antigen (Rapid) - Final SARS-CoV-2 (COVID 19) ABG Data ABG results: ABG 07/04/22 08:45 Specimen Type ART Sample Site R Radial pH 7.44 Bicarbonate Actual 18.1 L Total CO2 19 Base Excess -6 L O2 Saturation 96 O2 % 30 ABG pCO2 26.9 L ABG pO2 77 Laz Test Positive Respiration Rate 14 O2 Delivery Device Adult Vent Vent Mode AC Tidal Volume 450 POC PEEP 5 Radiography Diagnostic Testing: Radiology Impression Brain CT 07/08/22 12:51 IMPRESSION: Chronic involutional changes of the brain. No acute hemorrhage Electronically Signed: Rick Mcclelland MD at 14:56 EST Reading Location ID and State: [address] [place] [address] , Service support , Rhythm Strip Rhythm Strip: Sinus Tach Rate: 108 Physical Exam Const Constitutional Narrative: Intubated and mechanically ventilated. Currently tolerating spontaneous mode of mechanical ventilation. HEENT normocephalic and head/scalp atraumatic Mouth: endotracheal tube in place and OG tube in place Eyes PERRL Eyes Narrative: Left ptosis Neck supple General: trachea midline and CVC in place Chest inspection of chest normal Resp Auscultation: diminished lung sounds; Negative for rales, rhonchi or wheezes Cardio regular rate, regular rhythm, S1 normal heart sound and S2 normal heart sound GI normal to inspection, nondistended, normoactive bowel sounds Extremity Extremity Narrative: Mottled lower extremities General Extremity: Negative for edema Skin no rashes or lesions noted Neuro Neuro Narrative: The patient still remains quite lethargic but will arouse to verbal stimulation and follow some very simple commands. Charges/Coding Procedures Hospitalists Procedures: 82310 Critial Care 1st Hr
[2022-07-09 06:52] LABS: Absolute Neutrophil Count 10.7 X10^3/uL (2.0-7.7); Basophil# 0.06 X10^3/uL; Basophil% 0.5 % (0-1); Eosinophil# 0.12 X10^3/uL; Hematocrit 29.6 % (40-54); Hemoglobin 9.6 g/dL (13.0-16.5); Lymphocyte % 6.4 % (19-41); Mean Corp Hgb Conc 32.4 g/dL (32-36); Mean Corpuscular Volume 92.5 fL (80-94); Mean Platelet Vol. 11.6 fl (6.2-12.0); Monocyte# 0.37 X10^3/uL; NRBC Flagged by Analyzer 0 % (0-5); Neutrophil # 10.68 X10^3/uL (2.7-7.7); Neutrophil % 85.9 % (47-70); POSITIVE COUNT YES; POSITIVE MORPHOLOGY YES; Platelet Count 93 K/mm3 (150-450); RBC Distribution Width CV 15.1 % (11.6-14.6); White Blood Count 12.4 K/mm3 (4.4-11.0)
[2022-07-09 06:57] LABS: Differential Indicated SCAN CRITERIA MET
--- NOTE | 2022-07-09 07:10 | PN.HOSP_ITS ---
Reason for Visit Reason for Visit: Diagnoses Thrombocytopenia, unspecified (06/28/22) Type 2 diabetes mellitus with ketoacidosis without coma (06/28/22) Dehydration (06/28/22) Hyperosmolality and hypernatremia (06/28/22) Other acidosis (06/28/22) Encephalopathy, unspecified (06/28/22) Unspecified atrial fibrillation (06/28/22) Acute respiratory failure, unspecified whether with hypoxia or hypercapnia (06/28/22) Acute kidney failure, unspecified (06/28/22) Shock, unspecified (06/28/22) COVID-19 (06/28/22) Subjective Subjective Was having sinus pauses/heart block, so dexmedetomidine was discontinued. Opens eye to voice, but does not answer questoins. Objective Data Objective Data Vital Signs: Vital Signs Temp Pulse Resp BP Pulse Ox O2 Del Method FiO2 36.4 C L 78 26 H 131/58 H 99 Mechanical Ventilator 25 07/09/22 05:00 07/09/22 07:00 07/09/22 07:00 07/09/22 07:00 07/09/22 07:00 07/09/22 07:00 07/09/22 07:00 Oxygen Delivery Method Mechanical Ventilator Weight: 94.5 kg Body Mass Index (BMI) 30.8 Intake & Output: Intake and Output for Last 24 Hours 07/07/22 07/08/22 07/09/22 23:59 23:59 23:59 Intake Total 2694.00 / 2852.80 2304.14 / 2481.64 1204.99 / 1204.99 Output Total 0 / 5 240 / 240 0 / 0 Balance 2694.00 / 2847.80 2064.14 / 2241.64 1204.99 / 1204.99 Medical Nutrition Assessment Dietitian: Malnutrition Criteria Met Start: 07/02/22 13:54 Freq: Status: Active Protocol: Document 07/07/22 10:09 RMA (Rec: 07/07/22 10:09 RMA [id number]) Nutrition Malnutrition Evidence of Malnutrition Exists Yes Malnutrition (severe): Acute Illness/Injury Evidenced By Suboptimal Energy Intake ( Severe),Weight Loss (Severe) Intake Problem Inadequate Oral Intake Etiology related to altered mental status, resp. failure Signs/Symptoms as evidenced by NPO status; poor PO intake at meals prior to intubation Status Active Problem Clinical Problem Acute Disease or Injury Related Malnutrition Etiology severe, acute malnutrition related to inadequate oral intake d/t acute illness Signs/Symptoms as evidenced by unintentional wt loss of 4.564kg/5% wt loss < 2 weeks; estimated PO intake meeting < 50 % of estimated energy needs > 5 days Status Active Problem Recommendation Dietitian Recommendations/Changes NPO while intubated. Continue TF via OG tube of Nepro at goal rate 50ml/hr with 150ml water flush Q 4 hours to provide 2124 calories , 97 g protein, and 1772mL fluid/day. Lab / Micro Data Result Diagrams: 07/09/22 05:00 07/09/22 05:00 Labs: Laboratory Results - last 24 hr 07/08/22 11:10: POC Glucose 177 H 07/08/22 17:44: POC Glucose 198 H 07/09/22 00:14: POC Glucose 300 H 07/09/22 05:00: Total Creatine Kinase 54, Triglycerides 203 H 07/09/22 05:00: WBC 12.4 H, RBC 3.20 L, Hgb 9.6 L, Hct 29.6 L, MCV 92.5, MCH 30.0, MCHC 32.4, RDW Std Deviation 51.0 H, RDW Coeff of Kenyatta 15.1 H, Plt Count 93 L, MPV 11.6, Immature Gran % (Auto) 3.200 H, Neut % (Auto) 85.9 H, Lymph % (Auto) 6.4 L, Grayson % (Auto) 3.0, Eos % (Auto) 1.0, Baso % (Auto) 0.5, Absolute Neuts (auto) 10.7 H, Absolute Lymphs (auto) 0.80 L, Nucleated RBC % 0 07/09/22 05:16: POC Glucose 334 H 07/09/22 06:35: Acetone Level NEGATIVE Micro: Microbiology 07/03/22 12:48 Blood Culture (Wb) - Left Hand Blood Culture - Final No growth in 5 days. 07/03/22 13:00 Blood Culture (Wb) - Left Wrist Blood Culture - Final No growth in 5 days. 07/03/22 12:20 Sputum, Expectorated/Coughed Gram Stain - Final 07/03/22 12:20 Sputum, Expectorated/Coughed Respiratory Culture - Final Mixed normal respiratory alecia. No Streptococcus pneumoniae, beta-hemolytic Streptococcus or Staphylococcus aureus isolated. 07/04/22 10:25 Stool Stool Occult Blood (GODFREY) - Final 07/01/22 08:25 Urine Catheter - Yarbrough Urine Culture - Final Culture exhibits no growth. 06/28/22 19:35 Nasal Secretion SARS-CoV-2 & FLU Antigen (Rapid) - Final SARS-CoV-2 (COVID 19) Radiography Diagnostic Testing: Radiology Impression Brain CT 07/08/22 12:51 IMPRESSION: Chronic involutional changes of the brain. No acute hemorrhage Electronically Signed: Rick Mcclelland MD at 14:56 EST , Rhythm Strip Rhythm Strip: Sinus Tach Rate: 108 Physical Exam Const Constitutional Narrative: Sedated. Opens eyes to voice and does track me with his eyes in his room. Does not follow any commands or answer any yes/no questions. HEENT head/scalp atraumatic Resp normal respiratory effort and no retractions Resp Narrative: Coarse breath sounds bilaterally Cardio regular rate, regular rhythm, S1 normal heart sound and S2 normal heart sound GI normal to inspection, nondistended, normoactive bowel sounds and soft to palpation Assessment & Plan Assessment/Plan (1) Shock: PLAN: ongoing Unclear type Norepinephrine Infectious w/u negative On pip/tazo (2) Acute kidney injury: PLAN: anuric nephrology following was on CRRT Had HD on 07/06 (3) Acute respiratory failure: PLAN: No noted hypoxia nor hypercapnia Due to decreased mental status and metabolic acidosis Intubated July 03 for airway protection given encephalopathy (4) Encephalopathy: PLAN: Per nursing, had been noted to have decreased unresponsiveness on 07/02 Unclear etiology. Suspect metabolic given his known metabolic derangements. Cannot rule out intracranial process at this time. Patient has been started on CRRT Consider imaging when patient more hemodynamically stable Has not received propofol since 12/31 at 0830, no fentanyl since 07/03 at 1300. Restarted propofol 07/05 at 0238 but subsequent discontinued. 07/05: Improved. Patient does have positive corneal reflexes. Does withdrawal to noxious stimuli. 07/06: Ongoing. 07/07: improved. responding to voice. some purposeful movement. 07/08: per nursing, following some commands. Now that more HDS and off CRRT, check head CT to rule out intracranial process. 07/09: Ongoing, though currently on sedation with fentanyl. Dexmedetomidine dc'd due to heartblock/pause. (5) Diabetic keto-acidosis: PLAN: resolved On insulin glargine and SSI. Glucose elevated now on tube feeds. (6) Atrial fibrillation with RVR: PLAN: Resolved Likely reactive to shock, YESI, electrolyte derrangements 07/03: Was in SVT. Did receive 2 doses of adenosine which showed underlying sinus rhythm, then went into afib with RVR. Placed on amio gtt. Echo shows an EF of 75%. 07/05: Converted normal sinus rhythm. Amiodarone discontinued. (7) Thrombocytopenia: PLAN: Improving Continue to monitor. Seen by oncology. DW Dr. Bernard, feels that this multifactorial, not ITP nor TTP. No need for transfusion at this time. (8) COVID: PLAN: diagnosed 06/28 no treatment PLAN: Plan Chronic conditions: * HTN/HLD: We will hold his ramipril given his acute renal failure. Can wait to restart his pravastatin DVT proph: SCDs Prognosis: Guarded Discussed with family on the . Charges/Coding Visit Charges Inpatient E&M: 50023 Subs Hosp L2
[2022-07-09 07:12] LABS: Anion Gap 16 (5-15); BUN 62 mg/dL (7-18); BUN/Creat Ratio 10.3 RATIO (10-20); Calcium,Total 9.2 mg/dL (8.5-10.1); Chloride 99 mmol/L (98-107); Creatinine, Serum 6.03 mg/dL (0.70-1.30); Differential Comment SCANNED; EST Glomerular Filtration Rate 10 mL/min (>60); Est Glom Filt Rate - Afr Amer 12 mL/min (>60); Estimated Creatinine Clearance 11.24 ml/min; Glucose 378 mg/dL (74-106); Sodium Level 133 mmol/L (136-145)
[2022-07-09 07:13] LABS: Platelet Estimate SLT DEC (ADEQ)
[2022-07-09] MEDS: Acetaminophen 650 MG/20 ML UDC GT ×2 (09:42→23:18)
[2022-07-09] MEDS: Chlorhexidine 15 ML PO ×2 (10:59→21:51)
[2022-07-09] MEDS: Insulin Glargine-YFGN 100 UNIT/ML Pen 50 UNIT SC (11:07)
[2022-07-09 11:40] LABS: Bedside Glucose 274 mg/dL (74-106)
--- NOTE | 2022-07-09 13:41 | PN.RENAL_ITS ---
Subjective Subjective Remains intubated. Low-dose norepinephrine at 3 mcg. Some urine which is muddy appearing. Spiked a fever today. Objective Data Objective Data Vital Signs: Vital Signs Temp Pulse Resp BP Pulse Ox O2 Del Method FiO2 101.0 F H 96 30 H 102/51 L 90 Mechanical Ventilator 07/09/22 11:00 07/09/22 11:20 07/09/22 11:20 07/09/22 11:15 07/09/22 11:20 07/09/22 12:00 07/09/22 12:00 Oxygen Delivery Method Mechanical Ventilator Weight: 94.5 kg Body Mass Index (BMI) 30.8 Intake & Output: Intake and Output for Last 24 Hours 07/07/22 07/08/22 07/09/22 23:59 23:59 23:59 Intake Total 2694.00 / 2852.80 2304.14 / 2481.64 1694.49 / 1694.49 Output Total 0 / 5 240 / 240 0 / 0 Balance 2694.00 / 2847.80 2064.14 / 2241.64 1694.49 / 1694.49 Medical Nutrition Assessment Dietitian: Malnutrition Criteria Met Start: 07/02/22 13:54 Freq: Status: Active Protocol: Document 07/07/22 10:09 RMA (Rec: 07/07/22 10:09 RMA [id number]) Nutrition Malnutrition Evidence of Malnutrition Exists Yes Malnutrition (severe): Acute Illness/Injury Evidenced By Suboptimal Energy Intake ( Severe),Weight Loss (Severe) Intake Problem Inadequate Oral Intake Etiology related to altered mental status, resp. failure Signs/Symptoms as evidenced by NPO status; poor PO intake at meals prior to intubation Status Active Problem Clinical Problem Acute Disease or Injury Related Malnutrition Etiology severe, acute malnutrition related to inadequate oral intake d/t acute illness Signs/Symptoms as evidenced by unintentional wt loss of 4.564kg/5% wt loss < 2 weeks; estimated PO intake meeting < 50 % of estimated energy needs > 5 days Status Active Problem Recommendation Dietitian Recommendations/Changes NPO while intubated. Continue TF via OG tube of Nepro at goal rate 50ml/hr with 150ml water flush Q 4 hours to provide 2124 calories , 97 g protein, and 1772mL fluid/day. Lab / Micro Data Result Diagrams: 07/09/22 05:00 07/09/22 05:00 Labs: Laboratory Results - last 24 hr 07/08/22 17:44: POC Glucose 198 H 07/09/22 00:14: POC Glucose 300 H 07/09/22 05:00: Total Creatine Kinase 54, Triglycerides 203 H 07/09/22 05:00: WBC 12.4 H, RBC 3.20 L, Hgb 9.6 L, Hct 29.6 L, MCV 92.5, MCH 30.0, MCHC 32.4, RDW Std Deviation 51.0 H, RDW Coeff of Kenyatta 15.1 H, Plt Count 93 L, MPV 11.6, Immature Gran % (Auto) 3.200 H, Neut % (Auto) 85.9 H, Lymph % (Auto) 6.4 L, [place] % (Auto) 3.0, Eos % (Auto) 1.0, Baso % (Auto) 0.5, Absolute Neuts (auto) 10.7 H, Absolute Lymphs (auto) 0.80 L, Nucleated RBC % 0, Differential Comment SCANNED, Platelet Estimate SLT 07/09/22 05:00: Sodium 133 L, Potassium 4.0, Chloride 99, Carbon Dioxide 18.0 L, Anion Gap 16 H, BUN 62 H, Creatinine 6.03 H, Estim Creat Clear Calc 11.24, Est GFR (MDRD) Af Amer 12 L, Est GFR (MDRD) Non-Af 10 L, BUN/Creatinine Ratio 10.3, Glucose 378 H, Calcium 9.2 07/09/22 05:16: POC Glucose 334 H 07/09/22 06:35: Acetone Level NEGATIVE 07/09/22 11:06: POC Glucose 274 H Micro: Microbiology 07/03/22 12:48 Blood Culture (Wb) - Left Hand Blood Culture - Final No growth in 5 days. 07/03/22 13:00 Blood Culture (Wb) - Left Wrist Blood Culture - Final No growth in 5 days. 07/03/22 12:20 Sputum, Expectorated/Coughed Gram Stain - Final 07/03/22 12:20 Sputum, Expectorated/Coughed Respiratory Culture - Final Mixed normal respiratory alecia. No Streptococcus pneumoniae, beta-hemolytic Streptococcus or Staphylococcus aureus isolated. 07/04/22 10:25 Stool Stool Occult Blood (GODFREY) - Final 07/01/22 08:25 Urine Catheter - [place]rough Urine Culture - Final Culture exhibits no growth. 06/28/22 19:35 Nasal Secretion SARS-CoV-2 & FLU Antigen (Rapid) - Final SARS-CoV-2 (COVID 19) Radiography Diagnostic Testing: Radiology Impression Brain CT 07/08/22 12:51 IMPRESSION: Chronic involutional changes of the brain. No acute hemorrhage Electronically Signed: Rick Mcclelland MD at 14:56 EST Reading Location ID and State: [facility] / [place] , Service support , Rhythm Strip Rhythm Strip: Sinus Tach Rate: 108 Physical Exam Narrative sedated no obvious distress no pallor no icterus no JVD s1s2 no murmurs lungs clear abdomen soft no organomegaly no edema no cyanosis Const average body habitus General Appearance: well developed and patient mechanically ventilated HEENT normocephalic Neck no lymphadenopathy Resp clear to auscultation bilaterally Resp Narrative: Scattered rhonchi Auscultation: rhonchi Cardio regular rate Cardio Narrative: Tachycardic GI non-distended Auscultation: normoactive bowel sounds and hypoactive bowel sounds Extremity Extremity Narrative: Mottling of both lower extremities, minimal to no edema General Extremity: edema bilateral Skin Skin Narrative: Acrocyanosis, some petechiae Neuro Sensorium / Orientation: sedated on vent Assessment & Plan Assessment/Plan (1) Acute kidney injury: PLAN: Baseline creatinine was 1.1 as of December 2021. Sustained YESI, presumably ATN. Initiated on renal replacement therapy. In septic shock. Was initially on CRRT but had repeated clotting. Transitioned to hemodialysis. Dialysis 07/09/2022. Unable to remove fluid due to low blood pressure. Pressor requirements have improved. Currently on 3 mcg of Levophed only. Mental status is somewhat better as per ICU. Thrombocytopenia. Evaluated by hematology. LDH level is normal/near normal. Low suspicion for DIC/TTP as per hematology DKA. Resolved.
[2022-07-09] MEDS: NEPRO TUBE FEED 1,000 ML 50 ML GT (17:27)
[2022-07-09 17:55] LABS: Bedside Glucose 258 mg/dL (74-106)
[2022-07-09 23:50] LABS: Bedside Glucose 256 mg/dL (74-106)
[2022-07-10] VITALS (60 sets, daily range): BP systolic 78–133; BP diastolic 41–67; PULSE 63–94; RESP 13–26; TEMP 36.6–38.7; O2SAT 89–98; BMI 31.4
[2022-07-10] MEDS: 0.9% Saline Lock 10 ML Syringe IV ×2 (00:35→05:12)
[2022-07-10] MEDS: CHLORHEXIDINE GLUC 2% CLOTH 1 EACH TOWELETTE TOPICAL ×2 (02:41→23:34)
[2022-07-10] MEDS: Insulin Lispro 100 UNIT/ML INSULN.PEN SC ×4 (05:12→23:35)
[2022-07-10 05:36] LABS: Bedside Glucose 251 mg/dL (74-106)
[2022-07-10 05:44] LABS: CPK Total, Creatine Kinase 25 U/L (39-308); Triglycerides 141 mg/dL
[2022-07-10 05:54] LABS: Hematocrit 27.5 % (40-54); Hemoglobin 8.8 g/dL (13.0-16.5); Mean Corpuscular Hgb 29.7 pg (27.0-32.0); Mean Corpuscular Volume 92.9 fL (80-94); Mean Platelet Vol. 11.1 fl (6.2-12.0); POSITIVE COUNT YES; POSITIVE MORPHOLOGY YES; Platelet Count 144 K/mm3 (150-450); RBC Distribution Width CV 15.1 % (11.6-14.6); RBC Distribution Width SD 51.4 fl (35.1-43.9); Red Blood Count 2.96 M/mm3 (4.6-6.2); White Blood Count 12.9 K/mm3 (4.4-11.0)
[2022-07-10 06:11] LABS: Differential Indicated MANUAL DIFF
[2022-07-10 06:45] LABS: Anion Gap 19 (5-15); BUN 87 mg/dL (7-18); BUN/Creat Ratio 10.7 RATIO (10-20); Calcium,Total 9.5 mg/dL (8.5-10.1); Chloride 99 mmol/L (98-107); Creatinine, Serum 8.15 mg/dL (0.70-1.30); EST Glomerular Filtration Rate 7 mL/min (>60); Est Glom Filt Rate - Afr Amer 8 mL/min (>60); Estimated Creatinine Clearance 8.31 ml/min; Glucose 275 mg/dL (74-106); Potassium 4.1 mmol/L (3.5-5.1); Sodium Level 133 mmol/L (136-145)
[2022-07-10 07:00] LABS: Allen Test Positive; Base Excess -13 mmol/L (-2 to +2); Bicarbonate 13.3 mmol/L (22-26); Blood Gas Specimen Type ART; FI02 30; Mode CPAP/PS; O2 Delivery Device Adult Vent; PEEP 5; PO2 81 mmHG (75-100); PS 5; SITE L Radial; SO2 95 % (95-99); Total Carbon Dioxide 14 mmol/L; pCO2 28.4 mmHg (35-45); pH 7.28 (7.35-7.45)
[2022-07-10 07:01] LABS: Eosinophil 1 % (0-5); Lymphocyte 6 % (19-41); Metamyelocyte 2 % (0-1); Monocyte 2 % (0-10); Myelocyte 1 % (0-0); Neutrophil-Band 5 % (0-5); Neutrophil-Segmented 83 % (47-70); Total Cells Counted 100 (MANUAL DIFF)
[2022-07-10 07:02] LABS: Absolute Neutrophil Count 11.3 X10^3/uL (2.0-7.7); Neutrophil # 11.32 X10^3/uL (2.7-7.7); Platelet Estimate ADEQUATE (ADEQ); Red Cell Morphology NORM C+C NORMAL (NORM C&C)
[2022-07-10 07:03] LABS: Absolute Lymphocyte Count 0.77 X10^3/uL (0.83-4.51); Lymphocyte # 0.77 X10^3/ul (0.83-4.51)
--- NOTE | 2022-07-10 07:25 | PCM.PN.INT ---
Assessment & Plan Assessment/Plan (1) Diabetic keto-acidosis: (2) Hypernatremia: (3) Hyperchloremic metabolic acidosis: PLAN: Plan RECOMMENDATIONS: 1. Need better control of metabolic acidosis before extubation 2. Ongoing dialysis support with volume optimization per nephrology recommendations. 3. Continue to minimize sedating medications. 4. Continue vasopressor support to maintain a mean arterial pressure at or above 65 mmHg. 5. Continue antimicrobials. Add vancomycin given increased secretions. Obtain sputum culture 6. Continue tube feeds as tolerated. 7. Continue appropriate ICU prophylaxis. 8. Evaluate for tunneled hemodialysis line. Consult placed today. 9. Additional upward titration of basal insulin as required. IMPRESSIONS: 1. Metabolic encephalopathy The patient has developed worsening encephalopathy, likely secondary to profound underlying metabolic derangements, including hypernatremia and worsening uremia in the setting of YESI. Unfortunately, the patient had to be intubated on the morning of July 03 due to concerns for airway protection. Plan to continue dialysis support to address his underlying metabolic derangements and renal insufficiency. Continue to limit sedating medications. Patient does open his eyes to voice and follows simple commands. 2. Acute respiratory failure The patient was intubated over concerns for airway protection and possible aspiration. The etiology for his encephalopathy appears to be metabolic in nature. ABG this morning shows profound metabolic acidosis, so we will hold off on any extubation. Patient did have a fever overnight with reported increased secretions, so will add vancomycin. Wean FiO2 and PEEP to maintain saturations at or above 90%. Continue antimicrobials as ordered. 3. Septic shock Clinical concern for underlying pulmonary source of infection. The patient has significant underlying metabolic derangements related to his renal insufficiency. He is significantly overall net positive from a volume perspective for the hospitalization. Plan to continue current supportive measures including broad-spectrum antimicrobials and Levophed to maintain a mean arterial pressure at or above 65 mmHg. Given increased secretions, vancomycin was added pending sputum culture 4. YESI on CKD Likely secondary to ischemic ATN. The patient has interval worsening in his renal function and metabolic derangements. Recommend ongoing dialysis support with volume optimization per nephrology recommendations. Surgery will be consulted for tunneled hemodialysis line 5. Thrombocytopenia Improving. Most likely related to underlying infectious etiology. Labs were not consistent with DIC. Continue to monitor platelet count for now. No indication for transfusion of blood products. 6. COVID-19/hyperlipidemia/hypertension/advanced age Complicates care, management, recovery and prognosis. Continue supportive measures as noted above. Continue tube feeds as tolerated. TIME: 40 minutes of critical care time, inclusive of procedures, was spent addressing the patient's metabolic encephalopathy, acute respiratory failure, septic shock, YESI on CKD, review of all data and collaboration with the care team. Subjective Subjective Patient did okay overnight. Pressor requirements of slightly increased compared to yesterday. Patient's propofol has been off. Patient has been tolerating a spontaneous breathing trial since approximately 5 AM. Patient did have a fever overnight and nursing had reported some increased secretions. Objective Data Objective Data Vital Signs: Vital Signs Temp Pulse Resp BP Pulse Ox O2 Del Method FiO2 36.7 C 79 20 H 117/54 L 94 Mechanical Ventilator 30 07/10/22 07:00 07/10/22 07:00 07/10/22 07:00 07/10/22 07:15 07/10/22 07:00 07/10/22 07:00 07/10/22 07:00 Oxygen Delivery Method Mechanical Ventilator Weight: 96.3 kg Body Mass Index (BMI) 31.4 Intake & Output: Intake and Output for Last 24 Hours 07/08/22 07/09/22 07/10/22 23:59 23:59 23:59 Intake Total 2304.14 / 2481.64 2792.00 / 2810.10 1023.53 / 1023.53 Output Total 240 / 240 10 / 10 Balance 2064.14 / 2241.64 2782.00 / 2800.10 1023.53 / 1023.53 Medical Nutrition Assessment Dietitian: Malnutrition Criteria Met Start: 07/02/22 13:54 Freq: Status: Active Protocol: Document 07/07/22 10:09 RMA (Rec: 07/07/22 10:09 RMA [id number]) Nutrition Malnutrition Evidence of Malnutrition Exists Yes Malnutrition (severe): Acute Illness/Injury Evidenced By Suboptimal Energy Intake ( Severe),Weight Loss (Severe) Intake Problem Inadequate Oral Intake Etiology related to altered mental status, resp. failure Signs/Symptoms as evidenced by NPO status; poor PO intake at meals prior to intubation Status Active Problem Clinical Problem Acute Disease or Injury Related Malnutrition Etiology severe, acute malnutrition related to inadequate oral intake d/t acute illness Signs/Symptoms as evidenced by unintentional wt loss of 4.564kg/5% wt loss < 2 weeks; estimated PO intake meeting < 50 % of estimated energy needs > 5 days Status Active Problem Recommendation Dietitian Recommendations/Changes NPO while intubated. Continue TF via OG tube of Nepro at goal rate 50ml/hr with 150ml water flush Q 4 hours to provide 2124 calories , 97 g protein, and 1772mL fluid/day. Lab / Micro Data Attestation: I reviewed the patient's lab results. Result Diagrams: 07/10/22 05:15 07/10/22 05:15 Labs: Laboratory Results - last 24 hr 07/09/22 11:06: POC Glucose 274 H 07/09/22 17:34: POC Glucose 258 H 07/09/22 23:23: POC Glucose 256 H 07/10/22 05:07: POC Glucose 251 H 07/10/22 05:15: Total Creatine Kinase 25 L, Triglycerides 141 07/10/22 05:15: WBC 12.9 H, RBC 2.96 L, Hgb 8.8 L, Hct 27.5 L, MCV 92.9, MCH 29.7, MCHC 32.0, RDW Std Deviation 51.4 H, RDW Coeff of Kenyatta 15.1 H, Plt Count 144 L, MPV 11.1, Neut % (Auto) Not Reportable, Absolute Neuts (auto) 11.3 H, Absolute Lymphs (auto) 0.77 L, Total Counted 100, Neutrophils % (Manual) 83 H, Band Neutrophils % 5, Lymphocytes % (Manual) 6 L, Monocytes % (Manual) 2, Eosinophils % (Manual) 1, Metamyelocytes % 2 H, Myelocytes % 1 H, Diff Path Review September, Platelet Estimate ADEQUATE, RBC Morphology NORM C+C 07/10/22 05:15: Sodium 133 L, Potassium 4.1, Chloride 99, Carbon Dioxide 15.0 L, Anion Gap 19 H, BUN 87 H, Creatinine 8.15 H*, Estim Creat Clear Calc 8.31, Est GFR (MDRD) Af Amer 8 L, Est GFR (MDRD) Non-Af 7 L, BUN/Creatinine Ratio 10.7, Glucose 275 H, Calcium 9.5 Micro: Microbiology 07/03/22 12:48 Blood Culture (Wb) - Left Hand Blood Culture - Final No growth in 5 days. 07/03/22 13:00 Blood Culture (Wb) - Left Wrist Blood Culture - Final No growth in 5 days. 07/03/22 12:20 Sputum, Expectorated/Coughed Gram Stain - Final 07/03/22 12:20 Sputum, Expectorated/Coughed Respiratory Culture - Final Mixed normal respiratory alecia. No Streptococcus pneumoniae, beta-hemolytic Streptococcus or Staphylococcus aureus isolated. 07/04/22 10:25 Stool Stool Occult Blood (GODFREY) - Final 07/01/22 08:25 Urine Catheter - [place]rough Urine Culture - Final Culture exhibits no growth. 06/28/22 19:35 Nasal Secretion SARS-CoV-2 & FLU Antigen (Rapid) - Final SARS-CoV-2 (COVID 19) ABG Data ABG results: ABG 07/10/22 06:56 Specimen Type ART Sample Site L Radial pH 7.28 L Bicarbonate Actual 13.3 L Total CO2 14 Base Excess -13 L O2 Saturation 95 O2 % 30 ABG pCO2 28.4 L ABG pO2 81 Laz Test Positive O2 Delivery Device Adult Vent Vent Mode CPAP/PS POC PEEP 5 POC Pressure Suppt 5 Attestation: I personally reviewed and interpreted this ABG as follows: (Acute metabolic acidosis with partial respiratory compensation and slightly increased AA gradient) Rhythm Strip Rhythm Strip: Sinus Rhythm Rate: 63 Physical Exam Const Constitutional Narrative: Intubated and mechanically ventilated. Currently tolerating spontaneous mode of mechanical ventilation. General Appearance: patient mechanically ventilated HEENT normocephalic and head/scalp atraumatic Mouth: endotracheal tube in place and OG tube in place Eyes PERRL Eyes Narrative: Left ptosis Neck supple General: trachea midline and CVC in place Chest inspection of chest normal Resp Auscultation: diminished lung sounds; Negative for rales, rhonchi or wheezes Cardio regular rate, regular rhythm, S1 normal heart sound, S2 normal heart sound, no murmurs, no rub and no gallops GI normal to inspection, nondistended, normoactive bowel sounds Extremity General Extremity: Negative for edema Skin no rashes or lesions noted Neuro Neuro Narrative: The patient still remains quite lethargic but will arouse to verbal stimulation and follow some very simple commands. Psych Mood & Affect: flat affect Charges/Coding Procedures Hospitalists Procedures: [id number] Critial Care 1st Hr
--- NOTE | 2022-07-10 08:33 | CON.PCM.SX_ITS ---
Assessment & Plan Assessment/Plan (1) Acute kidney injury: PLAN: The patient has a poorly functioning right dialysis catheter. I was con sulted for tunneled dialysis catheter. The patient will have attempted dialysis this morning and then the catheter will be removed. I plan on placing a right- sided tunneled dialysis catheter tomorrow at 11 AM. Patient may resume his tube feeds and hold them tomorrow. Patient is not being extubated today due to acidosis. I discussed this with the patient's son this morning and explained the procedure in detail and explained the risks of bleeding, infection, pneumothorax. The patient's son understands the risks and consents for the patient's surgery. Luis Wen MD Pager: [facility] [address] [place] [address] [address] [place] [address] Office: HPI Consult Data Date of Consult: 07/10/22 HPI Narrative HPI Narrative: MATA MADDOX, is a 71 M here with renal failure. I was consulted for a tunneled dialysis catheter. The patient has a temporary dialysis catheter on the right but it is not functioning well. [facility] Medical History Kidney failure Home Medications aspirin 325 mg tablet 325 mg PO DAILY@0800 02/22/15 [History Last Taken 02/19/15] canagliflozin 100 mg tablet 100 mg PO DAILY 02/22/15 [History Last Taken Unknown] folic acid 1 mg tablet 1 mg PO DAILY@0800 02/22/15 [History Last Taken Unknown] glipizide 10 mg tablet 10 mg PO BIDAC 02/22/15 [History Last Taken Unknown] pravastatin 40 mg tablet 40 mg PO DAILY 02/22/15 [History Last Taken Unknown] ramipril 5 mg capsule 5 mg PO DAILY 02/22/15 [History Last Taken 02/25/15] sitagliptin phosphate 100 mg tablet 100 mg PO DAILY 02/22/15 [History Last Taken Unknown] Allergy/AdvReac Type Severity Reaction Status Date / Time metformin Allergy Mild unknown Verified 06/28/22 19:08 gemfibrozil [From Lopid] Allergy Rash Verified 06/28/22 19:08 dexmedetomidine AdvReac Severe Other Verified 07/10/22 00:52 Social History Smoking Status: Never smoker ROS Review of Systems ROS Unobtainable: due to endotracheal tube Physical Exam Const Orientation / Consciousness: confused Eyes PERRL Cardio Rate: regular rate Rhythm: regular rhythm GI soft to palpation and non-distended Medical Records Data Medical Nutrition Assessment Dietitian: Malnutrition Criteria Met Start: 07/02/22 13:54 Freq: Status: Active Protocol: Document 07/07/22 10:09 RMA (Rec: 07/07/22 10:09 RMA [id number]) Nutrition Malnutrition Evidence of Malnutrition Exists Yes Malnutrition (severe): Acute Illness/Injury Evidenced By Suboptimal Energy Intake ( Severe),Weight Loss (Severe) Intake Problem Inadequate Oral Intake Etiology related to altered mental status, resp. failure Signs/Symptoms as evidenced by NPO status; poor PO intake at meals prior to intubation Status Active Problem Clinical Problem Acute Disease or Injury Related Malnutrition Etiology severe, acute malnutrition related to inadequate oral intake d/t acute illness Signs/Symptoms as evidenced by unintentional wt loss of 4.564kg/5% wt loss < 2 weeks; estimated PO intake meeting < 50 % of estimated energy needs > 5 days Status Active Problem Recommendation Dietitian Recommendations/Changes NPO while intubated. Continue TF via OG tube of Nepro at goal rate 50ml/hr with 150ml water flush Q 4 hours to provide 2124 calories , 97 g protein, and 1772mL fluid/day. Lab / Micro Data Result Diagrams: 07/10/22 05:15 07/10/22 05:15 Labs: Laboratory Results - last 24 hr 07/09/22 11:06: POC Glucose 274 H 07/09/22 17:34: POC Glucose 258 H 07/09/22 23:23: POC Glucose 256 H 07/10/22 05:07: POC Glucose 251 H 07/10/22 05:15: Total Creatine Kinase 25 L, Triglycerides 141 07/10/22 05:15: WBC 12.9 H, RBC 2.96 L, Hgb 8.8 L, Hct 27.5 L, MCV 92.9, MCH 29.7, MCHC 32.0, RDW Std Deviation 51.4 H, RDW Coeff of Kenyatta 15.1 H, Plt Count 144 L, MPV 11.1, Neut % (Auto) Not Reportable, Absolute Neuts (auto) 11.3 H, Absolute Lymphs (auto) 0.77 L, Total Counted 100, Neutrophils % (Manual) 83 H, Band Neutrophils % 5, Lymphocytes % (Manual) 6 L, Monocytes % (Manual) 2, Eosinophils % (Manual) 1, Metamyelocytes % 2 H, Myelocytes % 1 H, Diff Path Review September, Platelet Estimate ADEQUATE, RBC Morphology NORM C+C 07/10/22 05:15: Sodium 133 L, Potassium 4.1, Chloride 99, Carbon Dioxide 15.0 L, Anion Gap 19 H, BUN 87 H, Creatinine 8.15 H*, Estim Creat Clear Calc 8.31, Est GFR (MDRD) Af Amer 8 L, Est GFR (MDRD) Non-Af 7 L, BUN/Creatinine Ratio 10.7, Glucose 275 H, Calcium 9.5 ABG Data ABG results: ABG 07/10/22 06:56 Specimen Type ART Sample Site L Radial pH 7.28 L Bicarbonate Actual 13.3 L Total CO2 14 Base Excess -13 L O2 Saturation 95 O2 % 30 ABG pCO2 28.4 L ABG pO2 81 Laz Test Positive O2 Delivery Device Adult Vent Vent Mode CPAP/PS POC PEEP 5 POC Pressure Suppt 5 Rhythm Strip Rhythm Strip: Sinus Rhythm Rate: 63
--- NOTE | 2022-07-10 10:06 | PN.HOSP_ITS ---
Subjective Subjective Intubated but off sedation, alert and interactive no issues overnight Objective Data Objective Data Vital Signs: Vital Signs Temp Pulse Resp BP Pulse Ox O2 Del Method FiO2 98.0 F 70 21 H 133/55 H 98 Mechanical Ventilator 30 07/10/22 09:00 07/10/22 09:15 07/10/22 09:00 07/10/22 09:15 07/10/22 09:00 07/10/22 09:00 07/10/22 09:00 Oxygen Delivery Method Mechanical Ventilator Weight: 212 lb 4.882 oz Body Mass Index (BMI) 31.4 Intake & Output: Intake and Output for Last 24 Hours 07/09/22 07/10/22 07/11/22 03:59 03:59 03:59 Intake Total 2395.78 / 3208.23 2895.64 / 3445.04 615.27 / 615.27 Output Total 235 / 235 10 10 Balance 2160.78 / 2973.23 2885.64 / 3435.04 615.27 / 615.27 Medical Nutrition Assessment Dietitian: Malnutrition Criteria Met Start: 07/02/22 13:54 Freq: Status: Active Protocol: Document 07/07/22 10:09 RMA (Rec: 07/07/22 10:09 RMA [id number]) Nutrition Malnutrition Evidence of Malnutrition Exists Yes Malnutrition (severe): Acute Illness/Injury Evidenced By Suboptimal Energy Intake ( Severe),Weight Loss (Severe) Intake Problem Inadequate Oral Intake Etiology related to altered mental status, resp. failure Signs/Symptoms as evidenced by NPO status; poor PO intake at meals prior to intubation Status Active Problem Clinical Problem Acute Disease or Injury Related Malnutrition Etiology severe, acute malnutrition related to inadequate oral intake d/t acute illness Signs/Symptoms as evidenced by unintentional wt loss of 4.564kg/5% wt loss < 2 weeks; estimated PO intake meeting < 50 % of estimated energy needs > 5 days Status Active Problem Recommendation Dietitian Recommendations/Changes NPO while intubated. Continue TF via OG tube of Nepro at goal rate 50ml/hr with 150ml water flush Q 4 hours to provide 2124 calories , 97 g protein, and 1772mL fluid/day. Lab / Micro Data Result Diagrams: 07/10/22 05:15 07/10/22 05:15 Labs: Laboratory Results - last 24 hr 07/09/22 11:06: POC Glucose 274 H 07/09/22 17:34: POC Glucose 258 H 07/09/22 23:23: POC Glucose 256 H 07/10/22 05:07: POC Glucose 251 H 07/10/22 05:15: Total Creatine Kinase 25 L, Triglycerides 141 07/10/22 05:15: WBC 12.9 H, RBC 2.96 L, Hgb 8.8 L, Hct 27.5 L, MCV 92.9, MCH 29.7, MCHC 32.0, RDW Std Deviation 51.4 H, RDW Coeff of Kenyatta 15.1 H, Plt Count 144 L, MPV 11.1, Neut % (Auto) Not Reportable, Absolute Neuts (auto) 11.3 H, Absolute Lymphs (auto) 0.77 L, Total Counted 100, Neutrophils % (Manual) 83 H, Band Neutrophils % 5, Lymphocytes % (Manual) 6 L, Monocytes % (Manual) 2, Eosinophils % (Manual) 1, Metamyelocytes % 2 H, Myelocytes % 1 H, Diff Path Review September, Platelet Estimate ADEQUATE, RBC Morphology NORM C+C 07/10/22 05:15: Sodium 133 L, Potassium 4.1, Chloride 99, Carbon Dioxide 15.0 L, Anion Gap 19 H, BUN 87 H, Creatinine 8.15 H*, Estim Creat Clear Calc 8.31, Est GFR (MDRD) Af Amer 8 L, Est GFR (MDRD) Non-Af 7 L, BUN/Creatinine Ratio 10.7, Glucose 275 H, Calcium 9.5 Micro: Microbiology 07/03/22 12:48 Blood Culture (Wb) - Left Hand Blood Culture - Final No growth in 5 days. 07/03/22 13:00 Blood Culture (Wb) - Left Wrist Blood Culture - Final No growth in 5 days. 07/03/22 12:20 Sputum, Expectorated/Coughed Gram Stain - Final 07/03/22 12:20 Sputum, Expectorated/Coughed Respiratory Culture - Final Mixed normal respiratory alecia. No Streptococcus pneumoniae, beta-hemolytic Streptococcus or Staphylococcus aureus isolated. 07/04/22 10:25 Stool Stool Occult Blood (GODFREY) - Final 07/01/22 08:25 Urine Catheter - Yarbrough Urine Culture - Final Culture exhibits no growth. 06/28/22 19:35 Nasal Secretion SARS-CoV-2 & FLU Antigen (Rapid) - Final SARS-CoV-2 (COVID 19) ABG Data ABG results: ABG 07/10/22 06:56 Specimen Type ART Sample Site L Radial pH 7.28 L Bicarbonate Actual 13.3 L Total CO2 14 Base Excess -13 L O2 Saturation 95 O2 % 30 ABG pCO2 28.4 L ABG pO2 81 Laz Test Positive O2 Delivery Device Adult Vent Vent Mode CPAP/PS POC PEEP 5 POC Pressure Suppt 5 Rhythm Strip Rhythm Strip: Sinus Rhythm Rate: 63 Physical Exam Narrative General: Alert, intubated but not sedated, Cooperative, No apparent distress HEENT: Atraumatic, PERRLA, EOMI, Normocephalic Oral: Moist Mucosa Neck: Supple, No JVD Lungs: Diminished, Normal air movement, No rhonchi, No wheeze, No rales Cardiovascular: Regular rate, Regular Rhythm, Normal S1, Normal S2, No murmurs Abdomen: Soft, Non Tender, Non-Distended, No Hepato-splenomegaly Extremities: No edema, Capillary Refill Less than 3 Seconds Skin: No rashes, No breakdown Musculoskeletal: No Tenderness to Palpation of Joints or Extremities Neurological: Follows simple commands, and he is alert while intubated Psych/Mental Status: Flat affect Assessment & Plan Assessment/Plan (1) Shock: (2) Acute kidney injury: (3) Acute respiratory failure: (4) Encephalopathy: (5) Diabetic keto-acidosis: (6) Atrial fibrillation with RVR: (7) Thrombocytopenia: (8) COVID: PLAN: Plan 1.? DKA in the setting of type 2 diabetes with a high anion gap metabolic acidosis and YESI with metabolic encephalopathy/hypernatremia and hyperchloremia with hyperchloremic metabolic acidosis with incomplete respiratory compensation with renal tubular acidosis unknown type ? We will plan for tunneled dialysis catheter and continue with dialysis ? Appreciate instructor modeling and nephrology's assistance ? Urine anion gap was over 40 consistent with a renal tubular acidosis ? Continue with D5W as well as an insulin drip ? His A1c is 8.2 2. Shock/thrombocytopenia ? Continue with norepinephrine ? Unsure as to the etiology could be infectious and his antibiotics were broadened to include vancomycin secondary to some fevers ? His thrombocytopenia is likely reactive and has resolved 3.? COVID-19?noncontributory 4.? HTN/HLD ? We will hold his ramipril given his acute renal failure ? Can wait to restart his pravastatin DVT: Heparin Charges/Coding Visit Charges Inpatient E&M: 05773 Subs Hosp L2
[2022-07-10] MEDS: Propofol 10MG/Ml 1,000 MG/100 ML Bottle 5.6 MG CONT INF (10:13)
--- NOTE | 2022-07-10 10:45 | PCM.PN.REN ---
Subjective Subjective No new events. Remains on low-dose Levophed. Objective Data Objective Data Vital Signs: Vital Signs Temp Pulse Resp BP Pulse Ox O2 Del Method FiO2 98.1 F 78 20 H 121/54 H 92 Mechanical Ventilator 30 07/10/22 10:00 07/10/22 10:00 07/10/22 10:00 07/10/22 10:00 07/10/22 10:00 07/10/22 10:00 07/10/22 10:00 Oxygen Delivery Method Mechanical Ventilator Weight: 96.3 kg Body Mass Index (BMI) 31.4 Intake & Output: Intake and Output for Last 24 Hours 07/08/22 07/09/22 07/10/22 23:59 23:59 23:59 Intake Total 2304.14 / 2481.64 2792.00 / 2810.10 1057.82 / 1057.82 Output Total 240 / 240 Balance 2064.14 / 2241.64 2782.00 / 2800.10 1027.82 / 1027.82 Medical Nutrition Assessment Dietitian: Malnutrition Criteria Met Start: 07/02/22 13:54 Freq: Status: Active Protocol: Document 07/07/22 10:09 RMA (Rec: 07/07/22 10:09 RMA [id number]) Nutrition Malnutrition Evidence of Malnutrition Exists Yes Malnutrition (severe): Acute Illness/Injury Evidenced By Suboptimal Energy Intake ( Severe),Weight Loss (Severe) Intake Problem Inadequate Oral Intake Etiology related to altered mental status, resp. failure Signs/Symptoms as evidenced by NPO status; poor PO intake at meals prior to intubation Status Active Problem Clinical Problem Acute Disease or Injury Related Malnutrition Etiology severe, acute malnutrition related to inadequate oral intake d/t acute illness Signs/Symptoms as evidenced by unintentional wt loss of 4.564kg/5% wt loss < 2 weeks; estimated PO intake meeting < 50 % of estimated energy needs > 5 days Status Active Problem Recommendation Dietitian Recommendations/Changes NPO while intubated. Continue TF via OG tube of Nepro at goal rate 50ml/hr with 150ml water flush Q 4 hours to provide 2124 calories , 97 g protein, and 1772mL fluid/day. Lab / Micro Data Result Diagrams: 07/10/22 05:15 07/10/22 05:15 Labs: Laboratory Results - last 24 hr 07/09/22 11:06: POC Glucose 274 H 07/09/22 17:34: POC Glucose 258 H 07/09/22 23:23: POC Glucose 256 H 07/10/22 05:07: POC Glucose 251 H 07/10/22 05:15: Total Creatine Kinase 25 L, Triglycerides 141 07/10/22 05:15: WBC 12.9 H, RBC 2.96 L, Hgb 8.8 L, Hct 27.5 L, MCV 92.9, MCH 29.7, MCHC 32.0, RDW Std Deviation 51.4 H, RDW Coeff of Kenyatta 15.1 H, Plt Count 144 L, MPV 11.1, Neut % (Auto) Not Reportable, Absolute Neuts (auto) 11.3 H, Absolute Lymphs (auto) 0.77 L, Total Counted 100, Neutrophils % (Manual) 83 H, Band Neutrophils % 5, Lymphocytes % (Manual) 6 L, Monocytes % (Manual) 2, Eosinophils % (Manual) 1, Metamyelocytes % 2 H, Myelocytes % 1 H, Diff Path Review September, Platelet Estimate ADEQUATE, RBC Morphology NORM C+C 07/10/22 05:15: Sodium 133 L, Potassium 4.1, Chloride 99, Carbon Dioxide 15.0 L, Anion Gap 19 H, BUN 87 H, Creatinine 8.15 H*, Estim Creat Clear Calc 8.31, Est GFR (MDRD) Af Amer 8 L, Est GFR (MDRD) Non-Af 7 L, BUN/Creatinine Ratio 10.7, Glucose 275 H, Calcium 9.5 Micro: Microbiology 07/03/22 12:48 Blood Culture (Wb) - Left Hand Blood Culture - Final No growth in 5 days. 07/03/22 13:00 Blood Culture (Wb) - Left Wrist Blood Culture - Final No growth in 5 days. 07/03/22 12:20 Sputum, Expectorated/Coughed Gram Stain - Final 07/03/22 12:20 Sputum, Expectorated/Coughed Respiratory Culture - Final Mixed normal respiratory alecia. No Streptococcus pneumoniae, beta-hemolytic Streptococcus or Staphylococcus aureus isolated. 07/04/22 10:25 Stool Stool Occult Blood (GODFREY) - Final 07/01/22 08:25 Urine Catheter - Yarbrough Urine Culture - Final Culture exhibits no growth. 06/28/22 19:35 Nasal Secretion SARS-CoV-2 & FLU Antigen (Rapid) - Final SARS-CoV-2 (COVID 19) ABG Data ABG results: ABG 07/10/22 06:56 Specimen Type ART Sample Site L Radial pH 7.28 L Bicarbonate Actual 13.3 L Total CO2 14 Base Excess -13 L O2 Saturation 95 O2 % 30 ABG pCO2 28.4 L ABG pO2 81 Laz Test Positive O2 Delivery Device Adult Vent Vent Mode CPAP/PS POC PEEP 5 POC Pressure Suppt 5 Rhythm Strip Rhythm Strip: Sinus Rhythm Rate: 63 Physical Exam Narrative sedated no obvious distress no pallor no icterus no JVD s1s2 no murmurs lungs clear abdomen soft no organomegaly no edema no cyanosis Const average body habitus General Appearance: well developed and patient mechanically ventilated HEENT normocephalic Neck no lymphadenopathy Resp clear to auscultation bilaterally Resp Narrative: Scattered rhonchi Auscultation: rhonchi Cardio regular rate Cardio Narrative: Tachycardic GI non-distended Auscultation: normoactive bowel sounds and hypoactive bowel sounds Extremity Extremity Narrative: Mottling of both lower extremities, minimal to no edema General Extremity: edema bilateral Skin Skin Narrative: Acrocyanosis, some petechiae Neuro Sensorium / Orientation: sedated on vent Assessment & Plan Assessment/Plan (1) Acute kidney injury: PLAN: Baseline creatinine was 1.1 as of December 2021. Sustained YESI, presumably ATN. Initiated on renal replacement therapy. In septic shock. Was initially on CRRT but had repeated clotting. Transitioned to hemodialysis. Seen on dialysis today. Blood pressure is borderline, requiring pressors for dialysis treatment. So far tolerating well. We will be able to remove about 1 to 2 L. Tunnel catheter hopefully today or tomorrow. Surgery is on consult. Thrombocytopenia. Evaluated by hematology. LDH level is normal/near normal. Low suspicion for DIC/TTP as per hematology DKA. Resolved. Acidosis. Increasing anion gap. Glucose values are okay. ? Lactate levels
[2022-07-10] MEDS: Insulin Glargine-YFGN 100 UNIT/ML Pen 50 UNIT SC (11:09)
[2022-07-10] MEDS: Chlorhexidine 15 ML PO ×2 (11:10→20:17)
[2022-07-10 11:26] LABS: Bedside Glucose 196 mg/dL (74-106)
--- NOTE | 2022-07-10 11:33 | PCM.RX.CS ---
Consult Pharmacy has been consulted to manage selected antiobiotic: Vancomycin Type of Consult: New start Suspected Infection: Pneumonia Labs: Sodium 133 mmol/L (136-145) L 07/10/22 05:15 Potassium 4.1 mmol/L (3.5-5.1) 07/10/22 05:15 Chloride 99 mmol/L (98-107) 07/10/22 05:15 Carbon Dioxide 15.0 mmol/L (21.0-32.0) L 07/10/22 05:15 Anion Gap 19 (5-15) H 07/10/22 05:15 BUN 87 mg/dL (7-18) H 07/10/22 05:15 Creatinine 8.15 mg/dL (0.70-1.30) H* 07/10/22 05:15 Est GFR (MDRD) Af Amer 8 mL/min (>60) L 07/10/22 05:15 Est GFR (MDRD) Non-Af 7 mL/min (>60) L 07/10/22 05:15 BUN/Creatinine Ratio 10.7 RATIO (10-20) 07/10/22 05:15 Glucose 275 mg/dL (74-106) H 07/10/22 05:15 Vancomycin Trough 18.8 ug/mL (5.0-15.0) H 07/05/22 14:00 Random Vancomycin 33.2 ug/mL (0.0-15.0) H 07/06/22 09:55 Microbiology: Microbiology 07/03/22 12:48 Blood Culture (Wb) - Left Hand Blood Culture - Final No growth in 5 days. 07/03/22 13:00 Blood Culture (Wb) - Left Wrist Blood Culture - Final No growth in 5 days. 07/03/22 12:20 Sputum, Expectorated/Coughed Gram Stain - Final 07/03/22 12:20 Sputum, Expectorated/Coughed Respiratory Culture - Final Mixed normal respiratory alecia. No Streptococcus pneumoniae, beta-hemolytic Streptococcus or Staphylococcus aureus isolated. 07/04/22 10:25 Stool Stool Occult Blood (GODFREY) - Final 07/01/22 08:25 Urine Catheter - Yarbrough Urine Culture - Final Culture exhibits no growth. 06/28/22 19:35 Nasal Secretion SARS-CoV-2 & FLU Antigen (Rapid) - Final SARS-CoV-2 (COVID 19) Goal Trough: 15-20 mcg/mL Pharmacy Plan for Drug Dosing: NEW START IV VANCOMYCIN Consulting Physician: Dr. Stinson Indication: R/O pneumonia Goal Trough: 15-20 SrCr: 8.31 (getting HD) CrCl: HD pt- unsure of HD schedule at this time Comments: Patient on HD- will dose based on levels. will have to contact Floor daily and draw a trough prior to next HD session since not on a scheduled regimen at this time Vancomycin Dose: 2g IV x1 loading dose to be administered post-hd today, 07/10. will dose based on levels Pending Level: TBD- pharmacy to contact floor daily to see if pt getting HD. Pharmacy Service will continue to monitor and adjust dosing as required.
--- NOTE | 2022-07-10 12:05 | CASEMGMT ---
Addendum entered by Mar Beauchamp 07/10/22 12:31: Social Work does not have preference for [facility] over [facility]. Pt has been a pt at [facility] in the past. JAKE Jaimes Original Note: Social Work SW participated in ICU rounds, plan is to extubate pt today vs. tomorrow. Pt may need halfway placement, also needs acute dialysis. SW looked up facilities in MMO network that take pt's insurance. SW printed list of half-way facilities from [facility] in pt's insurance network complete with quality and resource data and in pt's preferred geographic area. SW called [facility], [place]zen[place] and Misa here locally as very few facilities come up in network that are local. Both confirmed they do not take MMO. [facility] also does not take MMO. SW called pt's insurance, his in network benefits for SNF are: Days 1-20 covered at 100%, then a $188/day copay. Pt has a maximum out of pocket of $6050. For out of network, pt has a $1750 deductible, then it's covered at 70% until pt hits a max out of pocket of $9550. SW called [facility] transitional unit, it may be a possibility. SW called [facility], message left. SW spoke w/ on the phone. SW explained that SW has SNF list for her to review, explained that there are not many local options. She will be here later today, SW will leave the [facility] list for her. SW also explained the insurance benefits. does not drive, so she cannot transport pt to and from dialysis. SW explained we will need to find a place that can take him and transport him back and forth. states understanding. She will review the list for options. SW will continue to follow, will speak w/ and make referrals as appropriate. JAKE Jaimes
--- NOTE | 2022-07-10 13:15 | DIALYSIS ---
07/10/22 Initiated hemodialysis treatment after consulting care team RN and MD regarding increased sedation to lim8it patient's coughing, which causes high AP. Propofol gtt initiated by RN (10 mcg/kg/min). Treatment x ~ 1.5 hours, circuit lost r/t coughing drawing instant vacuum, repeated episodes (several per minute) unable to compensate consistently to prevent foaming and clotting in second (venous) air chamber - causes multiple air detector alarms. Lost blood circuits x 2 (blood returned to patient each time). Due to boluses/system flushes, patient gained net fluid (positive) ~500 ml. Cumulative total treatment time approximately 2 hours over a 4-hour total time period. Conferred again with RN and MD. Decision t5o stop treatment today, resume treatment after placement of tunneled catheter (scheduled for 07/11/2022).
[2022-07-10 14:10] LABS: Pathologist Review Reviewed
[2022-07-10] MEDS: Heparin 10,000 UNITS/10 ML Vial IV (14:24)
[2022-07-10 14:31] LABS: Pathologist Review Reviewed
[2022-07-10] MEDS: Acetaminophen 650 MG/20 ML UDC GT (15:38)
[2022-07-10] MEDS: NEPRO TUBE FEED 1,000 ML 50 ML GT (15:38)
[2022-07-10 18:10] LABS: Bedside Glucose 156 mg/dL (74-106)
[2022-07-10] MEDS: Propofol 10MG/Ml 1,000 MG/100 ML Bottle 2.8 MG CONT INF (23:34)
[2022-07-11] VITALS (56 sets, daily range): BP systolic 76–136; BP diastolic 45–59; PULSE 61–96; RESP 14–27; TEMP 36.8–38.9; O2SAT 90–100; BMI 32.1
[2022-07-11 00:10] LABS: Bedside Glucose 205 mg/dL (74-106)
[2022-07-11 03:59] LABS: Hematocrit 25.2 % (40-54); Hemoglobin 8.2 g/dL (13.0-16.5); Mean Corp Hgb Conc 32.5 g/dL (32-36); Mean Corpuscular Hgb 29.9 pg (27.0-32.0); Mean Platelet Vol. 11.1 fl (6.2-12.0); POSITIVE COUNT YES; POSITIVE DIFFERENTIAL YES; POSITIVE MORPHOLOGY YES; Platelet Count 138 K/mm3 (150-450); RBC Distribution Width CV 14.9 % (11.6-14.6); RBC Distribution Width SD 50.4 fl (35.1-43.9); Red Blood Count 2.74 M/mm3 (4.6-6.2); White Blood Count 9.1 K/mm3 (4.4-11.0)
[2022-07-11 04:12] LABS: Differential Indicated MANUAL DIFF
[2022-07-11 04:17] LABS: Lymphocyte 4 % (19-41); Monocyte 3 % (0-10); Myelocyte 3 % (0-0); Neutrophil-Band 3 % (0-5); Neutrophil-Segmented 87 % (47-70); Total Cells Counted 100 (MANUAL DIFF)
[2022-07-11 04:18] LABS: Platelet Estimate ADEQUATE (ADEQ); Red Cell Morphology NORM C+C NORMAL (NORM C&C)
[2022-07-11 04:20] LABS: Absolute Lymphocyte Count 0.36 X10^3/uL (0.83-4.51); Absolute Neutrophil Count 8.5 X10^3/uL (2.0-7.7); Lymphocyte # 0.36 X10^3/ul (0.83-4.51); Neutrophil # 8.46 X10^3/uL (2.7-7.7)
[2022-07-11 04:24] LABS: ALB/GLOB Ratio 0.2 RATIO (0.9-2.4); AST(SGOT) 49 U/L (15-37); Alanine Aminotransfer ALT/SGPT 36 U/L (16-61); Alkaline Phosphatase 345 U/L (45-117); Anion Gap 15 (5-15); BUN 58 mg/dL (7-18); BUN/Creat Ratio 9.7 RATIO (10-20); Chloride 102 mmol/L (98-107); Creatinine, Serum 6.01 mg/dL (0.70-1.30); EST Glomerular Filtration Rate 10 mL/min (>60); Est Glom Filt Rate - Afr Amer 12 mL/min (>60); Estimated Creatinine Clearance 11.27 ml/min; Globulin 4.2 g/dL (2.2-4.2); Glucose 204 mg/dL (74-106); Potassium 3.8 mmol/L (3.5-5.1); Protein, Total 5.2 g/dL (6.4-8.2); Sodium Level 136 mmol/L (136-145)
[2022-07-11] MEDS: Insulin Lispro 100 UNIT/ML INSULN.PEN SC ×3 (05:31→23:14)
--- NOTE | 2022-07-11 07:08 | PN.CC_ITS ---
Assessment & Plan Assessment/Plan (1) Diabetic keto-acidosis: (2) Hypernatremia: (3) Hyperchloremic metabolic acidosis: PLAN: Plan RECOMMENDATIONS: 1. Await tunneled hemodialysis line 2. Ongoing dialysis support with volume optimization per nephrology recommendations. 3. Continue to minimize sedating medications. 4. Continue vasopressor support to maintain a mean arterial pressure at or above 65 mmHg. 5. Continue antimicrobials. Await sputum culture 6. Tube feeds held secondary to procedure 7. Continue appropriate ICU prophylaxis. 8. Obtain ABG after tunneled hemodialysis line. Possible extubation later today IMPRESSIONS: 1. Metabolic encephalopathy Stable. The patient has developed worsening encephalopathy, likely secondary to profound underlying metabolic derangements, including hypernatremia and worsening uremia in the setting of YESI. Unfortunately, the patient had to be intubated on the morning of July 03 due to concerns for airway protection. Plan to continue dialysis support to address his underlying metabolic derangements and renal insufficiency. Continue to limit sedating m edications. Patient does open his eyes to voice and follows simple commands. 2. Acute respiratory failure The patient was intubated over concerns for airway protection and possible aspiration. The etiology for his encephalopathy appears to be metabolic in nature. ABG yesterday morning shows profound metabolic acidosis, but the patient did have dialysis. Patient did have a fever overnight, but leukocytosis is improved following vancomycin. Cultures are pending. Wean FiO2 and PEEP to maintain saturations at or above 90%. Continue antimicrobials as ordered. We will obtain an ABG after tunneled hemodialysis line. If acceptable on spontaneous breathing, anticipate extubation later today or tomorrow morning. 3. Septic shock Clinical concern for underlying pulmonary source of infection. The patient has significant underlying metabolic derangements related to his renal insufficiency. He is significantly overall net positive from a volume perspective for the hospitalization. Plan to continue current supportive measures including broad-spectrum antimicrobials and Levophed to maintain a mean arterial pressure at or above 65 mmHg. Given increased secretions, vancomycin was added yesterday pending sputum culture 4. YESI on CKD Likely secondary to ischemic ATN. The patient has interval worsening in his renal function and metabolic derangements. Recommend ongoing dialysis support with volume optimization per nephrology recommendations. Surgery to place a tunneled hemodialysis line later today 5. Thrombocytopenia Improving. Most likely related to underlying infectious etiology. Previous labs were not consistent with DIC. Continue to monitor platelet count for now. No indication for transfusion of blood products. 6. COVID-19/hyperlipidemia/hypertension/advanced age Complicates care, management, recovery and prognosis. Continue supportive measures as noted above. Continue tube feeds as tolerated. TIME: 38 minutes of critical care time, inclusive of procedures, was spent addressing the patient's metabolic encephalopathy, acute respiratory failure, septic shock, YESI on CKD, review of all data and collaboration with the care team. Subjective Subjective Patient did okay overnight. Patient's Levophed was as high as 10 yesterday, but is down to 2 this morning. Patient did have a fever overnight. Patient did have an abbreviated hemodialysis session yesterday secondary to line dysfunction . Temporary dialysis line has been removed pending a tunneled line later today. Objective Data Objective Data Vital Signs: Vital Signs Temp Pulse Resp BP Pulse Ox O2 Del Method FiO2 37.3 C H 70 27 H 94/59 L 95 Mechanical Ventilator 40 07/11/22 04:00 07/11/22 06:00 07/11/22 06:00 07/11/22 06:00 07/11/22 06:00 07/11/22 06:00 07/11/22 06:00 Oxygen Delivery Method Mechanical Ventilator Weight: 98.7 kg Body Mass Index (BMI) 32.1 Intake & Output: Intake and Output for Last 24 Hours 07/09/22 07/10/22 07/11/22 23:59 23:59 23:59 Intake Total 2792.00 / 2810.10 2758.78 / 3271.47 771.39 / 771.39 Output Total 40 / 40 Balance 2782.00 / 2800.10 2718.78 / 3231.47 771.39 / 771.39 Medical Nutrition Assessment Dietitian: Malnutrition Criteria Met Start: 07/02/22 13:54 Freq: Status: Active Protocol: Document 07/07/22 10:09 RMA (Rec: 07/07/22 10:09 RMA [id number]) Nutrition Malnutrition Evidence of Malnutrition Exists Yes Malnutrition (severe): Acute Illness/Injury Evidenced By Suboptimal Energy Intake ( Severe),Weight Loss (Severe) Intake Problem Inadequate Oral Intake Etiology related to altered mental status, resp. failure Signs/Symptoms as evidenced by NPO status; poor PO intake at meals prior to intubation Status Active Problem Clinical Problem Acute Disease or Injury Related Malnutrition Etiology severe, acute malnutrition related to inadequate oral intake d/t acute illness Signs/Symptoms as evidenced by unintentional wt loss of 4.564kg/5% wt loss < 2 weeks; estimated PO intake meeting < 50 % of estimated energy needs > 5 days Status Active Problem Recommendation Dietitian Recommendations/Changes NPO while intubated. Continue TF via OG tube of Nepro at goal rate 50ml/hr with 150ml water flush Q 4 hours to provide 2124 calories , 97 g protein, and 1772mL fluid/day. Lab / Micro Data Attestation: I reviewed the patient's lab results. Result Diagrams: 07/11/22 03:45 07/11/22 03:45 Labs: Laboratory Results - last 24 hr 07/08/22 03:40: Diff Path Review Reviewed 07/10/22 05:15: Diff Path Review Reviewed 07/10/22 11:06: POC Glucose 196 H 07/10/22 17:50: POC Glucose 156 H 07/10/22 23:28: POC Glucose 205 H 07/11/22 03:45: WBC 9.1, RBC 2.74 L, Hgb 8.2 L, Hct 25.2 L, MCV 92.0, MCH 29.9, MCHC 32.5, RDW Std Deviation 50.4 H, RDW Coeff of Kenyatta 14.9 H, Plt Count 138 L, MPV 11.1, Neut % (Auto) Not Reportable, Absolute Neuts (auto) 8.5 H, Absolute Lymphs (auto) 0.36 L, Total Counted 100, Neutrophils % (Manual) 87 H, Band Neutrophils % 3, Lymphocytes % (Manual) 4 L, Monocytes % (Manual) 3, Myelocytes % 3 H, Diff Path Review May foll, Platelet Estimate ADEQUATE, RBC Morphology NORM C+C 07/11/22 03:45: Sodium 136, Potassium 3.8, Chloride 102, Carbon Dioxide 19.0 L, Anion Gap 15, BUN 58 H, Creatinine 6.01 H, Estim Creat Clear Calc 11.27, Est GFR (MDRD) Af Amer 12 L, Est GFR (MDRD) Non-Af 10 L, BUN/Creatinine Ratio 9.7 L, Glucose 204 H, Calcium 9.0, Total Bilirubin 0.60, AST 49 H, ALT 36, Alkaline Phosphatase 345 H, Total Protein 5.2 L, Albumin 1.0 L, Globulin 4.2, Albumin/Globulin Ratio 0.2 L Micro: Microbiology 07/10/22 07:05 Sputum, Induced/Lukens Gram Stain - Final 07/03/22 12:48 Blood Culture (Wb) - Left Hand Blood Culture - Final No growth in 5 days. 07/03/22 13:00 Blood Culture (Wb) - Left Wrist Blood Culture - Final No growth in 5 days. 07/03/22 12:20 Sputum, Expectorated/Coughed Gram Stain - Final 07/03/22 12:20 Sputum, Expectorated/Coughed Respiratory Culture - Final Mixed normal respiratory alecia. No Streptococcus pneumoniae, beta-hemolytic Streptococcus or Staphylococcus aureus isolated. 07/04/22 10:25 Stool Stool Occult Blood (GODFREY) - Final 07/01/22 08:25 Urine Catheter - Yarbrough Urine Culture - Final Culture exhibits no growth. 06/28/22 19:35 Nasal Secretion SARS-CoV-2 & FLU Antigen (Rapid) - Final SARS-CoV-2 (COVID 19) Rhythm Strip Rhythm Strip: Sinus Rhythm Rate: 74 Physical Exam Const average body habitus Constitutional Narrative: RASS -1 General Appearance: well developed and patient mechanically ventilated HEENT normocephalic HEENT Narrative: Left ptosis noted Eyes PERRL and EOMs intact bilaterally Neck no lymphadenopathy Resp clear to auscultation bilaterally Auscultation: Negative for rales, rhonchi or wheezes Cardio regular rate, regular rhythm, S1 normal heart sound, S2 normal heart sound, no murmurs, no rub and no gallops GI normal to inspection, nondistended, normoactive bowel sounds Extremity no clubbing, cyanosis or edema Skin no rashes or lesions noted Skin Narrative: No hematoma noted at temporary dialysis site Neuro moves all extremities and no focal motor deficits Psych Mood & Affect: flat affect Charges/Coding Procedures Hospitalists Procedures: 96795 Critial Care 1st Hr
--- NOTE | 2022-07-11 08:36 | PN.HOSP_ITS ---
Subjective Subjective Remains intubated but alert, no issues overnight other than a slight fever which she is already on antibiotics for Objective Data Objective Data Vital Signs: Vital Signs Temp Pulse Resp BP Pulse Ox O2 Del Method FiO2 100.0 F H 82 21 H 128/54 H 90 Mechanical Ventilator 40 07/11/22 08:00 07/11/22 08:00 07/11/22 08:00 07/11/22 08:00 07/11/22 08:00 07/11/22 08:00 07/11/22 08:00 Oxygen Delivery Method Mechanical Ventilator Weight: 217 lb 9.54 oz Body Mass Index (BMI) 32.1 Intake & Output: Intake and Output for Last 24 Hours 07/10/22 07/11/22 07/12/22 03:59 03:59 03:59 Intake Total 2895.64 / 3445.04 2954.89 / 3082.09 162.40 / 162.40 Output Total 40 40 Balance 2885.64 / 3435.04 2914.89 / 3042.09 162.40 / 162.40 Medical Nutrition Assessment Dietitian: Malnutrition Criteria Met Start: 07/02/22 13:54 Freq: Status: Active Protocol: Document 07/07/22 10:09 RMA (Rec: 07/07/22 10:09 RMA [id number]) Nutrition Malnutrition Evidence of Malnutrition Exists Yes Malnutrition (severe): Acute Illness/Injury Evidenced By Suboptimal Energy Intake ( Severe),Weight Loss (Severe) Intake Problem Inadequate Oral Intake Etiology related to altered mental status, resp. failure Signs/Symptoms as evidenced by NPO status; poor PO intake at meals prior to intubation Status Active Problem Clinical Problem Acute Disease or Injury Related Malnutrition Etiology severe, acute malnutrition related to inadequate oral intake d/t acute illness Signs/Symptoms as evidenced by unintentional wt loss of 4.564kg/5% wt loss < 2 weeks; estimated PO intake meeting < 50 % of estimated energy needs > 5 days Status Active Problem Recommendation Dietitian Recommendations/Changes NPO while intubated. Continue TF via OG tube of Nepro at goal rate 50ml/hr with 150ml water flush Q 4 hours to provide 2124 calories , 97 g protein, and 1772mL fluid/day. Lab / Micro Data Result Diagrams: 07/11/22 03:45 07/11/22 03:45 Labs: Laboratory Results - last 24 hr 07/08/22 03:40: Diff Path Review Reviewed 07/10/22 05:15: Diff Path Review Reviewed 07/10/22 11:06: POC Glucose 196 H 07/10/22 17:50: POC Glucose 156 H 07/10/22 23:28: POC Glucose 205 H 07/11/22 03:45: WBC 9.1, RBC 2.74 L, Hgb 8.2 L, Hct 25.2 L, MCV 92.0, MCH 29.9, MCHC 32.5, RDW Std Deviation 50.4 H, RDW Coeff of Kenyatta 14.9 H, Plt Count 138 L, MPV 11.1, Neut % (Auto) Not Reportable, Absolute Neuts (auto) 8.5 H, Absolute Lymphs (auto) 0.36 L, Total Counted 100, Neutrophils % (Manual) 87 H, Band Neutrophils % 3, Lymphocytes % (Manual) 4 L, Monocytes % (Manual) 3, Myelocytes % 3 H, Diff Path Review May , Platelet Estimate ADEQUATE, RBC Morphology NORM C+C 07/11/22 03:45: Sodium 136, Potassium 3.8, Chloride 102, Carbon Dioxide 19.0 L, Anion Gap 15, BUN 58 H, Creatinine 6.01 H, Estim Creat Clear Calc 11.27, Est GFR (MDRD) Af Amer 12 L, Est GFR (MDRD) Non-Af 10 L, BUN/Creatinine Ratio 9.7 L, Glucose 204 H, Calcium 9.0, Total Bilirubin 0.60, AST 49 H, ALT 36, Alkaline Phosphatase 345 H, Total Protein 5.2 L, Albumin 1.0 L, Globulin 4.2, Albumin/Globulin Ratio 0.2 L Micro: Microbiology 07/10/22 07:05 Sputum, Induced/Lukens Gram Stain - Final 07/10/22 07:05 Sputum, Induced/Lukens Respiratory Culture - Preliminary Appears to be normal respiratory alecia. Further studies to follow. 07/03/22 12:48 Blood Culture (Wb) - Left Hand Blood Culture - Final No growth in 5 days. 07/03/22 13:00 Blood Culture (Wb) - Left Wrist Blood Culture - Final No growth in 5 days. 07/03/22 12:20 Sputum, Expectorated/Coughed Gram Stain - Final 07/03/22 12:20 Sputum, Expectorated/Coughed Respiratory Culture - Final Mixed normal respiratory alecia. No Streptococcus pneumoniae, beta-hemolytic Streptococcus or Staphylococcus aureus isolated. 07/04/22 10:25 Stool Stool Occult Blood (GODFREY) - Final 07/01/22 08:25 Urine Catheter - Yarbrough Urine Culture - Final Culture exhibits no growth. 06/28/22 19:35 Nasal Secretion SARS-CoV-2 & FLU Antigen (Rapid) - Final SARS-CoV-2 (COVID 19) Rhythm Strip Rhythm Strip: Sinus Rhythm Rate: 74 Physical Exam Narrative General: Alert, intubated but not sedated, Cooperative, No apparent distress HEENT: Atraumatic, PERRLA, EOMI, Normocephalic Oral: Moist Mucosa Neck: Supple, No JVD Lungs: Diminished, Normal air movement, No rhonchi, No wheeze, No rales Cardiovascular: Regular rate, Regular Rhythm, Normal S1, Normal S2, No murmurs Abdomen: Soft, Non Tender, Non-Distended, No Hepato-splenomegaly Extremities: No edema, Capillary Refill Less than 3 Seconds Skin: No rashes, No breakdown Musculoskeletal: No Tenderness to Palpation of Joints or Extremities Neurological: Follows simple commands, and he is alert while intubated Psych/Mental Status: Flat affect Assessment & Plan Assessment/Plan (1) Shock: (2) Acute kidney injury: (3) Acute respiratory failure: (4) Encephalopathy: (5) Diabetic keto-acidosis: (6) COVID: PLAN: Plan 1.? DKA in the setting of type 2 diabetes with a high anion gap metabolic acidosis and YESI with metabolic encephalopathy/hypernatremia and hyperchloremia with hyperchloremic metabolic acidosis with incomplete respiratory compensation with renal tubular acidosis unknown type/acute respiratory failure ? We will plan for tunneled dialysis catheter and continue with dialysis ? Appreciate surgery scheduling coordinator and nephrology's assistance ? Continue with long-acting insulin as well as sliding scale insulin we will make adjustments as necessary ? His A1c is 8.2 ? He was intubated on 07/03/2022 we will attempt a spontaneous breathing trial after his tunneled dialysis catheter today and see if we can extubate 2. Shock/thrombocytopenia ? Continue with norepinephrine, he has been able to be weaned down to about 2, last night he was up to about 10 after dialysis ? Unsure as to the etiology could be infectious and his antibiotics were broadened to include vancomycin secondary to some fevers ? His thrombocytopenia is likely reactive and has resolved 3.? COVID-19?noncontributory 4.? HTN/HLD ? We will hold his ramipril given his acute renal failure ? Can wait to restart his pravastatin DVT: Heparin Charges/Coding Visit Charges Inpatient E&M: 71624 Subs Hosp L2
[2022-07-11] MEDS: Acetaminophen 650 MG/20 ML UDC GT (10:31)
[2022-07-11] MEDS: Chlorhexidine 15 ML PO ×2 (10:37→20:25)
--- NOTE | 2022-07-11 10:50 | NURSING ---
Patient taken to surgery at this time.
[2022-07-11 10:55] LABS: Bedside Glucose 76 mg/dL (74-106)
[2022-07-11] MEDS: Lidocaine 1% /Epi 1:100 (20ml) 20 ML Vial (11:20)
[2022-07-11] MEDS: Heparin 10,000 UNITS/10 ML Vial 10000 UNITS (11:20)
--- NOTE | 2022-07-11 11:33 | PCM.OPRPT ---
Report of Operation Date of Procedure: 07/11/22 Pre-Operative Diagnosis: Need for dialysis access Post-Operative Diagnosis: Same Surgery/Procedure Performed:: Ultrasound and fluoroscopy guided right chest tunneled dialysis catheter placement utilizing right IJ Description of Procedure: Patient was brought back to the operating room intubated. He was moved over to the operating room table and the right neck and chest were prepped and draped in usual sterile fashion. Ultrasound was used to localize the right IJ. An area overlying this was injected with local anesthetic as well as a small area on the chest. An incision was made in the neck and the chest with a scalpel. Using access needle the right IJ was accessed under ultrasound guidance. A guidewire was placed into the vessel and under fluoroscopy the guidewire was placed into the superior vena cava. Serial dilators and the peel-away sheath were then removed over the guidewire and the guidewire was removed. The catheter was tunneled from the chest incision to the neck incision and then the catheter was placed into the peel-away sheath and under fluoroscopy it was guided down into the superior vena cava. The peel-away sheath was removed. The catheter sat nicely on fluoroscopy. The incision in the neck was closed with a 3-0 Vicryl suture and the catheter was sutured to the skin using 3-0 nylon suture. Both catheters were aspirated and flushed easily. Both catheters were flushed with 1.6 cc of heparinized saline and then clamped and capped. Dressings were applied. Patient was then taken back to ICU. Grafts/Implants Used: 19 cm palindrome curved catheter Admit VTE Documentation VTE Mechan Device Prophylaxis: SCD's
[2022-07-11] MEDS: NEPRO TUBE FEED 1,000 ML 50 ML GT (11:50)
[2022-07-11 13:16] LABS: Pathologist Review Reviewed
--- NOTE | 2022-07-11 14:13 | PCM.RX.CS ---
Consult Pharmacy has been consulted to manage selected antiobiotic: Vancomycin Type of Consult: Follow-up Prior Doses of Antibiotics Received/Current Regimen: Medications Discontinued Medications Vancomycin HCl 2,000 mg/ (Sodium Chloride) 540 mls @ 250 mls/hr IV X1 ONE Stop: 07/03/22 14:39 Last Admin: 07/03/22 17:06 Dose: Infused Vancomycin HCl 750 mg/ Sodium (Chloride) 265 mls @ 250 mls/hr IV Q12H RADHA Last Admin: 07/06/22 04:06 Dose: Infused Vancomycin HCl 2,000 mg/ (Sodium Chloride) 540 mls @ 250 mls/hr IV X1 ONE Stop: 07/10/22 20:09 Last Admin: 07/10/22 20:21 Dose: Infused Labs: Sodium 136 mmol/L (136-145) 07/11/22 03:45 Potassium 3.8 mmol/L (3.5-5.1) 07/11/22 03:45 Chloride 102 mmol/L (98-107) 07/11/22 03:45 Carbon Dioxide 19.0 mmol/L (21.0-32.0) L 07/11/22 03:45 Anion Gap 15 (5-15) 07/11/22 03:45 BUN 58 mg/dL (7-18) H 07/11/22 03:45 Creatinine 6.01 mg/dL (0.70-1.30) H 07/11/22 03:45 Est GFR (MDRD) Af Amer 12 mL/min (>60) L 07/11/22 03:45 Est GFR (MDRD) Non-Af 10 mL/min (>60) L 07/11/22 03:45 BUN/Creatinine Ratio 9.7 RATIO (10-20) L 07/11/22 03:45 Glucose 204 mg/dL (74-106) H 07/11/22 03:45 Vancomycin Trough 18.8 ug/mL (5.0-15.0) H 07/05/22 14:00 Random Vancomycin 33.2 ug/mL (0.0-15.0) H 07/06/22 09:55 Microbiology: Microbiology 07/10/22 07:05 Sputum, Induced/Lukens Gram Stain - Final 07/10/22 07:05 Sputum, Induced/Lukens Respiratory Culture - Preliminary Appears to be normal respiratory alecia. Further studies to follow. 07/03/22 12:48 Blood Culture (Wb) - Left Hand Blood Culture - Final No growth in 5 days. 07/03/22 13:00 Blood Culture (Wb) - Left Wrist Blood Culture - Final No growth in 5 days. 07/03/22 12:20 Sputum, Expectorated/Coughed Gram Stain - Final 07/03/22 12:20 Sputum, Expectorated/Coughed Respiratory Culture - Final Mixed normal respiratory alecia. No Streptococcus pneumoniae, beta-hemolytic Streptococcus or Staphylococcus aureus isolated. 07/04/22 10:25 Stool Stool Occult Blood (GODFREY) - Final 07/01/22 08:25 Urine Catheter - Yarbrough Urine Culture - Final Culture exhibits no growth. 06/28/22 19:35 Nasal Secretion SARS-CoV-2 & FLU Antigen (Rapid) - Final SARS-CoV-2 (COVID 19) Goal Trough: 15-20 mcg/mL Pharmacy Plan for Drug Dosing: Patient's vancomycin level on 07/06 was 33.2 mcg/mL. From 07/06-07/10, patient likely had minimal drug removed due to poor renal function and inability for effective dialysis. Patient received 2000mg IV x1 on 07/10. Recommend to check level after dialysis session today to verify level even though a fresh vancomycin start would receive a vancomycin dose today per policy. Pharmacy Service will continue to monitor and adjust dosing as required. Follow-Up Labs: Trough Vancomycin - 07/11 Random level after dialysis
--- NOTE | 2022-07-11 14:17 | PN.RENAL_ITS ---
Subjective Subjective no new events. Bicarbonate is better. He remains on low dose of norepinephrine 2-4 ?g. Minimal FiO2. Still has moderate amount of edema. Objective Data Objective Data Vital Signs: Vital Signs Temp Pulse Resp BP Pulse Ox O2 Del Method FiO2 99.6 F H 78 21 H 100/51 L 94 Mechanical Ventilator 60 07/11/22 13:00 07/11/22 14:03 07/11/22 14:03 07/11/22 13:00 07/11/22 14:03 07/11/22 13:00 07/11/22 13:00 Oxygen Delivery Method Mechanical Ventilator Weight: 98.7 kg Body Mass Index (BMI) 32.1 Intake & Output: Intake and Output for Last 24 Hours 07/09/22 07/10/22 07/11/22 23:59 23:59 23:59 Intake Total 2792.00 / 2810.10 2758.78 / 3271.47 1048.31 / 1048.31 Output Total 40 / 40 Balance 2782.00 / 2800.10 2718.78 / 3231.47 1048.31 / 1048.31 Medical Nutrition Assessment Dietitian: Malnutrition Criteria Met Start: 07/02/22 1 3:54 Freq: Status: Active Protocol: Document 07/07/22 10:09 RMA (Rec: 07/07/22 10:09 RMA [id number]) Nutrition Malnutrition Evidence of Malnutrition Exists Yes Malnutrition (severe): Acute Illness/Injury Evidenced By Suboptimal Energy Intake ( Severe),Weight Loss (Severe) Intake Problem Inadequate Oral Intake Etiology related to altered mental status, resp. failure Signs/Symptoms as evidenced by NPO status; poor PO intake at meals prior to intubation Status Active Problem Clinical Problem Acute Disease or Injury Related Malnutrition Etiology severe, acute malnutrition related to inadequate oral intake d/t acute illness Signs/Symptoms as evidenced by unintentional wt loss of 4.564kg/5% wt loss < 2 weeks; estimated PO intake meeting < 50 % of estimated energy needs > 5 days Status Active Problem Recommendation Dietitian Recommendations/Changes NPO while intubated. Continue TF via OG tube of Nepro at goal rate 50ml/hr with 150ml water flush Q 4 hours to provide 2124 calories , 97 g protein, and 1772mL fluid/day. Lab / Micro Data Result Diagrams: 07/11/22 03:45 07/11/22 03:45 Labs: Laboratory Results - last 24 hr 07/10/22 05:15: Diff Path Review Reviewed 07/10/22 17:50: POC Glucose 156 H 07/10/22 23:28: POC Glucose 205 H 07/11/22 03:45: WBC 9.1, RBC 2.74 L, Hgb 8.2 L, Hct 25.2 L, MCV 92.0, MCH 29.9, MCHC 32.5, RDW Std Deviation 50.4 H, RDW Coeff of Kenyatta 14.9 H, Plt Count 138 L, MPV 11.1, Neut % (Auto) Not Reportable, Absolute Neuts (auto) 8.5 H, Absolute Lymphs (auto) 0.36 L, Total Counted 100, Neutrophils % (Manual) 87 H, Band Neutrophils % 3, Lymphocytes % (Manual) 4 L, Monocytes % (Manual) 3, Myelocytes % 3 H, Diff Path Review Reviewed, Platelet Estimate ADEQUATE, RBC Morphology NORM C+C 07/11/22 03:45: Sodium 136, Potassium 3.8, Chloride 102, Carbon Dioxide 19.0 L, Anion Gap 15, BUN 58 H, Creatinine 6.01 H, Estim Creat Clear Calc 11.27, Est GFR (MDRD) Af Amer 12 L, Est GFR (MDRD) Non-Af 10 L, BUN/Creatinine Ratio 9.7 L, Glucose 204 H, Calcium 9.0, Total Bilirubin 0.60, AST 49 H, ALT 36, Alkaline Phosphatase 345 H, Total Protein 5.2 L, Albumin 1.0 L, Globulin 4.2, Albumin/Globulin Ratio 0.2 L 07/11/22 10:32: POC Glucose 76 Micro: Microbiology 07/10/22 07:05 Sputum, Induced/Lukens Gram Stain - Final 07/10/22 07:05 Sputum, Induced/Lukens Respiratory Culture - Preliminary Appears to be normal respiratory alecia. Further studies to follow. 07/03/22 12:48 Blood Culture (Wb) - Left Hand Blood Culture - Final No growth in 5 days. 07/03/22 13:00 Blood Culture (Wb) - Left Wrist Blood Culture - Final No growth in 5 days. 07/03/22 12:20 Sputum, Expectorated/Coughed Gram Stain - Final 07/03/22 12:20 Sputum, Expectorated/Coughed Respiratory Culture - Final Mixed normal respiratory alecia. No Streptococcus pneumoniae, beta-hemolytic Streptococcus or Staphylococcus aureus isolated. 07/04/22 10:25 Stool Stool Occult Blood (GODFREY) - Final 07/01/22 08:25 Urine Catheter - Yarbrough Urine Culture - Final Culture exhibits no growth. 06/28/22 19:35 Nasal Secretion SARS-CoV-2 & FLU Antigen (Rapid) - Final SARS-CoV-2 (COVID 19) Rhythm Strip Rhythm Strip: Sinus Rhythm Rate: 74 Physical Exam Narrative sedated no obvious distress no pallor no icterus no JVD s1s2 no murmurs lungs clear abdomen soft no organomegaly no edema no cyanosis Const average body habitus General Appearance: well developed and patient mechanically ventilated HEENT normocephalic Neck no lymphadenopathy Resp clear to auscultation bilaterally Resp Narrative: Scattered rhonchi Auscultation: rhonchi Cardio regular rate Cardio Narrative: Tachycardic GI non-distended Auscultation: normoactive bowel sounds and hypoactive bowel sounds Extremity Extremity Narrative: Mottling of both lower extremities, minimal to no edema General Extremity: edema bilateral Skin Skin Narrative: Acrocyanosis, some petechiae Neuro Sensorium / Orientation: sedated on vent Assessment & Plan Assessment/Plan (1) Acute kidney injury: PLAN: Baseline creatinine was 1.1 as of December 2021. Sustained YESI, presumably ATN. Initiated on renal replacement therapy. In septic shock. Was initially on CRRT but had repeated clotting. Transitioned to hemodialysis. dialysis today. Blood pressure is borderline, requiring pressors for blood pressure support. Tolerating dialysis okay with pressors. Status post tunneled dialysis catheter placement. Thrombocytopenia. Evaluated by hematology. improved DKA. Resolved. Acidosis. improved compared to yesterday Discussed with ICU attending
[2022-07-11 15:11] LABS: Bedside Glucose 162 mg/dL (74-106)
[2022-07-11] MEDS: Heparin 10,000 UNITS/10 ML Vial 10000 UNITS IV (17:57)
[2022-07-11 18:56] LABS: Bedside Glucose 154 mg/dL (74-106)
--- NOTE | 2022-07-11 19:20 | PCM.RX.CS ---
Consult Pharmacy has been consulted to manage selected antiobiotic: Vancomycin Type of Consult: Follow-up Prior Doses of Antibiotics Received/Current Regimen: received vanc 2000mg IV x1 last night at 18:11 Labs: Sodium 136 mmol/L (136-145) 07/11/22 03:45 Potassium 3.8 mmol/L (3.5-5.1) 07/11/22 03:45 Chloride 102 mmol/L (98-107) 07/11/22 03:45 Carbon Dioxide 19.0 mmol/L (21.0-32.0) L 07/11/22 03:45 Anion Gap 15 (5-15) 07/11/22 03:45 BUN 58 mg/dL (7-18) H 07/11/22 03:45 Creatinine 6.01 mg/dL (0.70-1.30) H 07/11/22 03:45 Est GFR (MDRD) Af Amer 12 mL/min (>60) L 07/11/22 03:45 Est GFR (MDRD) Non-Af 10 mL/min (>60) L 07/11/22 03:45 BUN/Creatinine Ratio 9.7 RATIO (10-20) L 07/11/22 03:45 Glucose 204 mg/dL (74-106) H 07/11/22 03:45 Vancomycin Trough 18.8 ug/mL (5.0-15.0) H 07/05/22 14:00 Random Vancomycin 24.0 ug/mL (0.0-15.0) H 07/11/22 18:07 Microbiology: Microbiology 07/10/22 07:05 Sputum, Induced/Lukens Gram Stain - Final 07/10/22 07:05 Sputum, Induced/Lukens Respiratory Culture - Preliminary Appears to be normal respiratory alecia. Further studies to follow. 07/03/22 12:48 Blood Culture (Wb) - Left Hand Blood Culture - Final No growth in 5 days. 07/03/22 13:00 Blood Culture (Wb) - Left Wrist Blood Culture - Final No growth in 5 days. 07/03/22 12:20 Sputum, Expectorated/Coughed Gram Stain - Final 07/03/22 12:20 Sputum, Expectorated/Coughed Respiratory Culture - Final Mixed normal respiratory alecia. No Streptococcus pneumoniae, beta-hemolytic Streptococcus or Staphylococcus aureus isolated. 07/04/22 10:25 Stool Stool Occult Blood (GODFREY) - Final 07/01/22 08:25 Urine Catheter - Yarbrough Urine Culture - Final Culture exhibits no growth. 06/28/22 19:35 Nasal Secretion SARS-CoV-2 & FLU Antigen (Rapid) - Final SARS-CoV-2 (COVID 19) Weight used for dosin.7 kg Estimated Creatinine Clearance: on HD Goal Trough: 15-20 mcg/mL Pharmacy Plan for Drug Dosing: The vanc random level drawn post dialysis at 18:07 tonight (aprox 24 hours after the dose last night) was 24.0. This is above goal range so will not need a dose tonight. It is unclear when the next dialysis session will be but if it is tomorrow, the vanc level would not go much lower by tomorrow morning than it is at present so will not enter a random level for tomorrow and thus, a dose will not be needed tomorrow. Will need to clarify when dialysis will be after tomorrow so that we can dose off random levels. Pharmacy Service will continue to monitor and adjust dosing as required.
[2022-07-11] MEDS: Propofol 10MG/Ml 1,000 MG/100 ML Bottle 5.6 MG CONT INF (20:23)
--- NOTE | 2022-07-11 23:05 | RAD_ITS ---
INDICATION: line placement -- in pacu EXAMINATION/TECHNIQUE: X-RAY - XR Chest 1 View COMPARISON: 07/03/2022 FINDINGS: LINES/DEVICES: Endotracheal tube terminates 5 cm above the ivone. Enteric tube side-port terminates in the distal esophagus, should be advanced 5 cm. Right IJ dual-lumen central venous catheter terminates at the cavoatrial junction. Left IJ central venous catheter terminates in the right atrium. LUNGS: Left greater than right hazy and patchy opacities. No pneumothorax. MEDIASTINUM AND CARDIOVASCULAR STRUCTURES: Cardiomediastinal contours, similar compared to the prior. BONES AND SOFT TISSUES: Unremarkable. RAD/CXR for Line Placement IMPRESSION: 1. Right IJ dual-lumen central venous catheter terminates at the cavoatrial junction. 2. Enteric tube side port terminates in the distal esophagus, should be advanced 5 cm. 3. Hazy and patchy airspace disease, left greater than right, concerning for multifocal infection. Electronically Signed: Helder Boss MD at 23:23 EST ,
[2022-07-11] MEDS: CHLORHEXIDINE GLUC 2% CLOTH 1 EACH TOWELETTE TOPICAL (23:14)
[2022-07-11 23:35] LABS: Bedside Glucose 241 mg/dL (74-106)
[2022-07-12] VITALS (61 sets, daily range): BP systolic 81–131; BP diastolic 44–65; PULSE 60–99; RESP 14–32; TEMP 36.7–38.9; O2SAT 89–100; BMI 31.8
[2022-07-12 04:01] LABS: Basophil# 0.04 X10^3/uL; Eosinophil# 0.07 X10^3/uL; Hematocrit 25.8 % (40-54); Hemoglobin 8.3 g/dL (13.0-16.5); Mean Corp Hgb Conc 32.2 g/dL (32-36); Mean Corpuscular Hgb 29.4 pg (27.0-32.0); Mean Corpuscular Volume 91.5 fL (80-94); Mean Platelet Vol. 10.9 fl (6.2-12.0); Monocyte# 0.42 X10^3/uL; NRBC Flagged by Analyzer 0.3 % (0-5); POSITIVE MORPHOLOGY YES; Platelet Count 211 K/mm3 (150-450); RBC Distribution Width CV 14.8 % (11.6-14.6); RBC Distribution Width SD 49.5 fl (35.1-43.9); Red Blood Count 2.82 M/mm3 (4.6-6.2); White Blood Count 11.5 K/mm3 (4.4-11.0)
[2022-07-12 04:03] LABS: Differential Indicated SCAN CRITERIA MET
[2022-07-12 04:18] LABS: ALB/GLOB Ratio 0.2 RATIO (0.9-2.4); AST(SGOT) 41 U/L (15-37); Alanine Aminotransfer ALT/SGPT 28 U/L (16-61); Alkaline Phosphatase 328 U/L (45-117); Anion Gap 15 (5-15); BUN 43 mg/dL (7-18); BUN/Creat Ratio 9.1 RATIO (10-20); Calcium,Total 8.8 mg/dL (8.5-10.1); Chloride 97 mmol/L (98-107); Creatinine, Serum 4.73 mg/dL (0.70-1.30); EST Glomerular Filtration Rate 13 mL/min (>60); Est Glom Filt Rate - Afr Amer 16 mL/min (>60); Estimated Creatinine Clearance 14.32 ml/min; Globulin 4.7 g/dL (2.2-4.2); Glucose 312 mg/dL (74-106); Potassium 4.2 mmol/L (3.5-5.1); Protein, Total 5.7 g/dL (6.4-8.2); Sodium Level 135 mmol/L (136-145)
[2022-07-12 04:32] LABS: Scan Smear per Review Criteria MANUAL DIFF
[2022-07-12 04:35] LABS: Eosinophil 1 % (0-5); Lymphocyte 1 % (19-41); Metamyelocyte 2 % (0-1); Monocyte 3 % (0-10); Neutrophil-Band 5 % (0-5); Neutrophil-Segmented 88 % (47-70); Total Cells Counted 100 (MANUAL DIFF)
[2022-07-12 04:36] LABS: Absolute Neutrophil Count 10.9 X10^3/uL (2.0-7.7); Lymphocyte # 0.11 X10^3/ul (0.83-4.51); Neutrophil # 10.88 X10^3/uL (2.7-7.7)
[2022-07-12 04:37] LABS: Absolute Lymphocyte Count 0.11 X10^3/uL (0.83-4.51); Platelet Estimate ADEQUATE (ADEQ); Polychromasia RARE; Red Cell Morphology N CYTIC NORMAL (NORM C&C)
[2022-07-12] MEDS: Insulin Lispro 100 UNIT/ML INSULN.PEN SC ×4 (05:31→23:41)
--- NOTE | 2022-07-12 07:16 | PCM.PN.INT ---
Assessment & Plan Assessment/Plan (1) Diabetic keto-acidosis: (2) Hypernatremia: (3) Hyperchloremic metabolic acidosis: PLAN: Plan RECOMMENDATIONS: 1. Hemodialysis per nephrology. Would benefit from volume removal if possible 2. Transition from Zosyn to meropenem. 3. Continue to minimize sedating medications. 4. Continue vasopressor support to maintain a mean arterial pressure at or above 65 mmHg. 5. Initiate vest therapy for pulmonary toileting 6. Okay to resume tube feeds 7. Continue appropriate ICU prophylaxis. IMPRESSIONS: 1. Metabolic encephalopathy Stable. The patient has developed worsening encephalopathy, likely secondary to profound underlying metabolic derangements, including hypernatremia and worsening uremia in the setting of YESI. Unfortunately, the patient had to be intubated on the morning of July 03 due to concerns for airway protection. Plan to continue dialysis support to address his underlying metabolic derangements and renal insufficiency. Continue to limit sedating medications. Patient does open his eyes to voice and follows simple commands. 2. Acute respiratory failure The patient was intubated over concerns for airway protection and possible aspiration. The etiology for his encephalopathy appears to be metabolic in nature. Patient was some increased FiO2 requirements over the last 24 hours. Chest x-ray is showing increased left-sided infiltrates, but culture were consistent with normal alecia. We will transition to meropenem given these findings occurred on Zosyn therapy. Increase pulmonary toileting. Continue with spontaneous breathing and awakening trials. 3. Septic shock Clinical concern for underlying pulmonary source of infection. The patient has significant underlying metabolic derangements related to his renal insufficiency. He is significantly overall net positive from a volume perspective for the hospitalization. Plan to continue current supportive measures including broad-spectrum antimicrobials and Levophed to maintain a mean arterial pressure at or above 65 mmHg. Given increased secretions, Zosyn was transitioned to meropenem. Vancomycin will be continued. Patient remains culture negative with high fevers. Will obtain a C. difficile, but this would not explain chest x-ray findings. 4. YESI on CKD Likely secondary to ischemic ATN. The patient has interval worsening in his renal function and metabolic derangements. Recommend ongoing dialysis support with volume optimization per nephrology recommendations. Tunneled hemodialysis line placed 07/11/2022 5. Thrombocytopenia Resolved. Most likely related to underlying infectious etiology. Previous labs were not consistent with DIC. Continue to monitor platelet count for now. No indication for transfusion of blood products. 6. COVID-19/hyperlipidemia/hypertension/advanced age Complicates care, management, recovery and prognosis. Continue supportive measures as noted above. Continue tube feeds as tolerated. TIME: 34 minutes of critical care time, inclusive of procedures, was spent addressing the patient's metabolic encephalopathy, acute respiratory failure, septic shock, YESI on CKD, review of all data and collaboration with the care team. Subjective Subjective Patient did okay overnight. Patient did have a tunneled hemodialysis line placed yesterday with hemodialysis and 2 L removed. Patient continues to have fevers and loose bowel movements. Patient was noted to have thick yellow to green secretions by respiratory and nursing. Patient was able to tolerate a 1 hour spontaneous breathing trial this morning, but was on 50% FiO2, so was not extubated. Objective Data Objective Data Vital Signs: Vital Signs Temp Pulse Resp BP Pulse Ox O2 Del Method FiO2 37.0 C 81 27 H 105/54 L 96 Mechanical Ventilator 45 07/12/22 05:00 07/12/22 06:55 07/12/22 06:55 07/12/22 06:30 07/12/22 06:55 07/12/22 06:55 07/12/22 06:55 Oxygen Delivery Method Mechanical Ventilator Weight: 97.8 kg Body Mass Index (BMI) 31.8 Intake & Output: Intake and Output for Last 24 Hours 07/10/22 07/11/22 07/12/22 23:59 23:59 23:59 Intake Total 2758.78 / 3271.47 1318.09 / 1318.09 Output Total 40 / 40 Balance 2718.78 / 3231.47 1318.09 / 1318.09 Medical Nutrition Assessment Dietitian: Malnutrition Criteria Met Start: 07/02/22 13:54 Freq: Status: Active Protocol: Document 07/07/22 10:09 RMA (Rec: 07/07/22 10:09 RMA [id number]) Nutrition Malnutrition Evidence of Malnutrition Exists Yes Malnutrition (severe): Acute Illness/Injury Evidenced By Suboptimal Energy Intake ( Severe),Weight Loss (Severe) Intake Problem Inadequate Oral Intake Etiology related to altered mental status, resp. failure Signs/Symptoms as evidenced by NPO status; poor PO intake at meals prior to intubation Status Active Problem Clinical Problem Acute Disease or Injury Related Malnutrition Etiology severe, acute malnutrition related to inadequate oral intake d/t acute illness Signs/Symptoms as evidenced by unintentional wt loss of 4.564kg/5% wt loss < 2 weeks; estimated PO intake meeting < 50 % of estimated energy needs > 5 days Status Active Problem Recommendation Dietitian Recommendations/Changes NPO while intubated. Continue TF via OG tube of Nepro at goal rate 50ml/hr with 150ml water flush Q 4 hours to provide 2124 calories , 97 g protein, and 1772mL fluid/day. Lab / Micro Data Attestation: I reviewed the patient's lab results. Result Diagrams: 07/12/22 03:05 07/12/22 03:05 Labs: Laboratory Results - last 24 hr 07/11/22 03:45: Diff Path Review Reviewed 07/11/22 05:30: POC Glucose 162 H 07/11/22 10:32: POC Glucose 76 07/11/22 18:07: Random Vancomycin 24.0 H 07/11/22 18:35: POC Glucose 154 H 07/11/22 23:13: POC Glucose 241 H 07/12/22 03:05: WBC 11.5 H, RBC 2.82 L, Hgb 8.3 L, Hct 25.8 L, MCV 91.5, MCH 29.4, MCHC 32.2, RDW Std Deviation 49.5 H, RDW Coeff of Kenyatta 14.8 H, Plt Count 211, MPV 10.9, Immature Gran % (Auto) FARM LOAN REPRESENTATIVE, Neut % (Auto) FARM LOAN REPRESENTATIVE, Lymph % (Auto) FARM LOAN REPRESENTATIVE, Bremer % (Auto) FARM LOAN REPRESENTATIVE, Eos % (Auto) FARM LOAN REPRESENTATIVE, Baso % (Auto) FARM LOAN REPRESENTATIVE, Absolute Neuts (auto) 10.9 H, Absolute Lymphs (auto) 0.11 L, Total Counted 100, Neutrophils % (Manual) 88 H, Band Neutrophils % 5, Lymphocytes % (Manual) 1 L, Monocytes % (Manual) 3, Eosinophils % (Manual) 1, Metamyelocytes % 2 H, Nucleated RBC % 0.3, Diff Path Review May foll, Platelet Estimate ADEQUATE, RBC Morphology N CYTIC, Polychromasia RARE 07/12/22 03:05: Sodium 135 L, Potassium 4.2, Chloride 97 L, Carbon Dioxide 23.0, Anion Gap 15, BUN 43 H, Creatinine 4.73 H, Estim Creat Clear Calc 14.32, Est GFR (MDRD) Af Amer 16 L, Est GFR (MDRD) Non-Af 13 L, BUN/Creatinine Ratio 9.1 L, Glucose 312 H, Calcium 8.8, Total Bilirubin 0.80, AST 41 H, ALT 28, Alkaline Phosphatase 328 H, Total Protein 5.7 L, Albumin 1.0 L, Globulin 4.7 H, Albumin/Globulin Ratio 0.2 L Micro: Microbiology 07/10/22 07:05 Sputum, Induced/Lukens Gram Stain - Final 07/10/22 07:05 Sputum, Induced/Lukens Respiratory Culture - Preliminary Appears to be normal respiratory alecia. Further studies to follow. 07/03/22 12:48 Blood Culture (Wb) - Left Hand Blood Culture - Final No growth in 5 days. 07/03/22 13:00 Blood Culture (Wb) - Left Wrist Blood Culture - Final No growth in 5 days. 07/03/22 12:20 Sputum, Expectorated/Coughed Gram Stain - Final 07/03/22 12:20 Sputum, Expectorated/Coughed Respiratory Culture - Final Mixed normal respiratory alecia. No Streptococcus pneumoniae, beta-hemolytic Streptococcus or Staphylococcus aureus isolated. 07/04/22 10:25 Stool Stool Occult Blood (GODFREY) - Final 07/01/22 08:25 Urine Catheter - Yarbrough Urine Culture - Final Culture exhibits no growth. 06/28/22 19:35 Nasal Secretion SARS-CoV-2 & FLU Antigen (Rapid) - Final SARS-CoV-2 (COVID 19) Radiography Diagnostic Testing: Radiology Impression Chest X-Ray 07/11/22 23:05 IMPRESSION: 1. Right IJ dual-lumen central venous catheter terminates at the cavoatrial junction. 2. Enteric tube side port terminates in the distal esophagus, should be advanced 5 cm. 3. Hazy and patchy airspace disease, left greater than right, concerning for multifocal infection. Electronically Signed: Helder Boss MD at 23:23 EST , Rhythm Strip Rhythm Strip: Sinus Rhythm Rate: 73 Physical Exam Const Constitutional Narrative: RASS -1 General Appearance: well developed and patient mechanically ventilated HEENT normocephalic and head/scalp atraumatic Eyes PERRL and EOMs intact bilaterally Eyes Narrative: Left ptosis Neck no lymphadenopathy and supple General: trachea midline and CVC in place Chest inspection of chest normal Resp clear to auscultation bilaterally Auscultation: rhonchi left upper and left lower and diminished lung sounds; Negative for rales or wheezes Cardio regular rate, regular rhythm, S1 normal heart sound, S2 normal heart sound, no murmurs, no rub and no gallops GI normal to inspection, nondistended, normoactive bowel sounds Extremity no clubbing, cyanosis or edema General Extremity: Negative for edema Skin no rashes or lesions noted Neuro moves all extremities and no focal motor deficits Psych Mood & Affect: flat affect Charges/Coding Procedures Hospitalists Procedures: [id number] Critial Care 1st Hr
--- NOTE | 2022-07-12 08:31 | PCM.PN.HOSP ---
Subjective Subjective Intubated and now sedated, antibiotics were changed to meropenem and bank given slight increase in his white count Objective Data Objective Data Vital Signs: Vital Signs Temp Pulse Resp BP Pulse Ox O2 Del Method FiO2 99.0 F 76 18 101/51 L 100 Mechanical Ventilator 45 07/12/22 08:00 07/12/22 08:00 07/12/22 08:00 07/12/22 08:00 07/12/22 08:00 07/12/22 08:00 07/12/22 08:00 Oxygen Delivery Method Mechanical Ventilator Weight: 215 lb 9.793 oz Body Mass Index (BMI) 31.8 Intake & Output: Intake and Output for Last 24 Hours 07/11/22 07/12/22 07/13/22 03:59 03:59 03:59 Intake Total 2954.89 / 3082.09 1524.71 / 2570.99 1211.29 / 1211.29 Output Total 40 / 40 Balance 2914.89 / 3042.09 1524.71 / 2570.99 1211.29 / 1211.29 Medical Nutrition Assessment Dietitian: Malnutrition Criteria Met Start: 07/02/22 13:54 Freq: Status: Active Protocol: Document 07/07/22 10:09 RMA (Rec: 07/07/22 10:09 RMA [id number]) Nutrition Malnutrition Evidence of Malnutrition Exists Yes Malnutrition (severe): Acute Illness/Injury Evidenced By Suboptimal Energy Intake ( Severe),Weight Loss (Severe) Intake Problem Inadequate Oral Intake Etiology related to altered mental status, resp. failure Signs/Symptoms as evidenced by NPO status; poor PO intake at meals prior to intubation Status Active Problem Clinical Problem Acute Disease or Injury Related Malnutrition Etiology severe, acute malnutrition related to inadequate oral intake d/t acute illness Signs/Symptoms as evidenced by unintentional wt loss of 4.564kg/5% wt loss < 2 weeks; estimated PO intake meeting < 50 % of estimated energy needs > 5 days Status Active Problem Recommendation Dietitian Recommendations/Changes NPO while intubated. Continue TF via OG tube of Nepro at goal rate 50ml/hr with 150ml water flush Q 4 hours to provide 2124 calories , 97 g protein, and 1772mL fluid/day. Lab / Micro Data Result Diagrams: 07/12/22 03:05 07/12/22 03:05 Labs: Laboratory Results - last 24 hr 07/11/22 03:45: Diff Path Review Reviewed 07/11/22 05:30: POC Glucose 162 H 07/11/22 10:32: POC Glucose 76 07/11/22 18:07: Random Vancomycin 24.0 H 07/11/22 18:35: POC Glucose 154 H 07/11/22 23:13: POC Glucose 241 H 07/12/22 03:05: WBC 11.5 H, RBC 2.82 L, Hgb 8.3 L, Hct 25.8 L, MCV 91.5, MCH 29.4, MCHC 32.2, RDW Std Deviation 49.5 H, RDW Coeff of Kenyatta 14.8 H, Plt Count 211, MPV 10.9, Immature Gran % (Auto) [employer], Neut % (Auto) [employer], Lymph % (Auto) [employer], [place] % (Auto) [employer], Eos % (Auto) [employer], Baso % (Auto) [employer], Absolute Neuts (auto) 10.9 H, Absolute Lymphs (auto) 0.11 L, Total Counted 100, Neutrophils % (Manual) 88 H, Band Neutrophils % 5, Lymphocytes % (Manual) 1 L, Monocytes % (Manual) 3, Eosinophils % (Manual) 1, Metamyelocytes % 2 H, Nucleated RBC % 0.3, Diff Path Review May , Platelet Estimate ADEQUATE, RBC Morphology N CYTIC, Polychromasia RARE 07/12/22 03:05: Sodium 135 L, Potassium 4.2, Chloride 97 L, Carbon Dioxide 23.0, Anion Gap 15, BUN 43 H, Creatinine 4.73 H, Estim Creat Clear Calc 14.32, Est GFR (MDRD) Af Amer 16 L, Est GFR (MDRD) Non-Af 13 L, BUN/Creatinine Ratio 9.1 L, Glucose 312 H, Calcium 8.8, Total Bilirubin 0.80, AST 41 H, ALT 28, Alkaline Phosphatase 328 H, Total Protein 5.7 L, Albumin 1.0 L, Globulin 4.7 H, Albumin/Globulin Ratio 0.2 L Micro: Microbiology 07/10/22 07:05 Sputum, Induced/Lukens Gram Stain - Final 07/10/22 07:05 Sputum, Induced/Lukens Respiratory Culture - Final Mixed normal respiratory alecia. No Streptococcus pneumoniae, beta-hemolytic Streptococcus or Staphylococcus aureus isolated. 07/03/22 12:48 Blood Culture (Wb) - Left Hand Blood Culture - Final No growth in 5 days. 07/03/22 13:00 Blood Culture (Wb) - Left Wrist Blood Culture - Final No growth in 5 days. 07/03/22 12:20 Sputum, Expectorated/Coughed Gram Stain - Final 07/03/22 12:20 Sputum, Expectorated/Coughed Respiratory Culture - Final Mixed normal respiratory alecia. No Streptococcus pneumoniae, beta-hemolytic Streptococcus or Staphylococcus aureus isolated. 07/04/22 10:25 Stool Stool Occult Blood (GODFREY) - Final 07/01/22 08:25 Urine Catheter - [place]rough Urine Culture - Final Culture exhibits no growth. 06/28/22 19:35 Nasal Secretion SARS-CoV-2 & FLU Antigen (Rapid) - Final SARS-CoV-2 (COVID 19) Radiography Diagnostic Testing: Radiology Impression Chest X-Ray 07/11/22 23:05 IMPRESSION: 1. Right IJ dual-lumen central venous catheter terminates at the cavoatrial junction. 2. Enteric tube side port terminates in the distal esophagus, should be advanced 5 cm. 3. Hazy and patchy airspace disease, left greater than right, concerning for multifocal infection. Electronically Signed: Helder Boss MD at 23:23 EST , Rhythm Strip Rhythm Strip: Sinus Rhythm Rate: 73 Physical Exam Const General Appearance: intubated and patient mechanically ventilated HEENT normocephalic Eyes PERRL and conjunctivae normal Neck supple and no JVD Resp normal respiratory effort, no retractions and no use of accessory muscles Resp Narrative: Diminished Auscultation: wheezes; Negative for crackles, rales or rhonchi Cardio regular rate, regular rhythm, S1 normal heart sound, S2 normal heart sound and no murmurs GI soft to palpation and non-distended; Negative for hepatosplenomegaly Extremity no clubbing, cyanosis or edema Skin no rashes or lesions noted Neuro Sensorium / Orientation: sedated on vent Psych Appearance: intubated Assessment & Plan Assessment/Plan (1) Shock: (2) Acute kidney injury: (3) Acute respiratory failure: (4) Encephalopathy: (5) Diabetic keto-acidosis: (6) COVID: PLAN: Plan 1.? DKA in the setting of type 2 diabetes with a high anion gap metabolic acidosis and YESI with metabolic encephalopathy/hypernatremia and hyperchloremia with hyperchloremic metabolic acidosis with incomplete respiratory compensation with renal tubular acidosis unknown type/acute respiratory failure ? We will plan for tunneled dialysis catheter and continue with dialysis ? Appreciate director pharmaceutical and nephrology's assistance ? His chest x-ray looks worse on the left and he is producing thick brown sputum his antibiotics were changed from Zosyn to meropenem ? Continue with long-acting insulin as well as sliding scale insulin we will make adjustments as necessary ? His A1c is 8.2 ? He was intubated on 07/03/2022 we will attempt a spontaneous breathing trial after his tunneled dialysis catheter today and see if we can extubate 2. Septic shock/thrombocytopenia ? Continue with norepinephrine, he has been able to be weaned down to about 2, last night he was up to about 10 after dialysis ? Given findings on chest x-ray likely source is pneumonia possibly ventilator associated, will change from Zosyn to meropenem ? His thrombocytopenia is likely reactive and has resolved 3.? COVID-19?noncontributory 4.? HTN/HLD ? We will hold his ramipril given his acute renal failure ? Can wait to restart his pravastatin DVT: Heparin Charges/Coding Visit Charges Inpatient E&M: 22761 Subs Hosp L2
--- NOTE | 2022-07-12 10:35 | PCM.PN.SRG ---
Subjective Subjective Patient is a 71 y/o M I am following s/p right chest tunneled dialysis catheter placement with Dr. Wen on 07/11/22. Patient tolerated the procedure well. He continues to be intubated and sedated. Objective Data Objective Data Vital Signs: Vital Signs Temp Pulse Resp BP Pulse Ox O2 Del Method FiO2 99.0 F 79 21 H 105/49 L 93 Mechanical Ventilator 35 07/12/22 08:00 07/12/22 10:00 07/12/22 10:00 07/12/22 10:00 07/12/22 10:00 07/12/22 10:00 07/12/22 10:00 Oxygen Delivery Method Mechanical Ventilator Weight: 215 lb 9.793 oz Body Mass Index (BMI) 31.8 Intake & Output: Intake and Output for Last 24 Hours 07/10/22 07/11/22 07/12/22 23:59 23:59 23:59 Intake Total 2758.78 / 3271.47 1512.89 / 1512.89 Output Total 40 / 40 Balance 2718.78 / 3231.47 1512.89 / 1512.89 Medical Nutrition Assessment Dietitian: Malnutrition Criteria Met Start: 07/02/22 13:54 Freq: Status: Active Protocol: Document 07/07/22 10:09 RMA (Rec: 07/07/22 10:09 RMA [id number]) Nutrition Malnutrition Evidence of Malnutrition Exists Yes Malnutrition (severe): Acute Illness/Injury Evidenced By Suboptimal Energy Intake ( Severe),Weight Loss (Severe) Intake Problem Inadequate Oral Intake Etiology related to altered mental status, resp. failure Signs/Symptoms as evidenced by NPO status; poor PO intake at meals prior to intubation Status Active Problem Clinical Problem Acute Disease or Injury Related Malnutrition Etiology severe, acute malnutrition related to inadequate oral intake d/t acute illness Signs/Symptoms as evidenced by unintentional wt loss of 4.564kg/5% wt loss < 2 weeks; estimated PO intake meeting < 50 % of estimated energy needs > 5 days Status Active Problem Recommendation Dietitian Recommendations/Changes NPO while intubated. Continue TF via OG tube of Nepro at goal rate 50ml/hr with 150ml water flush Q 4 hours to provide 2124 calories , 97 g protein, and 1772mL fluid/day. Lab / Micro Data Result Diagrams: 07/12/22 03:05 07/12/22 03:05 Labs: Laboratory Results - last 24 hr 07/11/22 03:45: Diff Path Review Reviewed 07/11/22 05:30: POC Glucose 162 H 07/11/22 10:32: POC Glucose 76 07/11/22 18:07: Random Vancomycin 24.0 H 07/11/22 18:35: POC Glucose 154 H 07/11/22 23:13: POC Glucose 241 H 07/12/22 03:05: WBC 11.5 H, RBC 2.82 L, Hgb 8.3 L, Hct 25.8 L, MCV 91.5, MCH 29.4, MCHC 32.2, RDW Std Deviation 49.5 H, RDW Coeff of Kenyatta 14.8 H, Plt Count 211, MPV 10.9, Immature Gran % (Auto) [employer], Neut % (Auto) [employer], Lymph % (Auto) [employer], [place] % (Auto) [employer], Eos % (Auto) [employer], Baso % (Auto) [employer], Absolute Neuts (auto) 10.9 H, Absolute Lymphs (auto) 0.11 L, Total Counted 100, Neutrophils % (Manual) 88 H, Band Neutrophils % 5, Lymphocytes % (Manual) 1 L, Monocytes % (Manual) 3, Eosinophils % (Manual) 1, Metamyelocytes % 2 H, Nucleated RBC % 0.3, Diff Path Review May foll, Platelet Estimate ADEQUATE, RBC Morphology N CYTIC, Polychromasia RARE 07/12/22 03:05: Sodium 135 L, Potassium 4.2, Chloride 97 L, Carbon Dioxide 23.0, Anion Gap 15, BUN 43 H, Creatinine 4.73 H, Estim Creat Clear Calc 14.32, Est GFR (MDRD) Af Amer 16 L, Est GFR (MDRD) Non-Af 13 L, BUN/Creatinine Ratio 9.1 L, Glucose 312 H, Calcium 8.8, Total Bilirubin 0.80, AST 41 H, ALT 28, Alkaline Phosphatase 328 H, Total Protein 5.7 L, Albumin 1.0 L, Globulin 4.7 H, Albumin/Globulin Ratio 0.2 L Micro: Microbiology 07/10/22 07:05 Sputum, Induced/Lukens Gram Stain - Final 07/10/22 07:05 Sputum, Induced/Lukens Respiratory Culture - Final Mixed normal respiratory alecia. No Streptococcus pneumoniae, beta-hemolytic Streptococcus or Staphylococcus aureus isolated. 07/03/22 12:48 Blood Culture (Wb) - Left Hand Blood Culture - Final No growth in 5 days. 07/03/22 13:00 Blood Culture (Wb) - Left Wrist Blood Culture - Final No growth in 5 days. 07/03/22 12:20 Sputum, Expectorated/Coughed Gram Stain - Final 07/03/22 12:20 Sputum, Expectorated/Coughed Respiratory Culture - Final Mixed normal respiratory alecia. No Streptococcus pneumoniae, beta-hemolytic Streptococcus or Staphylococcus aureus isolated. 07/04/22 10:25 Stool Stool Occult Blood (GODFREY) - Final 07/01/22 08:25 Urine Catheter - [place] Urine Culture - Final Culture exhibits no growth. 06/28/22 19:35 Nasal Secretion SARS-CoV-2 & FLU Antigen (Rapid) - Final SARS-CoV-2 (COVID 19) Radiography Diagnostic Testing: Radiology Impression Chest X-Ray 07/11/22 23:05 IMPRESSION: 1. Right IJ dual-lumen central venous catheter terminates at the cavoatrial junction. 2. Enteric tube side port terminates in the distal esophagus, should be advanced 5 cm. 3. Hazy and patchy airspace disease, left greater than right, concerning for multifocal infection. Electronically Signed: Helder Boss MD at 23:23 EST , Rhythm Strip Rhythm Strip: Sinus Rhythm Rate: 73 Physical Exam Chest Chest Narrative: Right chest- micropuncture site c/d/i. No active bleeding noted. Right chest catheter in place. No active bleeding. Dressing intact. Assessment & Plan Assessment/Plan (1) Acute kidney injury: PLAN: Right chest catheter intact and healing well Chest catheter is ready for use We will sign off at this time. Please reconsult our service if needed. Charges/Coding Visit Charges Inpatient E&M: 85744 Subs Hosp L1 (post-op)
[2022-07-12] MEDS: Chlorhexidine 15 ML PO ×2 (10:36→21:19)
[2022-07-12] MEDS: Propofol 10MG/Ml 1,000 MG/100 ML Bottle 5.6 MG CONT INF (10:37)
[2022-07-12] MEDS: NEPRO TUBE FEED 1,000 ML 50 ML GT (10:37)
[2022-07-12] MEDS: Insulin Glargine-YFGN 100 UNIT/ML Pen 50 UNIT SC (11:15)
--- NOTE | 2022-07-12 11:15 | PN.RENAL_ITS ---
Subjective Subjective No new events. He is on 50% FiO2. Remains on Levophed at 2 mcg. Spiking fevers. Rule out C. difficile. Has moderate lower extremity edema. Chest x- ray shows multifocal infiltrates, predominantly on the left side. Electrolytes are acceptable. Objective Data Objective Data Vital Signs: Vital Signs Temp Pulse Resp BP Pulse Ox O2 Del Method FiO2 99.0 F 79 28 H 105/49 L 100 Mechanical Ventilator 35 07/12/22 08:00 07/12/22 11:04 07/12/22 11:04 07/12/22 10:00 07/12/22 11:04 07/12/22 10:00 07/12/22 10:00 Oxygen Delivery Method Mechanical Ventilator Weight: 97.8 kg Body Mass Index (BMI) 31.8 Intake & Output: Intake and Output for Last 24 Hours 07/10/22 07/11/22 07/12/22 23:59 23:59 23:59 Intake Total 2758.78 / 3271.47 1707.17 / 1707.17 Output Total 40 / 40 Balance 2718.78 / 3231.47 1707.17 / 1707.17 Medical Nutrition Assessment Dietitian: Malnutrition Criteria Met Start: 07/02/22 13:54 Freq: Status: Active Protocol: Document 07/07/22 10:09 RMA (Rec: 07/07/22 10:09 RMA [id number]) Nutrition Malnutrition Evidence of Malnutrition Exists Yes Malnutrition (severe): Acute Illness/Injury Evidenced By Suboptimal Energy Intake ( Severe),Weight Loss (Severe) Intake Problem Inadequate Oral Intake Etiology related to altered mental status, resp. failure Signs/Symptoms as evidenced by NPO status; poor PO intake at meals prior to intubation Status Active Problem Clinical Problem Acute Disease or Injury Related Malnutrition Etiology severe, acute malnutrition related to inadequate oral intake d/t acute illness Signs/Symptoms as evidenced by unintentional wt loss of 4.564kg/5% wt loss < 2 weeks; estimated PO intake meeting < 50 % of estimated energy needs > 5 days Status Active Problem Recommendation Dietitian Recommendations/Changes NPO while intubated. Continue TF via OG tube of Nepro at goal rate 50ml/hr with 150ml water flush Q 4 hours to provide 2124 calories , 97 g protein, and 1772mL fluid/day. Lab / Micro Data Result Diagrams: 07/12/22 03:05 07/12/22 03:05 Labs: Laboratory Results - last 24 hr 07/11/22 03:45: Diff Path Review Reviewed 07/11/22 05:30: POC Glucose 162 H 07/11/22 18:07: Random Vancomycin 24.0 H 07/11/22 18:35: POC Glucose 154 H 07/11/22 23:13: POC Glucose 241 H 07/12/22 03:05: WBC 11.5 H, RBC 2.82 L, Hgb 8.3 L, Hct 25.8 L, MCV 91.5, MCH 29.4, MCHC 32.2, RDW Std Deviation 49.5 H, RDW Coeff of Kenyatta 14.8 H, Plt Count 211, MPV 10.9, Immature Gran % (Auto) [employer], Neut % (Auto) [employer], Lymph % (Auto) [employer], [place] % (Auto) [employer], Eos % (Auto) [employer], Baso % (Auto) [employer], Absolute Neuts (auto) 10.9 H, Absolute Lymphs (auto) 0.11 L, Total Counted 100, Neutrophils % (Manual) 88 H , Band Neutrophils % 5, Lymphocytes % (Manual) 1 L, Monocytes % (Manual) 3, Eosinophils % (Manual) 1, Metamyelocytes % 2 H, Nucleated RBC % 0.3, Diff Path Review May foll, Platelet Estimate ADEQUATE, RBC Morphology N CYTIC, Polychromasia RARE 07/12/22 03:05: Sodium 135 L, Potassium 4.2, Chloride 97 L, Carbon Dioxide 23.0, Anion Gap 15, BUN 43 H, Creatinine 4.73 H, Estim Creat Clear Calc 14.32, Est GFR (MDRD) Af Amer 16 L, Est GFR (MDRD) Non-Af 13 L, BUN/Creatinine Ratio 9.1 L, Glucose 312 H, Calcium 8.8, Total Bilirubin 0.80, AST 41 H, ALT 28, Alkaline Phosphatase 328 H, Total Protein 5.7 L, Albumin 1.0 L, Globulin 4.7 H, Albumin/Globulin Ratio 0.2 L Micro: Microbiology 07/10/22 07:05 Sputum, Induced/Lukens Gram Stain - Final 07/10/22 07:05 Sputum, Induced/Lukens Respiratory Culture - Final Mixed normal respiratory alecia. No Streptococcus pneumoniae, beta-hemolytic Streptococcus or Staphylococcus aureus isolated. 07/03/22 12:48 Blood Culture (Wb) - Left Hand Blood Culture - Final No growth in 5 days. 07/03/22 13:00 Blood Culture (Wb) - Left Wrist Blood Culture - Final No growth in 5 days. 07/03/22 12:20 Sputum, Expectorated/Coughed Gram Stain - Final 07/03/22 12:20 Sputum, Expectorated/Coughed Respiratory Culture - Final Mixed normal respiratory alecia. No Streptococcus pneumoniae, beta-hemolytic Streptococcus or Staphylococcus aureus isolated. 07/04/22 10:25 Stool Stool Occult Blood (GODFREY) - Final 07/01/22 08:25 Urine Catheter - [place]rough Urine Culture - Final Culture exhibits no growth. 06/28/22 19:35 Nasal Secretion SARS-CoV-2 & FLU Antigen (Rapid) - Final SARS-CoV-2 (COVID 19) Radiography Diagnostic Testing: Radiology Impression Chest X-Ray 07/11/22 23:05 IMPRESSION: 1. Right IJ dual-lumen central venous catheter terminates at the cavoatrial junction. 2. Enteric tube side port terminates in the distal esophagus, should be advanced 5 cm. 3. Hazy and patchy airspace disease, left greater than right, concerning for multifocal infection. Electronically Signed: Helder Boss MD at 23:23 EST , Rhythm Strip Rhythm Strip: Sinus Rhythm Rate: 73 Physical Exam Narrative sedated no obvious distress no pallor no icterus no JVD s1s2 no murmurs lungs clear abdomen soft no organomegaly no edema no cyanosis Const average body habitus General Appearance: well developed and patient mechanically ventilated HEENT normocephalic Neck no lymphadenopathy Resp clear to auscultation bilaterally Resp Narrative: Scattered rhonchi Auscultation: rhonchi Cardio regular rate Cardio Narrative: Tachycardic GI non-distended Auscultation: normoactive bowel sounds and hypoactive bowel sounds Extremity Extremity Narrative: Mottling of both lower extremities, minimal to no edema General Extremity: edema bilateral Skin Skin Narrative: Acrocyanosis, some petechiae Neuro Sensorium / Orientation: sedated on vent Assessment & Plan Assessment/Plan (1) Acute kidney injury: PLAN: Baseline creatinine was 1.1 as of December 2021. Sustained YESI, presumably ATN. Initiated on renal replacement therapy. In septic shock. Was initially on CRRT but had repeated clotting. Transitioned to hemodialysis. Last dialysis 07/11/2022. Discussed with ICU attending. Increasing FiO2 requirements. Multifocal pneumonia/edema. Antibiotics have been broadened. Will attempt fluid removal today with ultrafiltration. Thrombocytopenia. Evaluated by hematology. improved DKA. Resolved. Acidosis. improved
[2022-07-12 12:06] LABS: Bedside Glucose 330 mg/dL (74-106)
[2022-07-12] MEDS: Acetaminophen 650 MG/20 ML UDC GT (13:14)
[2022-07-12 15:36] LABS: Bedside Glucose 306 mg/dL (74-106)
[2022-07-12] MEDS: Propofol 10MG/Ml 1,000 MG/100 ML Bottle 11.1 MG CONT INF (16:08)
[2022-07-12] MEDS: Menthol/Lanolin/Calamine/Znox 113 GM Tube 1 APPLIC TOPICAL ×2 (18:25→21:19)
[2022-07-12 18:45] LABS: Bedside Glucose 359 mg/dL (74-106)
[2022-07-13] VITALS (51 sets, daily range): BP systolic 71–140; BP diastolic 46–97; PULSE 61–97; RESP 16–32; TEMP 36.7–38.5; O2SAT 87–100; BMI 31.8
[2022-07-13 00:06] LABS: Bedside Glucose 350 mg/dL (74-106)
[2022-07-13 03:52] LABS: Differential Indicated MANUAL DIFF; Hematocrit 25.2 % (40-54); Hemoglobin 8.1 g/dL (13.0-16.5); Mean Corp Hgb Conc 32.1 g/dL (32-36); Mean Corpuscular Hgb 29.6 pg (27.0-32.0); Mean Platelet Vol. 10.1 fl (6.2-12.0); POSITIVE COUNT YES; POSITIVE MORPHOLOGY YES; Platelet Count 198 K/mm3 (150-450); RBC Distribution Width SD 50.6 fl (35.1-43.9); Red Blood Count 2.74 M/mm3 (4.6-6.2); White Blood Count 12.5 K/mm3 (4.4-11.0)
[2022-07-13 04:07] LABS: Anion Gap 16 (5-15); BUN 65 mg/dL (7-18); Calcium,Total 9.3 mg/dL (8.5-10.1); Chloride 98 mmol/L (98-107); EST Glomerular Filtration Rate 9 mL/min (>60); Est Glom Filt Rate - Afr Amer 11 mL/min (>60); Estimated Creatinine Clearance 10.42 ml/min; Glucose 399 mg/dL (74-106); Magnesium 2.4 mg/dL (1.6-2.6); Phosphorus 5.5 mg/dL (2.5-4.9); Potassium 4.3 mmol/L (3.5-5.1); Sodium Level 133 mmol/L (136-145); Vancomycin, Random Level 20.7 ug/mL (0.0-15.0)
[2022-07-13] MEDS: 0.9% Saline Lock 10 ML Syringe IV ×2 (04:08→06:00)
[2022-07-13] MEDS: CHLORHEXIDINE GLUC 2% CLOTH 1 EACH TOWELETTE TOPICAL ×2 (04:08→08:32)
[2022-07-13 04:25] LABS: Eosinophil 1 % (0-5); Lymphocyte 5 % (19-41); Metamyelocyte 1 % (0-1); Monocyte 3 % (0-10); Neutrophil-Band 12 % (0-5); Neutrophil-Segmented 78 % (47-70); Platelet Estimate ADEQUATE (ADEQ); Total Cells Counted 100 (MANUAL DIFF)
[2022-07-13 04:26] LABS: Absolute Neutrophil Count 11.2 X10^3/uL (2.0-7.7); Hypochromasia 1+; Neutrophil # 11.21 X10^3/uL (2.7-7.7); Red Cell Morphology N CYTIC NORMAL (NORM C&C)
[2022-07-13 04:27] LABS: Absolute Lymphocyte Count 0.62 X10^3/uL (0.83-4.51); Lymphocyte # 0.62 X10^3/ul (0.83-4.51)
[2022-07-13] MEDS: Menthol/Lanolin/Calamine/Znox 113 GM Tube 1 APPLIC TOPICAL ×3 (06:02→22:15)
[2022-07-13] MEDS: Insulin Lispro 100 UNIT/ML INSULN.PEN SC (06:15)
[2022-07-13 06:36] LABS: Bedside Glucose 425 mg/dL (74-106)
--- NOTE | 2022-07-13 07:14 | PN.CC_ITS ---
Assessment & Plan Assessment/Plan (1) Diabetic keto-acidosis: (2) Hypernatremia: (3) Hyperchloremic metabolic acidosis: PLAN: Plan RECOMMENDATIONS: 1. Hemodialysis per nephrology. 2. Continue meropenem and vancomycin for now. 3. Continue to minimize sedating medications. 4. Continue vasopressor support to maintain a mean arterial pressure at or above 65 mmHg. 5. Continue vest therapy for pulmonary toileting 6. Treat with short acting insulin given potential extubation 7. Await ABG to determine extubation. IMPRESSIONS: 1. Metabolic encephalopathy Stable. The patient has developed worsening encephalopathy, likely secondary to profound underlying metabolic derangements, including hypernatremia and worsening uremia in the setting of YESI. Unfortunately, the patient had to be intubated on the morning of July 03 due to concerns for airway protection. Plan to continue dialysis support to address his underlying metabolic derangements and renal insufficiency. Continue to limit sedating medications. Patient does open his eyes to voice and follows simple commands. 2. Acute respiratory failure The patient was intubated over concerns for airway protection and possible aspiration. The etiology for his encephalopathy appears to be metabolic in nature. Patient was some increased FiO2 requirements over the last 24 hours. Chest x-ray is showing increased left-sided infiltrates, but culture were consistent with normal alecia. Patient appears to have responded well to transition to meropenem and vest therapy despite negative cultures. Continue with spontaneous breathing and awakening trials. Possible extubation pending results of ABG. 3. Septic shock Clinical concern for underlying pulmonary source of infection. The patie nt has significant underlying metabolic derangements related to his renal insufficiency. He is significantly overall net positive from a volume perspective for the hospitalization. Plan to continue current supportive measures including broad-spectrum antimicrobials and Levophed to maintain a mean arterial pressure at or above 65 mmHg. Given increased secretions, Zosyn was transitioned to meropenem. Vancomycin will be continued. Patient remains culture negative with high fevers. C. difficile was negative. Attempting to avoid stress dose steroids as this will significantly worsen hyperglycemia 4. YESI on CKD Likely secondary to ischemic ATN. The patient has interval worsening in his renal function and metabolic derangements. Recommend ongoing dialysis s upport with volume optimization per nephrology recommendations. Tunneled hemodialysis line placed 07/11/2022 5. Thrombocytopenia Resolved. Most likely related to underlying infectious etiology. Previous labs were not consistent with DIC. Continue to monitor platelet count for now. No indication for transfusion of blood products. 6. COVID-19/hyperlipidemia/hypertension/advanced age/diabetes mellitus Complicates care, management, recovery and prognosis. Continue supportive measures as noted above. Continue tube feeds as tolerated. We will hold on increasing basal insulin as patient may be extubated and off of tube feeds. TIME: 32 minutes of critical care time, inclusive of procedures, was spent addressing the patient's metabolic encephalopathy, acute respiratory failure, septic shock, YESI on CKD, review of all data and collaboration with the care team. Subjective Subjective Patient did okay overnight from a hemodynamic standpoint. Patient has had significant hyperglycemia overnight, but no fevers have been noted since dayshift yesterday. Secretions are significantly improved compared to previous. Patient is currently on a spontaneous breathing trial. Objective Data Objective Data Vital Signs: Vital Signs Temp Pulse Resp BP Pulse Ox O2 Del Method FiO2 37.1 C 86 20 H 137/53 H 93 Mechanical Ventilator 35 07/13/22 06:00 07/13/22 07:00 07/13/22 07:00 07/13/22 07:00 07/13/22 07:00 07/13/22 07:00 07/13/22 07:00 Oxygen Delivery Method Mechanical Ventilator Weight: 98 kg Body Mass Index (BMI) 31.8 Intake & Output: Intake and Output for Last 24 Hours 07/11/22 07/12/22 07/13/22 23:59 23:59 23:59 Intake Total 3209.36 / 3287.51 591.67 / 591.67 Output Total 1999 0 / 0 Balance 1209.36 / 1287.51 591.67 / 591.67 Medical Nutrition Assessment Dietitian: Malnutrition Criteria Met Start: 07/02/22 13:54 Freq: Status: Active Protocol: Document 07/07/22 10:09 RMA (Rec: 07/07/22 10:09 RMA [id number]) Nutrition Malnutrition Evidence of Malnutrition Exists Yes Malnutrition (severe): Acute Illness/Injury Evidenced By Suboptimal Energy Intake ( Severe),Weight Loss (Severe) Intake Problem Inadequate Oral Intake Etiology related to altered mental status, resp. failure Signs/Symptoms as evidenced by NPO status; poor PO intake at meals prior to intubation Status Active Problem Clinical Problem Acute Disease or Injury Related Malnutrition Etiology severe, acute malnutrition related to inadequate oral intake d/t acute illness Signs/Symptoms as evidenced by unintentional wt loss of 4.564kg/5% wt loss < 2 weeks; estimated PO intake meeting < 50 % of estimated energy needs > 5 days Status Active Problem Recommendation Dietitian Recommendations/Changes NPO while intubated. Continue TF via OG tube of Nepro at goal rate 50ml/hr with 150ml water flush Q 4 hours to provide 2124 calories , 97 g protein, and 1772mL fluid/day. Lab / Micro Data Attestation: I reviewed the patient's lab results. Result Diagrams: 07/13/22 03:42 07/13/22 03:42 Labs: Laboratory Results - last 24 hr 07/12/22 05:31: POC Glucose 306 H 07/12/22 11:14: POC Glucose 330 H 07/12/22 18:10: POC Glucose 359 H 07/12/22 23:40: POC Glucose 350 H 07/13/22 03:42: Random Vancomycin 20.7 H 07/13/22 03:42: WBC 12.5 H, RBC 2.74 L, Hgb 8.1 L, Hct 25.2 L, MCV 92.0, MCH 29.6, MCHC 32.1, RDW Std Deviation 50.6 H, RDW Coeff of Kenyatta 15.0 H, Plt Count 198, MPV 10.1, Neut % (Auto) Not Reportable, Absolute Neuts (auto) 11.2 H, Absolute Lymphs (auto) 0.62 L, Total Counted 100, Neutrophils % (Manual) 78 H, Band Neutrophils % 12 H, Lymphocytes % (Manual) 5 L, Monocytes % (Manual) 3, Eosinophils % (Manual) 1, Metamyelocytes % 1, Diff Path Review May foll, Platelet Estimate ADEQUATE, RBC Morphology N CYTIC, Hypochromasia 1+ 07/13/22 03:42: Sodium 133 L, Potassium 4.3, Chloride 98, Carbon Dioxide 19.0 L, Anion Gap 16 H, BUN 65 H, Creatinine 6.50 H, Estim Creat Clear Calc 10.42, Est GFR (MDRD) Af Amer 11 L, Est GFR (MDRD) Non-Af 9 L, BUN/Creatinine Ratio 10.0, Glucose 399 H, Calcium 9.3, Phosphorus 5.5 H, Magnesium 2.4 07/13/22 06:12: POC Glucose 425 H Micro: Microbiology 07/12/22 10:54 Stool C. difficile DNA Amplification - Final 07/10/22 07:05 Sputum, Induced/Lukens Gram Stain - Final 07/10/22 07:05 Sputum, Induced/Lukens Respiratory Culture - Final Mixed normal respiratory alecia. No Streptococcus pneumoniae, beta-hemolytic Streptococcus or Staphylococcus aureus isolated. 07/03/22 12:48 Blood Culture (Wb) - Left Hand Blood Culture - Final No growth in 5 days. 07/03/22 13:00 Blood Culture (Wb) - Left Wrist Blood Culture - Final No growth in 5 days. 07/03/22 12:20 Sputum, Expectorated/Coughed Gram Stain - Final 07/03/22 12:20 Sputum, Expectorated/Coughed Respiratory Culture - Final Mixed normal respiratory alecia. No Streptococcus pneumoniae, beta-hemolytic Streptococcus or Staphylococcus aureus isolated. 07/04/22 10:25 Stool Stool Occult Blood (GODFREY) - Final 07/01/22 08:25 Urine Catheter - Yarbrough Urine Culture - Final Culture exhibits no growth. 06/28/22 19:35 Nasal Secretion SARS-CoV-2 & FLU Antigen (Rapid) - Final SARS-CoV-2 (COVID 19) Rhythm Strip Rhythm Strip: Sinus Rhythm Rate: 71 Physical Exam Const Constitutional Narrative: RASS -1 General Appearance: well developed and patient mechanically ventilated HEENT normocephalic and head/scalp atraumatic Eyes PERRL and EOMs intact bilaterally Eyes Narrative: Left ptosis Neck no lymphadenopathy and supple General: trachea midline and CVC in place Chest inspection of chest normal Resp normal respiratory effort and no use of accessory muscles Resp Narrative: On trial during examination Auscultation: diminished lung sounds; Negative for rales, rhonchi or wheezes Cardio regular rate, regular rhythm, S1 normal heart sound, S2 normal heart sound, no murmurs, no rub and no gallops GI normal to inspection, nondistended, normoactive bowel sounds Extremity no clubbing, cyanosis or edema General Extremity: Negative for edema Skin no rashes or lesions noted Neuro moves all extremities and no focal motor deficits Psych Mood & Affect: flat affect Charges/Coding Procedures Hospitalists Procedures: 21782 Critial Care 1st Hr
[2022-07-13 07:35] LABS: Bedside Glucose 378 mg/dL (74-106)
[2022-07-13 08:25] LABS: Allen Test Positive; Base Excess -9 mmol/L (-2 to +2); Bicarbonate 16.3 mmol/L (22-26); Blood Gas Specimen Type ART; FI02 35; Mode CPAP/PS; O2 Delivery Device Adult Vent; PEEP 5; PO2 57 mmHG (75-100); PS 5; SITE R Radial; SO2 88 % (95-99); Total Carbon Dioxide 17 mmol/L; pCO2 29.3 mmHg (35-45); pH 7.35 (7.35-7.45)
[2022-07-13] MEDS: Chlorhexidine 15 ML PO ×2 (08:32→22:15)
[2022-07-13] MEDS: Insulin Glargine-YFGN 100 UNIT/ML Pen 50 UNIT SC (08:39)
[2022-07-13] MEDS: Propofol 10MG/Ml 1,000 MG/100 ML Bottle 2.8 MG CONT INF (08:48)
--- NOTE | 2022-07-13 09:00 | PCM.PN.HOSP ---
Subjective Subjective Some hyperglycemia overnight otherwise no new issues Objective Data Objective Data Vital Signs: Vital Signs Temp Pulse Resp BP Pulse Ox O2 Del Method FiO2 98.7 F 92 16 137/53 H 90 Mechanical Ventilator 35 07/13/22 06:00 07/13/22 08:40 07/13/22 08:40 07/13/22 07:00 07/13/22 08:40 07/13/22 07:00 07/13/22 07:00 Oxygen Delivery Method Mechanical Ventilator Weight: 216 lb 0.848 oz Body Mass Index (BMI) 31.8 Intake & Output: Intake and Output for Last 24 Hours 07/12/22 07/13/22 07/14/22 03:59 03:59 03:59 Intake Total 1524.71 / 2570.99 3124.63 / 3526.37 439.15 / 439.15 Output Total 1999 0 / 0 Balance 1524.71 / 2570.99 1124.63 / 1526.37 439.15 / 439.15 Medical Nutrition Assessment Dietitian: Malnutrition Criteria Met Start: 07/02/22 13:54 Freq: Status: Active Protocol: Document 07/07/22 10:09 RMA (Rec: 07/07/22 10:09 RMA [id number]) Nutrition Malnutrition Evidence of Malnutrition Exists Yes Malnutrition (severe): Acute Illness/Injury Evidenced By Suboptimal Energy Intake ( Severe),Weight Loss (Severe) Intake Problem Inadequate Oral Intake Etiology related to altered mental status, resp. failure Signs/Symptoms as evidenced by NPO status; poor PO intake at meals prior to intubation Status Active Problem Clinical Problem Acute Disease or Injury Related Malnutrition Etiology severe, acute malnutrition related to inadequate oral intake d/t acute illness Signs/Symptoms as evidenced by unintentional wt loss of 4.564kg/5% wt loss < 2 weeks; estimated PO intake meeting < 50 % of estimated energy needs > 5 days Status Active Problem Recommendation Dietitian Recommendations/Changes NPO while intubated. Continue TF via OG tube of Nepro at goal rate 50ml/hr with 150ml water flush Q 4 hours to provide 2124 calories , 97 g protein, and 1772mL fluid/day. Lab / Micro Data Result Diagrams: 07/13/22 03:42 07/13/22 03:42 Labs: Laboratory Results - last 24 hr 07/12/22 05:31: POC Glucose 306 H 07/12/22 11:14: POC Glucose 330 H 07/12/22 18:10: POC Glucose 359 H 07/12/22 23:40: POC Glucose 350 H 07/13/22 03:42: Random Vancomycin 20.7 H 07/13/22 03:42: WBC 12.5 H, RBC 2.74 L, Hgb 8.1 L, Hct 25.2 L, MCV 92.0, MCH 29.6, MCHC 32.1, RDW Std Deviation 50.6 H, RDW Coeff of Kenyatta 15.0 H, Plt Count 198, MPV 10.1, Neut % (Auto) Not Reportable, Absolute Neuts (auto) 11.2 H, Absolute Lymphs (auto) 0.62 L, Total Counted 100, Neutrophils % (Manual) 78 H, Band Neutrophils % 12 H, Lymphocytes % (Manual) 5 L, Monocytes % (Manual) 3, Eosinophils % (Manual) 1, Metamyelocytes % 1, Diff Path Review May , Platelet Estimate ADEQUATE, RBC Morphology N CYTIC, Hypochromasia 1+ 07/13/22 03:42: Sodium 133 L, Potassium 4.3, Chloride 98, Carbon Dioxide 19.0 L, Anion Gap 16 H, BUN 65 H, Creatinine 6.50 H, Estim Creat Clear Calc 10.42, Est GFR (MDRD) Af Amer 11 L, Est GFR (MDRD) Non-Af 9 L, BUN/Creatinine Ratio 10.0, Glucose 399 H, Calcium 9.3, Phosphorus 5.5 H, Magnesium 2.4 07/13/22 06:12: POC Glucose 425 H 07/13/22 07:16: POC Glucose 378 H Micro: Microbiology 07/12/22 10:54 Stool C. difficile DNA Amplification - Final 07/10/22 07:05 Sputum, Induced/Lukens Gram Stain - Final 07/10/22 07:05 Sputum, Induced/Lukens Respiratory Culture - Final Mixed normal respiratory alecia. No Streptococcus pneumoniae, beta-hemolytic Streptococcus or Staphylococcus aureus isolated. 07/03/22 12:48 Blood Culture (Wb) - Left Hand Blood Culture - Final No growth in 5 days. 07/03/22 13:00 Blood Culture (Wb) - Left Wrist Blood Culture - Final No growth in 5 days. 07/03/22 12:20 Sputum, Expectorated/Coughed Gram Stain - Final 07/03/22 12:20 Sputum, Expectorated/Coughed Respiratory Culture - Final Mixed normal respiratory alecia. No Streptococcus pneumoniae, beta-hemolytic Streptococcus or Staphylococcus aureus isolated. 07/04/22 10:25 Stool Stool Occult Blood (GODFREY) - Final 07/01/22 08:25 Urine Catheter - Yarbrough Urine Culture - Final Culture exhibits no growth. 06/28/22 19:35 Nasal Secretion SARS-CoV-2 & FLU Antigen (Rapid) - Final SARS-CoV-2 (COVID 19) ABG Data ABG results: ABG 07/13/22 08:20 Specimen Type ART Sample Site R Radial pH 7.35 Bicarbonate Actual 16.3 L Total CO2 17 Base Excess -9 L O2 Saturation 88 L O2 % 35 ABG pCO2 29.3 L ABG pO2 57 L Laz Test Positive O2 Delivery Device Adult Vent Vent Mode CPAP/PS POC PEEP 5 POC Pressure Suppt 5 Rhythm Strip Rhythm Strip: Sinus Rhythm Rate: 71 Physical Exam Const General Appearance: intubated and patient mechanically ventilated HEENT normocephalic Eyes PERRL and conjunctivae normal Neck supple and no JVD Resp normal respiratory effort, no retractions and no use of accessory muscles Resp Narrative: Diminished Auscultation: Negative for crackles, rales, rhonchi or wheezes Cardio regular rate, regular rhythm, S1 normal heart sound, S2 normal heart sound and no murmurs GI soft to palpation and non-distended; Negative for hepatosplenomegaly Extremity no clubbing, cyanosis or edema Skin no rashes or lesions noted Neuro Sensorium / Orientation: sedated on vent Psych Appearance: intubated Assessment & Plan Assessment/Plan (1) Shock: (2) Acute kidney injury: (3) Acute respiratory failure: (4) Encephalopathy: (5) Diabetic keto-acidosis: (6) COVID: PLAN: Plan 1.? DKA in the setting of type 2 diabetes with a high anion gap metabolic acidosis and YESI with metabolic encephalopathy/hypernatremia and hyperchloremia with hyperchloremic metabolic acidosis with incomplete respiratory compensation with renal tubular acidosis unknown type/acute respiratory failure ? Status post tunneled dialysis catheter, continue with dialysis ? Appreciate drive in theater attendant and nephrology's assistance ? Continue with long-acting insulin as well as sliding scale insulin we will make adjustments as necessary ? His A1c is 8.2 ? He was intubated on 07/03/2022, given respiratory status will likely remain intubated for 1 more day 2. Septic shock/thrombocytopenia ? Continue with norepinephrine, he has been able to be weaned down to about 2, last night he was up to about 10 after dialysis ? Given findings on chest x-ray likely source is pneumonia possibly ventilator associated, he has had some improvement with meropenem ? His thrombocytopenia is likely reactive and has resolved 3.? COVID-19?noncontributory 4.? HTN/HLD ? We will hold his ramipril given his acute renal failure ? Can wait to restart his pravastatin DVT: Heparin Charges/Coding Visit Charges Inpatient E&M: 12718 Subs Hosp L2
[2022-07-13 09:11] LABS: Bedside Glucose 243 mg/dL (74-106)
[2022-07-13 09:22] LABS: Pathologist Review Reviewed
--- NOTE | 2022-07-13 11:52 | PCM.PN.REN ---
Subjective Subjective no new events, intubated. seen in HD. acidosis on gas this am. Objective Data Objective Data Vital Signs: Vital Signs Temp Pulse Resp BP Pulse Ox O2 Del Method FiO2 99.5 F H 97 27 H 73/49 L 91 Mechanical Ventilator 70 07/13/22 09:00 07/13/22 10:00 07/13/22 10:00 07/13/22 10:45 07/13/22 10:00 07/13/22 10:00 07/13/22 10:00 Oxygen Delivery Method Mechanical Ventilator Weight: 98 kg Body Mass Index (BMI) 31.8 Intake & Output: Intake and Output for Last 24 Hours 07/11/22 07/12/22 07/13/22 23:59 23:59 23:59 Intake Total 3209.36 / 3287.51 759.63 / 759.63 Output Total 1999 0 / 0 Balance 1209.36 / 1287.51 759.63 / 759.63 Medical Nutrition Assessment Dietitian: Malnutrition Criteria Met Start: 07/02/22 13:54 Freq: Status: Active Protocol: Document 07/07/22 10:09 RMA (Rec: 07/07/22 10:09 RMA [id number]) Nutrition Malnutrition Evidence of Malnutrition Exists Yes Malnutrition (severe): Acute Illness/Injury Evidenced By Suboptimal Energy Intake ( Severe),Weight Loss (Severe) Intake Problem Inadequate Oral Intake Etiology related to altered mental status, resp. failure Signs/Symptoms as evidenced by NPO status; poor PO intake at meals prior to intubation Status Active Problem Clinical Problem Acute Disease or Injury Related Malnutrition Etiology severe, acute malnutrition related to inadequate oral intake d/t acute illness Signs/Symptoms as evidenced by unintentional wt loss of 4.564kg/5% wt loss < 2 weeks; estimated PO intake meeting < 50 % of estimated energy needs > 5 days Status Active Problem Recommendation Dietitian Recommendations/Changes NPO while intubated. Continue TF via OG tube of Nepro at goal rate 50ml/hr with 150ml water flush Q 4 hours to provide 2124 calories , 97 g protein, and 1772mL fluid/day. Lab / Micro Data Result Diagrams: 07/13/22 03:42 07/13/22 03:42 Labs: Laboratory Results - last 24 hr 07/12/22 03:05: Diff Path Review Reviewed 07/12/22 05:31: POC Glucose 306 H 07/12/22 11:14: POC Glucose 330 H 07/12/22 18:10: POC Glucose 359 H 07/12/22 23:40: POC Glucose 350 H 07/13/22 03:42: Random Vancomycin 20.7 H 07/13/22 03:42: WBC 12.5 H, RBC 2.74 L, Hgb 8.1 L, Hct 25.2 L, MCV 92.0, MCH 29.6, MCHC 32.1, RDW Std Deviation 50.6 H, RDW Coeff of Kenyatta 15.0 H, Plt Count 198, MPV 10.1, Neut % (Auto) Not Reportable, Absolute Neuts (auto) 11.2 H, Absolute Lymphs (auto) 0.62 L, Total Counted 100, Neutrophils % (Manual) 78 H, Band Neutrophils % 12 H, Lymphocytes % (Manual) 5 L, Monocytes % (Manual) 3, Eosinophils % (Manual) 1, Metamyelocytes % 1, Diff Path Review May foll, Platelet Estimate ADEQUATE, RBC Morphology N CYTIC, Hypochromasia 1+ 07/13/22 03:42: Sodium 133 L, Potassium 4.3, Chloride 98, Carbon Dioxide 19.0 L, Anion Gap 16 H, BUN 65 H, Creatinine 6.50 H, Estim Creat Clear Calc 10.42, Est GFR (MDRD) Af Amer 11 L, Est GFR (MDRD) Non-Af 9 L, BUN/Creatinine Ratio 10.0, Glucose 399 H, Calcium 9.3, Phosphorus 5.5 H, Magnesium 2.4 07/13/22 06:12: POC Glucose 425 H 07/13/22 07:16: POC Glucose 378 H 07/13/22 08:38: POC Glucose 243 H Micro: Microbiology 07/12/22 10:54 Stool C. difficile DNA Amplification - Final 07/10/22 07:05 Sputum, Induced/Lukens Gram Stain - Final 07/10/22 07:05 Sputum, Induced/Lukens Respiratory Culture - Final Mixed normal respiratory alecia. No Streptococcus pneumoniae, beta-hemolytic Streptococcus or Staphylococcus aureus isolated. 07/03/22 12:48 Blood Culture (Wb) - Left Hand Blood Culture - Final No growth in 5 days. 07/03/22 13:00 Blood Culture (Wb) - Left Wrist Blood Culture - Final No growth in 5 days. 07/03/22 12:20 Sputum, Expectorated/Coughed Gram Stain - Final 07/03/22 12:20 Sputum, Expectorated/Coughed Respiratory Culture - Final Mixed normal respiratory alecia. No Streptococcus pneumoniae, beta-hemolytic Streptococcus or Staphylococcus aureus isolated. 07/04/22 10:25 Stool Stool Occult Blood (GODFREY) - Final 07/01/22 08:25 Urine Catheter - Yarbrough Urine Culture - Final Culture exhibits no growth. 06/28/22 19:35 Nasal Secretion SARS-CoV-2 & FLU Antigen (Rapid) - Final SARS-CoV-2 (COVID 19) ABG Data ABG results: ABG 07/13/22 08:20 Specimen Type ART Sample Site R Radial pH 7.35 Bicarbonate Actual 16.3 L Total CO2 17 Base Excess -9 L O2 Saturation 88 L O2 % 35 ABG pCO2 29.3 L ABG pO2 57 L Laz Test Positive O2 Delivery Device Adult Vent Vent Mode CPAP/PS POC PEEP 5 POC Pressure Suppt 5 Rhythm Strip Rhythm Strip: Sinus Rhythm Rate: 71 Physical Exam Narrative sedated no obvious distress no pallor no icterus no JVD s1s2 no murmurs lungs clear abdomen soft no organomegaly no edema no cyanosis Const average body habitus General Appearance: well developed and patient mechanically ventilated HEENT normocephalic Neck no lymphadenopathy Resp clear to auscultation bilaterally Resp Narrative: Scattered rhonchi Auscultation: rhonchi Cardio regular rate Cardio Narrative: Tachycardic GI non-distended Auscultation: normoactive bowel sounds and hypoactive bowel sounds Extremity Extremity Narrative: Mottling of both lower extremities, minimal to no edema General Extremity: edema bilateral Skin Skin Narrative: Acrocyanosis, some petechiae Neuro Sensorium / Orientation: sedated on vent Assessment & Plan Assessment/Plan (1) Acute kidney injury: PLAN: Baseline creatinine was 1.1 as of December 2021. Sustained YESI, presumably ATN. Initiated on renal replacement therapy. In septic shock. Was initially on CRRT but had repeated clotting. Transitioned to hemodialysis. HD today, seen on HD. blood gas is consistent with acidosis metabolic. Thrombocytopenia. Evaluated by hematology. improved DKA. Resolved.
--- NOTE | 2022-07-13 12:50 | RAD_ITS ---
STUDY: X-RAY - ABDOMEN/PELVIS REASON FOR EXAM: Male, 71 years old. OG placement TECHNIQUE: Single AP view of the abdomen / pelvis. COMPARISON: None. FINDINGS: The tip of the orogastric tube is in the distal portion of the stomach. RAD/Abdomen Single View IMPRESSION: The tip of the orogastric tube is in the distal portion of the stomach. Electronically Signed: Scott Patel MD at 13:19 EST ,
[2022-07-13 13:02] LABS: Pathologist Review Reviewed
--- NOTE | 2022-07-13 13:29 | DIALYSIS ---
Hemodialysis x 3.25 hours, net UF 1400 ml. UF limited by hypotension - BP 70s-80s/50s (elizabeth. as change BV% <-9.0). Norepinephrine gtt used by bedside RN to compensate (dose increased progressively from 5 mcg/min to 15 mcg/min during treatment). Patient's spasmodic coughing interfered with AP and DIRECTOR OF [employer]IAL WORK. Sedation increased, and ran with ports reversed to ameliorate repeated pump stoppages. Blood returned to patient at end of treatment. Dialysis catheter ports closed with heparin (1.6 ml each port). RN report at bedside.
--- NOTE | 2022-07-13 13:44 | PCM.RX.CS ---
Consult Pharmacy has been consulted to manage selected antiobiotic: Vancomycin Type of Consult: Follow-up Labs: Sodium 133 mmol/L (136-145) L 07/13/22 03:42 Potassium 4.3 mmol/L (3.5-5.1) 07/13/22 03:42 Chloride 98 mmol/L (98-107) 07/13/22 03:42 Carbon Dioxide 19.0 mmol/L (21.0-32.0) L 07/13/22 03:42 Anion Gap 16 (5-15) H 07/13/22 03:42 BUN 65 mg/dL (7-18) H 07/13/22 03:42 Creatinine 6.50 mg/dL (0.70-1.30) H 07/13/22 03:42 Est GFR (MDRD) Af Amer 11 mL/min (>60) L 07/13/22 03:42 Est GFR (MDRD) Non-Af 9 mL/min (>60) L 07/13/22 03:42 BUN/Creatinine Ratio 10.0 RATIO (10-20) 07/13/22 03:42 Glucose 399 mg/dL (74-106) H 07/13/22 03:42 Vancomycin Trough 18.8 ug/mL (5.0-15.0) H 07/05/22 14:00 Random Vancomycin 20.7 ug/mL (0.0-15.0) H 07/13/22 03:42 Microbiology: Microbiology 07/12/22 10:54 Stool C. difficile DNA Amplification - Final 07/10/22 07:05 Sputum, Induced/Lukens Gram Stain - Final 07/10/22 07:05 Sputum, Induced/Lukens Respiratory Culture - Final Mixed normal respiratory alecia. No Streptococcus pneumoniae, beta-hemolytic Streptococcus or Staphylococcus aureus isolated. 07/03/22 12:48 Blood Culture (Wb) - Left Hand Blood Culture - Final No growth in 5 days. 07/03/22 13:00 Blood Culture (Wb) - Left Wrist Blood Culture - Final No growth in 5 days. 07/03/22 12:20 Sputum, Expectorated/Coughed Gram Stain - Final 07/03/22 12:20 Sputum, Expectorated/Coughed Respiratory Culture - Final Mixed normal respiratory alecia. No Streptococcus pneumoniae, beta-hemolytic Streptococcus or Staphylococcus aureus isolated. 07/04/22 10:25 Stool Stool Occult Blood (GODFREY) - Final 07/01/22 08:25 Urine Catheter - Yarbrough Urine Culture - Final Culture exhibits no growth. 06/28/22 19:35 Nasal Secretion SARS-CoV-2 & FLU Antigen (Rapid) - Final SARS-CoV-2 (COVID 19) Goal Trough: 15-20 mcg/mL Pharmacy Plan for Drug Dosing: VANCOMYCIN LEVEL RECEIVED Current Vancomycin Dose: Dosing based on HD levels Vancomycin Level: 20.7 Hours Since Last Dose: n/a Renal Function: on HD- no schedule at this time, daily assessment for HD Renal Function Trend: n/a Lab/Micro: no new results Vancomycin Plan/Comments: Patient had a trough drawn pre-HD which resulted in a value of 20.7. Per protocol, patient will not get another dose post-HD today. Will continue to follow along daily and get another random trough level prior to next HD session. NO DOSE TODAY. Pending Level: NONE SCHEDULED- will call floor daily to assess when next HD will occur. Pharmacy Service will continue to monitor and adjust dosing as required.
[2022-07-13] MEDS: Acetaminophen 650 MG/20 ML UDC GT (14:18)
[2022-07-13] MEDS: NEPRO TUBE FEED 1,000 ML 50 ML GT (14:25)
[2022-07-13] MEDS: Heparin 10,000 UNITS/10 ML Vial IV (14:30)
[2022-07-13 14:56] LABS: Bedside Glucose 113 mg/dL (74-106)
[2022-07-13] MEDS: Propofol 10MG/Ml 1,000 MG/100 ML Bottle 8.3 MG CONT INF (17:42)
[2022-07-13 18:35] LABS: Bedside Glucose 122 mg/dL (74-106)
[2022-07-14] VITALS (63 sets, daily range): BP systolic 83–129; BP diastolic 44–91; PULSE 67–107; RESP 14–30; TEMP 36.6–39; O2SAT 88–100; BMI 31.7
[2022-07-14] MEDS: Insulin Lispro 100 UNIT/ML INSULN.PEN SC ×5 (01:11→23:20)
[2022-07-14 01:31] LABS: Bedside Glucose 163 mg/dL (74-106)
--- NOTE | 2022-07-14 04:30 | NURSING ---
New propofol bottle and tubing prepared for restart of sedation, but remains on hold; FiO2 increased to 55% d/t pt desatting to 84-85%;Fentanyl increased to 50mcg. TF remains on hold.
[2022-07-14] MEDS: 0.9% Saline Lock 10 ML Syringe IV (04:36)
[2022-07-14] MEDS: Propofol 10MG/Ml 1,000 MG/100 ML Bottle 2.8 MG CONT INF ×2 (04:46→16:13)
[2022-07-14 05:08] LABS: Hematocrit 25.7 % (40-54); Hemoglobin 8.4 g/dL (13.0-16.5); Mean Corp Hgb Conc 32.7 g/dL (32-36); Mean Corpuscular Hgb 29.8 pg (27.0-32.0); Mean Corpuscular Volume 91.1 fL (80-94); Mean Platelet Vol. 10.5 fl (6.2-12.0); NRBC Flagged by Analyzer 0 % (0-5); POSITIVE MORPHOLOGY YES; Platelet Count 155 K/mm3 (150-450); RBC Distribution Width CV 14.8 % (11.6-14.6); RBC Distribution Width SD 49.7 fl (35.1-43.9); Red Blood Count 2.82 M/mm3 (4.6-6.2); White Blood Count 10.8 K/mm3 (4.4-11.0)
[2022-07-14 05:10] LABS: Differential Indicated SCAN CRITERIA MET
[2022-07-14] MEDS: Menthol/Lanolin/Calamine/Znox 113 GM Tube 1 APPLIC TOPICAL ×3 (05:10→21:12)
[2022-07-14 05:20] LABS: BUN 53 mg/dL (7-18); Calcium,Total 8.7 mg/dL (8.5-10.1); Chloride 98 mmol/L (98-107); EST Glomerular Filtration Rate 11 mL/min (>60); Est Glom Filt Rate - Afr Amer 14 mL/min (>60); Estimated Creatinine Clearance 12.78 ml/min; Glucose 221 mg/dL (74-106); Potassium 3.9 mmol/L (3.5-5.1); Sodium Level 136 mmol/L (136-145)
--- NOTE | 2022-07-14 05:51 | RAD_ITS ---
INDICATION: hypoxia EXAMINATION/TECHNIQUE: X-RAY - XR Chest 1 View COMPARISON: 07/13/2022 FINDINGS: LINES/DEVICES: Endotracheal tube terminates 5 cm above the ivone. Enteric tube side-port terminates in the gastric lumen in good position. Right IJ dual-lumen central venous catheter terminates at the cavoatrial junction. Left IJ central venous catheter terminates in the right atrium. LUNGS: Left greater than right hazy and patchy opacities. No pneumothorax. MEDIASTINUM AND CARDIOVASCULAR STRUCTURES: Cardiomediastinal contours, similar compared to the prior. BONES AND SOFT TISSUES: Unremarkable. RAD/Chest 1 View (Portable) IMPRESSION: Persistent patchy airspace disease, left greater than right, concerning for pneumonia. Electronically Signed: Judy Padilla MD at 7:41 EST ,
[2022-07-14 05:58] LABS: Neutrophil-Band 6 % (0-5); Neutrophil-Segmented 78 % (47-70); Scan Smear per Review Criteria MANUAL DIFF; Total Cells Counted 100 (MANUAL DIFF)
[2022-07-14 05:59] LABS: Basophil 1 % (0-1); Eosinophil 1 % (0-5); Hypochromasia 1+; Lymphocyte 9 % (19-41); Metamyelocyte 1 % (0-1); Monocyte 2 % (0-10); Myelocyte 1 % (0-0); Platelet Estimate ADEQUATE (ADEQ); Promyelocyte 1 % (0-0); Red Cell Morphology N CYTIC NORMAL (NORM C&C)
[2022-07-14 06:00] LABS: Absolute Lymphocyte Count 0.97 X10^3/uL (0.83-4.51); Absolute Neutrophil Count 9.1 X10^3/uL (2.0-7.7); Lymphocyte # 0.97 X10^3/ul (0.83-4.51); Neutrophil # 9.07 X10^3/uL (2.7-7.7)
--- NOTE | 2022-07-14 07:07 | PCM.PN.INT ---
Assessment & Plan Assessment/Plan (1) Diabetic keto-acidosis: (2) Hypernatremia: (3) Hyperchloremic metabolic acidosis: PLAN: Plan RECOMMENDATIONS: 1. Hemodialysis per nephrology. 2. Continue meropenem. Discontinue vancomycin 3. Continue to minimize sedating medications. 4. Continue vasopressor support to maintain a mean arterial pressure at or above 65 mmHg. 5. Okay to discontinue vest therapy 6. Continue all current insulin orders 7. Obtain ABG after trials. Attempt to arrange family meeting for goals of therapy IMPRESSIONS: 1. Metabolic encephalopathy Stable. The patient has developed worsening encephalopathy, likely secondary to profound underlying metabolic derangements, including hypernatremia and worsening uremia in the setting of YESI. Unfortunately, the patient had to be intubated on the morning of July 03 due to concerns for airway protection. Plan to continue dialysis support to address his underlying metabolic derangements and renal insufficiency. Continue to limit sedating medications. Patient does open his eyes to voice and follows simple commands. 2. Acute respiratory failure The patient was intubated over concerns for airway protection and possible aspiration. The etiology for his encephalopathy appears to be metabolic in nature. Patient was some increased FiO2 requirements over the last 24 hours. Chest x-ray is showing increased bilateral infiltrates, but culture were consistent with normal alecia. Patient appears to have responded well to transition to meropenem. We will discontinue vest therapy and vancomycin. Continue with spontaneous breathing and awakening trials. We will need to discuss with the family about goals of therapy. 3. Septic shock Clinical concern for underlying pulmonary source of infection. The patient has significant underlying metabolic derangements related to his renal insufficiency. He is significantly overall net positive from a volume perspective for the hospitalization. Currently off Levophed, but may reinitiate to maintain a mean arterial pressure at or above 65 mmHg. Fever curve has improved after initiation of meropenem. C. difficile was negative. Attempting to avoid stress dose steroids as this will significantly worsen hyperglycemia 4. YESI on CKD Likely secondary to ischemic ATN. The patient has interval worsening in his renal function and metabolic derangements. Recommend ongoing dialysis support with volume optimization per nephrology recommendations. Tunneled hemodialysis line placed 07/11/2022. Patient tolerating dialysis 5. Thrombocytopenia Resolved. Most likely related to underlying infectious etiology. Previous labs were not consistent with DIC. Continue to monitor platelet count for now. No indication for transfusion of blood products. 6. COVID-19/hyperlipidemia/hypertension/advanced age/diabetes mellitus Complicates care, management, recovery and prognosis. Continue supportive measures as noted above. Continue tube feeds as tolerated. We will hold on increasing basal insulin as patient may be extubated and off of tube feeds. TIME: 42 minutes of critical care time, inclusive of procedures, was spent addressing the patient's metabolic encephalopathy, acute respiratory failure, septic shock, YESI on CKD, review of all data and collaboration with the care team. Subjective Subjective Patient did okay overnight. Patient has been able to come off of Levophed this morning, but oxygenation continues to be an issue. Patient did not have a spontaneous breathing trial this morning as he was requiring 55% FiO2 and 8 of PEEP. Patient's fever curve continues to improve. Patient did tolerate hemodialysis yesterday. Objective Data Objective Data Vital Signs: Vital Signs Temp Pulse Resp BP Pulse Ox O2 Del Method FiO2 38.1 C H 104 H 28 H 129/53 H 92 Mechanical Ventilator 55 07/14/22 06:00 07/14/22 06:51 07/14/22 06:51 07/14/22 06:30 07/14/22 06:51 07/14/22 05:00 07/14/22 06:51 Oxygen Delivery Method Mechanical Ventilator Weight: 97.5 kg Body Mass Index (BMI) 31.7 Intake & Output: Intake and Output for Last 24 Hours 07/12/22 07/13/22 07/14/22 23:59 23:59 23:59 Intake Total 3209.36 / 3287.51 2362.23 / 2432.73 439.88 / 439.88 Output Total 1999 0 / 0 0 / 0 Balance 1209.36 / 1287.51 2362.23 / 2432.73 439.88 / 439.88 Medical Nutrition Assessment Dietitian: Malnutrition Criteria Met Start: 07/02/22 13:54 Freq: Status: Active Protocol: Document 07/07/22 10:09 RMA (Rec: 07/07/22 10:09 RMA [id number]) Nutrition Malnutrition Evidence of Malnutrition Exists Yes Malnutrition (severe): Acute Illness/Injury Evidenced By Suboptimal Energy Intake ( Severe),Weight Loss (Severe) Intake Problem Inadequate Oral Intake Etiology related to altered mental status, resp. failure Signs/Symptoms as evidenced by NPO status; poor PO intake at meals prior to intubation Status Active Problem Clinical Problem Acute Disease or Injury Related Malnutrition Etiology severe, acute malnutrition related to inadequate oral intake d/t acute illness Signs/Symptoms as evidenced by unintentional wt loss of 4.564kg/5% wt loss < 2 weeks; estimated PO intake meeting < 50 % of estimated energy needs > 5 days Status Active Problem Recommendation Dietitian Recommendations/Changes NPO while intubated. Continue TF via OG tube of Nepro at goal rate 50ml/hr with 150ml water flush Q 4 hours to provide 2124 calories , 97 g protein, and 1772mL fluid/day. Lab / Micro Data Attestation: I reviewed the patient's lab results. Result Diagrams: 07/14/22 04:35 07/14/22 04:35 Labs: Laboratory Results - last 24 hr 07/12/22 03:05: Diff Path Review Reviewed 07/13/22 03:42: Diff Path Review Reviewed 07/13/22 07:16: POC Glucose 378 H 07/13/22 08:38: POC Glucose 243 H 07/13/22 12:11: POC Glucose 113 H 07/13/22 18:17: POC Glucose 122 H 07/14/22 01:10: POC Glucose 163 H 07/14/22 04:35: WBC 10.8, RBC 2.82 L, Hgb 8.4 L, Hct 25.7 L, MCV 91.1, MCH 29.8, MCHC 32.7, RDW Std Deviation 49.7 H, RDW Coeff of Kenyatta 14.8 H, Plt Count 155, MPV 10.5, Immature Gran % (Auto) FABRIC WORKER FOREMAN, Neut % (Auto) FABRIC WORKER FOREMAN, Lymph % (Auto) FABRIC WORKER FOREMAN, [place] % (Auto) FABRIC WORKER FOREMAN, Eos % (Auto) FABRIC WORKER FOREMAN, Baso % (Auto) FABRIC WORKER FOREMAN, Absolute Neuts (auto) 9.1 H, Absolute Lymphs (auto) 0.97, Total Counted 100, Neutrophils % (Manual) 78 H, Band Neutrophils % 6 H, Lymphocytes % (Manual) 9 L, Monocytes % (Manual) 2, Eosinophils % (Manual) 1, Basophils % (Manual) 1, Metamyelocytes % 1, Myelocytes % 1 H, Promyelocytes % 1 H, Nucleated RBC % 0, Diff Path Review May foll, Platelet Estimate ADEQUATE, RBC Morphology N CYTIC, Hypochromasia 1+ 07/14/22 04:35: Sodium 136, Potassium 3.9, Chloride 98, Carbon Dioxide 23.0, BUN 53 H, Creatinine 5.30 H, Estim Creat Clear Calc 12.78, Est GFR (MDRD) Af Amer 14 L, Est GFR (MDRD) Non-Af 11 L, BUN/Creatinine Ratio 10.0, Glucose 221 H, Calcium 8.7, Phosphorus 5.0 H, Albumin 1.0 L Micro: Microbiology 07/12/22 10:54 Stool C. difficile DNA Amplification - Final 07/10/22 07:05 Sputum, Induced/Lukens Gram Stain - Final 07/10/22 07:05 Sputum, Induced/Lukens Respiratory Culture - Final Mixed normal respiratory alecia. No Streptococcus pneumoniae, beta-hemolytic Streptococcus or Staphylococcus aureus isolated. 07/03/22 12:48 Blood Culture (Wb) - Left Hand Blood Culture - Final No growth in 5 days. 07/03/22 13:00 Blood Culture (Wb) - Left Wrist Blood Culture - Final No growth in 5 days. 07/03/22 12:20 Sputum, Expectorated/Coughed Gram Stain - Final 07/03/22 12:20 Sputum, Expectorated/Coughed Respiratory Culture - Final Mixed normal respiratory alecia. No Streptococcus pneumoniae, beta-hemolytic Streptococcus or Staphylococcus aureus isolated. 07/04/22 10:25 Stool Stool Occult Blood (GODFREY) - Final 07/01/22 08:25 Urine Catheter - Yarbrough Urine Culture - Final Culture exhibits no growth. 06/28/22 19:35 Nasal Secretion SARS-CoV-2 & FLU Antigen (Rapid) - Final SARS-CoV-2 (COVID 19) ABG Data ABG results: ABG 07/13/22 08:20 Specimen Type ART Sample Site R Radial pH 7.35 Bicarbonate Actual 16.3 L Total CO2 17 Base Excess -9 L O2 Saturation 88 L O2 % 35 ABG pCO2 29.3 L ABG pO2 57 L Laz Test Positive O2 Delivery Device Adult Vent Vent Mode CPAP/PS POC PEEP 5 POC Pressure Suppt 5 Attestation: I personally reviewed and interpreted this ABG as follows: (Partially compensated metabolic acidosis with increased AA gradient) Radiography Diagnostic Testing: Radiology Impression KUB X-Ray 07/13/22 12:50 IMPRESSION: The tip of the orogastric tube is in the distal portion of the stomach. Electronically Signed: Scott Patel MD at 13:19 EST , Rhythm Strip Rhythm Strip: Sinus Rhythm Rate: 90 Physical Exam Const average body habitus Constitutional Narrative: RASS -1 General Appearance: well developed, lethargic and patient mechanically ventilated HEENT normocephalic and head/scalp atraumatic Eyes PERRL and EOMs intact bilaterally Eyes Narrative: Left ptosis Neck no lymphadenopathy and supple General: trachea midline and CVC in place Chest inspection of chest normal Chest Narrative: Tunneled hemodialysis line is clean, dry and intact Resp Effort and Inspection: tachypneic Auscultation: rhonchi throughout and diminished lung sounds; Negative for rales or wheezes Cardio regular rate, regular rhythm, S1 normal heart sound, S2 normal heart sound, no murmurs, no rub and no gallops GI normal to inspection, nondistended, normoactive bowel sounds Extremity no clubbing, cyanosis or edema General Extremity: Negative for edema Skin no rashes or lesions noted Neuro moves all extremities and no focal motor deficits Sensorium / Orientation: sedated on vent Psych Mood & Affect: flat affect Charges/Coding Procedures Hospitalists Procedures: 37613 Critial Care 1st Hr
[2022-07-14] MEDS: Acetaminophen 650 MG/20 ML UDC GT (07:41)
--- NOTE | 2022-07-14 09:35 | PCM.PN.HOSP ---
Subjective Subjective Continues to spike fevers overnight though he does did appear to be improving a little bit with the meropenem Objective Data Objective Data Vital Signs: Vital Signs Temp Pulse Resp BP Pulse Ox O2 Del Method FiO2 101.1 F H 97 19 H 83/47 L 95 Mechanical Ventilator 65 07/14/22 09:00 07/14/22 09:15 07/14/22 09:00 07/14/22 09:15 07/14/22 09:00 07/14/22 09:00 07/14/22 09:00 Oxygen Delivery Method Mechanical Ventilator Weight: 214 lb 15.211 oz Body Mass Index (BMI) 31.7 Intake & Output: Intake and Output for Last 24 Hours 07/13/22 07/14/22 07/15/22 03:59 03:59 03:59 Intake Total 3124.63 / 3526.37 2571.74 / 2629.09 330.10 / 330.10 Output Total 1999 / 1999 0 / 0 0 / 0 Balance 1124.63 / 1526.37 2571.74 / 2629.09 330.10 / 330.10 Medical Nutrition Assessment Dietitian: Malnutrition Criteria Met Start: 07/02/22 13:54 Freq: Status: Active Protocol: Document 07/07/22 10:09 RMA (Rec: 07/07/22 10:09 RMA [id number]) Nutrition Malnutrition Evidence of Malnutrition Exists Yes Malnutrition (severe): Acute Illness/Injury Evidenced By Suboptimal Energy Intake ( Severe),Weight Loss (Severe) Intake Problem Inadequate Oral Intake Etiology related to altered mental status, resp. failure Signs/Symptoms as evidenced by NPO status; poor PO intake at meals prior to intubation Status Active Problem Clinical Problem Acute Disease or Injury Related Malnutrition Etiology severe, acute malnutrition related to inadequate oral intake d/t acute illness Signs/Symptoms as evidenced by unintentional wt loss of 4.564kg/5% wt loss < 2 weeks; estimated PO intake meeting < 50 % of estimated energy needs > 5 days Status Active Problem Recommendation Dietitian Recommendations/Changes NPO while intubated. Continue TF via OG tube of Nepro at goal rate 50ml/hr with 150ml water flush Q 4 hours to provide 2124 calories , 97 g protein, and 1772mL fluid/day. Lab / Micro Data Result Diagrams: 07/14/22 04:35 07/14/22 04:35 Labs: Laboratory Results - last 24 hr 07/13/22 03:42: Diff Path Review Reviewed 07/13/22 12:11: POC Glucose 113 H 07/13/22 18:17: POC Glucose 122 H 07/14/22 01:10: POC Glucose 163 H 07/14/22 04:35: WBC 10.8, RBC 2.82 L, Hgb 8.4 L, Hct 25.7 L, MCV 91.1, MCH 29.8, MCHC 32.7, RDW Std Deviation 49.7 H, RDW Coeff of Kenyatta 14.8 H, Plt Count 155, MPV 10.5, Immature Gran % (Auto) SEXUAL ASSAULT COUNSELOR, Neut % (Auto) SEXUAL ASSAULT COUNSELOR, Lymph % (Auto) SEXUAL ASSAULT COUNSELOR, [place] % (Auto) SEXUAL ASSAULT COUNSELOR, Eos % (Auto) SEXUAL ASSAULT COUNSELOR, Baso % (Auto) SEXUAL ASSAULT COUNSELOR, Absolute Neuts (auto) 9.1 H, Absolute Lymphs (auto) 0.97, Total Counted 100, Neutrophils % (Manual) 78 H, Band Neutrophils % 6 H, Lymphocytes % (Manual) 9 L, Monocytes % (Manual) 2, Eosinophils % (Manual) 1, Basophils % (Manual) 1, Metamyelocytes % 1, Myelocytes % 1 H, Promyelocytes % 1 H, Nucleated RBC % 0, Diff Path Review May foll, Platelet Estimate ADEQUATE, RBC Morphology N CYTIC, Hypochromasia 1+ 07/14/22 04:35: Sodium 136, Potassium 3.9, Chloride 98, Carbon Dioxide 23.0, BUN 53 H, Creatinine 5.30 H, Estim Creat Clear Calc 12.78, Est GFR (MDRD) Af Amer 14 L, Est GFR (MDRD) Non-Af 11 L, BUN/Creatinine Ratio 10.0, Glucose 221 H, Calcium 8.7, Phosphorus 5.0 H, Albumin 1.0 L Micro: Microbiology 07/12/22 10:54 Stool C. difficile DNA Amplification - Final 07/10/22 07:05 Sputum, Induced/Lukens Gram Stain - Final 07/10/22 07:05 Sputum, Induced/Lukens Respiratory Culture - Final Mixed normal respiratory alecia. No Streptococcus pneumoniae, beta-hemolytic Streptococcus or Staphylococcus aureus isolated. 07/03/22 12:48 Blood Culture (Wb) - Left Hand Blood Culture - Final No growth in 5 days. 07/03/22 13:00 Blood Culture (Wb) - Left Wrist Blood Culture - Final No growth in 5 days. 07/03/22 12:20 Sputum, Expectorated/Coughed Gram Stain - Final 07/03/22 12:20 Sputum, Expectorated/Coughed Respiratory Culture - Final Mixed normal respiratory alecia. No Streptococcus pneumoniae, beta-hemolytic Streptococcus or Staphylococcus aureus isolated. 07/04/22 10:25 Stool Stool Occult Blood (GODFREY) - Final 07/01/22 08:25 Urine Catheter - Yarbrough Urine Culture - Final Culture exhibits no growth. 06/28/22 19:35 Nasal Secretion SARS-CoV-2 & FLU Antigen (Rapid) - Final SARS-CoV-2 (COVID 19) Radiography Diagnostic Testing: Radiology Impression KUB X-Ray 07/13/22 12:50 IMPRESSION: The tip of the orogastric tube is in the distal portion of the stomach. Electronically Signed: Scott Patel MD at 13:19 EST , Chest X-Ray 07/14/22 05:51 IMPRESSION: Persistent patchy airspace disease, left greater than right, concerning for pneumonia. Electronically Signed: Judy Padilla MD at 7:41 EST , Rhythm Strip Rhythm Strip: Sinus Rhythm Rate: 90 Physical Exam Const General Appearance: intubated and patient mechanically ventilated HEENT normocephalic Eyes PERRL and conjunctivae normal Neck supple and no JVD Resp normal respiratory effort, no retractions and no use of accessory muscles Resp Narrative: Diminished Auscultation: rhonchi; Negative for crackles, rales or wheezes Cardio regular rate, regular rhythm, S1 normal heart sound, S2 normal heart sound and no murmurs GI soft to palpation and non-distended; Negative for hepatosplenomegaly Extremity no clubbing, cyanosis or edema Skin no rashes or lesions noted Neuro Sensorium / Orientation: sedated on vent Psych Appearance: intubated Assessment & Plan Assessment/Plan (1) Shock: (2) Acute kidney injury: (3) Acute respiratory failure: (4) Encephalopathy: (5) Diabetic keto-acidosis: (6) COVID: PLAN: Plan 1.? DKA in the setting of type 2 diabetes with a high anion gap metabolic acidosis and YESI with metabolic encephalopathy/hypernatremia and hyperchloremia with hyperchloremic metabolic acidosis with incomplete respiratory compensation with renal tubular acidosis unknown type/acute respiratory failure ? Status post tunneled dialysis catheter, continue with dialysis ? Appreciate bristle machine operator and nephrology's assistance ? Continue with long-acting insulin as well as sliding scale insulin we will make adjustments as necessary ? His A1c is 8.2 ? He was intubated on 07/03/2022, given respiratory status will likely remain intubated for 1 more day 2. Septic shock/thrombocytopenia ? Continue with norepinephrine, titrate as needed ? Given findings on chest x-ray likely source is pneumonia possibly ventilator associated, he has had some improvement with meropenem ? His thrombocytopenia is likely reactive and has resolved 3.? COVID-19?noncontributory 4.? HTN/HLD ? We will hold his ramipril given his acute renal failure ? Can wait to restart his pravastatin DVT: Heparin Charges/Coding Visit Charges Inpatient E&M: 11128 Subs Hosp L2
--- NOTE | 2022-07-14 09:37 | CASEMGMT ---
Social Work SW participated in ICU rounds this morning. Dr. Stinson requesting a family meeting. SW called , offered support. SW spoke w/her about having a family meeting. Pt's son and daughter in law are coming in this evening, they can be here tomorrow between 9-10am. SW explained once we know further the plan for pt we can revisit [facility] placement options. states understanding. SW let physician know family meeting tomorrow between 9-10am. SW will continue to follow. JAKE Jaimes
[2022-07-14] MEDS: Chlorhexidine 15 ML PO ×2 (10:08→21:12)
[2022-07-14] MEDS: CHLORHEXIDINE GLUC 2% CLOTH 1 EACH TOWELETTE TOPICAL (10:08)
[2022-07-14] MEDS: NEPRO TUBE FEED 1,000 ML 50 ML GT (10:09)
[2022-07-14] MEDS: Insulin Glargine-YFGN 100 UNIT/ML Pen 50 UNIT SC (11:48)
[2022-07-14 12:15] LABS: Bedside Glucose 260 mg/dL (74-106)
[2022-07-14 13:26] LABS: Pathologist Review Reviewed
--- NOTE | 2022-07-14 14:28 | PCM.PN.REN ---
Subjective Subjective remains intubated. Spiking fevers now up to 102. He is on higher dose of norepinephrine today at 8 ?g. FiO2 and PEEP requirements have increased. Chest x-ray with bilateral infiltrates more on the left side. Likely pneumonia at this point. Objective Data Objective Data Vital Signs: Vital Signs Temp Pulse Resp BP Pulse Ox O2 Del Method FiO2 99.7 F H 79 24 H 103/56 L 94 Mechanical Ventilator 30 07/14/22 12:00 07/14/22 13:00 07/14/22 13:00 07/14/22 13:00 07/14/22 13:00 07/14/22 13:00 07/14/22 13:00 Oxygen Delivery Method Mechanical Ventilator Weight: 97.5 kg Body Mass Index (BMI) 31.7 Intake & Output: Intake and Output for Last 24 Hours 07/12/22 07/13/22 07/14/22 23:59 23:59 23:59 Intake Total 3209.36 / 3287.51 2362.23 / 2432.73 1178.95 / 1178.95 Output Total 1999 0 / 0 0 / 0 Balance 1209.36 / 1287.51 2362.23 / 2432.73 1178.95 / 1178.95 Medical Nutrition Assessment Dietitian: Malnutrition Criteria Met Start: 07/02/22 13:54 Freq: Status: Active Protocol: Document 07/07/22 10:09 RMA (Rec: 07/07/22 10:09 RMA [id number]) Nutrition Malnutrition Evidence of Malnutrition Exists Yes Malnutrition (severe): Acute Illness/Injury Evidenced By Suboptimal Energy Intake ( Severe),Weight Loss (Severe) Intake Problem Inadequate Oral Intake Etiology related to altered mental status, resp. failure Signs/Symptoms as evidenced by NPO status; poor PO intake at meals prior to intubation Status Active Problem Clinical Problem Acute Disease or Injury Related Malnutrition Etiology severe, acute malnutrition related to inadequate oral intake d/t acute illness Signs/Symptoms as evidenced by unintentional wt loss of 4.564kg/5% wt loss < 2 weeks; estimated PO intake meeting < 50 % of estimated energy needs > 5 days Status Active Problem Recommendation Dietitian Recommendations/Changes NPO while intubated. Continue TF via OG tube of Nepro at goal rate 50ml/hr with 150ml water flush Q 4 hours to provide 2124 calories , 97 g protein, and 1772mL fluid/day. Lab / Micro Data Result Diagrams: 07/14/22 04:35 07/14/22 04:35 Labs: Laboratory Results - last 24 hr 07/13/22 12:11: POC Glucose 113 H 07/13/22 18:17: POC Glucose 122 H 07/14/22 01:10: POC Glucose 163 H 07/14/22 04:35: WBC 10.8, RBC 2.82 L, Hgb 8.4 L, Hct 25.7 L, MCV 91.1, MCH 29.8, MCHC 32.7, RDW Std Deviation 49.7 H, RDW Coeff of Kenyatta 14.8 H, Plt Count 155, MPV 10.5, Immature Gran % (Auto) MACHINE TRIMMER, Neut % (Auto) MACHINE TRIMMER, Lymph % (Auto) MACHINE TRIMMER, [place] % (Auto) MACHINE TRIMMER, Eos % (Auto) MACHINE TRIMMER, Baso % (Auto) MACHINE TRIMMER, Absolute Neuts (auto) 9.1 H, Absolute Lymphs (auto) 0.97, Total Counted 100, Neutrophils % (Manual) 78 H, Band Neutrophils % 6 H, Lymphocytes % (Manual) 9 L, Monocytes % (Manual) 2, Eosinophils % (Manual) 1, Basophils % (Manual) 1, Metamyelocytes % 1, Myelocytes % 1 H, Promyelocytes % 1 H, Nucleated RBC % 0, Diff Path Review Reviewed, Platelet Estimate ADEQUATE, RBC Morphology N CYTIC, Hypochromasia 1+ 07/14/22 04:35: Sodium 136, Potassium 3.9, Chloride 98, Carbon Dioxide 23.0, BUN 53 H, Creatinine 5.30 H, Estim Creat Clear Calc 12.78, Est GFR (MDRD) Af Amer 14 L, Est GFR (MDRD) Non-Af 11 L, BUN/Creatinine Ratio 10.0, Glucose 221 H, Calcium 8.7, Phosphorus 5.0 H, Albumin 1.0 L 07/14/22 11:44: POC Glucose 260 H Micro: Microbiology 07/12/22 10:54 Stool C. difficile DNA Amplification - Final 07/10/22 07:05 Sputum, Induced/Lukens Gram Stain - Final 07/10/22 07:05 Sputum, Induced/Lukens Respiratory Culture - Final Mixed normal respiratory alecia. No Streptococcus pneumoniae, beta-hemolytic Streptococcus or Staphylococcus aureus isolated. 07/03/22 12:48 Blood Culture (Wb) - Left Hand Blood Culture - Final No growth in 5 days. 07/03/22 13:00 Blood Culture (Wb) - Left Wrist Blood Culture - Final No growth in 5 days. 07/03/22 12:20 Sputum, Expectorated/Coughed Gram Stain - Final 07/03/22 12:20 Sputum, Expectorated/Coughed Respiratory Culture - Final Mixed normal respiratory alecia. No Streptococcus pneumoniae, beta-hemolytic Streptococcus or Staphylococcus aureus isolated. 07/04/22 10:25 Stool Stool Occult Blood (GODFREY) - Final 07/01/22 08:25 Urine Catheter - Yarbrough Urine Culture - Final Culture exhibits no growth. 06/28/22 19:35 Nasal Secretion SARS-CoV-2 & FLU Antigen (Rapid) - Final SARS-CoV-2 (COVID 19) Radiography Diagnostic Testing: Radiology Impression Chest X-Ray 07/14/22 05:51 IMPRESSION: Persistent patchy airspace disease, left greater than right, concerning for pneumonia. Electronically Signed: Judy Padilla MD at 7:41 EST , Rhythm Strip Rhythm Strip: Sinus Rhythm Rate: 90 Physical Exam Narrative sedated no obvious distress no pallor no icterus no JVD s1s2 no murmurs lungs clear abdomen soft no organomegaly no edema no cyanosis Const average body habitus General Appearance: well developed and patient mechanically ventilated HEENT normocephalic Neck no lymphadenopathy Resp clear to auscultation bilaterally Resp Narrative: Scattered rhonchi Auscultation: rhonchi Cardio regular rate Cardio Narrative: Tachycardic GI non-distended Auscultation: normoactive bowel sounds and hypoactive bowel sounds Extremity Extremity Narrative: Mottling of both lower extremities, minimal to no edema General Extremity: edema bilateral Skin Skin Narrative: Acrocyanosis, some petechiae Neuro Sensorium / Orientation: sedated on vent Assessment & Plan Assessment/Plan (1) Acute kidney injury: PLAN: Baseline creatinine was 1.1 as of December 2021. Sustained YESI, presumably ATN. Initiated on renal replacement therapy. In septic shock. Was initially on CRRT but had repeated clotting. Transitioned to hemodialysis. last dialysis was 07/13/22. no acute indications today. Electrolytes are stable. Appears to be in worsening septic shock. We'll reassess for dialysis tomorrow. If pressor requirements are high at tomorrow, he may need to go back on CRRT Thrombocytopenia. Evaluated by hematology. improved DKA. Resolved.
[2022-07-14 18:15] LABS: Bedside Glucose 250 mg/dL (74-106)
[2022-07-14 23:41] LABS: Bedside Glucose 251 mg/dL (74-106)
[2022-07-15] VITALS (53 sets, daily range): BP systolic 71–169; BP diastolic 43–141; PULSE 69–100; RESP 14–31; TEMP 36.6–38.4; O2SAT 60–100; BMI 32.3
--- NOTE | 2022-07-15 00:07 | NURSING ---
RT notified that pt is not oxygenating as well w/lowered PEEP of 5; O2 sats dropping to 84-86%,more frequent coughing.
--- NOTE | 2022-07-15 03:30 | NURSING ---
Pt's p.ox. dropping w/out stimulation to 84-86%; coarse LS throughout, productful cough; sputum thick and creamy. FiO2 increased to 65%
[2022-07-15] MEDS: Propofol 10MG/Ml 1,000 MG/100 ML Bottle 2.8 MG CONT INF (03:35)
[2022-07-15 03:56] LABS: Hematocrit 26.7 % (40-54); Hemoglobin 8.4 g/dL (13.0-16.5); Mean Corp Hgb Conc 31.5 g/dL (32-36); Mean Corpuscular Volume 92.1 fL (80-94); Mean Platelet Vol. 10.1 fl (6.2-12.0); POSITIVE COUNT YES; POSITIVE MORPHOLOGY YES; Platelet Count 179 K/mm3 (150-450); RBC Distribution Width CV 15.3 % (11.6-14.6); RBC Distribution Width SD 51.2 fl (35.1-43.9)
[2022-07-15 03:58] LABS: Differential Indicated MANUAL DIFF
[2022-07-15 04:10] LABS: BUN 82 mg/dL (7-18); Calcium,Total 9.5 mg/dL (8.5-10.1); Chloride 97 mmol/L (98-107); Creatinine, Serum 6.86 mg/dL (0.70-1.30); EST Glomerular Filtration Rate 9 mL/min (>60); Est Glom Filt Rate - Afr Amer 10 mL/min (>60); Estimated Creatinine Clearance 9.88 ml/min; Glucose 242 mg/dL (74-106); Potassium 4.1 mmol/L (3.5-5.1); Sodium Level 136 mmol/L (136-145)
[2022-07-15 04:16] LABS: Neutrophil-Band 5 % (0-5); Neutrophil-Segmented 79 % (47-70); Total Cells Counted 100 (MANUAL DIFF)
[2022-07-15 04:17] LABS: Basophil 1 % (0-1); Eosinophil 3 % (0-5); Lymphocyte 7 % (19-41); Metamyelocyte 1 % (0-1); Monocyte 1 % (0-10); Myelocyte 2 % (0-0); Platelet Estimate ADEQUATE (ADEQ); Promyelocyte 1 % (0-0)
[2022-07-15 04:18] LABS: Hypochromasia 1+; Red Cell Morphology N CYTIC NORMAL (NORM C&C)
[2022-07-15 04:19] LABS: Absolute Lymphocyte Count 0.63 X10^3/uL (0.83-4.51); Absolute Neutrophil Count 7.6 X10^3/uL (2.0-7.7); Lymphocyte # 0.63 X10^3/ul (0.83-4.51); Neutrophil # 7.56 X10^3/uL (2.7-7.7)
--- NOTE | 2022-07-15 04:30 | NURSING ---
RT called to bedside as pt now requiring 100% FiO2, multiple saline lavages performed, cont to sxn copious thick secretions.
[2022-07-15] MEDS: CHLORHEXIDINE GLUC 2% CLOTH 1 EACH TOWELETTE TOPICAL (04:39)
[2022-07-15] MEDS: 0.9% Saline Lock 10 ML Syringe IV ×2 (04:39→22:10)
--- NOTE | 2022-07-15 05:00 | RAD_ITS ---
EXAM: XR CHEST, 1 VIEW CLINICAL INDICATION: increased O2 demand TECHNIQUE: Frontal view of the chest. This report was created using [employer] report generation technology. COMPARISON: Previous chest radiographs of 07/14/2022, 07/13/22, and 07/11/2022. FINDINGS: LUNGS AND PLEURAL SPACES: Moderate patchy airspace disease is again noted throughout the right lung with less severe patchy airspace disease in the right mid to lower lung; these bilateral alveolar infiltrates have not significant changed as compared with the study one day ago, but have worsened bilaterally as compared with the earlier study of 07/11/2022. No pneumothorax or pleural effusion. HEART: Heart size remains within normal limits. Pulmonary vascular markings are obscured. MEDIASTINUM: Stable minimal elongation of the thoracic aorta. BONES/JOINTS: No acute osseous abnormality. SOFT TISSUES: Unremarkable. TUBES, LINES AND DEVICES: ET tube, left jugular venous catheter, multilumen right jugular venous catheter and NG tube remain in place, unchanged in position. RAD/Chest 1 View (Portable) IMPRESSION: No significant interval change as compared to the study of one day ago. Electronically Signed: Lawson Hamilton MD at 6:17 EST ,
[2022-07-15] MEDS: Insulin Lispro 100 UNIT/ML INSULN.PEN SC ×2 (06:46→17:23)
[2022-07-15] MEDS: TITRATION PARAMETER CHANGE 1 EACH IV (06:46)
[2022-07-15] MEDS: Menthol/Lanolin/Calamine/Znox 113 GM Tube 1 APPLIC TOPICAL ×3 (06:46→22:08)
--- NOTE | 2022-07-15 07:19 | PCM.PN.INT ---
Assessment & Plan Assessment/Plan (1) Diabetic keto-acidosis: (2) Hypernatremia: (3) Hyperchloremic metabolic acidosis: PLAN: Plan RECOMMENDATIONS: 1. Hemodialysis per nephrology. Patient would benefit from volume removal with dialysis 2. Continue meropenem. 3. Continue to minimize sedating medications. 4. Continue vasopressor support to maintain a mean arterial pressure at or above 65 mmHg. 5. Add mucolytic therapy and empiric steroids 6. Continue all current insulin orders. May need to increase basal following steroids 7. Await results of family meeting this morning IMPRESSIONS: 1. Metabolic encephalopathy Stable. The patient has developed worsening encephalopathy, likely secondary to profound underlying metabolic derangements, including hypernatremia and worsening uremia in the setting of YESI. Unfortunately, the patient had to be intubated on the morning of July 03 due to concerns for airway protection. Plan to continue dialysis support to address his underlying metabolic derangements and renal insufficiency. Continue to limit sedating medications. Patient does open his eyes to voice and follows simple commands. 2. Acute respiratory failure The patient was intubated over concerns for airway protection and possible aspiration. The etiology for his encephalopathy appears to be metabolic in nature. Patient was some increased FiO2 requirements over the last 24 hours. Chest x-ray is showing increased bilateral infiltrates, but culture were consistent with normal alecia. Patient appears to have responded well to transition to meropenem. Oxygen status continues to worsen. We will add empiric steroids and mucolytic therapy. Continue with spontaneous breathing and awakening trials. We will need to discuss with the family about goals of therapy later this morning. 3. Septic shock Slightly improved. Clinical concern for underlying pulmonary source of infection. The patient has significant underlying metabolic derangements related to his renal insufficiency. He is significantly overall net positive from a volume perspective for the hospitalization. Currently off Levophed, but may reinitiate to maintain a mean arterial pressure at or above 65 mmHg, especially with dialysis. Fever curve has improved after initiation of meropenem. C. difficile was negative. Attempting to avoid stress dose steroids as this will significantly worsen hyperglycemia 4. YESI on CKD Likely secondary to ischemic ATN. The patient has interval worsening in his renal function and metabolic derangements. Recommend ongoing dialysis support with volume optimization per nephrology recommendations. Tunneled hemodialysis line placed 07/11/2022. Patient tolerating dialysis. Defer to nephrology on use of CVVH. 5. Thrombocytopenia Resolved. Most likely related to underlying infectious etiology. Previous labs were not consistent with DIC. Continue to monitor platelet count for now. No indication for transfusion of blood products. 6. COVID-19/hyperlipidemia/hypertension/advanced age/diabetes mellitus Complicates care, management, recovery and prognosis. Continue supportive measures as noted above. Continue tube feeds as tolerated. We may have to increase basal insulin given the addition of empiric steroids Addendum 10:05 AM: Discussed with the family for 30 minutes on patient's current status and goals of therapy moving forward. Family is very clear that the patient would not want to live on a machine. Family has asked that we continue to optimize things as best we can with a plan of extubation to BiPAP once he is optimized. Family is not interested in a tracheostomy or PEG at this time. Patient has been on dialysis previously and tolerated for 6 weeks. They do believe that this is acceptable, especially if there is a chance for recovery. We will continue aggressive therapy. Patient's CODE STATUS will be changed to a DNR Comfort Care arrest with intubation. Okay to use pressors to facilitate volume removal with hemodialysis. TIME: 80 minutes of critical care time, inclusive of procedures, was spent addressing the patient's metabolic encephalopathy, acute respiratory failure, septic shock, YESI on CKD, review of all data and collaboration with the care team. Subjective Subjective Patient with increased FiO2 requirements over the last 24 hours. Patient is due for hemodialysis today. Patient has remained off of Levophed. Patient reportedly does have thick secretions requiring frequent lavaging. Objective Data Objective Data Vital Signs: Vital Signs Temp Pulse Resp BP Pulse Ox O2 Del Method FiO2 38.1 C H 95 28 H 99/46 L 93 Mechanical Ventilator 80 07/15/22 06:00 07/15/22 07:00 07/15/22 07:00 07/15/22 07:00 07/15/22 07:00 07/15/22 07:00 07/15/22 07:00 Oxygen Delivery Method Mechanical Ventilator Weight: 99.1 kg Body Mass Index (BMI) 32.3 Intake & Output: Intake and Output for Last 24 Hours 07/13/22 07/14/22 07/15/22 23:59 23:59 23:59 Intake Total 2362.23 / 2432.73 2420.59 / 2438.39 415.08 / 415.08 Output Total 0 / 0 Balance 2362.23 / 2432.73 2410.59 / 2428.39 400.08 / 400.08 Medical Nutrition Assessment Dietitian: Malnutrition Criteria Met Start: 07/02/22 13:54 Freq: Status: Active Protocol: Document 07/07/22 10:09 RMA (Rec: 07/07/22 10:09 RMA [id number]) Nutrition Malnutrition Evidence of Malnutrition Exists Yes Malnutrition (severe): Acute Illness/Injury Evidenced By Suboptimal Energy Intake ( Severe),Weight Loss (Severe) Intake Problem Inadequate Oral Intake Etiology related to altered mental status, resp. failure Signs/Symptoms as evidenced by NPO status; poor PO intake at meals prior to intubation Status Active Problem Clinical Problem Acute Disease or Injury Related Malnutrition Etiology severe, acute malnutrition related to inadequate oral intake d/t acute illness Signs/Symptoms as evidenced by unintentional wt loss of 4.564kg/5% wt loss < 2 weeks; estimated PO intake meeting < 50 % of estimated energy needs > 5 days Status Active Problem Recommendation Dietitian Recommendations/Changes NPO while intubated. Continue TF via OG tube of Nepro at goal rate 50ml/hr with 150ml water flush Q 4 hours to provide 2124 calories , 97 g protein, and 1772mL fluid/day. Lab / Micro Data Attestation: I reviewed the patient's lab results. Result Diagrams: 07/15/22 03:40 07/15/22 03:40 Labs: Laboratory Results - last 24 hr 07/14/22 04:35: Diff Path Review Reviewed 07/14/22 11:44: POC Glucose 260 H 07/14/22 17:38: POC Glucose 250 H 07/14/22 23:16: POC Glucose 251 H 07/15/22 03:40: WBC 9.0, RBC 2.90 L, Hgb 8.4 L, Hct 26.7 L, MCV 92.1, MCH 29.0, MCHC 31.5 L, RDW Std Deviation 51.2 H, RDW Coeff of Kenyatta 15.3 H, Plt Count 179, MPV 10.1, Neut % (Auto) Not Reportable, Absolute Neuts (auto) 7.6, Absolute Lymphs (auto) 0.63 L, Total Counted 100, Neutrophils % (Manual) 79 H, Band Neutrophils % 5, Lymphocytes % (Manual) 7 L, Monocytes % (Manual) 1, Eosinophils % (Manual) 3, Basophils % (Manual) 1, Metamyelocytes % 1, Myelocytes % 2 H, Promyelocytes % 1 H, Diff Path Review September, Platelet Estimate ADEQUATE, RBC Morphology N CYTIC, Hypochromasia 1+ 07/15/22 03:40: Sodium 136, Potassium 4.1, Chloride 97 L, Carbon Dioxide 19.0 L, BUN 82 H, Creatinine 6.86 H, Estim Creat Clear Calc 9.88, Est GFR (MDRD) Af Amer 10 L, Est GFR (MDRD) Non-Af 9 L, BUN/Creatinine Ratio 12.0, Glucose 242 H, Calcium 9.5, Phosphorus 6.0 H, Albumin 1.0 L Micro: Microbiology 07/12/22 10:54 Stool C. difficile DNA Amplification - Final 07/10/22 07:05 Sputum, Induced/Lukens Gram Stain - Final 07/10/22 07:05 Sputum, Induced/Lukens Respiratory Culture - Final Mixed normal respiratory alecia. No Streptococcus pneumoniae, beta-hemolytic Streptococcus or Staphylococcus aureus isolated. 07/03/22 12:48 Blood Culture (Wb) - Left Hand Blood Culture - Final No growth in 5 days. 07/03/22 13:00 Blood Culture (Wb) - Left Wrist Blood Culture - Final No growth in 5 days. 07/03/22 12:20 Sputum, Expectorated/Coughed Gram Stain - Final 07/03/22 12:20 Sputum, Expectorated/Coughed Respiratory Culture - Final Mixed normal respiratory alecia. No Streptococcus pneumoniae, beta-hemolytic Streptococcus or Staphylococcus aureus isolated. 07/04/22 10:25 Stool Stool Occult Blood (GODFREY) - Final 07/01/22 08:25 Urine Catheter - Yarbrough Urine Culture - Final Culture exhibits no growth. 06/28/22 19:35 Nasal Secretion SARS-CoV-2 & FLU Antigen (Rapid) - Final SARS-CoV-2 (COVID 19) Radiography Diagnostic Testing: Radiology Impression Chest X-Ray 07/14/22 05:51 IMPRESSION: Persistent patchy airspace disease, left greater than right, concerning for pneumonia. Electronically Signed: Judy Padilla MD at 7:41 EST Reading Location ID and State: [facility] / [place] Tel , Service support , Chest X-Ray 07/15/22 05:00 IMPRESSION: No significant interval change as compared to the study of one day ago. Electronically Signed: Lawson Hamilton MD at 6:17 EST , Rhythm Strip Rhythm Strip: Sinus Rhythm Rate: 90 Physical Exam Const average body habitus Constitutional Narrative: RASS -1 General Appearance: well developed, lethargic, ill appearing and patient mechanically ventilated HEENT normocephalic and head/scalp atraumatic Eyes PERRL and EOMs intact bilaterally Eyes Narrative: Left ptosis Neck no lymphadenopathy and supple General: trachea midline and CVC in place Chest inspection of chest normal Chest Narrative: Tunneled hemodialysis line is clean, dry and intact Resp Effort and Inspection: tachypneic Auscultation: rhonchi throughout and diminished lung sounds; Negative for rales or wheezes Cardio regular rhythm, S1 normal heart sound, S2 normal heart sound, no murmurs, no rub and no gallops Rate: tachycardic Rhythm: abnormal rhythm GI normal to inspection, nondistended, normoactive bowel sounds Extremity no clubbing, cyanosis or edema General Extremity: Negative for edema Skin no rashes or lesions noted Skin Narrative: No hematoma noted at temporary dialysis site Neuro moves all extremities and no focal motor deficits Sensorium / Orientation: sedated on vent Psych Mood & Affect: flat affect Charges/Coding Procedures Hospitalists Procedures: 75478 Critial Care 1st Hr Multi Select Codes Hospitalists' Procedures Procedures: 87882 Critial Care Addl 30 Min
[2022-07-15] MEDS: Insulin Glargine-YFGN 100 UNIT/ML Pen 50 UNIT SC (07:51)
[2022-07-15] MEDS: Chlorhexidine 15 ML PO ×2 (07:52→22:09)
[2022-07-15] MEDS: Acetaminophen 650 MG/20 ML UDC GT ×2 (08:19→15:28)
[2022-07-15] MEDS: guaiFENesin 10 ML UDC (200MG/10ML) GT ×4 (08:19→22:08)
--- NOTE | 2022-07-15 09:12 | PN.HOSP_ITS ---
Subjective Subjective Intubated and sedated, continues to spike fevers overnight Objective Data Objective Data Vital Signs: Vital Signs Temp Pulse Resp BP Pulse Ox O2 Del Method FiO2 101.1 F H 95 28 H 92/44 L 97 Mechanical Ventilator 80 07/15/22 08:00 07/15/22 08:00 07/15/22 08:00 07/15/22 08:00 07/15/22 08:00 07/15/22 08:00 07/15/22 08:00 Oxygen Delivery Method Mechanical Ventilator Weight: 218 lb 7.649 oz Body Mass Index (BMI) 32.3 Intake & Output: Intake and Output for Last 24 Hours 07/14/22 07/15/22 07/16/22 03:59 03:59 03:59 Intake Total 2571.74 / 2629.09 2131.39 / 2438.39 509.00 / 509.00 Output Total 0 / 0 Balance 2571.74 / 2629.09 2121.39 / 2428.39 494.00 / 494.00 Medical Nutrition Assessment Dietitian: Malnutrition Criteria Met Start: 07/02/22 13:54 Freq: Status: Active Protocol: Document 07/07/22 10:09 RMA (Rec: 07/07/22 10:09 RMA [id number]) Nutrition Malnutrition Evidence of Malnutrition Exists Yes Malnutrition (severe): Acute Illness/Injury Evidenced By Suboptimal Energy Intake ( Severe),Weight Loss (Severe) Intake Problem Inadequate Oral Intake Etiology related to altered mental status, resp. failure Signs/Symptoms as evidenced by NPO status; poor PO intake at meals prior to intubation Status Active Problem Clinical Problem Acute Disease or Injury Related Malnutrition Etiology severe, acute malnutrition related to inadequate oral intake d/t acute illness Signs/Symptoms as evidenced by unintentional wt loss of 4.564kg/5% wt loss < 2 weeks; estimated PO intake meeting < 50 % of estimated energy needs > 5 days Status Active Problem Recommendation Dietitian Recommendations/Changes NPO while intubated. Continue TF via OG tube of Nepro at goal rate 50ml/hr with 150ml water flush Q 4 hours to provide 2124 calories , 97 g protein, and 1772mL fluid/day. Lab / Micro Data Result Diagrams: 07/15/22 03:40 07/15/22 03:40 Labs: Laboratory Results - last 24 hr 07/14/22 04:35: Diff Path Review Reviewed 07/14/22 11:44: POC Glucose 260 H 07/14/22 17:38: POC Glucose 250 H 07/14/22 23:16: POC Glucose 251 H 07/15/22 03:40: WBC 9.0, RBC 2.90 L, Hgb 8.4 L, Hct 26.7 L, MCV 92.1, MCH 29.0, MCHC 31.5 L, RDW Std Deviation 51.2 H, RDW Coeff of Kenyatta 15.3 H, Plt Count 179, MPV 10.1, Neut % (Auto) Not Reportable, Absolute Neuts (auto) 7.6, Absolute Lymphs (auto) 0.63 L, Total Counted 100, Neutrophils % (Manual) 79 H, Band Neutrophils % 5, Lymphocytes % (Manual) 7 L, Monocytes % (Manual) 1, Eosinophils % (Manual) 3, Basophils % (Manual) 1, Metamyelocytes % 1, Myelocytes % 2 H, Promyelocytes % 1 H, Diff Path Review May foll, Platelet Estimate ADEQUATE, RBC Morphology N CYTIC, Hypochromasia 1+ 07/15/22 03:40: Sodium 136, Potassium 4.1, Chloride 97 L, Carbon Dioxide 19.0 L, BUN 82 H, Creatinine 6.86 H, Estim Creat Clear Calc 9.88, Est GFR (MDRD) Af Amer 10 L, Est GFR (MDRD) Non-Af 9 L, BUN/Creatinine Ratio 12.0, Glucose 242 H, Calcium 9.5, Phosphorus 6.0 H, Albumin 1.0 L Micro: Microbiology 07/12/22 10:54 Stool C. difficile DNA Amplification - Final 07/10/22 07:05 Sputum, Induced/Lukens Gram Stain - Final 07/10/22 07:05 Sputum, Induced/Lukens Respiratory Culture - Final Mixed normal respiratory alecia. No Streptococcus pneumoniae, beta-hemolytic Streptococcus or Staphylococcus aureus isolated. 07/03/22 12:48 Blood Culture (Wb) - Left Hand Blood Culture - Final No growth in 5 days. 07/03/22 13:00 Blood Culture (Wb) - Left Wrist Blood Culture - Final No growth in 5 days. 07/03/22 12:20 Sputum, Expectorated/Coughed Gram Stain - Final 07/03/22 12:20 Sputum, Expectorated/Coughed Respiratory Culture - Final Mixed normal respiratory alecia. No Streptococcus pneumoniae, beta-hemolytic Streptococcus or Staphylococcus aureus isolated. 07/04/22 10:25 Stool Stool Occult Blood (GODFREY) - Final 07/01/22 08:25 Urine Catheter - Yarbrough Urine Culture - Final Culture exhibits no growth. 06/28/22 19:35 Nasal Secretion SARS-CoV-2 & FLU Antigen (Rapid) - Final SARS-CoV-2 (COVID 19) Radiography Diagnostic Testing: Radiology Impression Chest X-Ray 07/15/22 05:00 IMPRESSION: No significant interval change as compared to the study of one day ago. Electronically Signed: Lawson Hamilton MD at 6:17 EST , Rhythm Strip Rhythm Strip: Sinus Rhythm Rate: 90 Physical Exam Const General Appearance: intubated and patient mechanically ventilated HEENT normocephalic Eyes PERRL and conjunctivae normal Neck supple and no JVD Resp normal respiratory effort, no retractions and no use of accessory muscles Auscultation: rhonchi; Negative for crackles, rales or wheezes Cardio regular rhythm, S1 normal heart sound, S2 normal heart sound and no murmurs Rate: tachycardic GI soft to palpation and non-distended; Negative for hepatosplenomegaly Extremity no clubbing, cyanosis or edema Skin no rashes or lesions noted Neuro Sensorium / Orientation: sedated on vent Psych Appearance: intubated Assessment & Plan Assessment/Plan (1) Shock: (2) Acute kidney injury: (3) Acute respiratory failure: (4) Encephalopathy: (5) Diabetic keto-acidosis: (6) COVID: PLAN: Plan 1.? DKA in the setting of type 2 diabetes with a high anion gap metabolic acidosis and YESI with metabolic encephalopathy/hypernatremia and hyperchloremia with hyperchloremic metabolic acidosis with incomplete respiratory compensation with renal tubular acidosis unknown type/acute respiratory failure ? Status post tunneled dialysis catheter, continue with dialysis ? Appreciate washtub worker helper and nephrology's assistance ? Continue with long-acting insulin as well as sliding scale insulin we will make adjustments as necessary ? His A1c is 8.2 ? He was intubated on 07/03/2022, given respiratory status will likely remain intubated, will have a family meeting today to discuss goals of care ? Continue with tube feeds 2. Septic shock/thrombocytopenia ? Continue with norepinephrine, titrate as needed ? Given findings on chest x-ray likely source is pneumonia possibly ventilator associated, he has had some improvement with meropenem ? His thrombocytopenia is likely reactive and has resolved 3.? COVID-19?noncontributory 4.? HTN/HLD ? We will hold his ramipril given his acute renal failure ? Can wait to restart his pravastatin DVT: Heparin Charges/Coding Visit Charges Inpatient E&M: 51415 Subs Hosp L2
[2022-07-15] MEDS: NEPRO TUBE FEED 1,000 ML 50 ML GT (11:37)
[2022-07-15 12:20] LABS: Bedside Glucose 129 mg/dL (74-106)
[2022-07-15] MEDS: Heparin 10,000 UNITS/10 ML Vial IV (15:33)
--- NOTE | 2022-07-15 15:58 | DIALYSIS ---
Hemodialysis complete with 2 liters fluid removed. Dialysis CVC dressing is clean and dry. Both dialysis CVC lumens patent.
[2022-07-15] MEDS: Propofol 10MG/Ml 1,000 MG/100 ML Bottle 5.9 MG CONT INF (16:25)
[2022-07-15 17:40] LABS: Bedside Glucose 157 mg/dL (74-106)
--- NOTE | 2022-07-15 18:59 | CASEMGMT ---
Social Work Note SW contacted patient's and introduced herself and role as [facility] Installation Tech. SW inquired about the outcome of the meeting earlier today. Patient's reported the meeting went well and she felt supported by the team in general. Patient's reports they will be trying several things next week to see what helps the patient's condition. Patient's does not feel SNF will be appropriate but will continue to consider as the patient's condition changes. No other needs voiced at this time, SW explained SW next week will continue to follow along and assist with d/c planning. Vanesa Bernard MSW, WANG
--- NOTE | 2022-07-15 22:33 | NURSING ---
1900- This RN came onto shift and completed bedside shift report and handoff. When checking the drips I was told in report the Fentanyl was running at 150mcg/hr and verified it running at this dosage. According to the EMAR last documented rate for the fentanyl was 75mcg/hr at 1800. Previous RN had not documented increasing the Fentanyl drip to current rate of 150mcg/hr.
[2022-07-16] VITALS (36 sets, daily range): BP systolic 106–137; BP diastolic 54–70; PULSE 60–69; RESP 14–21; TEMP 36.1–36.6; O2SAT 90–97; BMI 31.8
[2022-07-16] MEDS: guaiFENesin 10 ML UDC (200MG/10ML) GT ×6 (00:17→22:41)
[2022-07-16] MEDS: Insulin Lispro 100 UNIT/ML INSULN.PEN SC ×5 (00:24→22:51)
[2022-07-16 04:28] LABS: Hemoglobin 8.4 g/dL (13.0-16.5); Mean Corp Hgb Conc 32.3 g/dL (32-36); Mean Corpuscular Hgb 29.2 pg (27.0-32.0); Mean Corpuscular Volume 90.3 fL (80-94); Mean Platelet Vol. 10.3 fl (6.2-12.0); POSITIVE COUNT YES; POSITIVE MORPHOLOGY YES; Platelet Count 214 K/mm3 (150-450); RBC Distribution Width CV 15.1 % (11.6-14.6); RBC Distribution Width SD 49.7 fl (35.1-43.9); Red Blood Count 2.88 M/mm3 (4.6-6.2)
[2022-07-16 04:40] LABS: Differential Indicated MANUAL DIFF
[2022-07-16 04:46] LABS: ALB/GLOB Ratio 0.2 RATIO (0.9-2.4); AST(SGOT) 54 U/L (15-37); Alanine Aminotransfer ALT/SGPT 29 U/L (16-61); Alkaline Phosphatase 340 U/L (45-117); Anion Gap 18 (5-15); BUN 67 mg/dL (7-18); BUN/Creat Ratio 13.1 RATIO (10-20); Calcium,Total 9.1 mg/dL (8.5-10.1); Chloride 94 mmol/L (98-107); Creatinine, Serum 5.11 mg/dL (0.70-1.30); EST Glomerular Filtration Rate 12 mL/min (>60); Est Glom Filt Rate - Afr Amer 14 mL/min (>60); Estimated Creatinine Clearance 13.26 ml/min; Glucose 271 mg/dL (74-106); Potassium 4.5 mmol/L (3.5-5.1); Sodium Level 134 mmol/L (136-145)
[2022-07-16 04:51] LABS: Lymphocyte 10 % (19-41); Monocyte 3 % (0-10); Myelocyte 3 % (0-0); Neutrophil-Band 5 % (0-5); Neutrophil-Segmented 79 % (47-70); Nucleated Red Bld Cells,Manual 1 % (0-5); Total Cells Counted 100 (MANUAL DIFF)
[2022-07-16 04:52] LABS: Absolute Neutrophil Count 8.7 X10^3/uL (2.0-7.7); Neutrophil # 8.67 X10^3/uL (2.7-7.7)
[2022-07-16 04:53] LABS: Platelet Estimate ADEQUATE (ADEQ)
[2022-07-16 04:54] LABS: Polychromasia RARE; Red Cell Morphology N CYTIC NORMAL (NORM C&C)
[2022-07-16] MEDS: Propofol 10MG/Ml 1,000 MG/100 ML Bottle 5.9 MG CONT INF ×2 (05:28→16:09)
[2022-07-16] MEDS: CHLORHEXIDINE GLUC 2% CLOTH 1 EACH TOWELETTE TOPICAL (05:29)
[2022-07-16] MEDS: Menthol/Lanolin/Calamine/Znox 113 GM Tube 1 APPLIC TOPICAL ×3 (05:33→22:41)
--- NOTE | 2022-07-16 06:28 | PCM.PN.INT ---
Assessment & Plan Assessment/Plan (1) Diabetic keto-acidosis: (2) Hypernatremia: (3) Hyperchloremic metabolic acidosis: PLAN: Plan RECOMMENDATIONS: 1. Hemodialysis per nephrology. Patient would benefit from volume removal with dialysis 2. Continue meropenem to complete a 10-day course. 3. Continue to minimize sedating medications. 4. Continue vasopressor support to maintain a mean arterial pressure at or above 65 mmHg. 5. Continue mucolytic therapy and empiric steroids 6. Continue all current insulin orders. May need to increase basal following steroids 7. Extubation with family present once patient is optimized IMPRESSIONS: 1. Metabolic encephalopathy Stable. The patient has developed worsening encephalopathy, likely secondary to profound underlying metabolic derangements, including hypernatremia and worsening uremia in the setting of YESI. Unfortunately, the patient had to be intubated on the morning of July 03 due to concerns for airway protection. Plan to continue dialysis support to address his underlying metabolic derangements and renal insufficiency. Continue to limit sedating medications. Patient does open his eyes to voice and follows simple commands. Patient has been calm more resistant to ventilator requiring sedation 2. Acute respiratory failure The patient was intubated over concerns for airway protection and possible aspiration. The etiology for his encephalopathy appears to be metabolic in nature. Patient was some increased FiO2 requirements over the last 24 hours. Chest x-ray is showing increased bilateral infiltrates, but culture were consistent with normal alecia. Patient appears to have responded well to transition to meropenem. Patient with significant improvement over the last 24 hours. Some concern for mucous plugging leading to highly variable oxygen requirements. 3. Septic shock Slightly improved. Clinical concern for underlying pulmonary source of infection. The patient has significant underlying metabolic derangements related to his renal insufficiency. He is significantly overall net positive from a volume perspective for the hospitalization. Currently off Levophed, but may reinitiate to maintain a mean arterial pressure at or above 65 mmHg, especially with dialysis. Fever curve has improved after initiation of meropenem. C. difficile was negative. Patient was placed on empiric steroids yesterday. 4. YESI on CKD Likely secondary to ischemic ATN. The patient has interval worsening in his renal function and metabolic derangements. Recommend ongoing dialysis support with volume optimization per nephrology recommendations. Tunneled hemodialysis line placed 07/11/2022. Patient tolerating dialysis. Defer to nephrology on use of CVVH. 5. Thrombocytopenia Resolved. Most likely related to underlying infectious etiology. Previous labs were not consistent with DIC. Continue to monitor platelet count for now. No indication for transfusion of blood products. 6. COVID-19/hyperlipidemia/hypertension/advanced age/diabetes mellitus Complicates care, management, recovery and prognosis. Continue supportive measures as noted above. Continue tube feeds as tolerated. We may have to increase basal insulin given the addition of empiric steroids TIME: 34 minutes of critical care time, inclusive of procedures, was spent addressing the patient's metabolic encephalopathy, acute respiratory failure, septic shock, YESI on CKD, review of all data and collaboration with the care team. Subjective Subjective Patient did okay overnight. No acute issues were reported. Oxygenation has significantly improved over the last 24 hours. Nursing continues to report thick secretions. Patient did tolerate hemodialysis with 2 L removed. Nursing has reported pressors have been required when propofol is used. Family meeting yesterday. Patient will not be trached and PEGed. Family requesting optimization with extubation to BiPAP and no reintubation. Progress note for 07/15/2022 for further details. Objective Data Objective Data Vital Signs: Vital Signs Temp Pulse Resp BP Pulse Ox O2 Del Method FiO2 36.1 C L 61 14 131/68 H 96 Mechanical Ventilator 40 07/16/22 04:00 07/16/22 06:00 07/16/22 06:00 07/16/22 06:00 07/16/22 06:00 07/16/22 06:00 07/16/22 06:00 Oxygen Delivery Method Mechanical Ventilator Weight: 97.8 kg Body Mass Index (BMI) 31.8 Intake & Output: Intake and Output for Last 24 Hours 07/14/22 07/15/22 07/16/22 23:59 23:59 23:59 Intake Total 2420.59 / 2438.39 1554.61 / 1734.91 562.10 / 562.10 Output Total 2029 Balance 2410.59 / 2428.39 -475.39 / -295.09 562.10 / 562.10 Medical Nutrition Assessment Dietitian: Malnutrition Criteria Met Start: 07/02/22 13:54 Freq: Status: Active Protocol: Document 07/07/22 10:09 RMA (Rec: 07/07/22 10:09 RMA [id number]) Nutrition Malnutrition Evidence of Malnutrition Exists Yes Malnutrition (severe): Acute Illness/Injury Evidenced By Suboptimal Energy Intake ( Severe),Weight Loss (Severe) Intake Problem Inadequate Oral Intake Etiology related to altered mental status, resp. failure Signs/Symptoms as evidenced by NPO status; poor PO intake at meals prior to intubation Status Active Problem Clinical Problem Acute Disease or Injury Related Malnutrition Etiology severe, acute malnutrition related to inadequate oral intake d/t acute illness Signs/Symptoms as evidenced by unintentional wt loss of 4.564kg/5% wt loss < 2 weeks; estimated PO intake meeting < 50 % of estimated energy needs > 5 days Status Active Problem Recommendation Dietitian Recommendations/Changes NPO while intubated. Continue TF via OG tube of Nepro at goal rate 50ml/hr with 150ml water flush Q 4 hours to provide 2124 calories , 97 g protein, and 1772mL fluid/day. Lab / Micro Data Attestation: I reviewed the patient's lab results. Result Diagrams: 07/16/22 04:20 07/16/22 04:20 Labs: Laboratory Results - last 24 hr 07/15/22 11:39: POC Glucose 129 H 07/15/22 17:22: POC Glucose 157 H 07/16/22 04:20: WBC 10.0, RBC 2.88 L, Hgb 8.4 L, Hct 26.0 L, MCV 90.3, MCH 29.2, MCHC 32.3, RDW Std Deviation 49.7 H, RDW Coeff of Kenyatta 15.1 H, Plt Count 214, MPV 10.3, Neut % (Auto) Not Reportable, Absolute Neuts (auto) 8.7 H, Absolute Lymphs (auto) 1.00, Total Counted 100, Neutrophils % (Manual) 79 H, Band Neutrophils % 5, Lymphocytes % (Manual) 10 L, Monocytes % (Manual) 3, Myelocytes % 3 H, Nucleated RBCs/100 WBC 1, Diff Path Review September, Platelet Estimate ADEQUATE, RBC Morphology N CYTIC, Polychromasia RARE 07/16/22 04:20: Sodium 134 L, Potassium 4.5, Chloride 94 L, Carbon Dioxide 22.0, Anion Gap 18 H, BUN 67 H, Creatinine 5.11 H, Estim Creat Clear Calc 13.26, Est GFR (MDRD) Af Amer 14 L, Est GFR (MDRD) Non-Af 12 L, BUN/Creatinine Ratio 13.1, Glucose 271 H, Calcium 9.1, Total Bilirubin 0.70, AST 54 H, ALT 29, Alkaline Phosphatase 340 H, Total Protein 6.0 L, Albumin 1.0 L, Globulin 5.0 H, Albumin/Globulin Ratio 0.2 L Micro: Microbiology 07/12/22 10:54 Stool C. difficile DNA Amplification - Final 07/10/22 07:05 Sputum, Induced/Lukens Gram Stain - Final 07/10/22 07:05 Sputum, Induced/Lukens Respiratory Culture - Final Mixed normal respiratory alecia. No Streptococcus pneumoniae, beta-hemolytic Streptococcus or Staphylococcus aureus isolated. 07/03/22 12:48 Blood Culture (Wb) - Left Hand Blood Culture - Final No growth in 5 days. 07/03/22 13:00 Blood Culture (Wb) - Left Wrist Blood Culture - Final No growth in 5 days. 07/03/22 12:20 Sputum, Expectorated/Coughed Gram Stain - Final 07/03/22 12:20 Sputum, Expectorated/Coughed Respiratory Culture - Final Mixed normal respiratory alecia. No Streptococcus pneumoniae, beta-hemolytic Streptococcus or Staphylococcus aureus isolated. 07/04/22 10:25 Stool Stool Occult Blood (GODFREY) - Final 07/01/22 08:25 Urine Catheter - Yarbrough Urine Culture - Final Culture exhibits no growth. 06/28/22 19:35 Nasal Secretion SARS-CoV-2 & FLU Antigen (Rapid) - Final SARS-CoV-2 (COVID 19) Rhythm Strip Rhythm Strip: Sinus Rhythm Rate: 90 Physical Exam Const average body habitus Constitutional Narrative: Does open eyes to voice General Appearance: intubated and patient mechanically ventilated HEENT normocephalic Eyes PERRL and conjunctivae normal Eyes Narrative: Continues to have left ptosis Neck supple and no JVD General: trachea midline and CVC in place Chest inspection of chest normal Chest Narrative: Tunneled hemodialysis line is clean, dry and intact Resp normal respiratory effort, no retractions and no use of accessory muscles Effort and Inspection: tachypneic Auscultation: rhonchi; Negative for crackles, rales or wheezes Cardio regular rate, regular rhythm, S1 normal heart sound, S2 normal heart sound and no murmurs GI soft to palpation and non-distended; Negative for hepatosplenomegaly Extremity no clubbing, cyanosis or edema General Extremity: Negative for edema Skin no rashes or lesions noted Neuro moves all extremities and no focal motor deficits Sensorium / Orientation: sedated on vent Psych Appearance: intubated Mood & Affect: flat affect Charges/Coding Procedures Hospitalists Procedures: 19439 Critial Care 1st Hr
[2022-07-16] MEDS: NEPRO TUBE FEED 1,000 ML 50 ML GT (07:36)
[2022-07-16] MEDS: Chlorhexidine 15 ML PO ×2 (07:37→22:42)
--- NOTE | 2022-07-16 09:20 | PN.HOSP_ITS ---
Subjective Subjective No issues overnight remains intubated and sedated Objective Data Objective Data Vital Signs: Vital Signs Temp Pulse Resp BP Pulse Ox O2 Del Method FiO2 97.0 F L 62 14 117/58 L 96 Mechanical Ventilator 40 07/16/22 09:00 07/16/22 09:00 07/16/22 09:00 07/16/22 09:00 07/16/22 09:00 07/16/22 09:00 07/16/22 09:00 Oxygen Delivery Method Mechanical Ventilator Weight: 215 lb 9.793 oz Body Mass Index (BMI) 31.8 Intake & Output: Intake and Output for Last 24 Hours 07/15/22 07/16/22 07/17/22 03:59 03:59 03:59 Intake Total 2131.39 / 2438.39 1749.23 / 1829.53 1583.22 / 1583.22 Output Total 2029 Balance 2121.39 / 2428.39 -280.77 / -200.47 1583.22 / 1583.22 Medical Nutrition Assessment Dietitian: Malnutrition Criteria Met Start: 07/02/22 13:54 Freq: Status: Active Protocol: Document 07/07/22 10:09 RMA (Rec: 07/07/22 10:09 RMA [id number]) Nutrition Malnutrition Evidence of Malnutrition Exists Yes Malnutrition (severe): Acute Illness/Injury Evidenced By Suboptimal Energy Intake ( Severe),Weight Loss (Severe) Intake Problem Inadequate Oral Intake Etiology related to altered mental status, resp. failure Signs/Symptoms as evidenced by NPO status; poor PO intake at meals prior to intubation Status Active Problem Clinical Problem Acute Disease or Injury Related Malnutrition Etiology severe, acute malnutrition related to inadequate oral intake d/t acute illness Signs/Symptoms as evidenced by unintentional wt loss of 4.564kg/5% wt loss < 2 weeks; estimated PO intake meeting < 50 % of estimated energy needs > 5 days Status Active Problem Recommendation Dietitian Recommendations/Changes NPO while intubated. Continue TF via OG tube of Nepro at goal rate 50ml/hr with 150ml water flush Q 4 hours to provide 2124 calories , 97 g protein, and 1772mL fluid/day. Lab / Micro Data Result Diagrams: 07/16/22 04:20 07/16/22 04:20 Labs: Laboratory Results - last 24 hr 07/15/22 11:39: POC Glucose 129 H 07/15/22 17:22: POC Glucose 157 H 07/16/22 04:20: WBC 10.0, RBC 2.88 L, Hgb 8.4 L, Hct 26.0 L, MCV 90.3, MCH 29.2, MCHC 32.3, RDW Std Deviation 49.7 H, RDW Coeff of Kenyatta 15.1 H, Plt Count 214, MPV 10.3, Neut % (Auto) Not Reportable, Absolute Neuts (auto) 8.7 H, Absolute Lymphs (auto) 1.00, Total Counted 100, Neutrophils % (Manual) 79 H, Band Neutrophils % 5, Lymphocytes % (Manual) 10 L, Monocytes % (Manual) 3, Myelocytes % 3 H, Nu cleated RBCs/100 WBC 1, Diff Path Review September, Platelet Estimate ADEQUATE, RBC Morphology N CYTIC, Polychromasia RARE 07/16/22 04:20: Sodium 134 L, Potassium 4.5, Chloride 94 L, Carbon Dioxide 22.0, Anion Gap 18 H, BUN 67 H, Creatinine 5.11 H, Estim Creat Clear Calc 13.26, Est GFR (MDRD) Af Amer 14 L, Est GFR (MDRD) Non-Af 12 L, BUN/Creatinine Ratio 13.1, Glucose 271 H, Calcium 9.1, Total Bilirubin 0.70, AST 54 H, ALT 29, Alkaline Phosphatase 340 H, Total Protein 6.0 L, Albumin 1.0 L, Globulin 5.0 H, Albumin/Globulin Ratio 0.2 L Micro: Microbiology 07/12/22 10:54 Stool C. difficile DNA Amplification - Final 07/10/22 07:05 Sputum, Induced/Lukens Gram Stain - Final 07/10/22 07:05 Sputum, Induced/Lukens Respiratory Culture - Final Mixed normal respiratory alecia. No Streptococcus pneumoniae, beta-hemolytic Streptococcus or Staphylococcus aureus isolated. 07/03/22 12:48 Blood Culture (Wb) - Left Hand Blood Culture - Final No growth in 5 days. 07/03/22 13:00 Blood Culture (Wb) - Left Wrist Blood Culture - Final No growth in 5 days. 07/03/22 12:20 Sputum, Expectorated/Coughed Gram Stain - Final 07/03/22 12:20 Sputum, Expectorated/Coughed Respiratory Culture - Final Mixed normal respiratory alecia. No Streptococcus pneumoniae, beta-hemolytic Streptococcus or Staphylococcus aureus isolated. 07/04/22 10:25 Stool Stool Occult Blood (GODFREY) - Final 07/01/22 08:25 Urine Catheter - Yarbrough Urine Culture - Final Culture exhibits no growth. 06/28/22 19:35 Nasal Secretion SARS-CoV-2 & FLU Antigen (Rapid) - Final SARS-CoV-2 (COVID 19) Rhythm Strip Rhythm Strip: Sinus Rhythm Rate: 90 Physical Exam Const General Appearance: intubated and patient mechanically ventilated HEENT normocephalic Eyes PERRL and conjunctivae normal Neck supple and no JVD Resp normal respiratory effort, no retractions and no use of accessory muscles Auscultation: rhonchi; Negative for crackles, rales or wheezes Cardio regular rate, regular rhythm, S1 normal heart sound, S2 normal heart sound and no murmurs GI soft to palpation and non-distended; Negative for hepatosplenomegaly Extremity no clubbing, cyanosis or edema Skin no rashes or lesions noted Neuro Sensorium / Orientation: sedated on vent Psych Appearance: intubated Assessment & Plan Assessment/Plan (1) Shock: (2) Acute kidney injury: (3) Acute respiratory failure: (4) Encephalopathy: (5) Diabetic keto-acidosis: (6) COVID: PLAN: Plan 1.? DKA in the setting of type 2 diabetes with a high anion gap metabolic acidosis and YESI with metabolic encephalopathy/hypernatremia and hyperchloremia with hyperchloremic metabolic acidosis with incomplete respiratory compensation with renal tubular acidosis unknown type/acute respiratory failure ? Status post tunneled dialysis catheter, continue with dialysis ? Appreciate property assistant and nephrology's assistance ? Continue with long-acting insulin as well as sliding scale insulin we will make adjustments as necessary ? His A1c is 8.2 ? He was intubated on 07/03/2022, given respiratory status will likely remain intubated, the family meeting yesterday it was decided that we would not trach and PEG and would attempt extubation on Sunday without reintubation ? Continue with tube feeds 2. Septic shock/thrombocytopenia ? Continue with norepinephrine, titrate as needed ? Given findings on chest x-ray likely source is pneumonia possibly ventilator associated, he has had some improvement with meropenem ? His thrombocytopenia is likely reactive and has resolved 3.? COVID-19?noncontributory 4.? HTN/HLD ? We will hold his ramipril given his acute renal failure ? Can wait to restart his pravastatin DVT: Heparin Charges/Coding Visit Charges Inpatient E&M: 48051 Subs Hosp L2
--- NOTE | 2022-07-16 09:39 | PN.RENAL_ITS ---
Subjective Subjective Follow-up on acute kidney injury requiring dialysis. Has been dialyzed yesterday. Remains sick, intubated in ICU, FiO2 40%, PEEP of 10. He is on 5 mics of Levophed. Sedated with propofol. Has tunneled hemodialysis catheter right IJ. Edematous, especially upper body Objective Data Objective Data Vital Signs: Vital Signs Temp Pulse Resp BP Pulse Ox O2 Del Method FiO2 97.0 F L 62 14 117/58 L 96 Mechanical Ventilator 40 07/16/22 09:00 07/16/22 09:00 07/16/22 09:00 07/16/22 09:00 07/16/22 09:00 07/16/22 09:00 07/16/22 09:00 Oxygen Delivery Method Mechanical Ventilator Weight: 97.8 kg Body Mass Index (BMI) 31.8 Intake & Output: Intake and Output for Last 24 Hours 07/14/22 07/15/22 07/16/22 23:59 23:59 23:59 Intake Total 2420.59 / 2438.39 1554.61 / 1734.91 Output Total 2029 Balance 2410.59 / 2428.39 -475.39 / -295.09 Medical Nutrition Assessment Dietitian: Malnutrition Criteria Met Start: 07/02/22 13:54 Freq: Status: Active Protocol: Document 07/07/22 10:09 RMA (Rec: 07/07/22 10:09 RMA [id number]) Nutrition Malnutrition Evidence of Malnutrition Exists Yes Malnutrition (severe): Acute Illness/Injury Evidenced By Suboptimal Energy Intake ( Severe),Weight Loss (Severe) Intake Problem Inadequate Oral Intake Etiology related to altered mental status, resp. failure Signs/Symptoms as evidenced by NPO status; poor PO intake at meals prior to intubation Status Active Problem Clinical Problem Acute Disease or Injury Related Malnutrition Etiology severe, acute malnutrition related to inadequate oral intake d/t acute illness Signs/Symptoms as evidenced by unintentional wt loss of 4.564kg/5% wt loss < 2 weeks; estimated PO intake meeting < 50 % of estimated energy needs > 5 days Status Active Problem Recommendation Dietitian Recommendations/Changes NPO while intubated. Continue TF via OG tube of Nepro at goal rate 50ml/hr with 150ml water flush Q 4 hours to provide 2124 calories , 97 g protein, and 1772mL fluid/day. Lab / Micro Data Attestation: I reviewed the patient's lab results. Result Diagrams: 07/16/22 04:20 07/16/22 04:20 Labs: Laboratory Results - last 24 hr 07/15/22 11:39: POC Glucose 129 H 07/15/22 17:22: POC Glucose 157 H 07/16/22 04:20: WBC 10.0, RBC 2.88 L, Hgb 8.4 L, Hct 26.0 L, MCV 90.3, MCH 29.2, MCHC 32.3, RDW Std Deviation 49.7 H, RDW Coeff of Kenyatta 15.1 H, Plt Count 214, MPV 10.3, Neut % (Auto) Not Reportable, Absolute Neuts (auto) 8.7 H, Absolute Lymphs (auto) 1.00, Total Counted 100, Neutrophils % (Manual) 79 H, Band Neutrophils % 5, Lymphocytes % (Manual) 10 L, Monocytes % (Manual) 3, Myelocytes % 3 H, Nucle ated RBCs/100 WBC 1, Diff Path Review September, Platelet Estimate ADEQUATE, RBC Morphology N CYTIC, Polychromasia RARE 07/16/22 04:20: Sodium 134 L, Potassium 4.5, Chloride 94 L, Carbon Dioxide 22.0, Anion Gap 18 H, BUN 67 H, Creatinine 5.11 H, Estim Creat Clear Calc 13.26, Est GFR (MDRD) Af Amer 14 L, Est GFR (MDRD) Non-Af 12 L, BUN/Creatinine Ratio 13.1, Glucose 271 H, Calcium 9.1, Total Bilirubin 0.70, AST 54 H, ALT 29, Alkaline Phosphatase 340 H, Total Protein 6.0 L, Albumin 1.0 L, Globulin 5.0 H, Albumin/Globulin Ratio 0.2 L Micro: Microbiology 07/12/22 10:54 Stool C. difficile DNA Amplification - Final 07/10/22 07:05 Sputum, Induced/Lukens Gram Stain - Final 07/10/22 07:05 Sputum, Induced/Lukens Respiratory Culture - Final Mixed normal respiratory alecia. No Streptococcus pneumoniae, beta-hemolytic Streptococcus or Staphylococcus aureus isolated. 07/03/22 12:48 Blood Culture (Wb) - Left Hand Blood Culture - Final No growth in 5 days. 07/03/22 13:00 Blood Culture (Wb) - Left Wrist Blood Culture - Final No growth in 5 days. 07/03/22 12:20 Sputum, Expectorated/Coughed Gram Stain - Final 07/03/22 12:20 Sputum, Expectorated/Coughed Respiratory Culture - Final Mixed normal respiratory alecia. No Streptococcus pneumoniae, beta-hemolytic Streptococcus or Staphylococcus aureus isolated. 07/04/22 10:25 Stool Stool Occult Blood (GODFREY) - Final 07/01/22 08:25 Urine Catheter - Yarbrough Urine Culture - Final Culture exhibits no growth. 06/28/22 19:35 Nasal Secretion SARS-CoV-2 & FLU Antigen (Rapid) - Final SARS-CoV-2 (COVID 19) Rhythm Strip Rhythm Strip: Sinus Rhythm Rate: 90 Physical Exam Const General Appearance: patient mechanically ventilated HEENT normocephalic Head and Scalp: atraumatic Neck no lymphadenopathy Resp Resp Narrative: Scattered rhonchi Auscultation: rhonchi throughout Cardio regular rate GI non-distended Auscultation: normoactive bowel sounds Neuro Sensorium / Orientation: sedated on vent Assessment & Plan Assessment/Plan (1) Acute kidney injury: PLAN: Acute kidney injury secondary to ATN, no renal recovery at the moment. Status post dialysis yesterday. It does not appear that he needs renal replacement therapy today. We will attempt to dialyze tomorrow. He might need to be switched back to CRRT.
[2022-07-16] MEDS: Insulin Glargine-YFGN 100 UNIT/ML Pen 50 UNIT SC (10:50)
[2022-07-16 11:10] LABS: Bedside Glucose 250 mg/dL (74-106)
[2022-07-16 11:10] LABS: Bedside Glucose 285 mg/dL (74-106)
[2022-07-16 17:51] LABS: Bedside Glucose 322 mg/dL (74-106)
[2022-07-16 23:10] LABS: Bedside Glucose 290 mg/dL (74-106)
[2022-07-17] VITALS (32 sets, daily range): BP systolic 99–137; BP diastolic 49–71; PULSE 58–100; RESP 13–32; TEMP 35.5–36.2; O2SAT 77–96; BMI 32.5
[2022-07-17] MEDS: guaiFENesin 10 ML UDC (200MG/10ML) GT ×3 (00:59→11:52)
[2022-07-17] MEDS: CHLORHEXIDINE GLUC 2% CLOTH 1 EACH TOWELETTE TOPICAL (02:58)
[2022-07-17] MEDS: Propofol 10MG/Ml 1,000 MG/100 ML Bottle 5.9 MG CONT INF (02:58)
[2022-07-17 03:23] LABS: Hematocrit 26.2 % (40-54); Hemoglobin 8.3 g/dL (13.0-16.5); Mean Corp Hgb Conc 31.7 g/dL (32-36); Mean Corpuscular Hgb 28.9 pg (27.0-32.0); Mean Corpuscular Volume 91.3 fL (80-94); Mean Platelet Vol. 10.1 fl (6.2-12.0); POSITIVE COUNT YES; POSITIVE MORPHOLOGY YES; Platelet Count 306 K/mm3 (150-450); RBC Distribution Width CV 14.9 % (11.6-14.6); RBC Distribution Width SD 49.7 fl (35.1-43.9); Red Blood Count 2.87 M/mm3 (4.6-6.2); White Blood Count 11.7 K/mm3 (4.4-11.0)
[2022-07-17 03:34] LABS: Differential Indicated MANUAL DIFF
[2022-07-17 04:07] LABS: ALB/GLOB Ratio 0.2 RATIO (0.9-2.4); AST(SGOT) 81 U/L (15-37); Alanine Aminotransfer ALT/SGPT 39 U/L (16-61); Alkaline Phosphatase 330 U/L (45-117); Anion Gap 22 (5-15); BUN 110 mg/dL (7-18); CPK Total, Creatine Kinase 17 U/L (39-308); Calcium,Total 8.8 mg/dL (8.5-10.1); Chloride 93 mmol/L (98-107); Creatinine, Serum 6.47 mg/dL (0.70-1.30); EST Glomerular Filtration Rate 9 mL/min (>60); Est Glom Filt Rate - Afr Amer 11 mL/min (>60); Estimated Creatinine Clearance 10.47 ml/min; Globulin 4.7 g/dL (2.2-4.2); Glucose 325 mg/dL (74-106); Protein, Total 5.7 g/dL (6.4-8.2); Sodium Level 133 mmol/L (136-145); Triglycerides 265 mg/dL
[2022-07-17 04:19] LABS: Anisocytosis 1+
[2022-07-17 04:23] LABS: Absolute Lymphocyte Count 1.05 X10^3/uL (0.83-4.51); Absolute Neutrophil Count 9.5 X10^3/uL (2.0-7.7); Metamyelocyte 1 % (0-1); Neutrophil-Band 4 % (0-5); Neutrophil-Segmented 77 % (47-70); Total Cells Counted 100 (MANUAL DIFF)
[2022-07-17 04:24] LABS: Lymphocyte 9 % (19-41); Monocyte 4 % (0-10); Myelocyte 4 % (0-0); Platelet Estimate ADEQUATE (ADEQ); Promyelocyte 1 % (0-0); Red Cell Morphology NORM C+C NORMAL (NORM C&C)
[2022-07-17] MEDS: 0.9% Saline Lock 10 ML Syringe IV ×5 (05:15→22:26)
[2022-07-17] MEDS: Menthol/Lanolin/Calamine/Znox 113 GM Tube 1 APPLIC TOPICAL ×2 (05:16→20:40)
[2022-07-17] MEDS: Insulin Lispro 100 UNIT/ML INSULN.PEN SC ×2 (05:25→11:48)
[2022-07-17] MEDS: NEPRO TUBE FEED 1,000 ML 50 ML GT (06:53)
[2022-07-17] MEDS: TITRATION PARAMETER CHANGE 1 EACH IV (06:53)
--- NOTE | 2022-07-17 07:56 | PN.CC_ITS ---
Assessment & Plan Assessment/Plan (1) Diabetic keto-acidosis: (2) Hypernatremia: (3) Hyperchloremic metabolic acidosis: PLAN: Plan RECOMMENDATIONS: 1. Continue assist-control mode of mechanical ventilation. Wean FiO2 and PEEP to maintain saturations at or above 90%. 2. Continue antimicrobials. 3. Discontinue IV steroids. 4. Continue Levophed to maintain a mean arterial pressure at or above 65 mmHg. 5. Ongoing volume optimization through hemodialysis per nephrology recommen dations. 6. Continue basal and sliding scale insulin. 7. Ongoing goals of care discussion with the patient's family. IMPRESSIONS: 1. Metabolic encephalopathy The patient has developed worsening encephalopathy, likely secondary to profound underlying metabolic derangements, including hypernatremia and worsening uremia in the setting of YESI. Unfortunately, the patient had to be intubated on the morning of July 03 due to concerns for airway protection. Plan to continue dialysis support to address his underlying metabolic derangements and renal insufficiency. Continue to limit sedating medications. 2. Acute respiratory failure The patient was intubated over concerns for airway protection and possible asp iration. The etiology for his encephalopathy appears to be metabolic in nature. Over concerns for increasing oxygen requirements, the patient was placed empirically on meropenem, despite negative culture results. This will be continued to complete a 7-day treatment course. Again, volume optimization would certainly be beneficial in assisting our efforts in weaning from invasive mechanical ventilatory support. 3. Septic shock Clinical concern for underlying pulmonary source of infection. The patient has significant underlying metabolic derangements related to his renal insufficiency. He is significantly overall net positive from a volume perspective for the hospitalization. Plan to continue to wean Levophed, as tolerated, to maintain a mean arterial pressure at or above 65 mmHg. 4. YESI on CKD Likely secondary to ischemic ATN. The patient has interval worsening in his renal function and metabolic derangements. Recommend ongoing dialysis support with volume optimization per nephrology recommendations. Tunneled hemodialysis line placed 07/11/2022. 5. Thrombocytopenia Resolved. Most likely related to underlying infectious etiology. Previous labs were not consistent with DIC. Continue to monitor platelet count for now. No indication for transfusion of blood products. 6. COVID-19/hyperlipidemia/hypertension/advanced age/diabetes mellitus Complicates care, management, recovery and prognosis. Continue supportive measures as noted above. Continue tube feeds as tolerated. UPDATE: This afternoon, following a family discussion, the patient's next of kin have decided to pursue the initiation of comfort care measures, including palliative extubation. CODE STATUS is to be updated to DNR comfort care, per request. Comfort care medication orders have been placed. TIME: 32 minutes of critical care time, inclusive of procedures, was spent addressing the patient's metabolic encephalopathy, acute respiratory failure, septic shock, YESI on CKD, review of all data and collaboration with the care team. Subjective Subjective The patient was seen and examined at the bedside this morning. Events from the last 24 hours have been reviewed. Today is day #15. The patient remains on assist control mode mechanical ventilation with an FiO2 requirement of 50% and PEEP of 5. He remains hemodynamically stable on low-dose Levophed at 2 mcg/min. The patient is sedated on propofol and fentanyl. He remains overall net positive from a volume perspective for the hospitalization. Objective Data Objective Data The patient's most recent lab work, culture data and imaging studies have all been personally reviewed. Surface echocardiogram demonstrated normal LV size with an ejection fraction of 75%. Rapid COVID testing was positive on June 28. Sputum and blood cultures have not demonstrated any growth to date. Vital Signs: Vital Signs Temp Pulse Resp BP Pulse Ox O2 Del Method FiO2 96 F L 62 18 104/59 L 93 Mechanical Ventilator 50 07/17/22 04:00 07/17/22 07:00 07/17/22 07:00 07/17/22 07:00 07/17/22 07:00 07/17/22 07:00 07/17/22 07:00 Oxygen Delivery Method Mechanical Ventilator Weight: 220 lb 7.396 oz Body Mass Index (BMI) 32.5 Intake & Output: Intake and Output for Last 24 Hours 07/15/22 07/16/22 07/17/22 23:59 23:59 23:59 Intake Total 1554.61 / 1734.91 2666.38 / 3016.68 1761.18 / 1761.18 Output Total 2029 / 2029 0 / 0 150 / 150 Balance -475.39 / -295.09 2666.38 / 3016.68 1611.18 / 1611.18 Medical Nutrition Assessment Dietitian: Malnutrition Criteria Met Start: 07/02/22 13:54 Freq: Status: Active Protocol: Document 07/07/22 10:09 RMA (Rec: 07/07/22 10:09 RMA [id number]) Nutrition Malnutrition Evidence of Malnutrition Exists Yes Malnutrition (severe): Acute Illness/Injury Evidenced By Suboptimal Energy Intake ( Severe),Weight Loss (Severe) Intake Problem Inadequate Oral Intake Etiology related to altered mental status, resp. failure Signs/Symptoms as evidenced by NPO status; poor PO intake at meals prior to intubation Status Active Problem Clinical Problem Acute Disease or Injury Related Malnutrition Etiology severe, acute malnutrition related to inadequate oral intake d/t acute illness Signs/Symptoms as evidenced by unintentional wt loss of 4.564kg/5% wt loss < 2 weeks; estimated PO intake meeting < 50 % of estimated energy needs > 5 days Status Active Problem Recommendation Dietitian Recommendations/Changes NPO while intubated. Continue TF via OG tube of Nepro at goal rate 50ml/hr with 150ml water flush Q 4 hours to provide 2124 calories , 97 g protein, and 1772mL fluid/day. Lab / Micro Data Attestation: I reviewed the patient's lab results. Result Diagrams: 07/17/22 03:05 07/17/22 03:05 Labs: Laboratory Results - last 24 hr 07/16/22 00:24: POC Glucose 250 H 07/16/22 10:49: POC Glucose 285 H 07/16/22 17:31: POC Glucose 322 H 07/16/22 22:47: POC Glucose 290 H 07/17/22 03:05: Total Creatine Kinase 17 L, Triglycerides 265 H 07/17/22 03:05: WBC 11.7 H, RBC 2.87 L, Hgb 8.3 L, Hct 26.2 L, MCV 91.3, MCH 28.9, MCHC 31.7 L, RDW Std Deviation 49.7 H, RDW Coeff of Kenyatta 14.9 H, Plt Count 306, MPV 10.1, Neut % (Auto) Not Reportable, Absolute Neuts (auto) 9.5 H, Absolute Lymphs (auto) 1.05, Total Counted 100, Neutrophils % (Manual) 77 H, Band Neutrophils % 4, Lymphocytes % (Manual) 9 L, Monocytes % (Manual) 4, Metamyelocytes % 1, Myelocytes % 4 H, Promyelocytes % 1 H, Diff Path Review May foll, Platelet Estimate ADEQUATE, RBC Morphology NORM C+C, Anisocytosis 1+ 07/17/22 03:05: Sodium 133 L, Potassium 5.0, Chloride 93 L, Carbon Dioxide 18.0 L, Anion Gap 22 H, BUN 110 H*, Creatinine 6.47 H, Estim Creat Clear Calc 10.47, Est GFR (MDRD) Af Amer 11 L, Est GFR (MDRD) Non-Af 9 L, BUN/Creatinine Ratio 17.0, Glucose 325 H, Calcium 8.8, Total Bilirubin 0.60, AST 81 H, ALT 39, Alkaline Phosphatase 330 H, Total Protein 5.7 L, Albumin 1.0 L, Globulin 4.7 H, Albumin/Globulin Ratio 0.2 L Micro: Microbiology 07/12/22 10:54 Stool C. difficile DNA Amplification - Final 07/10/22 07:05 Sputum, Induced/Lukens Gram Stain - Final 07/10/22 07:05 Sputum, Induced/Lukens Respiratory Culture - Final Mixed normal respiratory alecia. No Streptococcus pneumoniae, beta-hemolytic Streptococcus or Staphylococcus aureus isolated. 07/03/22 12:48 Blood Culture (Wb) - Left Hand Blood Culture - Final No growth in 5 days. 07/03/22 13:00 Blood Culture (Wb) - Left Wrist Blood Culture - Final No growth in 5 days. 07/03/22 12:20 Sputum, Expectorated/Coughed Gram Stain - Final 07/03/22 12:20 Sputum, Expectorated/Coughed Respiratory Culture - Final Mixed normal respiratory alecia. No Streptococcus pneumoniae, beta-hemolytic Streptococcus or Staphylococcus aureus isolated. 07/04/22 10:25 Stool Stool Occult Blood (GODFREY) - Final 07/01/22 08:25 Urine Catheter - Yarbrough Urine Culture - Final Culture exhibits no growth. 06/28/22 19:35 Nasal Secretion SARS-CoV-2 & FLU Antigen (Rapid) - Final SARS-CoV-2 (COVID 19) ABG Data ABG results: ABG 07/04/22 08:45 Specimen Type ART Sample Site R Radial pH 7.44 Bicarbonate Actual 18.1 L Total CO2 19 Base Excess -6 L O2 Saturation 96 O2 % 30 ABG pCO2 26.9 L ABG pO2 77 Laz Test Positive Respiration Rate 14 O2 Delivery Device Adult Vent Vent Mode AC Tidal Volume 450 POC PEEP 5 Radiography Diagnostic Testing: Radiology Impression Brain CT 07/08/22 12:51 IMPRESSION: Chronic involutional changes of the brain. No acute hemorrhage Electronically Signed: Rick Mcclelland MD at 14:56 EST , Rhythm Strip Rhythm Strip: Sinus Rhythm Rate: 90 Physical Exam Const average body habitus General Appearance: intubated and patient mechanically ventilated HEENT normocephalic and head/scalp atraumatic Mouth: endotracheal tube in place and OG tube in place Eyes PERRL and conjunctivae normal Eyes Narrative: Continues to have left ptosis Neck supple and no JVD General: trachea midline and CVC in place Chest inspection of chest normal Chest Narrative: Tunneled hemodialysis line is clean, dry and intact Resp normal respiratory effort Auscultation: rhonchi; Negative for crackles, rales or wheezes Cardio regular rate, regular rhythm, S1 normal heart sound, S2 normal heart sound and no murmurs GI soft to palpation and non-distended; Negative for hepatosplenomegaly Extremity General Extremity: edema Skin no rashes or lesions noted Neuro Sensorium / Orientation: sedated on vent Charges/Coding Procedures Hospitalists Procedures: 23494 Critial Care 1st Hr
[2022-07-17] MEDS: Chlorhexidine 15 ML PO (09:27)
[2022-07-17] MEDS: Insulin Glargine-YFGN 100 UNIT/ML Pen 50 UNIT SC (09:27)
[2022-07-17 10:40] LABS: Bedside Glucose 300 mg/dL (74-106)
--- NOTE | 2022-07-17 11:26 | CASEMGMT ---
Social Work As per RN, family is coming in later today around 2-3pm, and pt is going to be extubated. SW called to offer support, message left. JAKE Jaimes
--- NOTE | 2022-07-17 11:42 | PN_ITS ---
Subjective Subjective Patient seen and examined. He remains intubated and sedated. RASS score is -4. Unable to do review of systems. His nurse informs me that family is planning on extubating him on Sunday. Objective Data Objective Data Vital Signs: Vital Signs Temp Pulse Resp BP Pulse Ox O2 Del Method FiO2 96.4 F L 62 18 102/55 L 91 Mechanical Ventilator 50 07/17/22 10:00 07/17/22 10:35 07/17/22 10:35 07/17/22 10:00 07/17/22 10:35 07/17/22 10:00 07/17/22 10:00 Oxygen Delivery Method Mechanical Ventilator Weight: 220 lb 7.396 oz Body Mass Index (BMI) 32.5 Intake & Output: Intake and Output for Last 24 Hours 07/15/22 07/16/22 07/17/22 23:59 23:59 23:59 Intake Total 1554.61 / 1734.91 2666.38 / 3016.68 1995.58 / 1994.58 Output Total 2029 / 2029 0 / 0 180 / 180 Balance -475.39 / -295.09 2666.38 / 3016.68 1815.58 / 1815.58 Medical Nutrition Assessment Dietitian: Malnutrition Criteria Met Start: 07/02/22 13:54 Freq: Status: Active Protocol: Document 07/07/22 10:09 RMA (Rec: 07/07/22 10:09 RMA [id number]) Nutrition Malnutrition Evidence of Malnutrition Exists Yes Malnutrition (severe): Acute Illness/Injury Evidenced By Suboptimal Energy Intake ( Severe),Weight Loss (Severe) Intake Problem Inadequate Oral Intake Etiology related to altered mental status, resp. failure Signs/Symptoms as evidenced by NPO status; poor PO intake at meals prior to intubation Status Active Problem Clinical Problem Acute Disease or Injury Related Malnutrition Etiology severe, acute malnutrition related to inadequate oral intake d/t acute illness Signs/Symptoms as evidenced by unintentional wt loss of 4.564kg/5% wt loss < 2 weeks; estimated PO intake meeting < 50 % of estimated energy needs > 5 days Status Active Problem Recommendation Dietitian Recommendations/Changes NPO while intubated. Continue TF via OG tube of Nepro at goal rate 50ml/hr with 150ml water flush Q 4 hours to provide 2124 calories , 97 g protein, and 1772mL fluid/day. Lab / Micro Data Result Diagrams: 07/17/22 03:05 07/17/22 03:05 Labs: Laboratory Results - last 24 hr 07/16/22 17:31: POC Glucose 322 H 07/16/22 22:47: POC Glucose 290 H 07/17/22 03:05: Total Creatine Kinase 17 L, Triglycerides 265 H 07/17/22 03:05: WBC 11.7 H, RBC 2.87 L, Hgb 8.3 L, Hct 26.2 L, MCV 91.3, MCH 28.9, MCHC 31.7 L, RDW Std Deviation 49.7 H, RDW Coeff of Kenyatta 14.9 H, Plt Count 306, MPV 10.1, Neut % (Auto) Not Reportable, Absolute Neuts (auto) 9.5 H, Absolute Lymphs (auto) 1.05, Total Counted 100, Neutrophils % (Manual) 77 H, Band Neutrophils % 4, Lymphocytes % (Manual) 9 L, Monocytes % (Manual) 4, Metamyelocytes % 1, Myelocytes % 4 H, Promyelocytes % 1 H, Diff Path Review May , Platelet Estimate ADEQUATE, RBC Morphology NORM C+C, Anisocytosis 1+ 07/17/22 03:05: Sodium 133 L, Potassium 5.0, Chloride 93 L, Carbon Dioxide 18.0 L, Anion Gap 22 H, BUN 110 H*, Creatinine 6.47 H, Estim Creat Clear Calc 10.47, Est GFR (MDRD) Af Amer 11 L, Est GFR (MDRD) Non-Af 9 L, BUN/Creatinine Ratio 17.0, Glucose 325 H, Calcium 8.8, Total Bilirubin 0.60, AST 81 H, ALT 39, Alkaline Phosphatase 330 H, Total Protein 5.7 L, Albumin 1.0 L, Globulin 4.7 H, Albumin/Globulin Ratio 0.2 L 07/17/22 05:24: POC Glucose 300 H Micro: Microbiology 07/12/22 10:54 Stool C. difficile DNA Amplification - Final 07/10/22 07:05 Sputum, Induced/Lukens Gram Stain - Final 07/10/22 07:05 Sputum, Induced/Lukens Respiratory Culture - Final Mixed normal respiratory alecia. No Streptococcus pneumoniae, beta-hemolytic Streptococcus or Staphylococcus aureus isolated. 07/03/22 12:48 Blood Culture (Wb) - Left Hand Blood Culture - Final No growth in 5 days. 07/03/22 13:00 Blood Culture (Wb) - Left Wrist Blood Culture - Final No growth in 5 days. 07/03/22 12:20 Sputum, Expectorated/Coughed Gram Stain - Final 07/03/22 12:20 Sputum, Expectorated/Coughed Respiratory Culture - Final Mixed normal respiratory alecia. No Streptococcus pneumoniae, beta-hemolytic Streptococcus or Staphylococcus aureus isolated. 07/04/22 10:25 Stool Stool Occult Blood (GODFREY) - Final 07/01/22 08:25 Urine Catheter - Yarbrough Urine Culture - Final Culture exhibits no growth. 06/28/22 19:35 Nasal Secretion SARS-CoV-2 & FLU Antigen (Rapid) - Final SARS-CoV-2 (COVID 19) Rhythm Strip Rhythm Strip: Sinus Rhythm Rate: 90 Physical Exam Const Constitutional Narrative: intubated, sedated, RASS score is -4 HEENT normocephalic, head/scalp atraumatic and moist oral mucous membranes Eyes PERRL and EOMs intact bilaterally Cardio regular rate, regular rhythm, S1 normal heart sound, S2 normal heart sound and no murmurs GI normal to inspection, nondistended, normoactive bowel sounds, soft to palpation, non-tender and non-distended Extremity normal capillary refill, no clubbing, cyanosis or edema and no calf tenderness Skin General Skin Exam: no breakdown Neuro Neuro Narrative: intubated, sedated, RASS score is -4 Assessment & Plan Assessment/Plan (1) Dehydration, severe: (2) Diabetic keto-acidosis: (3) Acute kidney injury: PLAN: Plan #DKA with severe metabolic acidosis * resolved. * on ISS. Accuchecks q6hrly * #Acute hypoxic respiratory failure * likely due to fluid overload from YESI as well as DKA and concern for aspiration pneumonia * remains intubated and sedated * RASS score is -4 * critical care on board * family to consider extubating him on Sunday. * titrate oxygen and FiO2 to maintain sats >90% * cultures were negative, but he was placd on meropenem to complete a 7 day course. * #Septic shock: * still on levophed. titrate to maintain MAP >65. * Thought to be due to pneumonia, probably ventilator associated. * On meropenem YESI on CKD: temporary dialysis catheter in place for dialysis. Nephrology on board. #COVID 19 pneumonia: stable. out of isolation. IV steroids discontinued #Hypertension; rampiril on hold due to YESI #Hyperlipidemia: on statin #Thrombocytopenia: thought to be due to underlying pathology. continue to monitor platelets for now. #Severe malnutrition: dietitian on board. On tube feeds. DVT prophylaxis: heparin Charges/Coding Visit Charges Inpatient E&M: 35758 Subs Hosp L3
[2022-07-17 12:06] LABS: Bedside Glucose 290 mg/dL (74-106)
[2022-07-17 13:02] LABS: Pathologist Review Reviewed
[2022-07-17 13:17] LABS: Pathologist Review Reviewed
[2022-07-17 13:21] LABS: Pathologist Review Reviewed
--- NOTE | 2022-07-17 13:30 | PCM.PN.REN ---
Subjective Subjective Remains on ventilator, high FiO2. Levophed at 2 mcg. Objective Data Objective Data Vital Signs: Vital Signs Temp Pulse Resp BP Pulse Ox O2 Del Method FiO2 96.6 F L 69 23 H 103/51 L 95 Mechanical Ventilator 50 07/17/22 12:00 07/17/22 12:00 07/17/22 12:00 07/17/22 12:00 07/17/22 12:00 07/17/22 12:00 07/17/22 12:00 Oxygen Delivery Method Mechanical Ventilator Weight: 100 kg Body Mass Index (BMI) 32.5 Intake & Output: Intake and Output for Last 24 Hours 07/15/22 07/16/22 07/17/22 23:59 23:59 23:59 Intake Total 1554.61 / 1734.91 2666.38 / 3016.68 2084.18 / 2083.18 Output Total 2029 0 / 0 180 / 180 Balance -475.39 / -295.09 2666.38 / 3016.68 1904.18 / 1904.18 Medical Nutrition Assessment Dietitian: Malnutrition Criteria Met Start: 07/02/22 13:54 Freq: Status: Active Protocol: Document 07/07/22 10:09 RMA (Rec: 07/07/22 10:09 RMA [id number]) Nutrition Malnutrition Evidence of Malnutrition Exists Yes Malnutrition (severe): Acute Illness/Injury Evidenced By Suboptimal Energy Intake ( Severe),Weight Loss (Severe) Intake Problem Inadequate Oral Intake Etiology related to altered mental status, resp. failure Signs/Symptoms as evidenced by NPO status; poor PO intake at meals prior to intubation Status Active Problem Clinical Problem Acute Disease or Injury Related Malnutrition Etiology severe, acute malnutrition related to inadequate oral intake d/t acute illness Signs/Symptoms as evidenced by unintentional wt loss of 4.564kg/5% wt loss < 2 weeks; estimated PO intake meeting < 50 % of estimated energy needs > 5 days Status Active Problem Recommendation Dietitian Recommendations/Changes NPO while intubated. Continue TF via OG tube of Nepro at goal rate 50ml/hr with 150ml water flush Q 4 hours to provide 2124 calories , 97 g protein, and 1772mL fluid/day. Lab / Micro Data Result Diagrams: 07/17/22 03:05 07/17/22 03:05 Labs: Laboratory Results - last 24 hr 07/15/22 03:40: Diff Path Review Reviewed 07/16/22 04:20: Diff Path Review Reviewed 07/16/22 17:31: POC Glucose 322 H 07/16/22 22:47: POC Glucose 290 H 07/17/22 03:05: Total Creatine Kinase 17 L, Triglycerides 265 H 07/17/22 03:05: WBC 11.7 H, RBC 2.87 L, Hgb 8.3 L, Hct 26.2 L, MCV 91.3, MCH 28.9, MCHC 31.7 L, RDW Std Deviation 49.7 H, RDW Coeff of Kenyatta 14.9 H, Plt Count 306, MPV 10.1, Neut % (Auto) Not Reportable, Absolute Neuts (auto) 9.5 H, Absolute Lymphs (auto) 1.05, Total Counted 100, Neutrophils % (Manual) 77 H, Band Neutrophils % 4, Lymphocytes % (Manual) 9 L, Monocytes % (Manual) 4, Metamyelocytes % 1, Myelocytes % 4 H, Promyelocytes % 1 H, Diff Path Review Reviewed, Platelet Estimate ADEQUATE, RBC Morphology NORM C+C, Anisocytosis 1+ 07/17/22 03:05: Sodium 133 L, Potassium 5.0, Chloride 93 L, Carbon Dioxide 18.0 L, Anion Gap 22 H, BUN 110 H*, Creatinine 6.47 H, Estim Creat Clear Calc 10.47, Est GFR (MDRD) Af Amer 11 L, Est GFR (MDRD) Non-Af 9 L, BUN/Creatinine Ratio 17.0, Glucose 325 H, Calcium 8.8, Total Bilirubin 0.60, AST 81 H, ALT 39, Alkaline Phosphatase 330 H, Total Protein 5.7 L, Albumin 1.0 L, Globulin 4.7 H, Albumin/Globulin Ratio 0.2 L 07/17/22 05:24: POC Glucose 300 H 07/17/22 11:44: POC Glucose 290 H Micro: Microbiology 07/12/22 10:54 Stool C. difficile DNA Amplification - Final 07/10/22 07:05 Sputum, Induced/Lukens Gram Stain - Final 07/10/22 07:05 Sputum, Induced/Lukens Respiratory Culture - Final Mixed normal respiratory alecia. No Streptococcus pneumoniae, beta-hemolytic Streptococcus or Staphylococcus aureus isolated. 07/03/22 12:48 Blood Culture (Wb) - Left Hand Blood Culture - Final No growth in 5 days. 07/03/22 13:00 Blood Culture (Wb) - Left Wrist Blood Culture - Final No growth in 5 days. 07/03/22 12:20 Sputum, Expectorated/Coughed Gram Stain - Final 07/03/22 12:20 Sputum, Expectorated/Coughed Respiratory Culture - Final Mixed normal respiratory alecia. No Streptococcus pneumoniae, beta-hemolytic Streptococcus or Staphylococcus aureus isolated. 07/04/22 10:25 Stool Stool Occult Blood (GODFREY) - Final 07/01/22 08:25 Urine Catheter - Yarbrough Urine Culture - Final Culture exhibits no growth. 06/28/22 19:35 Nasal Secretion SARS-CoV-2 & FLU Antigen (Rapid) - Final SARS-CoV-2 (COVID 19) Rhythm Strip Rhythm Strip: Sinus Rhythm Rate: 90 Physical Exam Narrative sedated no obvious distress no pallor no icterus no JVD s1s2 no murmurs lungs clear abdomen soft no organomegaly no edema no cyanosis Const average body habitus General Appearance: well developed and patient mechanically ventilated HEENT normocephalic Neck no lymphadenopathy Resp clear to auscultation bilaterally Resp Narrative: Scattered rhonchi Auscultation: rhonchi throughout Cardio regular rate Cardio Narrative: Tachycardic GI non-distended Auscultation: normoactive bowel sounds and hypoactive bowel sounds Extremity Extremity Narrative: Mottling of both lower extremities, minimal to no edema General Extremity: edema bilateral Skin Skin Narrative: Acrocyanosis, some petechiae Neuro Sensorium / Orientation: sedated on vent Assessment & Plan Assessment/Plan (1) Acute kidney injury: PLAN: Has been on dialysis. Last dialysis was 07/15/2022. Today he is acidotic, azotemic. Massive volume overload. Significantly net positive. Remains on low-dose norepinephrine. Did not tolerate much fluid removal most of last week due to sepsis and pressor requirements. Original plan was to start CRRT and try for volume removal. I have been notified by nursing staff that family is coming in today and possibly considering withdrawal of care today. Hold off on renal replacement therapy for now. Acidosis. Likely due to renal failure. Discussed with ICU attending
--- NOTE | 2022-07-17 13:44 | NURSING ---
notified [facility] of family discussion of withdrawing care, per [facility] call back with cardiac time of for possible tissue and eye donation, not following for organ donation.
[2022-07-17] MEDS: Morphine 2 MG/ML Syringe IV ×5 (15:19→22:26)
[2022-07-17] MEDS: LORazepam 2 MG/ML Syringe IV ×4 (15:19→22:26)
--- NOTE | 2022-07-17 15:24 | CHAPLAIN ---
Type of Pastoral Visit _x__ Initial Visit ___ Follow-up Visit ___ On-call Visit ___ General Patient Visit ___ Spiritual Assessment ___ Family Conference ___ Bereavement ___ Rapid Response ___ Code Blue ___ Other (describe below) Pastoral Care Referral From ___ Patient ___ Family _x__ Nurse ___ Physician ___ Machine Bookkeeper ___ Fugitive Investigator ___ Other (describe below) Sacrament/Intervention _x__ Active listening ___ Anointing ___ Temple ___ Bereavement ___ Communion _x__ Jaad exploration ___ _x__ Life review _x__ Prayer ___ Reconciliation ___ Sacrament of Sick _x__ Supportive presence ___ Wedding ___ Other (describe below) Pastoral Comments patient is to be extubated soon and the family has arrived; was already here to give Anointing of the Sick; met with family which consisted of of 48 years and one son; spouse is expressive about jada and her 's personal jada and interest in spiritual matters; spouse indicates that she has been blessed by others in the hospital who have initiated prayer for them and how ecumenical it has been; spouse gives some life review and speaks of her support coming from the son; a lap blanket was made available for the RN to place on patient; prayer and presence was given to family at bedside; ongoing support available as needed this day
--- NOTE | 2022-07-17 15:28 | NURSING ---
and son at bedside, lengthy conversation regarding POC and code status, wishes to change code status to DNRCC, Dr. Maldonado notified, comfort orders received. 1516- extubated at this time, placed on 2L NC for comfort, levophed, fentanyl, propofol, and nepro tube feed stopped, restraints D/C'd, oral suctioned, medicated for anxiety and respiratory distress. Family at bedside.
[2022-07-17] MEDS: Atropine Sulfate 1% 2 ml Bottle 4 DRP PO (16:41)
[2022-07-18] VITALS: BP 103/54; PULSE 88; RESP 20; TEMP 36; O2SAT 84
[2022-07-18] MEDS: Morphine 2 MG/ML Syringe IV ×4 (00:01→08:04)
[2022-07-18] MEDS: LORazepam 2 MG/ML Syringe IV ×4 (00:01→08:04)
[2022-07-18] MEDS: 0.9% Saline Lock 10 ML Syringe IV ×3 (00:04→06:19)
[2022-07-18] MEDS: Menthol/Lanolin/Calamine/Znox 113 GM Tube 1 APPLIC TOPICAL (06:20)
[2022-07-18 06:50] VITALS: BP 87/40; PULSE 89; RESP 18; TEMP 36.6; O2SAT 67
[2022-07-18] MEDS: Atropine Sulfate 1% 2 ml Bottle 4 DRP PO (08:03)
[2022-07-18 08:22] VITALS: BP 87/40; PULSE 100; RESP 8; O2SAT 74
--- NOTE | 2022-07-18 09:39 | CASEMGMT ---
Social Work This healthcare social worker met with patient spouse in patient room. Patient resting in bed on room air and not alert. Patient spouse, Sue remembering this healthcare social worker from prior interactions. This healthcare social worker offered support and active listening. Sue thanked this healthcare social worker. This healthcare social worker broached conversation of hospice services for patient. Sue reports to have been told that patient is able to stay on acute unit in current state for 24 hours and if patient has not passed at that point then Sue is thinking a referral to [facility] would be appropriate. This healthcare social worker offered to initiate referral to [facility], Sue would like to wait until 3pm (which is 24hours since patient has been extubated) to have referral sent to [facility], this healthcare social worker voiced understanding. Sue reports that patient son, Raghu is in town and coming to the hospital at some point today. No further questions asked by Sue. This healthcare social worker encouraged Sue to reach out to medical team with any questions or concerns. Social Work to continue to follow for support. PLAN: RENAE Tapia SLASHER RUNNER, JKAE
[2022-07-18 11:00] VITALS: BP 87/40; PULSE 108; RESP 10; O2SAT 77
--- NOTE | 2022-07-18 11:42 | CASEMGMT ---
Social Work Nursing staff, Chago updated this social work msw that patient spouse and family are now open to [facility] referral. Telephone call to [facility], Zahra. Referral made. Clinical information faxed. This social work msw updated patient spouse that referral was made to [facility] and that [facility] will be reaching out to set up a time to meet to discuss care options, Sue voiced understanding. PLAN: Inpatient hospice unit pending evaluation. Social Work to continue to follow. Dajuan BELTRAN, JAKE
--- NOTE | 2022-07-18 12:21 | CASEMGMT ---
[facility] have Label Designer to meet with patient spouse around 3-3:30pm today. This case management social worker updated patient spouse and medical team, all agreeable. PLAN: [facility] to meet with patient family at bedside today. Dajuan BELTRAN, JAKE
--- NOTE | 2022-07-18 12:48 | CASEMGMT ---
Social Work Telephone call from [facility], Melanie. Melanie inquired if accounts payable representative can come in 30min to meet with patient spouse and family at the hospital. This social work case manager checked with patient spouse, Sue. Sue states to be agreeable to [facility] coming in 30min. Medical team updated. Social Work to continue to follow as needed. Dajuan BELTRAN, BETHANIES
--- NOTE | 2022-07-18 14:00 | NURSING ---
Hospice Rep at bedside to speak with patients family. Plan to go to [facility], hospice making arrangments.
--- NOTE | 2022-07-18 14:31 | CASEMGMT ---
Social Work Per Nursing staff, patient to be admitted to Inpatient Hospice Unit and transportation is in route to the hospital. This social director met with patient spouse and son in room. Active listening and support provided. Patient spouse reports to have all questions answered. PLAN: Inpatient Hospice Unit at [facility]. No further services requested or indicated. Dajuan BELTRAN, WANG-S
[2022-07-18 14:34] VITALS: BP 87/49; PULSE 108; RESP 24; O2SAT 74
--- NOTE | 2022-07-18 14:34 | DS.PCM_ITS ---
Providers Date of Admission: 06/28/22 Date of Discharge: 07/18/22 Primary Care Physician: Dr. Arjun Guerra, Consultations 07/01/22 07:05 Consult: Nephrology Routine Consulting Provider: Blanche Prasad Reason for Consult: Renal failure EMERGENT Consult: No Notified: Yes Date Notified: 07/01/22 Time Notified: 09:43 Method of Notification: Answering Service 07/01/22 10:00 Consult: Personnel Coordinator / Pulmonary Medicine Routine Consulting Provider: [facility] Reason for Consult: Metabolic acidosis EMERGENT Consult: No Notified: Yes Date Notified: 07/01/22 Time Notified: 10:00 Method of Notification: Verbal 07/07/22 07:26 Consult: Oncology/Hematology Routine Consulting Provider: [facility] Reason for Consult: thrombocytopenia EMERGENT Consult: No Notified: Yes Date Notified: 07/07/22 Time Notified: 07:26 Method of Notification: Answering Service 07/10/22 07:41 Consult: General Surgery Routine Consulting Provider: Luis Wen Reason for Consult: Tunneled hemodialysis catheter EMERGENT Consult: No Notified: Yes Date Notified: 07/10/22 Time Notified: 07:53 Method of Notification: Answering Service Reason For Visit: DKA, RENAL FAILURE Diagnosis Discharge Diagnosis (1) Diabetic keto-acidosis: Status: Acute Code(s): E11.10 - Type 2 diabetes mellitus with ketoacidosis without coma (2) Hypernatremia: Status: Acute Code(s): E87.0 - Hyperosmolality and hypernatremia (3) Hyperchloremic metabolic acidosis: Status: Acute Code(s): E87.29 - Other acidosis Plan #DKA with severe metabolic acidosis * resolved. * on ISS. Accuchecks q6hrly * #Acute hypoxic respiratory failure * likely due to fluid overload from YESI as well as DKA and concern for aspiration pneumonia * remains intubated and sedated * RASS score is -4 * critical care on board * family to consider extubating him on Sunday. * titrate oxygen and FiO2 to maintain sats >90% * cultures were negative, but he was placd on meropenem to complete a 7 day course. * #Septic shock: * still on levophed. titrate to maintain MAP >65. * Thought to be due to pneumonia, probably ventilator associated. * On meropenem YESI on CKD: temporary dialysis catheter in place for dialysis. Nephrology on board. #COVID 19 pneumonia: stable. out of isolation. IV steroids discontinued #Hypertension; rampiril on hold due to YESI #Hyperlipidemia: on statin #Thrombocytopenia: thought to be due to underlying pathology. continue to monitor platelets for now. #Severe malnutrition: dietitian on board. On tube feeds. DVT prophylaxis: heparin Medications at Discharge Home Medications aspirin 325 mg tablet 325 mg PO DAILY@0800 02/22/15 canagliflozin 100 mg tablet 100 mg PO DAILY 02/22/15 folic acid 1 mg tablet 1 mg PO DAILY@0800 02/22/15 glipizide 10 mg tablet 10 mg PO BIDAC 02/22/15 pravastatin 40 mg tablet 40 mg PO DAILY 02/22/15 ramipril 5 mg capsule 5 mg PO DAILY 02/22/15 sitagliptin phosphate 100 mg tablet 100 mg PO DAILY 02/22/15 Hospital Course Operations None Procedures 2-D Echocardiogram and Dialysis Summary of Care Provided Minutes Spent on Discharge: 55 Hospital Course: Patient is a 71-year-old male with a past medical history as outlined was admitted through the ED on 06/28/2022 with a complaint of nausea, vomiting and diarrhea as well as decreased oral intake for 8 days prior to admission. He had gone to his PCP on 06/20/2022 and states he was advised to adjust his diet. However his symptoms persisted and he started having upper abdominal and lower chest pain so he came into the ED. He had also had some associated confusion. On admission labs done showed bicarb of 11 with elevated anion gap of 18 and glucose of 391. He had a creatinine of 4.4, with a baseline creatinine of 1.2. COVID test done was also positive. He was admitted and managed for DKA with anion gap metabolic acidosis as a result of YESI and DKA as well as COVID-19 infection. He was started on insulin drip and hydrated with IV fluids. DKA eventually resolved but hospital course was complicated by acute hypoxic respi ratory failure due to concerns about aspiration. He was eventually intubated for airway protection and also for aspiration. He was placed empirically on IV meropenem as he also developed septic shock requiring vasopressor support. His YESI was thought to be due to ischemic ATN and his kidney function gradually worsened so dialysis had to be initiated. He did have a tunneled dialysis catheter placed and dialysis was commenced. Hospital was again complicated by thrombocytopenia. Patient could not be extubated and his condition did not improve. Family subsequently decided to terminally extubate him. He was extubated on 07/17/2022. Family opted for hospice and patient was discharged to hospice medical facility on 07/18/2022. Patient was seen and examined on the day of discharge. was by his bedside. had no active concerns. Patient was unresponsive and breathing on his own. Vitals reviewed. Physical Exam Const Constitutional Narrative: extubated, on oxygen by nasal canula. minimally responsive. HEENT normocephalic and head/scalp atraumatic HEENT Narrative: dry oral mucosal membranes Eyes PERRL, EOMs intact bilaterally and conjunctivae normal Eyes Narrative: No icterus. No corneal injection. Neck supple and no JVD Resp normal respiratory effort, no retractions and no use of accessory muscles Resp Narrative: Diminished Auscultation: rhonchi; Negative for crackles, rales or wheezes Cardio regular rate, regular rhythm, S1 normal heart sound, S2 normal heart sound and no murmurs GI normal to inspection, nondistended, normoactive bowel sounds, soft to palpation, non-tender and non-distended; Negative for hepatosplenomegaly Extremity normal to inspection, full ROM, normal capillary refill, no clubbing, cyanosis or edema and no calf tenderness Extremity Narrative: Bilateral lower extremity edema. Skin no rashes or lesions noted General Skin Exam: no breakdown Neuro Neuro Narrative: extubated, patient minimally responsive. Psych Psych Narrative: unresponsive Medical Records Data Medical Nutrition Assessment Dietitian: Malnutrition Criteria Met Start: 07/02/22 13:54 Freq: Status: Active Protocol: Document 07/07/22 10:09 RMA (Rec: 07/07/22 10:09 RMA [id number]) Nutrition Malnutrition Evidence of Malnutrition Exists Yes Malnutrition (severe): Acute Illness/Injury Evidenced By Suboptimal Energy Intake ( Severe),Weight Loss (Severe) Intake Problem Inadequate Oral Intake Etiology related to altered mental status, resp. failure Signs/Symptoms as evidenced by NPO status; poor PO intake at meals prior to intubation Status Active Problem Clinical Problem Acute Disease or Injury Related Malnutrition Etiology severe, acute malnutrition related to inadequate oral intake d/t acute illness Signs/Symptoms as evidenced by unintentional wt loss of 4.564kg/5% wt loss < 2 weeks; estimated PO intake meeting < 50 % of estimated energy needs > 5 days Status Active Problem Recommendation Dietitian Recommendations/Changes NPO while intubated. Continue TF via OG tube of Nepro at goal rate 50ml/hr with 150ml water flush Q 4 hours to provide 2124 calories , 97 g protein, and 1772mL fluid/day. Weight / BMI Weight Weight: 220 lb 7.396 oz Body Mass Index (BMI) 32.5 ABG / Lab / Microbiology Data Result Diagrams: 07/17/22 03:05 07/17/22 03:05 Microbiology: Microbiology 07/12/22 10:54 Stool C. difficile DNA Amplification - Final 07/10/22 07:05 Sputum, Induced/Lukens Gram Stain - Final 07/10/22 07:05 Sputum, Induced/Lukens Respiratory Culture - Final Mixed normal respiratory alecia. No Streptococcus pneumoniae, beta-hemolytic Streptococcus or Staphylococcus aureus isolated. 07/03/22 12:48 Blood Culture (Wb) - Left Hand Blood Culture - Final No growth in 5 days. 07/03/22 13:00 Blood Culture (Wb) - Left Wrist Blood Culture - Final No growth in 5 days. 07/03/22 12:20 Sputum, Expectorated/Coughed Gram Stain - Final 07/03/22 12:20 Sputum, Expectorated/Coughed Respiratory Culture - Final Mixed normal respiratory alecia. No Streptococcus pneumoniae, beta-hemolytic Streptococcus or Staphylococcus aureus isolated. 07/04/22 10:25 Stool Stool Occult Blood (GODFREY) - Final 07/01/22 08:25 Urine Catheter - Yarbrough Urine Culture - Final Culture exhibits no growth. 06/28/22 19:35 Nasal Secretion SARS-CoV-2 & FLU Antigen (Rapid) - Final SARS-CoV-2 (COVID 19) Meaningful Use Info Meaningful Use Diagnoses (Choose all that apply): None applicable Discharge Plan Admission Admit Date/Time: 06/28/22 22:29 Primary Reason for Your Visit: DKA, septic shock, acute hypoxic respiratory failure Attending Provider: Amee Del Toro Primary Care Provider: Arjun Guerra Consulting Providers: Taylor Oreilly ; Morro Stinson ; Zane Maldonado ; Gato Hensley ; Rich Sheridan ; Iram Fox TRAFFIC CONTROL OFFICER ; Blanche Prasad ; Jose Candelaria ; Eugene Samaniego ; James Bernard ; Brielle Sherwood ; Hay Middleton ; Spencer Breen ; Ran Robles ; Jevon Saenz ; Radha Pope TRAFFIC CONTROL OFFICER ; Abimael Ramachandran ; Luis Wen Discharge Orders/Prescriptions Prescriptions: No Action aspirin 325 MG tablet 325 mg PO DAILY@0800 Label Comments: stopped now until after procedure pravastatin 40 MG tablet 40 mg PO DAILY glipizide 10 MG tablet 10 mg PO BIDAC folic acid 1 MG tablet 1 mg PO DAILY@0800 ramipril 5 MG capsule 5 mg PO DAILY sitagliptin phosphate 100 MG tablet 100 mg PO DAILY canagliflozin 100 MG tablet 100 mg PO DAILY Referrals / Follow Up: Arjun Guerra DO [Primary Care Provider] - Disposition Disposition (needs filled in before D/C Order can be placed): Hospice in Medical Facility Charges/Coding Visit Charges Inpatient E&M: 51045 Disch Hosp >30min
--- NOTE | 2022-07-18 14:41 | CHAPLAIN ---
Type of Pastoral Visit ___ Initial Visit _x__ Follow-up Visit ___ On-call Visit ___ General Patient Visit ___ Spiritual Assessment ___ Family Conference ___ Bereavement ___ Rapid Response ___ Code Blue ___ Other (describe below) Pastoral Care Referral From ___ Patient _x__ Family ___ Nurse ___ Physician _x__ Work Car Operator ___ [place] ___ Other (describe below) Sacrament/Intervention _x__ Active listening ___ Anointing ___ Moravian ___ Bereavement ___ Communion ___ Jada exploration ___ ___ Life review ___ Prayer ___ Reconciliation ___ Sacrament of Sick ___ Supportive presence ___ Wedding ___ Other (describe below) Pastoral Comments patient is at end of life stage but may be going to hospice from here soon; family is gathered in the room; opportunity given for support and sharing of memories of patient; talk continues to 'seeing the other world and people who have passed on; affirmation of spiritual thoughts and beliefs; ongoing support as needed or desired
== END 2022-07-18 14:45 | disposition hospice, inpatient (51) | DRG 637 ==
LOC: ED 22:10 → ICU 22:48
PROVIDERS: Family Medicine; Internal Medicine Critical Care Medicine; Internal Medicine Nephrology; Surgery; Admitting Provider Internal Medicine; Emergency Provider Emergency Medicine; PCP Family Medicine; Visit Provider Student in an Organized Health Care Education/Training Program
PROC: 0JH63XZ Insertion of Tunneled Vascular Access Device into Chest Subcutaneous Tissue and Fascia, Percutaneous Approach (ICD-10-PCS; principal; 2022-07-11 11:15)
DX: E11.10 Type 2 diabetes mellitus with ketoacidosis without coma (principal); U07.1 COVID-19; J96.01 Acute respiratory failure with hypoxia; N17.0 Acute kidney failure with tubular necrosis; J69.0 Pneumonitis due to inhalation of food and vomit; A41.9 Sepsis, unspecified organism; G93.41 Metabolic encephalopathy; R65.21 Severe sepsis with septic shock; E43 Unspecified severe protein-calorie malnutrition; J95.851 Ventilator associated pneumonia; I47.1 Supraventricular tachycardia; E87.0 Hyperosmolality and hypernatremia; E87.1 Hypo-osmolality and hyponatremia; I48.91 Unspecified atrial fibrillation; E11.649 Type 2 diabetes mellitus with hypoglycemia without coma; E11.22 Type 2 diabetes mellitus with diabetic chronic kidney disease; D69.6 Thrombocytopenia, unspecified; E86.0 Dehydration; E78.5 Hyperlipidemia, unspecified; E87.8 Other disorders of electrolyte and fluid balance, not elsewhere classified; E83.52 Hypercalcemia; N18.9 Chronic kidney disease, unspecified; I12.9 Hypertensive chronic kidney disease with stage 1 through stage 4 chronic kidney disease, or unspecified chronic kidney disease; R11.2 Nausea with vomiting, unspecified; R19.7 Diarrhea, unspecified; E87.70 Fluid overload, unspecified; Z91.14 Patient's other noncompliance with medication regimen; Z68.31 Body mass index [BMI] 31.0-31.9, adult; Z79.82 Long term (current) use of aspirin; Z79.84 Long term (current) use of oral hypoglycemic drugs
CPT/HCPCS: 31500; 31720; 36415; 36600; 70450; 71045; 74018; 76770; 77001; 80048; 80053; 80061; 80069; 80076; 80202; 81001; 82009; 82274; 82306; 82436; 82550; 82570; 82728; 82803; 82962; 83036; 83605; 83615; 83690; 83735; 83880; 83930; 83935; 83970; 84100; 84133; 84145; 84300; 84478; 84484; 84540; 85025; 85027; 85379; 85384; 85610; 85730; 86140; 87040; 87070; 87086; 87205; 87340; 87428; 87493; 90937; 90947; 93005; 93306; 94002; 94003; 94660; 94667; 94668; 94760; 94762; 97110; 97162; 97164; 97166; 97530; 97535; 97802; 97803; 99252; 99285; J2185; J7030; J7040; J7050; Q9957; A4216; C1750; C8929; G0257; G0463; J0153; J3010; J3490; J7799